=== PATIENT | female | born 2000 | race Caucasian/White ===

== ENCOUNTER → 2024-12-08 | Outpatient (CLI) | payer BC, SELFPAY ==
[2024-12-11 03:07] LABS: Chlamydia By Nucleic Acid AMP Negative (Negative); Gonococcus By Nucleic Acid AMP Negative (Negative)
[2024-12-17 08:08] LABS: HPV Reflexed? NOT INDICATED
== END | disposition home or self-care (01) ==
LOC: LABSPEC 16:05
PROVIDERS: Referring Provider Advanced Practice Midwife; Visit Provider Advanced Practice Midwife
DX: O09.90 Supervision of high risk pregnancy, unspecified, unspecified trimester (principal); Z12.4 Encounter for screening for malignant neoplasm of cervix; Z3A.00 Weeks of gestation of pregnancy not specified
CPT/HCPCS: 87077; 87086; 87088; 87186; 87491; 87591; 88175; G0145

== ENCOUNTER → 2024-12-16 | Outpatient (CLI) | payer BC, SELFPAY ==
[2024-12-16 14:12] LABS: hCG Titer Quant., Serum 28336 mIU/mL (<9 non-preg)
== END | disposition home or self-care (01) ==
PROVIDERS: Referring Provider Obstetrics & Gynecology; Visit Provider Obstetrics & Gynecology
DX: O20.0 Threatened abortion (principal); Z3A.00 Weeks of gestation of pregnancy not specified
CPT/HCPCS: 36415; 84702

== ENCOUNTER → 2024-12-26 | Outpatient (CLI) | payer BC, SELFPAY ==
--- NOTE | 2024-12-26 12:35 | US_ITS ---
PROCEDURE: TRANSVAGINAL W/PREG US 12/26/2024 REASON FOR EXAM: RULE OUT MISCARRIAGE TECHNIQUE: High resolution obstetric ultrasound performed using a 2D transducer. Standard views obtained, including biometry, anatomy survey, and Doppler studies. Transvaginal ultrasound images are provided. COMPARISON: None. FINDINGS Uterus measures 11??? 6.6 x 5.2 cm. No uterine mass lesion is identified. Single intrauterine irregular gestational sac is noted. Mean gestational sac diameter is 2.76 cm corresponds to an estimated gestational age of 7 weeks and 6 days. Estimated gestational age by LMP is 10 weeks and 1 day. Estimated delivery date by LMP is on 07/23/2025. Estimated delivery date based on today's ultrasound is on 08/14/2025. No definite pole is identified. No cardiac activity is identified. Normal right ovary measuring 2.5???2.3???1.4 cm. Normal right ovarian flow. The left ovary was not visualized secondary to overlying bowel gas. No free fluid is identified in the pelvic cul-de-sac. US/Transvaginal w/Preg US IMPRESSION: 1. Single intrauterine irregular gestational sac. 2. No pole is identified. 3. No cardiac activity seen. Reading Location: [facility]
== END | disposition home or self-care (01) ==
PROVIDERS: Referring Provider Obstetrics & Gynecology; Visit Provider Obstetrics & Gynecology
DX: O20.0 Threatened abortion (principal); Z3A.00 Weeks of gestation of pregnancy not specified
CPT/HCPCS: 76817

== ENCOUNTER 2024-12-30 10:29 | Day surgery (SDC) | payer BC, SELFPAY ==
[2024-12-30] VITALS (8 sets, daily range): BP systolic 112–116; BP diastolic 63–71; PULSE 76–94; RESP 16–18; TEMP 36.2–36.9; O2SAT 96–97; BMI 28.4
[2024-12-30] MEDS: Doxycycline 100 MG CAPSULE PO (11:31)
[2024-12-30 11:36] LABS: Hematocrit 37.8 % (37-47); Mean Corp Hgb Conc 34.4 g/dL (32-36); Mean Corpuscular Hgb 30.4 pg (27.0-32.0); Mean Corpuscular Volume 88.3 fL (81-99); Mean Platelet Vol. 10.1 fl (6.2-12.0); Platelet Count 258 K/mm3 (150-450); RBC Distribution Width CV 12.7 % (11.6-14.6); RBC Distribution Width SD 41.2 fl (35.1-43.9); Red Blood Count 4.28 M/mm3 (4.2-5.4); White Blood Count 5.8 K/mm3 (4.4-11.0)
--- NOTE | 2024-12-30 11:38 | PRE.ANES_ITS ---
ASA Classification* ASA Classification ASA Classification: 1 Assessment & Plan Anesthesia* Anesthesia Assessment Anesthesia Assessment: Discussed sedation and/or anesthesia options, risks, benefits, and alternatives with patient/parents/legal guardian/POA. Questions invited. The patient/parents/legal guardian/POA seems to understand and agrees to proceed with anesthesia plan. Reviewed the physical assessment, medical history, allergy history and patient home medications list prior to surgery/procedure/anesthetic and documented any changes. Performed airway and anesthesia risk assessments. Anesthesia Type Anesthesia Type: MAC History Source History Obtained from:: Patient and Chart Anesthesia Focused Assessment* Temperature: 98.4 F Pulse Rate: 76 Blood Pressure: 112/68 Respiratory Rate: 18 Pulse Ox: 97 Oxygen Delivery Method: Room Air Airway Assessment Mouth opens: >3 cm Mallampati Score: I Teeth Condition: Upper (Patient has a permanent retainer behind teeth #8 and 9. 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 When Was Last Pacemaker Check QUESTION #4 FULL TEXT: You/Your Family Experience fever (hyperthermia) with Anesthesia Last Oral Intake Last Oral intake: Last Oral Intake NPO since 02:00 12/30/24 11:24 Meds taken in AM with sips of No 12/30/24 11:24 water? Meds patient instructed to take am of surgery PONV PONV - process safety specialist: PONV - process safety specialist Female Yes 12/29/24 12:36 HX of Motion Sickness No 12/29/24 12:36 HX of N/V After Surgery No 12/29/24 12:36 Non-Smoker Yes 12/29/24 12:36 Duration of Surgery greater No 12/29/24 12:36 than 60 minutes Number of Risk Factors 2 12/29/24 12:36 PONV Score Moderate Risk 12/29/24 12:36 Height & Weight Height & Weight: Anesthesia: Height & Weight Height 5 ft 3 in 12/30/24 11:24 Weight: 72.8 kg 12/30/24 11:24 Body Mass Index (BMI) 28.4 12/30/24 11:24 Respiratory Assessment Respiratory Assessment - process safety specialist: Respiratory Tract Infection Hx - process safety specialist Hx Respiratory Tract Infection No 12/29/24 12:36 STOP Sleep Apnea STOP Sleep Apnea - process safety specialist: STOP Sleep Apnea - process safety specialist Hx Hypertension No 12/29/24 12:36 Hx Sleep Apnea No 12/29/24 12:36 CPAP BIPAP Do you snore loudly (louder No 12/29/24 12:36 than talking or can be heard Do you often feel tired/ No 12/29/24 12:36 fatigued/ sleepy during daytime? Has anyone observed you stop No 12/29/24 12:36 breathing during sleep? STOP Results Negative 12/29/24 12:36 QUESTION #5 FULL TEXT : Do you snore loudly (louder than talking or can be heard through closed doors)? 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 Specify any problems Hx of Preganancy in last 3 N/A 12/29/24 12:36 Months Nurse Filling Out Transfusion NBUCHER 12/29/24 12:36 & Questions: Date: 12/29/24 12/29/24 12:36 Time: 12:36 12/29/24 12:36 Patient unable to answer at this time (ie. confused, unrespo /Reproduction History /Reproductive History - process safety specialist: /Reproductive Hx- process safety specialist Hx Now Gestational Age (in weeks): EDC: Hx Hx Para Hx Section SAB No 12/29/24 12:36 Active Medications Active Medications: Current Medications Generic Name Dose Route Start Last Admin Trade Name Freq PRN Reason Stop Dose Admin Doxycycline Monohydrate 100 mg 12/30/24 12:00 12/30/24 11:31 Doxycycline 100 Mg Capsule PO 12/30/24 12:01 100 mg PREOP ONE Administration PFSH Medical History Wears partial dentures History of Lyme disease Wears glasses Non-smoker Migraine Home Medications ?Medication ?Instructions ?Recorded ?Last Taken ?Type NK 12/29/24 Unknown History Allergy/AdvReac Type Severity Reaction Status Date / Time No Known Allergies Allergy Verified 12/30/24 11:24 Family History Mother Diabetes Type 2 Grandmother Diabetes Maternal Type 2 Social History adopted: No household members: spouse and children number of children: 1 current occupational status: employed 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 current occupational exposures/hazards: No pets and animals: Yes pets and animals: dog(s) history of recent travel: No sexually active: Yes Smoking Status: Never smoker alcohol intake: never substance use type: does not use well-balanced diet: daily or most days caffeine: Yes Type: coffee Number of servings: 1 eating out: rarely or never during the past year weight has: increased > 10 lbs what type of physical activity do you participate in: none vinh/mormon: None seatbelt use: always do you feel safe at home: Yes additional social history: - Alvaro 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
--- NOTE | 2024-12-30 11:48 | DCINST_ITS ---
Discharge Instructions Diet Discharge Diet: No restrictions DC O2, CPAP, BIPAP needs Home O2 Discharge instructions: No Dressing / Incision Discharge Activity: Return to Normal Activity, May Shower and May Take a Tub Bath (after 1 week) May resume sexual activity in: 1-2 weeks Weight Bearing Status: Weight bearing as tolerated Lifting Restrictions: none Dressing / Incision Call your doctor if you observe: Fever of 101 or Higher, Using more than 1 pad per hour, Shortness of breath and Uncontrolled pain Follow Up Care Please Follow Up With: Bev Mandujano DO When: Call [phone] to schedule appointment. Test Results: Test results from this visit will be discussed in further detail at your follow- up appointment, if applicable. Discharge Plan Admission Attending Provider: Miguelina Ibrahim Primary Care Provider: Care Physician,No Primary Instructions Print Language: Persian Discharge Orders/Prescriptions Prescriptions: No Action NK Referrals / Follow Up: Care Physician,No Primary [Primary Care Provider] - Disposition Disposition (needs filled in before D/C Order can be placed): Home, Self Care
--- NOTE | 2024-12-30 11:48 | PCM.HP.BLA ---
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: No Is patient in pain?: No Allergies No Known Allergies Allergy (Verified 12/29/24 12:35) Medications ?Medication ?Instructions ?Recorded ?Confirmed ?Type NK 12/29/24 12/29/24 History Post menopausal: No : No [facility] Medical History (Updated 12/29/24 @ 12:42 by Mariah Coley) Wears partial dentures History of Lyme disease Wears glasses Non-smoker Migraine Family History Mother Diabetes Type 2Grandmother Diabetes Maternal Type 2 Social History adopted: No household members: spouse and children number of children: 1 current occupational status: employed 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 current occupational exposures/hazards: No pets and animals: Yes pets and animals: dog(s) history of recent travel: No sexually active: Yes Smoking Status: Never smoker alcohol intake: never substance use type: does not use well-balanced diet: daily or most days caffeine: Yes Type: coffee Number of servings: 1 eating out: rarely or never during the past year weight has: increased > 10 lbs what type of physical activity do you participate in: none vinh/adventism: None seatbelt use: always do you feel safe at home: Yes additional social history: - Alvaro 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 She is over 10 weeks since her last menses and ultrasound shows a 7 week gestational sac without pole or heart tones. 2 weeks ago there were 2 gestational sacs and 2 yolk sacs. History 2 Elective abortions Hx Para 1 Spontaneous abortions 1 Hx # Term Pregnancies Ectopic pregnancies Hx # Pregnancies Multiple births # of living children 1 Past Pregnancies Del. Date Name GA/Weeks Outcome Route Bth Weight Infant Gen Labor Lgth Anesthesia Del Locatn Provider FOB 12/27/23 Michael 40 live - full term 7#14oz Male epidural [facility] [place] Alvaro Delivery Date: 09/12/23 Last Updated by: Miguelina Koch IOL postdates ROS Const ROS Unobtainable: All systems reviewed & are unremarkable except as noted in H Resp Resp: Reports system reviewed and no additional complaints, except as documented; Denies cough GI GI: Reports as per HPI Psych Psych: Reports system reviewed and no additional complaints, except as documented Exam Const General: cooperative, healthy appearing, comfortable and no acute distress Resp Effort & Inspection: normal respiratory effort Skin General: no rashes or lesions noted Psych Appearance: grossly normal Speech and Movement: speech and movement normal Coding Level of Care Code Off vis,est,level 4 Diagnoses Missed O02.1 Assessment and Plan Assessment and Plan (1) Missed : Status: Acute Comment: patient should be 10 weeks based on her + test on Nov 03 and today a CRL that is less than 6 weeks without heart tones is picked up. She is requesting labs and a formal ultrasound to confirm. will call with results. Plan: After discussing the patient's diagnosis and treatment plan options, patient wishes to proceed with surgical management. I have discussed with the patient the risks, benefits, and alternatives of the procedure which include but are not limited to risks of anesthesia, bleeding, infection, possible damage to bowel, bladder, or surrounding vasculature which could lead to additional surgery to evaluate any complications. Patient agrees to procedure and wishes to proceed. ACOG/uptodate references given for additional information regarding procedure. plan for suction dilation and curettage
--- NOTE | 2024-12-30 12:00 | POC_PTH ---
PATIENT: MICA RIGGS [place] [facility] [place][id number] AGE/SX: ROOM: RE12/30/[address]: Dr. Miguelina Ibrahim MD : [id number] BED: DIS: 12/30/2024 SPEC #: [id number] RECD: 12/30/24 13:41 STATUS: SANDY RENoelle #: [id number] OLU: 12/30/24 12:[address]: Miguelina Ibrahim DEPT: SURGICAL PATHOLOGY RECD BY: Lorenzo Jolly ENTERED: 12/30/24 13:41 SP TYPE: PROD CONC OTHR DR: No Primary Care Phys Tissues: A - Product of conception, NOS Procedures: Surgery Specimen Level IV HEADER OPERATION: Dilation and curettage, suction, no anora testing PRE-OP DIAGNOSIS: Missed TISSUE SUBMITTED: A- Products of conception MICROSCOPIC DIAGNOSIS A. Uterine content, missed , dilation and curettage: * Degenerated immature chorionic villi and decidua, consistent with products of conception. MICROSCOPIC DESCRIPTION Slides are reviewed. GROSS DESCRIPTION A. Received in formalin in a container labeled with the patient's name, date of , and products of conception are multiple frausto-pink fragments of soft tissue admixed with blood clot material measuring 8.5 x 8.0 x 1.0 cm in aggregate. The tissue is finely searched, and a 2.9 x 1.5 x 1.0 cm fragment of frausto-pink and feathery possible chorionic villous tissue is identified. No grape-like clusters are discovered; no parts are found. Automation Design Engineer sections are submitted in A1-2. [facility] 01/02/2025 CPT:07677
[2024-12-30] MEDS: Lidocaine 1% (20 ml mdv) 20 ML Vial (12:19)
[2024-12-30] MEDS: Methylergonovine 0.2 MG/ML Ampul IM (12:30)
--- NOTE | 2024-12-30 12:30 | OP.PCM_ITS ---
Multi Select Codes Urinary/Genital Urinary/Genital CPT Codes: 07899 Surg Trtmt missed Ab 1TM Operative Report (Standard) Operative Information Date of Procedure: 12/30/24 Pre-Operative Diagnosis: 7 weeks missed Post-Operative Diagnosis: 7 weeks missed Surgery/Procedure Performed: suction dilation and curettage control systems engineer: No Type of Anesthesia: MAC and Topical Anesth RN Documented Start/Stop Times: Operation Date: 12/30/24 12:00 Case Time Into Pre-Op 12/30/24 10:44 Out of Pre-Op 12/30/24 12:00 Anesthesia Start 12/30/24 12:05 Into Room 12/30/24 12:05 Procedure Start 12/30/24 12:19 Procedure Start Time: 12:19 Procedure Stop Time: 12:29 Select all DRAINS/GRAFTS/IMPLANTS that apply: None Estimated Blood Loss: 50cc Specimen collected: Yes Description of specimen(s) removed: products of conception Description of surgery: Patient was taken to the operating room and placed under MAC local anesthesia. She was prepped and draped in the normal sterile fashion the dorsal lithotomy position. Bladder was drained of clear urine and anterior lip of the cervix was grasped and the uterus sounded to 9 cm. Cervix was progressively dilated to allow passage of a 8mm suction curette. Progressive passes were made removing the retained products of conception without complication. Sharp curettage confirmed complete removal of the retained products. All instruments were removed from the vagina and excellent hemostasis was noted and the patient was taken to recovery in stable condition. Surgical Findings: normal cervix and vagina, normal appearing products of conception Complications Complications: No Admit VTE Documentation VTE Present on Admission: No VTE Mechan Device Prophylaxis: SCD's VTE Pharm Prophylaxis ordered?: No
--- NOTE | 2024-12-30 12:37 | PCM.POST.ANE ---
Anesthesia: Postop Eval I Current Vital Signs Temperature: 97.1 F Pulse Rate: 82 Blood Pressure: 116/69 Respiratory Rate: 16 Pulse Ox: 96 Oxygen Delivery Method: Room Air Assessment Airway patent: Yes Spontaneous unlabored respirations: Yes Mental status: Calm nausea: No Vomiting: No Anesthesia Complication: No Fluid Hydration Crystalloid volume administer (ml): 20 Total IV fluid infused: 20 Progress Note Anesthesia document: Postop Eval 1 completed: Yes
--- NOTE | 2024-12-30 16:24 | PCM.POSTANE2 ---
Anesthesia Postop Eval I Sum Anesthesia Postop Eval I Summary Anesthesia Postop Eval I Summary: Anesthesia Postop Eval I: Assessment Summary Airway patent Spontaneous unlabored respirations Mental status nausea Vomiting Anesthesia Postop Eval I: Fluid Summary Crystalloid volume administer (ml) Colloids volume administered ( ml) Blood Product volume administered (ml) Total IV fluid infused Anesthesia Postop Eval I: Summary Notes Anesthesia Complication Anesthesia Complication Comment: Post-operative progress note Anesthesia: Postop Eval II Evaluation Mental status: Awake and Calm Pain Level: 1 nausea: No Vomiting: No Complications Anesthesia Complication: No
== END 2024-12-30 13:38 | disposition home or self-care (01) ==
LOC: SDC 10:30 → AC 10:31
PROVIDERS: Obstetrics & Gynecology; Referring Provider Obstetrics & Gynecology; Visit Provider Obstetrics & Gynecology
PROC: (CPT 59820; principal; 2024-12-30 11:45)
DX: O02.1 Missed abortion (principal)
CPT/HCPCS: 59820; 85027; 86850; 86900; 86901; 88305; A4216; J2405

== ENCOUNTER 2025-09-08 15:41 | Emergency (ER) | payer BC, SELFPAY ==
[2025-09-08 15:43] VITALS: BP 114/80; PULSE 85; RESP 18; TEMP 36.4; O2SAT 100; BMI 27.9
[2025-09-08 16:08] VITALS: BP 113/63; BP 117/68; BP 123/77; PULSE 70; PULSE 72; PULSE 82
--- NOTE | 2025-09-08 16:11 | EDS_ITS ---
HPI HPI - Female History of Present Illness Chief Complaint: Vag Bld, Preg Detail of Chief Complaint: Vaginal bleeding Informant: patient Narrative Narrative: Patient presents with vaginal bleeding that started this morning. Initially had some small amount of spotting last evening. She is a G3, P1 and 6 weeks and 6 days . She was seen by her CONSTRUCTION EQUIPMENT TECHNICIAN this morning and had a quant and had a pelvic ultrasound that showed intrauterine gestational sac. Patient states that she has had some increase in the bleeding today and has passed some clots and so she called her OB and was told to come in and get evaluated. She denies feeling lightheaded or dizzy. She denies any significant pain. She has never needed RhoGAM and has had 1 prior miscarriage [facility] Medical History History of depression Maternal varicella, non-immune Missed Wears partial dentures History of Lyme disease Wears glasses Non-smoker Migraine Home Medications ?Medication ?Instructions ?Recorded ?Last Taken ?Type docosahexaenoic acid 200 mg mg PO 09/08/25 Unknown His tory capsule ( DHA) Allergy/AdvReac Type Severity Reaction Status Date / Time No Known Allergies Allergy Verified 09/08/25 15:44 Family History Mother Diabetes Type 2 Grandmother Diabetes Maternal Type 2 Surgical History H/O dilation and curettage Social History adopted: No household members: spouse and children number of children: 1 current occupational status: employed 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 current occupational exposures/hazards: No pets and animals: Yes pets and animals: dog(s) history of recent travel: No sexually active: Yes Smoking Status: Never smoker alcohol intake: never substance use type: does not use well-balanced diet: daily or most days caffeine: Yes Type: coffee Number of servings: 1 eating out: rarely or never during the past year weight has: increased > 10 lbs what type of physical activity do you participate in: none vinh/hinduism: None seatbelt use: always do you feel safe at home: Yes additional social history: - [employer] Under[employer] at [employer]( Served in the [employer]) ROS ROS ED Review of Systems ROS Unobtainable: other Constitutional Constitutional ED: Reports lethargy; Denies chills, fever(s), sweats or weight loss Eyes Eyes: Denies blurry vision, change in vision or diplopia ENT ENT ED: Denies rhinorrhea or sore throat Cardiovascular Cardiovascular: Denies chest pain, orthopnea or racing heartbeat Respiratory/Chest Respiratory/Chest: Denies cough, dyspnea, dyspnea on exertion, orthopnea or sputum Gastrointestinal Gastrointestinal: Denies abdominal pain, diarrhea, nausea or vomiting Genitourinary Genitourinary ED: Reports other Details: Vaginal bleeding with ; Denies dysuria, hematuria or urinary frequency Musculoskeletal Musculoskeletal: Denies arthralgias, back pain, myalgias or neck pain Integumentary Denies abscess, Abrasions or rash Neurologic Neurologic: Denies headache(s) or weakness Psychiatric Psychiatric: Denies anxiety, depression or suicidal thoughts Endocrine Endocrinology: Denies polydipsia, polyphagia or polyuria Hematologic/Lymphatic Hematologic/Lymphatic: Denies easy bleeding, easy bruising or lymphadenopathy Allergic/Immunologic Allergic/Immunologic ED: Denies mouth swelling, tongue swelling or urticaria EXAM Physical Exam Const Vital Signs: 09/08/25 15:43 09/08/25 16:08 09/08/25 16:32 Temperature 97.6 F L 98.1 F Temperature Source Temporal Pulse Rate 85 74 Pulse Rate [Lying] 72 Pulse Rate [Sitting (for 1 minute prior to obtaining)] 70 Pulse Rate [Standing (for 1 minute prior to obtaining)] 82 Respiratory Rate 18 15 Blood Pressure 114/80 114/68 Blood Pressure [Lying] 113/63 Blood Pressure [Sitting (for 1 minute prior to obtaining)] 117/68 Blood Pressure [Standing (for 1 minute prior to obtaining)] 123/77 H Blood Pressure Mean 91 83 Blood Pressure Mean [Lying] 79 Blood Pressure Mean [Sitting (for 1 minute prior to obtaining)] 84 Blood Pressure Mean [Standing (for 1 minute prior to obtaining)] 92 Pulse Ox 100 96 Oxygen Delivery Method Room Air Positive well nourished and well developed General Appearance ED: well developed and NAD HEENT Reports TM's clear and moist mucous membranes normocephalic and atraumatic; Negative for trauma or tenderness Tympanic Membrane ED: Yes TM's clear Eyes PERRL and EOMs intact bilaterally General Eye ED: Negative for pale conjunctiva or scleral icterus Neck no lymphadenopathy, supple and no JVD General: Negative for tenderness Chest Wall inspection of chest normal and palpation of chest normal Chest: Negative for tenderness Resp normal respiratory effort and clear to auscultation bilaterally Effort and Inspection: Negative for respiratory distress or pain with movement Auscultation: Negative for rhonchi, wheezes or diminished lung sounds Cardio regular rate, regular rhythm, S1 normal heart sound, S2 normal heart sound and no murmurs Peripheral Pulses: pulses 2+ throughout GI normal to inspection, nondistended, normoactive bowel sounds, soft to palpation, non-tender, non-distended and no masses Back/Spine no CVA tenderness and no thoracic nor lumbar tenderness Extremity normal to inspection General Extremety ED: Negative for edema General Extremity: Negative for edema Neuro oriented x3, CN's II-XII intact bilaterally, no sensory deficits noted and gait normal Sensorium / Orientation: awake, alert, oriented to person, oriented to place and oriented to time Motor Exam: strength 5/5 throughout and strength abnormal Psych mental status grossly normal Skin no rashes or lesions noted and no wounds MDM MDM MDM Narrative Medical decision making narrative: Patient presents to the emergency department with concern for vaginal bleeding with first trimester. Seen by her CONSTRUCTION EQUIPMENT TECHNICIAN this morning and had an ultrasound that showed an intrauterine and had a quant level this morning over 11,000. She went home and had more bleeding and came in for evaluation because she passed some clots. She is gone through 2 pads today. Not having any significant pain. Patient had a CBC with differential that showed a white count 7.9 with hemoglobin 13.2 and platelet count of 300. Orthostatic vital signs were negative here. Her blood type is a positive. Discussed case with Dr. Wilson who is covering for Dr. Rivers. She did not want any further diagnostics at this time as she was able to review patient's office visit and ultrasound that she had today. Patient not having significant pain and she is hemodynamically stable. Will require repeat quant in 3 days and patient is aware of this. She is advised to return if persistent heavy bleeding such as going through more than 1 pad an hour for 4 consecutive hours or having severe pain. Lab Data Attestation: I reviewed the patient's lab results. Labs: Laboratory Results - last 24 hr 09/08/25 16:18 WBC 7.9 RBC 4.45 Hgb 13.2 Hct 38.7 MCV 87.0 MCH 29.7 MCHC 34.1 RDW Std Deviation 40.4 RDW Coeff of Harsha 12.7 Plt Count 300 MPV 9.6 Immature Gran % (Auto) 0.300 Neut % (Auto) 70.9 H Lymph % (Auto) 20.5 [place] % (Auto) 6.2 Eos % (Auto) 1.3 Baso % (Auto) 0.8 Absolute Neuts (auto) 5.6 Absolute Lymphs (auto) 1.61 Nucleated RBC % 0 Discharge Plan Triage Chief Complaint: Vag Bld, Preg ED Provider: Mercedes Martinez Dx/Rx/DC Orders Clinical Impression: , threatened Instructions: Miscarriage Threatened Prescriptions: No Action DHA 200 mg capsule PO Primary Care Provider: Care Physician,No Primary Referrals: Care Physician,No Primary [Primary Care Provider, Medical] Activity Restrictions/Additional Instructions: Follow-up with Dr. Rivers's office for repeat quant in 3 days Print Language: Thai Disposition Disposition: Home, Self Care
[2025-09-08 16:23] LABS: Hematocrit 38.7 % (37-47); Hemoglobin 13.2 g/dL (12.0-15.0); Immature Granulocytes Count 0.020 X10^3/uL (0.0-0.0); Mean Corp Hgb Conc 34.1 g/dL (32-36); Mean Corpuscular Volume 87.0 fL (81-99); Mean Platelet Vol. 9.6 fl (6.2-12.0); NRBC Flagged by Analyzer 0 % (0-5); Platelet Count 300 K/mm3 (150-450); RBC Distribution Width CV 12.7 % (11.6-14.6); RBC Distribution Width SD 40.4 fl (35.1-43.9); Red Blood Count 4.45 M/mm3 (4.2-5.4); White Blood Count 7.9 K/mm3 (4.4-11.0)
[2025-09-08 16:32] VITALS: BP 114/68; PULSE 74; RESP 15; TEMP 36.7; O2SAT 96
--- OUTSIDE RECORDS SUMMARY | 2025-09-08 17:42 | XMS RPT_ITS | CCD ---
Author Organization [facility] Care Team Providers Care Credit Card Control Clerk Name Role Phone MEGGAN WALDROP Unavailable Unavailable NO PRIMARY CARE, Unavailable Unavailable Unavailable Primary Care Provider Unavailbetty Jules MD, Warren Leiva Primary Care Provider Jorge A ABRAMS, Warren Leiva Primary Care Provider Jorge A ABRAMS, Warren Leiva Primary Care Provider MARTHA MCCANN Attending Unavailable KAMILAH SERNA Referring Unavailable WARREN JULES Primary Care Unavaila MARTHA Mayo Attending Unavailable WARREN JULES Primary Care Unavaila iLsette Snow CNM Attending Provider [phone] Lisette Conde CNM Referring Provider Dr. Bev Mandujano DO Attending Provider Care Physician, No Primary Primary Care Provider Unavailable Dr. Bev Mandujano DO Referring Provider Care Physician, No Primary Referring Provider Un available Dr. Miguelina Ibrahim MD Attending Provider Dr. Miguelina Ibrahim MD Referring Provider [phone] Dr. Miguelina Ibrahmi MD Other Provider Care Physician, No Primary Primary Care Unava ilable Care Physician, No Primary Referring Unava ilable Bev Mandujano Attending Unavailabl e Care Physician, No Primary Referring Unava ilable Care Physician, No Primary Primary Care Unava ilable Kuldeep COMMERCIAL LITIGATION ATTORNEY, Jayla Attending Unavailable Lisette Conde Attending Unavailable Bev Mandujano Attending UnavailMiguelina Horner Consulting Unavailable Alexandria, Miguelina Referring Unavailable Care Physician, No Primary Primary Care Unava ilable Lisette Conde Attending Unavailable Lyndsay Redding, Bev Attending [facility] Care Physician, No Primary Primary Care Unava ilable Alexandria, Miguelina Referring Unavailable Miguelina Ibrahim Attending Unavailable Care Physician, No Primary Primary Care Unava ilable Lyndsay Redding, Bev Attending Roseann Mandujaon, Bev Referring [facility] Care Physician, No Primary Primary Care Unava ilable Lyndsay Redding, Bev Attending Unavailbetyt Mandujano, Bev Referring Unavailbetty e Lisette Conde Attending Unavailable Lisette Conde Referring Unavailable Medications Current Medications Medication Drug Class(es) Dates Sig (Normalized) Sig (Original) acetaminophen 325 mg / oxyCODONE hydrochloride 5 mg oral tablet (2 sources) Opioid Agonist Start: 12-30-2024 take 1 tablet by mouth every four hours as needed for pain Oxycodone-Acetami nophen (Percocet) 5-325 mg tablet Active 1 {tbl} PO Q4H as needed for pain 7 December 30, 2024 Start: 04-02-2021 End: 04-02-2021 oxyCODONE-acetaminophen (PER COCET) 5-325 MG per tablet 2 tablet cetirizine hydrochloride 10 mg oral tablet (1 source) Histamine-1 Receptor Antagonist take 1 tablet by mouth once daily cetirizine (ZYRTEC) 10 MG tablet Take 10 mg by mouth daily 0 Active diazePAM 5 mg oral tablet (1 source) Benzodiazepine Start: 04-03-20 End: 04-06-20 take 1 tablet by mouth every six hours as needed for pain diazePAM (VALIUM) 5 MG tablet Indications: Neck pain Take 1 tablet by mouth every 6 hours as needed (pain/spasm) for up to 3 days. 10 tablet 0 04/03/2021 04/06/2021 Active Ethinyl Estradiol / Norethindrone (5 sources) Estrogen Start: 12-29-19 End: 06-21-20 take 1 tablet by mouth once daily, then take 0.05 tablet by mouth once Norethindrone Acet-Ethinyl Est (JUNE,) 1-20 mg-mcg per tablet Indications: Encounter for initial prescription of contraceptive pills Take 1 tablet by mouth once daily. Take continuously, skip placebo week. 4 Package 3 12/28/2020 06/21/2022 Discontinued Start: 12-28-2020 take 1 tablet by carissa th once daily, then take 0.05 tablet by mouth once Norethindrone Acet-Ethinyl Est (JUNEL 10/06, ,) 1-20 mg-mcg per tablet Indications: Encounter for initial prescription of contraceptive pills Take 1 tablet by mouth once daily. Take continuously, skip placebo week. 4 Package 3 12/28/2020 Active Start: 12-28-2020 take 1 tablet by carissa th once daily, then take 0.05-1 tablets by mouth once norethindrone-ethinyl estradiol (MICROGESTIN 10/06) 1-20 MG-MCG per tablet Take 1 tablet by mouth daily 0 12/28/2020 Active Comment on above: Take 1 tablet by carissa th once daily. Take continuously, skip placebo week. frovatriptan 2.5 mg oral tablet (2 sources) Serotonin-1b and Serotonin-1d Receptor Agonist Start: 12-20-19 End: 06-21-20 take 1 tablet by mouth every two hours as needed for headache, then take 3 tablets by mouth every twenty-four hours as needed for headache frovatriptan (FROVA) 2.5 mg tablet Take 1 tablet by mouth as needed (at onset of headache. May repeat after 2 hours.). If headache recurs, may repeat after 2 hours. Max of 3 tablets in 24 hours. 9 tablet 5 12/19/2021 06/21/2022 Discontinued Comment on above: Take 1 tablet by carissa th as needed (at onset of headache. May repeat after 2 hours.). If headache recurs, may repeat after 2 hours. Max of 3 tablets in 24 hours. ibuprofen 800 mg oral tablet (2 sources) Nonsteroidal Anti-inflammatory Drug Start: 12-31-19 25 take 1 tablet by mouth every eight hours as needed for pain Ibuprofen 800 mg tablet Active 800 mg PO Q8H as needed for pain December 30, 2024 12:00am Start: 04-02-2021 End: 04-02-2021 ibuprofen (ADVIL;MOTRIN) tab let 400 mg lidocaine 0.05 mg/mg medicated patch (2 sources) Antiarrhythmic, Amide Local Anesthetic Start: 04-03-2021 End: 04-13-2021 lidocaine (LIDODERM) 5 % Place 1 patch onto the skin daily for 10 days 12 hours on, 12 hours off. 10 patch 0 04/03/2021 04/13/2021 Active Start: 04-02-2021 lidocaine 4 % external patch 1 patch meloxicam 7.5 mg oral tablet (4 sources) Nonsteroidal Anti-inflammatory Drug Start: 12-19-2021 End: 06-21-2022 take 1 tablet by mouth once daily meloxicam (MOBIC) 7.5 mg tablet Take 1 tablet by mouth once daily. 25 tablet 5 12/19/2021 06/21/2022 Discontinued Start: 04-03-2021 take 1 tablet by carissa th once daily meloxicam (MOBIC) 15 MG tablet Take 1 tablet by mouth daily 30 tablet 0 04/03/2021 Active Comment on above: Take 1 tablet by carissa th once daily. [place] (Nk) (1 source) Start: 12-29-2024 [place] (Nk) Active December 29, 2024 12:00am predniSONE 50 mg oral tablet (2 sources) Start: 03-31-2021 take 1 tablet by mouth once daily predniSONE (DELTASONE) 50 MG tablet TAKE 1 TABLET BY MOUTH ONCE DAILY 0 03/31/2021 Active PREDNISONE PO Ta ke by mouth 0 Active rizatriptan 10 mg disintegrating oral tablet (4 sources) Serotonin-1b and Serotonin-1d Receptor Agonist Start: 11-22-2021 End: 06-21-2022 take 1 tablet by mouth every two hours rizatriptan (MAXALT-ACCOUNTING SYSTEM EXPERT) 10 mg disintegrating tablet Take 1 tablet by mouth as directed. at onset of headache. May repeat after 2 hours. Do not exceed 30 mg per day. 12 tablet 5 11/22/2021 06/21/2022 Discontinued Comment on above: Take 1 tablet by carissa th as directed. at onset of headache. May repeat after 2 hours. Do not exceed 30 mg per day. divalproex sodium 250 mg delayed release oral tablet (4 sources) Mood Stabilizer, Anti-epileptic Agent Start: 11-22-2021 End: 06-21-2022 take 1 tablet by mouth twice daily divalproex DR (DEPAKOTE) 250 mg EC tablet Take 1 tablet by mouth twice daily. 60 tablet 0 11/22/2021 06/21/2022 Discontinued Comment on above: Take 1 tablet by carissa twice daily. 24 hr venlafaxine 37.5 mg extended release oral capsule (2 sources) Serotonin and Norepinephrine Reuptake Inhibitor Start: 12-19-2021 End: 06-21-2022 take 1 capsule by mouth every twenty-four hours in the morning venlafaxine ER (EFFEXOR XR) 37.5 mg 24 hr capsule 2 po q am 60 capsule 5 12/19/2021 06/21/2022 Discontinued Comment on above: 2 po q am Completed/Discontinued Medications Medication Drug Class(es) Dates Sig (Normalized) Sig (Original) 10 ml methocarbamol 100 mg/ml injection (1 source) Muscle Relaxant Start: 04-02-2021 End: 04-02-2021 methocarbamol (ROBAXIN) injection 1,000 mg Mv-Mins 81-Hwxw-Bhbld No.1-Dha (Pnv-Wells) 28-1-300 mg capsule (4 sources) Start: 11-25-2024 End: 12-29-2024 Mv-Mins 72-Mrov-Lvioh No.1-Dha (Pnv-Wells) 28-1-300 mg capsule Discontinued NMA PO November 25, 2024 12:00am December 29, 2024 12:35pm Start: 11-25-2024 Mv-Mins 71-Iro n-Folic No.1-Dha (Pnv-Wells) 28-1-300 mg capsule Active NMA PO November 25, 2024 12:00am norethindrone 0.35 mg oral tablet (3 sources) Start: 10-18-2022 take 1 tablet by mouth once daily Norethindrone, Contraceptive, 0.35 mg tablet Indications: Encounter for initial prescription of contraceptive pills Take 1 tablet by mouth once daily. 84 tablet 3 10/18/2022 Active Comment on above: Take 1 tablet by carissa once daily. Problems Problem Classification Problem Date Documented Date Episodic/Chronic Contraceptive and procreative management (2 sources) Patient encounter status; Translations: [Encounter for initial prescription of contraceptive pills] Onset: 10-18-2022 Episodic Headache; including migraine (2 sources) Tension-type headache; Translations: [Tension-type headache, unspecified, not intractable] Chronic Hemorrhage during ; abruptio placenta; placenta previa (1 source) Threatened ; Translations: [Threatened ] Onset: 12-29-2024 Episodic Immunizations and screening for infectious disease (1 source) Bacterial antibody present; Translations: [Other specified abnormal immunological findings in serum] Episodic Lymphadenitis (1 source) Axillary lymphadenopathy; Translations: [Localized enlarged lymph nodes] Episodic Menstrual disorders (8 sources) Menorrhagia; Translations: [Excessive and frequent menstruation with regular cycle] 05-01-2016 Chronic Other complications of (8 sources) High risk ; Translations: [Supervision of high risk , unspecified, unspecified trimester] 11-25-2024 Episodic Comment on above: , TESSA 07/14/25, FERNANDO Rodriguez, Alvaro(Served in [employer]) Other complications of (8 sources) H/O: depression; Translations: [History of depression, currently ] 11-25-2024 Episodic Other complications of (8 sources) Varicella non-immune; Translations: [Supervision of other high risk pregnancies, unspecified trimester] 11-25-2024 Episodic Comment on above: recommend varicella vaccine post delivery Other complications of (8 sources) Missed miscarriage; Translations: [Missed ] 12-16-2024 Episodic Comment on above: patient should be 10 weeks based on her + test on Nov 03 and today a CRL that is less than 6 weeks without heart tones is picked up. She is requesting labs and a formal ultrasound to confirm. will call with results. Other complications of (1 source) Missed ; Translations: [Missed ] Onset: 12-30-2024 Episodic Other complications of (1 source) Supervision of high risk , unspecified, unspecified trimester; Translations: [Supervision of high risk , unspecified, unspecified trimester] Onset: 03-02-2025 Episodic Other complications of (1 source) Supervision of other high risk pregnancies, unspecified trimester; Translations: [Supervision of other high risk pregnancies, unspecified trimester] Onset: 12-08-2024 Episodic Other infections; including parasitic (9 sources) Lyme disease; Translations: [Lyme disease, unspecified] Episodic Other infections; including parasitic (1 source) Lyme disease, unspecified; Translations: [Lyme disease, unspecified] Onset: 12-08-2024 Episodic Other liver diseases (1 source) Large liver; Translations: [Hepatomegaly, not elsewhere classified] Episodic Other liver diseases (1 source) Elevated liver enzymes level; Translations: [Abnormal levels of other serum enzymes] Episodic Other and delivery including normal (8 sources) ; Translations: [Encounter for supervision of normal , unspecified, unspecified trimester] 12-08-2024 Episodic Comment on above: elects NIPT with Gen schuyler Other screening for suspected conditions (not mental disorders or infectious disease) (3 sources) Cancer cervix screening status; Translations: [Encounter for screening for malignant neoplasm of cervix] Onset: 06-21-2022 Episodic Other skin disorders (1 source) Facial swelling ; Translations: [Localized swelling, mass and lump, head] Episodic Other skin disorders (1 source) Finding of neck region; Translations: [Localized swelling, mass and lump, trunk] Episodic Other skin disorders (1 source) H/O: skin disorder; Translations: [Personal history of diseases of the skin and subcutaneous tissue] Episodic Residual codes; unclassified (1 source) 8 weeks gestation of ; Translations: [8 weeks gestation of ] Onset: 12-08-2024 Episodic Screening and history of mental health and substance abuse codes (1 source) Personal history of other mental and behavioral disorders; Translations: [Personal history of other mental and behavioral disorders] Onset: 12-08-2024 Episodic Skin and subcutaneous tissue infections (1 source) Infection of skin; Translations: [Local infection of the skin and subcutaneous tissue, unspecified] Episodic Spondylosis; intervertebral disc disorders; other back problems (2 sources) Neck pain; Translations: [Cervicalgia] Episodic Unclassified (1 source) Other specified diseases and conditions complicating ; Translations: [Other specified diseases and conditions complicating ] Onset: 12-08-2024 Unclassified (1 source) Other underimmunization status; Translations: [Other underimmunization status] Onset: 12-08-2024 Results Test Name Value Interpretation Reference Range Facility Intervention Analyst Office Visit Reporton 01-13-2025 Intervention Analyst Office Visit Report [facility] [address], [address] [place] [address] OFFICE VISIT Date of Service: 01/13/25 MR#: [id number] Acct: [id number] Name: SHARA RIGGS Rep #: [id number] : 2000 Provider: EDIN hicks Age/Sex: 24/F Location: [facility] Status: Signed Intake Vital Signs 12/30/24 11:24 01/13/25 09:18 01/13/25 09:19 Height 5 ft 3 in 5 ft 3 in 5 ft 3 in Weight: 161 lb BMI 28.5 BP 116/72 Intake Visit Reasons: BC Consult *COPAY $20 Digital Press Operator Required: No Is patient in pain?: No Allergies No Known Allergies Allergy (Verified 01/13/25 09:18) Medications ???Medication ???Instructions ???Recorded ???Confirmed ???Type ibuprofen 800 mg tablet 800 mg PO Q8H PRN pain #30 tabs 01/13/25 Rx Is last menstrual period known: No Post menopausal: No Patient : No : No PFSH Medical History (Updated 01/13/25 @ 09:40 by Jayla Light NP, EDIN) History of depression Maternal varicella, non-immune Missed Wears partial dentures History of Lyme disease Wears glasses Non-smoker Migraine Surgical History H/O dilation and curettage Family History Mother Diabetes Type 2 Grandmother Diabetes Maternal Type 2 Social History adopted: No household members: spouse and children number of children: 1 current occupational status: employed 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 current occupational exposures/hazards: No pets and animals: Yes pets and animals: dog(s) history of recent travel: No sexually active: Yes Smoking Status: Never smoker alcohol intake: never substance use type: does not use well-balanced diet: daily or most days caffeine: Yes Type: coffee Number of servings: 1 eating out: rarely or never during the past year weight has: increased > 10 lbs what type of physical activity do you participate in: none vinh/religious: None seatbelt use: always do you feel safe at home: Yes additional social history: - 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 Recent D C per Dr Mandujano for missed . States doing well post procedure. They do not want another for at least 2 years. They have a 2 year old. States was on oral contraceptives in past from another provider but couldn't remember to take consistently History 2 Elective abortions Hx Para 1 Spontaneous abortions 1 Hx # Term Pregnancies Ectopic pregnancies Hx # Pregnancies Multiple births # of living children 1 Past Pregnancies Del. Date Name GA/Weeks Outcome Route Bth Weight Gen Labor Lgth Anesthesia Del Locatn Provider FOB 09/12/23 Irma 40 live - full term 7#14oz Male epidural [place], [place] Alvaro Delivery Date: 09/12/23 Last Updated by: Miguelina Koch IOL postdates ROS Const Constitutional: Reports system reviewed and no additional complaints, except as documented Eyes Eyes: Reports system reviewed and no additional complaints, except as documented GI GI: Denies abdominal pain or change in bowel habits : Reports as per HPI Exam Const General: cooperative and no acute distress Orientation: oriented x3 HENMT Head: normal to inspection and normocephalic Eyes General: appearance normal, both eyes and all related structures Neck Neck: normal visual inspection Resp Effort Inspection: normal respiratory effort Neuro Cognition: normal cognition Speech: speech normal Psych Appearance: grossly normal Mood: congruent mood Affect: normal affect Speech and Movement: speech and movement normal Attitude: cooperative Judgment: judgment good Coding Level of Care Code Off vis,est,level 2 Diagnoses Encounter for initial prescription of other contraceptives Z30.018 Contraceptive encounter type: initial prescription Contraceptive type: other Assessment and Plan Assessment and Plan (1) Contraception management: Status: Acute Qualifiers: Contraceptive encounter type: initial prescription Contraceptive type: other Qualified Code(s): Z30.018 - Encounter for initial prescription of other contraceptives Comment: PA for martha Medications: Discontinued oxycodone-acetaminoph en 5-325 mg (Percocet) Discontinued Reason: Pt no longer taking 1 TAB PO Q4H 7 days PRN 7 tabs 0RF pain O02.1 - Missed Plan Contraceptive options reviewed with patient. Patient would like to proceed with martha IUD. They are kathie (more content not included)... Normal [facility] CBC-Complete Blood Cnt No Di arpitaon 12-30-2024 Erythrocyte distribution width (RBC) [Ratio] 12.7 % Normal 11.6-14.6 [facility] Comment on above: Performed By: #### L 100.0500 #### [facility] [address] [place], [address] Hematocrit (Bld) [Volume fraction] 37.8 % Normal 37-47 [facility] Comment on above: Performed By: #### L 100.0500 #### [facility] [address] [place], [address] Hemoglobin (Bld) [Mass/Vol] 13.0 g/dL Normal 12.0-15.0 [facility] Comment on above: Performed By: #### L 100.0500 #### [facility] [address] [place], [address] MCH (RBC) [Entitic mass] 30.4 pg Normal 27.0-32.0 [facility] Comment on above: Performed By: #### L 100.0500 #### [facility] [address] [place], [address] MCHC (RBC) [Mass/Vol] 34.4 g/dL Normal 32-36 [facility] Comment on above: Performed By: #### L 100.0500 #### [facility] [address] [place], [address] MCV (RBC) [Entitic vol] 88.3 fL Normal 81-99 [facility] Comment on above: Performed By: #### L 100.0500 #### [facility] [address] [place], [address] Platelet mean volume (Bld) [Entitic vol] 10.1 fL Normal 6.2-12.0 [facility] Comment on above: Performed By: #### L 100.0500 #### [facility] [address] [place], [address] Platelets (Bld) [#/Vol] 258 10*3/uL Normal 150-450 [facility] Comment on above: Performed By: #### L 100.0500 #### [facility] [address] [place], [address] RBC (Bld) [#/Vol] 4.28 10*6/uL Normal 4.2-5.4 [facility] Comment on above: Performed By: #### L 100.0500 #### [facility] [address] [place], [address] RDW SD 41.2 fl Normal 35.1-43.9 [facility] Comment on above: Performed By: #### L 100.0500 #### [facility] [address] [place], [address] WBC (Bld) [#/Vol] 5.8 10*3/uL Normal 4.4-11.0 [facility] Comment on above: Performed By: #### L 100.0500 #### [facility] [address] [place], [address] Discharge Instructionon 12-16 Discharge Instruction [facility] Medical Records Department [address] [place] [address] Instructions for Home/Discharge Instructions 12/30/24 1148 MR#: [id number] Acct: [id number] Name: SHARA RIGGS MEDARDO Rep #: [id number] : 2000 24 From: Bev Mandujano DO PCP: Care Physician,No Primary Status:REG SDC Discharge Instructions Diet Discharge Diet: No restrictions DC O2, CPAP, BIPAP needs Home O2 Discharge instructions: No Dressing / Incision Discharge Activity: Return to Normal Activity, May Shower and May Take a Tub Bath (after 1 week) May resume sexual activity in: 1-2 weeks Weight Bearing Status: Weight bearing as tolerated Lifting Restrictions: none Dressing / Incision Call your doctor if you observe: Fever of 101 or Higher, Using more than 1 pad per hour, Shortness of breath and Uncontrolled pain Follow Up Care Please Follow Up With: Bev Mandujano DO When: Call [phone] to schedule appointment. Test Results: Test results from this visit will be discussed in further detail at your follow-up appointment, if applicable. Discharge Plan Admission Attending Provider: Miguelina Ibrahim Primary Care Provider: Care Physician,No Primary Instructions Print Language: Salvadorean Discharge Orders/Prescriptions Prescriptions: No Action NK Referrals / Follow Up: Care Physician,No Primary [Primary Care Provider] - Disposition Disposition (needs filled in before D/C Order can be placed): Home, Self Care 12/30/24 1648 Bev Mandujano DO CC: No Primary Care Physician Signed Normal [facility] Erythrocyte distribution wid th (RBC) [Ratio]Ordered By: Miguelina Ibrahim on 12-30-2024 Erythrocyte distribution width (RBC) [Entitic vol] 41.2 fL 35.1-43.9 [facility] Erythrocyte distribution wid th ratioOrdered By: Miguelina Ibrahim on 12-30-2024 Erythrocyte distribution width (RBC) [Ratio] 12.7 % 11.6-14.6 [facility] Hematocrit Auto (Bld) [Volum e fraction]Ordered By: Miguelina Ibrahim on 12-30-2024 Hematocrit (Bld) [Volume fraction] 37.8 % 37-47 [facility] Hemoglobin measurementOrdere d By: Miguelina Ibrahim on 12-30-2024 Hemoglobin (Bld) [Mass/Vol] 13.0 g/dL 12.0-15.0 [facility] MCV (mean corpuscular volume ) determinationOrdered By: Miguelina Ibrahim on 12-30-2024 MCV (RBC) [Entitic vol] 88.3 fL 81-99 [facility] MR/POSTOP.Adry 12-30-2024 MR/POSTOP[facility] Medical Records Department [address] [place] [address] Anesthesia Postop Eval I 12/30/24 1237 MR#: [id number] Acct: [id number] Name: SHARA RIGGS Rep #: [id number] : 2000 From: Arik Ngo MD PCP: Care Physician,No Primary Status:REEMA Lester Race: C Location: [facility] [place] Anesthesia: Postop Eval I Current Vital Signs Temperature: 97.1 F Pulse Rate: 82 Blood Pressure: 116/69 Respiratory Rate: 16 Pulse Ox: 96 Oxygen Delivery Method: Room Air Assessment Airway patent: Yes Spontaneous unlabored respirations: Yes Mental status: Calm nausea: No Vomiting: No Anesthesia Complication: No Fluid Hydration Crystalloid volume administer (ml): 20 Total IV fluid infused: 20 Progress Note Anesthesia document: Postop Eval 1 completed: Yes 12/30/241755 Date Arik Ngo MD Cosigner Signature: Date CC: Signed Normal [facility] MR/[id number] 12-30-2024 [facility] Medical Records Department [address] [place] [address] Anesthesia Postop Eval II 12/30/24 1624 MR#: [id number] Acct: [id number] Name: SHARA RIGGS Rep #: [id number] : 2000 24 From: Arik Ngo MD PCP: Joellen Physician,No Primary Status:REEMA Lester Race: C [place] [facility] [place]esthesia Postop Eval I Sum Anesthesia Postop Eval I Summary Anesthesia Postop Eval I Summary: Anesthesia Postop Eval I: Assessment Summary Airway patent Spontaneous unlabored respirations Mental status nausea Vomiting Anesthesia Postop Eval I: Fluid Summary Crystalloid volume administer (ml) Colloids volume administered ( ml) Blood Product volume administered (ml) Total IV fluid infused Anesthesia Postop Eval I: Summary Notes Anesthesia Complication Anesthesia Complication Comment: Post-operative progress note Anesthesia: Postop Eval II Evaluation Mental status: Awake and Calm Pain Level: 1 nausea: No Vomiting: No Complications Anesthesia Complication: No 12/30/24 1625 Date Arik Ngo MD Cosigner Signature: Date CC: Signed Normal [facility] Mean corpuscular hemoglobin (MCH) determinationOrdered By: Miguelina Ibrahim on 12-30-2024 MCH (RBC) [Entitic mass] 30.4 pg 27.0-32.0 [facility] Mean corpuscular hemoglobin concentration (MCHC) determinationOrdered By: Miguelina Ibrahim on 12-30-2024 MCHC (RBC) [Mass/Vol] 34.4 g/dL 32-36 [facility] Mean platelet volume determi nationOrdered By: Miguelina Ibrahim on 12-30-2024 Platelet mean volume (Bld) [Entitic vol] 10.1 fL 6.2-12.0 [facility] Operative Reporton 5 Operative Report [facility] Medical Records Department [address] [place] [address] Operative Report 12/30/24 1230 MR#: [id number] Acct: [id number] Name: SHARA RIGGS Rep #: [id number] : 2000 24 From: Bev Mandujano DO PCP: Care Physician,No Primary Status:REG [facility] Location: [address] Select Codes Urinary/Genital Urinary/Genital CPT Codes: 40702 Surg Trtmt missed Ab 1TM Operative Report (Standard) Operative Information Date of Procedure: 12/30/24 Pre-Operative Diagnosis: 7 weeks missed Post-Operative Diagnosis: 7 weeks missed Surgery/Procedure Performed: suction dilation and curettage intake clerk: No Type of Anesthesia: MAC and Topical Anesth RN Documented Start/Stop Times: Operation Date: 12/30/24 12:00 Case Time Into Pre-Op 12/30/24 10:44 Out of Pre-Op 12/30/24 12:00 Anesthesia Start 12/30/24 12:05 Into Room 12/30/24 12:05 Procedure Start 12/30/24 12:19 Procedure Start Time: 12:19 Procedure Stop Time: 12:29 Select all DRAINS/GRAFTS/IMPLANT S that apply: None Estimated Blood Loss: 50cc Specimen collected: Yes Description of specimen(s) removed: products of conception Description of surgery: Patient was taken to the operating room and placed under MAC local anesthesia. She was prepped and draped in the normal sterile fashion the dorsal lithotomy position. Bladder was drained of clear urine and anterior lip of the cervix was grasped and the uterus sounded to 9 cm. Cervix was progressively dilated to allow passage of a 8mm suction curette. Progressive passes were made removing the retained products of conception without complication. Sharp curettage confirmed complete removal of the retained products. All instruments were removed from the vagina and excellent hemostasis was noted and the patient was taken to recovery in stable condition. Surgical Findings: normal cervix and vagina, normal appearing products of conception Complications Complications: No Admit VTE Documentation VTE Present on Admission: No VTE Mechan Device Prophylaxis: SCD's VTE Pharm Prophylaxis ordered?: No 12/30/24 1232 Cosigner Signature (if applicable): CC: Dr. Bev Mandujano DO; Dr. Miguelina Ibrahim MD; No Primary Care Physician Signed Normal [facility] Platelet countOrdered By: Homer Ibrahim on 12-30-2024 Platelets (Bld) [#/Vol] 258 10*3/uL 150-450 [facility] RBC Auto (Bld) [#/Vol]Ordere d By: Miguelina Ibrahim on 12-30-2024 RBC (Bld) [#/Vol] 4.28 10*6/uL 4.2-5.4 [facility] Surgery Specimen Level Parag 12-30-2024 Surgery Specimen Level IV -------- Patient Age/Sex Location Account Attending Physician -------- SHARA RIGGS [facility] [id number] Dr. Miguelina Ibrahim MD -------- Specimen: [id number] Received: 12/30/24 Status: SANDY Langston Num: [id number] Spec Type: PROD CONC Subm Dr: Dr. Miguelina Ibrahim MD HEADER OPERATION: Dilation and curettage, suction, no anora testing PRE-OP DIAGNOSIS: Missed TISSUE SUBMITTED: A- Products of conception -------- MICROSCOPIC DIAGNOSIS A. Uterine content, missed , dilation and curettage: * Degenerated immature chorionic villi and decidua, consistent with products of conception. MICROSCOPIC DESCRIPTION Slides are reviewed. GROSS DESCRIPTION A. Received in formalin in a container labeled with the patient's name, date of , and products of conception are multiple frausto-pink fragments of soft tissue admixed with blood clot material measuring 8.5 x 8.0 x 1.0 cm in aggregate. The tissue is finely searched, and a 2.9 x 1.5 x 1.0 cm fragment of frausto-pink and feathery possible chorionic villous tissue is identified. No grape-like clusters are discovered; no parts are found. Prize Jacker sections are submitted in A1-2. [facility] 01/02/2025 CPT:03092 -------- Patient Age/Sex Location Account Attending Physician -------- SHARA RIGGS [facility] [id number] Dr. Miguelina Ibrahim MD -------- Signed (signature on file) Dr. Mary Flood MD 01/02/25 1730 -------- Normal [facility] Comment on above: Performed By: #### P SUIV #### [facility] Laboratory [address] [place], [place], [address] Type AND Screenon 12-30-2024 Ab SCREEN GEL Negative Normal [facility] Comment on above: Order Comment: S Performed By: #### L 100.0500 #### [facility] Laboratory [address] [place], [place], [address] White blood cell (WBC) count Ordered By: Miguelina Ibrahim on 12-30-2024 WBC (Bld) [#/Vol] 5.8 10*3/uL 4.4-11.0 [facility] Intervention Analyst Office Visit Reporton 12-29-2024 Intervention Analyst Office Visit Report [facility]'s [address], [address] [place] [address] OFFICE VISIT Date of Service: 12/29/24 MR#: [id number] Acct: [id number] Name: SHARA RIGGS Rep #: [id number] : 2000 Provider: Dr. Bev Farr DO Age/Sex: 24/F [place] [facility] Status: Signed Intake Vital Signs 12/16/24 11:33 12/29/24 09:58 Height 5 ft 3 in 5 ft 3 in Weight: 162 lb 8 oz BMI 28.8 BP 127/71 H Intake Visit Reasons: Discuss miscarriage Digital Press Operator Required: No Is patient in pain?: No Allergies No Known Allergies Allergy (Verified 12/29/24 12:35) Medications ???Medication ???Instructions ???Recorded ???Confirmed ???Type NK 12/29/24 12/29/24 History Post menopausal: No : No PFSH Medical History (Updated 12/29/24 @ 12:42 by Mariah Coley) Wears partial dentures History of Lyme disease Wears glasses Non-smoker Migraine Family History Mother Diabetes Type 2 Grandmother Diabetes Maternal Type 2 Social History adopted: No household members: spouse and children number of children: 1 current occupational status: employed 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 current occupational exposures/hazards: No pets and animals: Yes pets and animals: dog(s) history of recent travel: No sexually active: Yes Smoking Status: Never smoker alcohol intake: never substance use type: does not use well-balanced diet: daily or most days caffeine: Yes Type: coffee Number of servings: 1 eating out: rarely or never during the past year weight has: increased > 10 lbs what type of physical activity do you participate in: none vinh/religious: None seatbelt use: always do you feel safe at home: Yes 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 She is over 10 weeks since her last menses and ultrasound shows a 7 week gestational sac without pole or heart tones. 2 weeks ago there were 2 gestational sacs and 2 yolk sacs. History 2 Elective abortions Hx Para 1 Spontaneous abortions 1 Hx # Term Pregnancies Ectopic pregnancies Hx # Pregnancies Multiple births # of living children 1 Past Pregnancies Del. Date Name GA/Weeks Outcome Route Bth Weight Infant Gen Labor Lgth Anesthesia Del [facility] Provider FOB 09/12/23 Irma 40 live - full term 7#14oz Male epidural [facility] Delivery Date: 09/12/23 Last Updated by: Miguelina Koch IOL postdates ROS Const ROS Unobtainable: All systems reviewed are unremarkable except as noted in H Resp Resp: Reports system reviewed and no additional complaints, except as documented; Denies cough GI GI: Reports as per HPI Psych Psych: Reports system reviewed and no additional complaints, except as documented Exam Const General: cooperative, healthy appearing, comfortable and no acute distress Resp Effort Inspection: normal respiratory effort Skin General: no rashes or lesions noted Psych Appearance: grossly normal Speech and Movement: speech and movement normal Coding Level of Care Code Off vis,est,level 4 Diagnoses Missed O02.1 Assessment and Plan Assessment and Plan (1) Missed : Status: Acute Comment: patient should be 10 weeks based on her + test on Nov 03 and today a CRL that is less than 6 weeks without heart tones is picked up. She is requesting labs and a formal ultrasound to confirm. will call with results. Plan: After discussing the patient's diagnosis and treatment plan options, patient wishes to proceed with surgical management. I have discussed with the patient the risks, benefits, and alternatives of the procedure which include but are not limited to risks of anesthesia, bleeding, infection, possible damage to bowel, bladder, or surrounding vasculature which could lead to additional surgery to evaluate any complications. Patient agrees to procedure and wishes to proceed. ACOG/uptodate references given for additional information regarding procedure. plan for suction dilation and curettage 12/29/24 1308 Date Bev Mandujano DO [facility] Signature: Date (if applicable) CC: Normal [facility] Transvaginal w/Preg USon Transvaginal w/Preg US [facility] Services [address] [place] [address] [phone] Transvaginal w/Preg US MR#: [id number] Acct: [id number] Name: SHARA RIGGS Rep #: [id number] : 2000 F 24 From: Rudi correa MD PCP: Care Physician,No Primary Status: REG CLI Study: Transvaginal w/Preg US Date of Exam: 12/26/24 Exam# [id number] Ordering Dr: Bev Mandujano DO PROCEDURE: TRANSVAGINAL W/PREG US 12/26/2024 REASON FOR EXAM: RULE OUT MISCARRIAGE TECHNIQUE: High resolution obstetric ultrasound performed using a 2D transducer. Standard views obtained, including biometry, anatomy survey, and Doppler studies. Transvaginal ultrasound images are provided. COMPARISON: None. FINDINGS Uterus measures 11??? 6.6 x 5.2 cm. No uterine mass lesion is identified. Single intrauterine irregular gestational sac is noted. Mean gestational sac diameter is 2.76 cm corresponds to an estimated gestational age of 7 weeks and 6 days. Estimated gestational age by LMP is 10 weeks and 1 day. Estimated delivery date by LMP is on 07/23/2025. Estimated delivery date based on today's ultrasound is on 08/14/2025. No definite pole is identified. No cardiac activity is identified. Normal right ovary measuring 2.5???2.3???1.4 cm. Normal right ovarian flow. The left ovary was not visualized secondary to overlying bowel gas. No free fluid is identified in the pelvic cul-de-sac. US/Transvaginal w/Preg US IMPRESSION: 1. Single intrauterine irregular gestational sac. 2. No pole is identified. 3. No cardiac activity seen. Reading Location: [place] [address] CC: Dr. Bev Manudjano, DO; No Primary Care Physician Video Intern: Signed Normal [facility] HCG ( test) QlOrder ed By: Bev Redding on 12-16-2024 Human Chorionic Gonadotropin, Quant 83829 mIU/mL High <9 [facility] Comment on above: Gestational Age0.2-1 Week: 5-50 mIU/mL1-2 Weeks: 50-500 mIU/mL2-3 Weeks: 100-5000 mIU/mL3-4 Weeks: 500-10,000 mIU/mL4-5 Weeks:1000-50,000 mIU/mL5-6 Weeks: 10,000-100,000 mIU/mL6-8 Weeks: 15,000-200,000 mIU/mL2-3 Months:10,000-100,000 mIU/mL Laboratory - Chemistry and C hemistry - challengeOrdered By: Bev Redding on 12-16-2024 Glucose Ql (U) Negative [facility] Laboratory - UrinalysisOrder ed By: Bev Redding on 12-16-2024 Protein Ql (U) Negative [facility] Intervention Analyst Office Visit Reporton 12-16-2024 Intervention Analyst Office Visit Report [facility]'s [address], [address] [place] [address] OFFICE VISIT Date of Service: 12/16/24 MR#: [id number] Acct: [id number] Name: SHARA ROSS Rep #: [id number] : 2000 Provider: Dr. Bev Farr DO Age/Sex: 24/F Location[place] [facility] Status: Signed Intake Vital Signs 12/08/24 11:25 12/16/24 11:31 12/16/24 11:33 Height 5 ft 3 in 5 ft 3 in 5 ft 3 in Weight: 160 lb BMI 28.3 BP 126/72 H Intake Visit Reasons: RESCAN HRTBEAT CK *TWINS* Digital Press Operator Required: No Is patient in pain?: No Allergies No Known Allergies Allergy (Verified 12/16/24 11:31) Medications ???Medication ???Instructions ???Recorded ???Confirmed ???Type multivit-min no.71-iron fum 28 cap PO 11/25/24 12/16/24 History mg-folate no.1 1 mg-dha 300 mg capsule (PNV-Wells) Last Menstrual Period: 10/07/24 Zika: Zika virus screening: Negative : No PFSH PFSH Medical History Migraine Family History Mother Diabetes Type 2 Grandmother Diabetes Maternal Type 2 Social History adopted: No household members: spouse and children number of children: 1 current occupational status: employed 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 current occupational exposures/hazards: No pets and animals: Yes pets and animals: dog(s) history of recent travel: No sexually active: Yes Smoking Status: Never smoker alcohol intake: never substance use type: does not use well-balanced diet: daily or most days caffeine: Yes Type: coffee Number of servings: 1 eating out: rarely or never during the past year weight has: increased > 10 lbs what type of physical activity do you participate in: none vinh/religious: None seatbelt use: always do you feel safe at home: Yes 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 Date Name GA/Weeks Outcome Route Bth Weight Infant Gen Labor Lgth Anesthesia Del Locatn Provider FOB 09/12/23 Irma 40 live - full term 7#14oz Male epidural [facility] [place] [facility]o Delivery Date: 09/12/23 Last Updated by: Miguelina Koch IOL postdates HPI RESCAN HRTBEAT CK *TWINS* Details: SHARA ROSS is a 24 year old who presents for routine OB visit. OB Visit TESSA Calculator Estimated Delivery Date Method Current WG Current Estimate 08/03/25 Ultrasound #1 7w 1d Other Estimates 07/14/25 LMP (Certain) 10w 0d # 2 Expected Delivery Route/Plan Labor Preferences- CB/BF classes: [] labor support person: [] labor intervention preferences: [] pain management options preferred: [] cut cord/dad catch: [] : [] PP control planned: [] discussed possible routes of delivery and associated risks: [] special requests: [] Specific Issue/Plans Covid status: [] Flu vaccine: [] Tdap vaccine: [] Rhogam: [] LARC form signed: [] Problem list reviewed and updated with the most current plan of care details and appropriate orders placed. Relevant counseling for the gestational age provided. Continue routine care and follow up unless otherwise noted in visit notes/problem list details Initial Weight: 157 lb Date -???-???-???-???-???- ???-???-???-???-???-? ??-???- EGA Weight BP Urine Prot -???-???-???-???-???- ???-???-???-???-???-? ??-???- Glucose FHR FuHt Pres Dilation -???-???-???-???-???- ???-???-???-???-???-? ??-???- Effaced St Visit Note 12/08/24 -???-???-???-???-???- ???-???-???-???-???-? ??-???- 6w 0d 157 lb 4 oz (+4 oz) 114/75 -???-???-???-???-???- ???-???-???-???-???-? ??-???- A -???-???-???-???-???- ???-???-???-???-???-? ??-???- B A -???-???-???-???-???- ???-???-???-???-???-? ??-???- B -???-???-???-???-???- ???-???-???-???-???-? ??-???- A -???-???-???-???-???- ???-???-???-???-???-? ??-???- B A KW- CRL not cons wit dates. measuring 6.0 (0.33cm) weeks. To come back next week for rescan with physician-unable to see FHT today. considering NIPT. WIll send MFM consult after next appt. -???-???-???-???-???- ???-???-???-???-???-? ??-???- B 12/16/24 -???-???-???-???-???- ???-???-???-???-???-? ??-???- 7w 1d 160 lb (+3 lb) 126/72 Negative -???-???-???-???-???- ???-???-???-???-???-? ??-???- Negative A -???-???-???-???-???- ???-???-???-???-???-? ??-???- B A -???-???-???-???-???- ???-???-???-???-???-? ??-???- B -???-???-???-???-???- ???-???-???-???-???-? ??-???- (more content not included)... Normal [facility] PAP I-G w/rfx hrHPV-Aptimaon 12-16-2024 ADEQ Comment Normal . [facility] Comment on above: Order Comment: Monica brumfield Comment: [id number] Comment: Source.............CervixSpecimen Comment: LMP / Prev Treat...[id number] Comment: Other..............Specimen Comment: No. of containers..01 ThinPrep Vial Result Comment: Sati sfactory for evaluation. Endocervical and/or squamous metaplastic cells (endocervical component) are present. Performed By: #### L 100.9740 #### [facility] Laboratory [address] [place], [address] COMM . Normal . [facility] Comment on above: Order Comment: Monica brumfield Comment: [id number] Comment: Source.............CervixSpecimen Comment: LMP / Prev Treat...[id number] Comment: Other..............Specimen Comment: No. of containers..01 ThinPrep Vial Performed By: #### L 100.0500 #### [facility] [address] [place], [place], [id number] COMMENT Comment Normal . [facility] Comment on above: Order Comment: Speci men Comment: [id number] Comment: Source.............CervixSpecimen Comment: LMP / Prev Treat...[id number] Comment: Other..............Specimen Comment: No. of containers..01 ThinPrep Vial Result Comment: This liquid based ThinPrep(R) pap test was screened with the use of an image guided system. Performed By: #### L 100.0500 #### [facility] [address] [place], [place], [id number] DIAG Comment Normal . [facility] Comment on above: Order Comment: Speci men Comment: [id number] Comment: Source.............CervixSpecimen Comment: LMP / Prev Treat...[id number] Comment: Other..............Specimen Comment: No. of containers..01 ThinPrep Vial Result Comment: NEGA TIVE FOR INTRAEPITHELIAL LESION OR MALIGNANCY. FUNGAL ORGANISMS MORPHOLOGICALLY CONSISTENT WITH LOKI SPECIES ARE PRESENT. THIS SPECIMEN WAS RESCREENED PART OF OUR DIVIDEND DEPOSIT ENTRY CLERK PROGRAM. Performed By: #### L 100.0500 #### [facility] [address] [place], [address] HPV RFLX Comment Normal . [facility] Comment on above: Order Comment: Speci men Comment: [id number] Comment: Source.............CervixSpecimen Comment: LMP / Prev Treat...[id number] Comment: Other..............Specimen Comment: No. of containers..01 ThinPrep Vial Result Comment: The HPV DNA reflex criteria were not met with this specimen result therefore, no HPV testing was performed. Performed at: - [address] [id number] Morning Nanny: Arpita Godinez MD, Phone: [phone] Performed at: [facility] [address] [place] [id number] Morning Nanny: Sigrid Eden PhD, Phone: [phone] Performed By: #### L 100.0500 #### [facility] [address] [facility] [place], [address] PAPSMR Comment Normal . [facility] Comment on above: Order Comment: Speci men Comment: [id number] Comment: Source.............CervixSpecimen Comment: LMP / Prev Treat...[id number] Comment: Other..............Specimen Comment: No. of containers..01 ThinPrep Vial Result Comment: The Pap smear is a screening test designed to aid in the detection of premalignant and malignant conditions of the uterine cervix. It is not a diagnostic procedure and should not be used as the sole means of detecting cervical cancer. Both false-positive and false-negative reports do occur. Performed By: #### L 100.0500 #### [facility] [address] [facility] [place], [address] PERFORM Comment Normal . [facility] Comment on above: Order Comment: Speci men Comment: [id number] Comment: Source.............CervixSpecimen Comment: LMP / Prev Treat...[id number] Comment: Other..............Specimen Comment: No. of containers..01 ThinPrep Vial Result Comment: Arielle Leon, Machine Packer (ASCP) Performed By: #### L 100.0500 #### [facility] [address] [place], [place], [id number] QC REV Comment Normal . [facility] Comment on above: Order Comment: Speci men Comment: [id number] Comment: Source.............CervixSpecimen Comment: LMP / Prev Treat...[id number] Comment: Other..............Specimen Comment: No. of containers..01 ThinPrep Vial Result Comment: Fauzia Francis, Machine Packer (ASCP) Performed By: #### L 100.0500 #### [facility] [address] [place], [place], [id number] hCG Titer Quant., Serumon HCG QUANT. 01195 mIU/mL High <9 non-preg [facility] Comment on above: Result Comment: Gest ational Age 0.2-1 Week: 5-50 mIU/mL 1-2 Weeks: 50-500 mIU/mL 2-3 Weeks: 100-5000 mIU/mL 3-4 Weeks: 500-10,000 mIU/mL 4-5 Weeks:1000-50,000 mIU/mL 5-6 Weeks: 10,000-100,000 mIU/mL 6-8 Weeks: 15,000-200,000 mIU/mL 2-3 Months:10,000-100,000 mIU/mL Performed By: #### L 700.9720 #### [facility] [address] [place], [place], [id number] Urine Cultureon 12-12-2024 [facility] Strep anginosus [place] Count 25,000-50,000 Strep anginosus: REACTION Ampicillin Islt ALEXIS <=0.25 Penicillin G Islt ALEXIS <=0.06 S Cefotaxime Islt ALEXIS <=0.12 S cefTRIAXone Islt ALEXIS <=0.12 S Clindamycin Islt ALEXIS 0.5 I Linezolid Islt ALEXIS <=2 S Vancomycin Islt ALEXIS 0.5 S Normal [facility] Comment on above: Performed By: #### L 100.0500 #### [facility] [address] [place], [place], [id number] Chlamydia/GC LINA aptimaon CHLAMY,NUC ACID Negative Normal Negative [facility] Comment on above: Performed By: #### L 7000.1800 #### [facility] [address] [address] [place], [place], [id number] GC BY NUC ACID Negative Normal Negative [facility] Comment on above: Result Comment: Perf ormed at: =G - [facility] [address] [id number] Morning Nanny: Arpita Godinez MD, Phone: [phone] Performed By: #### L [id number] #### [facility] [address] [place], [place], [id number] C. trachomatis rRNA LINA+prob e Ql (Unsp spec)Ordered By: Lisette Conde on 12-08-2024 Chlamydia DNA (LINA) Negative Negative [facility] Pt Skilled Cyto stain Nom (C vx/Vag) [ID]Ordered By: Lisette Conde on 12-08-2024 Pap Smear Performed By Comment . [facility] Comment on above: Tsering Leon, Cyto technologist (ASCP) Cytology report Cyto stain D oc (Cvx/Vag)Ordered By: Lisette Conde on 12-08-2024 Thin Prep Pap Smear Comment . [facility] Comment on above: The Pap smear is a s creening test designed to aid in thedetection of premalignant and malignant conditions of theuterine cervix. It is not a diagnostic procedure andshould not be used as the sole means of detecting cervicalcancer. Both false-positive and false-negative reports dooccur. Image-guided ThinPrep PapOrd ered By: Lisette Conde on 12-08-2024 Pap Smear Note Comment . [facility] Comment on above: This liquid based Th inPrep(R) pap test was screened withthe use of an image guided system. Image-guided liquid-based Pa pOrdered By: Lisette Conde on 12-08-2024 Pap Smear Diagnosis Comment . [facility] Comment on above: NEGATIVE FOR INTRAEP ITHELIAL LESION OR MALIGNANCY.FUNGAL ORGANISMS MORPHOLOGICALLY CONSISTENT WITH LOKI SPECIES AREPRESENT.THIS SPECIMEN WAS RESCREENED PART OF OUR DIVIDEND DEPOSIT ENTRY CLERK PROGRAM. Image-guided liquid-based ce rvical Pap w high-risk HPV+reflex to HPV 16+18Ordered By: Lisette Conde on 12-08-2024 Human Papillomavirus Screen Comment . [facility] Comment on above: The HPV DNA reflex c gayle were not met with this specimenresult therefore, no HPV testing was performed.Performed at: - [facility] [id number] Director: Arpita Godinez MD, Phone: [phone] at: [facility] - [facility] [id number] Director: Sigrid Eden PhD, Phone: [phone] Neisseria gonorrhoeae nuclei c acid detection by amplified probe techniqueOrdered By: Lisette Conde on 12-08-2024 N. gonorrhoeae DNA LINA+probe Ql (Unsp spec) Negative Negative [facility] Comment on above: Performed at: =G - [address] [facility] [id number] Director: Arpita Godinez MD, Phone: [phone] No Panel InformationOrdered By: Lisette Conde on 12-08-2024 Pap Smear QC Review Comment . [facility] Comment on above: Mari Lizarraga ytotechnologist (ASCP) Intervention Analyst Office Visit Reporton 12-08-2024 Intervention Analyst Office Visit Report [facility] [address], [address] [place] [address] OFFICE VISIT Date of Service: 12/08/24 MR#: [id number] Acct: [id number] Name: SHARA ROSS Rep #: [id number] : 2000 Provider: JOSUE Ngo ams Age/Sex: 24/F [place] [facility] [place]: Signed Intake Vital Signs 12/08/24 11:25 Height 5 ft 3 in Weight: 157 lb 4 oz BMI 27.8 BP 114/75 Intake Visit Reasons: New OB, LMP 10/07, TESSA 07/14 Chief Complaint: New OB Is patient in pain?: No Allergies No Known Allergies Allergy (Unverified 12/08/24 11:20) Medications ???Medication ???Instructions ???Recorded ???Confirmed ???Type multivit-min no.71-iron fum 28 cap PO 11/25/24 12/08/24 History mg-folate no.1 1 mg-dha 300 mg capsule (PNV-Wells) Last Menstrual Period: 10/07/24 : Yes PFSH PFSH Medical History Migraine Family History Mother Diabetes Type 2 Grandmother Diabetes Maternal Type 2 Social History adopted: No household members: spouse and children number of children: 1 current occupational status: employed 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 current occupational exposures/hazards: No pets and animals: Yes pets and animals: dog(s) history of recent travel: No sexually active: Yes Smoking Status: Never smoker alcohol intake: never substance use type: does not use well-balanced diet: daily or most days caffeine: Yes Type: coffee Number of servings: 1 eating out: rarely or never during the past year weight has: increased > 10 lbs what type of physical activity do you participate in: none vinh/religious: None seatbelt use: always do you feel safe at home: Yes 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 Date Name GA/Weeks Outcome Route Bth Weight Gen Labor Lgth Anesthesia Del Locatn Provider FOB 09/12/23 Irma 40 live - full term 7#14oz Male epidural [facility] Delivery Date: 09/12/23 Last Updated by: Miguelina Koch IOL postdates HPI New OB, LMP 10/07, TESSA 07/14 Details: SHARA ROSS is a 24 year old who presents for New OB visit. OB Visit TESSA Calculator Estimated Delivery Date Method Current WG Current Estimate 08/03/25 Ultrasound #1 6w 0d Other Estimates 07/14/25 LMP (Certain) 8w 6d # 2 Comments: HIV: Urine Culture: Sequential Screen: NIPT Screen: Estimated Due Date: 07/14/25 Expected Delivery Route/Plan Labor Preferences- CB/BF classes: [] labor support person: [] labor intervention preferences: [] pain management options preferred: [] cut cord/dad catch: [] : [] PP control planned: [] discussed possible routes of delivery and associated risks: [] special requests: [] Specific Issue/Plans Covid status: [] Flu vaccine: [] Tdap vaccine: [] Rhogam: [] LARC form signed: [] Problem list reviewed and updated with the most current plan of care details and appropriate orders placed. Relevant counseling for the gestational age provided. Continue routine care and follow up unless otherwise noted in visit notes/problem list details Initial Weight: 157 lb Date -???-???-???-???-???- ???-???-???-???-???-? ??-???- EGA Weight BP Urine Prot -???-???-???-???-???- ???-???-???-???-???-? ??-???- Glucose FHR FuHt Pres Dilation -???-???-???-???-???- ???-???-???-???-???-? ??-???- Effaced St Visit Note 12/08/24 -???-???-???-???-???- ???-???-???-???-???-? ??-???- 6w 0d 157 lb 4 oz (+4 oz) 114/75 -???-???-???-???-???- ???-???-???-???-???-? ??-???- A -???-???-???-???-???- ???-???-???-???-???-? ??-???- B A -???-???-???-???-???- ???-???-???-???-???-? ??-???- B -???-???-???-???-???- ???-???-???-???-???-? ??-???- A -???-???-???-???-???- ???-???-???-???-???-? ??-???- B A KW- CRL not cons wit h dates. measuring 6.0 (0.33cm) weeks. To come back next week for rescan with physician-unable to see FHT today. considering NIPT. WIll send MFM consult after next appt. -???-???-???-???-???- ???-???-???-???-???-? 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 Normal [facility] Service comment (Unsp spec) [Interp]Ordered By: Lisette Conde on 12-08-2024 Pap Smear Comment (3) . . [facility] Urine cultureOrdered By: Bill Conde on 03-24-2025 Bacteria identified Cx Nom (U) Strep anginosus Abnormal [facility] CNPNon 01-04-2023 CNPN Telephone (AGOBST) SHARA RIGGS ([id number]) 2 F Date Time Provider Department 01/04/23 MARTHA MCCANN During your visit today, we recorded the following information about you: Monica Cohen RN 01/04/2023 2:07 PM Signed Pos HT. LMP 3.7. HCG and TANDS pended. Thanks, Monica Cohen RN Allergies As of Date: 01/04/2023 (No Known Allergies) Date Reviewed: 10/18/2022 Reviewed by: Martha Mccann PA-C - Fully Assessed Reason for Visit: Orders [681] Primary Visit Diagnosis:Secondary amenorrhea [N91.1] Order(s):HCG QUANTITATIVE [SQHCGQT] Order #: [id number] FUTURE TYPE + SCREEN [SQTSCR] Order #: [id number] FUTURE Prescriptions as of 01/05/2023 - Norethindrone, Contraceptive, 0.35 mg tablet Take 1 tablet by mouth once daily. Problem List As Of Date 01/04/2023 Noted Resolved Menorrhagia [N92.0] Encounter Status:Closed by MONICA COHEN on 01/05/23 [facility] CNOVon 10-18-2022 CNOV Office Visit (AGOBGRN) SHARA RIGGS ([id number]) 2 F Date Time Provider Department 2/1/23 3:00 PM MARTHA MCCANN During your visit today, we recorded the following information about you: Blood pressure Weight Height Last Period 11674 57.6 kg 1.626 m 10/16/22 Martha Mccann PA-C 10/18/2022 5:06 PM Signed Shara Riggs is a 22 year old female who presents for control consult. HPI: Patient presents to discuss control. She would like to start OCP's. Has been on them before without issue. Currently sexually active. Periods are regular every 28 days, lasts 3 days in length. Heavy in flow for the first day, then lightens up. Denies HTN, smoking, stroke, blood clots. Positive migraines with aura. 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 LMP: 10/16/2022 (Exact Date), Having periods Age at Menarche: 13 Age at First : Age at Menopause: Packaging Materials Inspector History Comments: Sexual Activity: Yes; Male Contraception: None PAST MEDICAL HISTORY Diagnosis Date Anxiety Lyme disease Menorrhagia Migraine without aura Mood changes PAST SURGICAL HISTORY Procedure Laterality Date NONE FAMILY HISTORY Problem Relation Age of Onset Ovarian cancer Maternal Grandmother Diabetes Maternal Grandmother other (Heart Disease) Maternal Grandmother Breast Cancer Paternal Grandmother Social History Tobacco Use Smoking status: Never Smokeless tobacco: Never Vaping Use Vaping Use: Never used Substance Use Topics Alcohol use: No Drug use: No No current outpatient medications on file. No current facility-administered medications for this visit. Allergies As of Date: 10/18/2022 (No Known Allergies) Fully Assessed 10/18/2022 REVIEW OF SYSTEMS Abdomen: No bloating, early satiety, indigestion, or increased flatulence. No abdominal pain, nausea, vomiting, diarrhea, or constipation. Bladder: No dysuria, gross hematuria, urinary frequency, urinary urgency, or incontinence. Breast: No breast lumps, nipple d/c, overlying skin changes, redness or skin retraction. Expanded ROS: N/A Allergies and current medication updated:Yes EXAM: BP 116/74 Ht 5' 4 (1.63m) Wt 127 lb (57.6kg) LMP 10/16/2022 BMI 21.79 kg/(m2). GENERAL: pleasant, female in no apparent distress HEENT: Normocephalic, atraumatic, mucus membranes moist, and no lesions NECK: Supple, full range of motion, no adenopathy, and thyroid normal DERMATOLOGY: Normal, without lesions, non-icteric, and non-hirsute BREAST: deferred CHEST: Clear to auscultation, Normal inspiratory effort, and Regular rate and rhythm ABDOMEN: Deferred PELVIC: deferred BIMANUAL: deferred NEURO: alert and oriented x3,exam grossly non-focal EXTREMITIES: normal ASSESSMENT AND PLAN: 1. Encounter for initial prescription of contraceptive pills - ICD9: V25.01, ICD10: Z30.011 - Not a candidate for estrogen containing control due to migraines with aura - Reviewed progesterone only contraception options including POP's, injection, IUD, implant - discussed with patient on how to take POP's. - counseled on benefits, risks and possible severe side effects of POP's. - discussed need to use Condoms to help to prevent STD's including HIV etc. - NORETHINDRONE (CONTRACEPTIVE) 0.35 MG TABLET Martha Mccann PA-C Medical Decision Making: Problems: Low: Stable chronic illness Risk: Moderate: Drug management Medical Decision Making Level: 3 - Low Martha Mccann PA-C Allergies As of Date: 10/18/2022 (No Known Allergies) Date Reviewed: 10/18/2022 Reviewed by: Martha Mccann PA-C - Fully Assessed Reason for Visit: Contraception [26] Cmt: Pt here to discuss BC options. Pt states she would like to be on the pill . Primary Visit Diagnosis:Encounter for initial prescription of contraceptive pills [Z30.011] Order(s):Norethindron e, Contraceptive, 0.35 mg tabletTake 1 tablet by mouth once daily.Disp: 84 tabletRfl: 3 Prescriptions as of 10/18/2022 - Norethindrone, Contraceptive, 0.35 mg tablet Take 1 tablet by mouth once daily. Problem List As Of Date 10/18/2022 Noted Resolved Menorrhagia [N92.0] Prescriptions ordered this encounter Disp Refills Start End NORETHINDRONE (CONTRACEPTIVE) 0.35 M* 84 t* 3 10/18/2022 Route: ORAL Sig: Take 1 tablet by mouth once daily. Disposition: Return in about 3 months (around 01/15/2023), or control check. Follow-up and Disposition History for Encounter Date Provider Department Center 10/18/2022 [id number] MCCANN [facility] Encounter Status:Closed by MARTHA MCCANN on 10/18/22 [facility] CNOVon 06-21-2022 CNOV Office Visit (AGOBGRN) SHARA RIGGS ([id number]) 2 F Date Time Provider Department 06/21/22 8:00 AM MARTHA MCCANN During your visit today, we recorded the following information about you: Blood pressure Weight Height Last Period 11473 56.2 kg 1.626 m 06/09/22 Martha Mccann PA-C 06/21/2022 8:28 AM Jb Olmedo is a 22 year old who presents for an annual gynecologic exam without complaints. Menses: cycles every 28 days and 2-3 days of flow. Heavy bleeding for 3 days. Changing super tampons every 3 hours. Contraception: none HPV vaccine: Yes Last Pap: Never HPV: N/A History of abnormal pap: No Last mammogram: never Sexually active: Yes History of STDS: None Patient concerns for STD exposure: No. 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: Packaging Materials Inspector History Comments: Sexual Activity: Yes; No partner data on record Contraception: No contraception data on record PAST MEDICAL HISTORY Diagnosis Date Anxiety Menorrhagia Migraine without aura Mood changes PAST SURGICAL HISTORY Procedure Laterality Date NONE FAMILY HISTORY Problem Relation Age of Onset Ovarian cancer Maternal Grandmother Diabetes Maternal Grandmother other (Heart Disease) Maternal Grandmother Breast Cancer Paternal Grandmother SOCIAL HISTORY Social History Tobacco Use Smoking status: Never Smokeless tobacco: Never Vaping Use Vaping Use: Never used Substance Use Topics Alcohol use: No Drug use: No REVIEW OF SYSTEMS Abdomen: No abdominal pain, nausea, vomiting, diarrhea, or constipation. No bloating, early satiety, indigestion, or increased flatulence. Bladder: No dysuria, gross hematuria, urinary frequency, urinary urgency, or incontinence. Breast: No breast lumps, nipple d/c, overlying skin changes, redness or skin retraction. Allergies and current medication updated:Yes EXAM: BP 114/73 Ht 5' 4 (1.63m) Wt 124 lb (56.2kg) LMP 06/09/2022 BMI 21.27 kg/(m2). GENERAL: pleasant, female in no apparent distress HEENT: Normocephalic, atraumatic, mucus membranes moist, and no lesions NECK: Supple, full range of motion, no adenopathy, and thyroid normal DERMATOLOGY: Normal, without lesions, non-icteric, and non-hirsute BREAST: soft, non-tender, symmetric, no dominant mass, normal nipple-areolar complex, no lymphadenopathy, and no nipple discharge CHEST: Clear to auscultation, Normal inspiratory effort, and Regular rate and rhythm ABDOMEN: soft, non-tender, and no masses PELVIC: external genitalia normal, normal Bartholin's glands, urethra, Hondo's glands, no vulvar lesions, no cervical lesions, good vaginal support, physiologic discharge present, normal appearing perineal body and perianal region BIMANUAL: uterus normal size, shape and consistency, no adnexal masses, and non-tender RECTOVAGINAL: deferred. NEURO: alert and oriented x3,exam grossly non-focal EXTREMITIES: normal ASSESSMENT/PLAN: 1) Health maintenance: Pap done with reflex HPV. Mammogram starting age 40. Nutrition, exercise and routine health maintenance exams reviewed. Lipids/glucose: followed by PCP Vitamin D: followed by PCP HPV vaccine: completed series 2) Contraception: none. Contraceptive options reviewed and information provided. 3) STD screening: Declined STD check. 4) Follow up one year or sooner as needed LAM George PA-C 06/21/2022 8:14 AM Signed ACOG Screening Guidelines The following health screening schedule is recommended by the [employer] (ACOG). Some of these tests may be ordered or performed by your primary care doctor. Pap test screening The pap test looks at cells on the cervix (the opening from the vagina to the uterus) to look for cancer or pre-cancerous changes. These changes are caused by the human papillomavirus (HPV). Studies estimate that half of all women will test positive for this virus within 3 years of starting sexual activity. For young women with a normal immune system, 90% of HPV infections will resolve within 2 years. There is a vaccine available against some forms of HPV. This is recommended for girls and women age 9-45. For ages 9-14, two injections are given at 0 and 6 months. For ages 15-45, three injections are given at 0,2 and 6 months. Because this vaccine does not protect against all HPV types which can cause cervical cancer, women who received the vaccine still need pap tests. Pap smear screening should be started at age 21. The pap test should be done every 3 years from age 21-29. From age 30-65, hu (more content not included)... Normal [facility] PAP FLUID CERVICAL SCREENING on 06-21-2022 CASE REPORT Normal [facility] Comment on above: Order Comment: Speci men Type: FLUID SPECIMEN Ordering Facility: [facility] Address: [address] [place], [place] [id number] Result Comment: Gyne cologic Cytology Report Case: [id number] Authorizing Provider: Martha Mccann PA-C Collected: 06/21/2022 08:28 AM Ordering Location: [facility] [place] Obstetrics & Received: 06/22/2022 05:58 AM Gynecology First Screen: Kristen Hardinger, CT, ASCP Specimen: Pap, Manual, Screening, CERVICAL SCREENING FLUID Performed By: #### L [id number] #### [facility] CLIA [id number] [address] OF [facility] CLINICAL HISTORY ROUTINE EXAM Normal [facility] Comment on above: Order Comment: Speci men Type: FLUID SPECIMEN Ordering Facility: [facility] Address: [address] [place] [id number] Performed By: #### L [id number] #### [facility] CLIA [id number] [address] CYTOLOGY INTERPRETATION PAP Normal [facility] Comment on above: Order Comment: Speci men Type: FLUID SPECIMEN Ordering Facility: [facility] Address: [address] [place] [address] Result Comment: Nega tive for Intraepithelial lesion or malignancy. Performed By: #### L [id number] #### [facility] CLIA [id number] [address] FINAL DIAGNOSIS Normal [facility] Comment on above: Order Comment: Speci men Type: FLUID SPECIMEN Ordering Facility: [facility] Address: [address] [place] [address] Result Comment: A - CERVICAL SCREENING FLUID Satisfactory for interpretation, Transformation zone present Negative for Intraepithelial lesion or malignancy. Performed By: #### L [id number] #### [facility] CLIA [id number] [address] FINAL PERFORMING LAB Normal [facility] Comment on above: Order Comment: Speci men Type: FLUID SPECIMEN Ordering Facility: [facility] Address: [address] [place] [address] Result Comment: Tech nical component, street cleaning equipment operator screening performed at [facility], [address] [place] [address] CLIA# [id number] Diagnostic interpretation performed at [facility], [address] [place] [address] CLIA# [id number] Lining Ironer: David Coughlin M.D. Performed By: #### L [id number] #### [facility] CLIA [id number] [address] HPV REQUESTED? Yes, Reflex HPV for ASCUS Normal [facility] Comment on above: Order Comment: Speci men Type: FLUID SPECIMEN Ordering Facility: [facility] Address: [address] [place] [address] Performed By: #### L [id number] #### [facility] CLIA [id number] [address] LMP 06/09/2022 [facility] Comment on above: Order Comment: Speci men Type: FLUID SPECIMEN Ordering Facility: [facility] Address: [address] [place] [address] Performed By: #### L [id number] #### [facility] CLIA [id number] [address] [place] [address] PAP DISCLAIMER COMMENT The Pap Smear is a screening test for cervical cancer. False negative results occur with all screening tests, emphasizing the need for rescreening at recommended intervals, and clinical correlation. [facility] Comment on above: Order Comment: Speci men Type: FLUID SPECIMEN Ordering Facility: [facility] Address: [address] [place] [address] Performed By: #### L [id number] #### [facility] CLIA [id number] [address] [place] [address] CNOVon 12-19-2021 CNOV Office Visit (NEIND4 ) SHARA RIGGS ([id number]) 2 F Date Time Provider Department 12/19/21 8:00 AM NAVDEEP BOLAÑOS During your visit today, we recorded the following information about you: Pulse Blood pressure Weight Height 70/minute 98/60 58 kg 1.626 m Navdeep Bolaños DO 12/20/2021 8:05 AM Signed Initial Consultation- General Neurology December 19, 2021 Referring Physician: Warren Jules MD Regarding: RE: Shara Riggs : 2000 Assessment: Migraine without aura - chronic - Medication overuse headache - Maxalt and ibuprofen - Medication induced headache: Zoloft and ibuprofen - No effective symptomatic Rx - No adequate prophylaxis - Depakote is insufficient dose, but is also in ineffective Rx Plan: 1. I have discussed my impressions and plan with the patient. Written discharge instructions provided. Migraine lifestyle modifications discussed Regular sleep/meals, stay well hydrated, avoid excessive caffeine/alcohol 2. Testing/laboratory/im aging: - 3. Medications: Symptomatic: Change rizatriptan to frovatriptan - longer t1/2 Discontinue ibuprofen, begin meloxicam 7.5 mg Limit total symptomatic Rx to no more than 2-3 d/wk Prophylactic: D/c Depakote Begin venlafaxine titration Adverse reactions, goals, and time-frames discussed. 4. Follow up appointment: 3 months Pt to contact me by mychart if problems/questions I spent a total of 60 minutes on the date of the service which included preparing to see the patient, [id number] patient care, performing a medically appropriate examination, completing clinical documentation, and on counseling/educating the patient/family. 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 She is seen with her mother. Chart review: FP pcp 04/2019 Pt has migraines daily. Lasts for days, Migraine without aura and without status migrainosus, not intractable Topamax, if not better MRI and or neurologist FP pcp 05/2019 BEAR no better TPM titration 25 mg HS incr q week to 50 mg bid Dx chronic mixed BEAR MRI brain wo - Limited study due to degradation by artifact. ?Unremarkable MRI of the brain within the limitations of the study. ?Findings suggestive of mucoperiosteal thickening in the inferior aspect of the sphenoid sinus; however, this area is degraded by artifact. ? Sinus CT may be helpful for further evaluation if warranted. 06/2019 MRI brain wo - Limited study due to degradation by artifact. ?Unremarkable MRI of the brain within the limitations of the study. ?Findings suggestive of mucoperiosteal thickening in the inferior aspect of the sphenoid sinus; however, this area is degraded by artifact. ?Sinus CT may be helpful for further evaluation if warranted. FP pcp 11/2019 Severe frontal headaches Dx - headache unspecified Tx IM toradol FP pcp 04/2021 lyme disease. Pt was bit by insect 2 mo ago, treated with keflex and bactrim, no improvement. Developed joint pains, eventually lyme titers were positive, confirmation positive. Started doxy, doing better, no joint pain, still has some back pain, no headaches, no chest pain or sob. (On VPA and Maxalt 10 mg ACCOUNTING SYSTEM EXPERT - no longer on TPM) ID 12/14/2021 Neck pain d/t DJD Positive Lyme serology tested in April 2021. The skin findings as described above were not consistent with erythema migrans. The exact significance of those positive test results is unclear. However, patient did receive a 2-week course of doxycycline targeting Lyme disease. Therefore, her persistent symptom of upper back pain is unlikely due to Lyme disease. Suggest referral to spine Repeat Lyme serology - equivocal Western blot IgG pos RPR nr HSV 1 and 2 - neg CRP <0.3 Cf 2.7 8 mo ago ESR 2 Cf 41 8 mo ago MRI c spine w/wo 04/2021 1. ?Susceptibility artifact from the patient's braces somewhat limits evaluation of the upper cervical spine. 2. ?Straightening of the normal cervical lordosis. ?This may be positional or related to muscular spasm. 3. ?Minimal degenerative disc disease at C5-C6 and C6-C7 without neural oraminal or spinal canal compromise. ?See detailed level by level description above. 4. ?Presumed cystic changes within the adenoidal soft tissues in the posterior nasopharynx. ?These findings are incompletely characterized. ? Further evaluation with direct inspection is recommended for visualization. Headache History: Patient's description of headaches: nausea and light headed with headaches in teens - would sleep them off Age of headache onset: 17 yo - Present pattern x 1 year Change in health/Rx/job/home/pe rsonal at onset: - Location: posterior head or neck bilaterally - less often bilateral orbital - (more content not included)... Normal [facility] B. burgdorferi IgG and IgM p sajan (S)on 12-15-2021 B. burgdorferi IgG+IgM Qn (S) Equivocal Abnormal Negative [facility] CNPNon 12-15-2021 CNPN Telephone (INFDAK) ONEILSHARA ([id number]) 2 F Date Time Provider Department 12/15/21 JOHNATHAN AGUILERA INFDAK During your visit today, we recorded the following information about you: Johnathan Aguilera MD 12/15/2021 11:10 AM Signed Please fax a copy of my note from 12/[address] Jules. Thanks VIVIANA Metz 12/15/2021 1:07 PM Signed Faxed chart notes to Dr Shabana Jules's office [phone] Allergies As of Date: 12/15/2021 (No Known Allergies) Date Reviewed: 12/14/2021 Reviewed by: Zamzam Broussard, FRANKI - Fully Assessed Reason for Visit: clinic note [Other] FYI-No Action Needed [265] Prescriptions as of 12/15/2021 - rizatriptan (MAXALT-ACCOUNTING SYSTEM EXPERT) 10 mg disintegrating tablet Take 1 tablet by mouth as directed. at onset of headache. May repeat after 2 hours. Do not exceed 30 mg per day. - divalproex DR (DEPAKOTE) 250 mg EC tablet Take 1 tablet by mouth twice daily. - Norethindrone Acet-Ethinyl Est (,) 1-20 mg-mcg per tablet Take 1 tablet by mouth once daily. Take continuously, skip placebo week. Problem List As Of Date 12/15/2021 Noted Resolved Menorrhagia [N92.0] Encounter Status:Closed by JOHNATHAN AGUILERA on 12/15/21 Normal [facility] HERPES SIMPLEX TYPE 1 AND 2 IGon 12-15-2021 HSV IgG 1 Qualitative Negative Negative [facility] HSV IgG 2 Qualitative Negative Negative [facility] Reagin and Treponema pallidu m IgG and IgM [Interp]on 12-15-2021 Syphilis Interpretation Cannot exclude r ecent Treponemal infection if specimen collected within 7-10 days after appearance of suspect lesions or 2-3 weeks after an exposure. Clinical correlation is required. [facility] SYPHILIS TOTAL W/REFLEXon Reagin and Treponema pallidum IgG and IgM [Interp] Non-Reactive Nonreactive [facility] C-REACTIVE PROTEIN (CRP)on 0 12-14-2021 CRP [Mass/Vol] mg/L <0.9 mg/dL [facility] CBC W Auto Differential pane l (Bld)on 12-14-2021 Abs Immature Gran <0.03 <0.10 k/uL [facility] Basophils (Bld) [#/Vol] 0.06 10*3/uL <0.11 k/uL [facility] Basophils/100 WBC (Bld) 1.3 % [facility] Differential cell count method Nom (Bld) Auto [facility] Eosinophils (Bld) [#/Vol] 0.15 10*3/uL <0.46 k/uL [facility] Eosinophils/100 WBC (Bld) 3.3 % [facility] Erythrocyte distribution width (RBC) [Ratio] 12.0 % 11.5 - 15.0 % [facility] Hematocrit (Bld) [Volume fraction] 43.7 % 36.0 - 46.0 % [facility] Hemoglobin (Bld) [Mass/Vol] 14.4 g/dL 11.5 - 15.5 g/dL [facility] Immature Gran % 0.4 % [facility] Lymphocytes (Bld) [#/Vol] 1.36 10*3/uL 1.00 - 4.00 k/uL [facility] Lymphocytes/100 WBC (Bld) 29.5 % [facility] MCH (RBC) [Entitic mass] 30.8 pg 26.0 - 34.0 pg [facility] MCHC (RBC) [Mass/Vol] 33.0 g/dL 30.5 - 36.0 g/dL [facility] MCV (RBC) [Entitic vol] 93.4 fL 80.0 - 100.0 fL [facility] Monocytes (Bld) [#/Vol] 0.35 10*3/uL <0.87 k/uL [facility] Monocytes/100 WBC (Bld) 7.6 % [facility] Neutrophils (Bld) [#/Vol] 2.67 10*3/uL 1.45 - 7.50 k/uL [facility] Neutrophils/100 WBC (Bld) 57.9 % [facility] Nucleated RBC (Bld) [#/Vol] 10*3/uL <0.01 k/uL [facility] Nucleated RBC/100 WBC (Bld) [Ratio] 0.0 /100 WBC [facility] Platelet mean volume (Bld) [Entitic vol] 10.6 fL 9.0 - 12.7 fL [facility] Platelets (Bld) [#/Vol] 267 10*3/uL 150 - 400 k /uL [facility] RBC (Bld) [#/Vol] 4.68 10*6/uL 3.90 - 5.2 0 m/uL [facility] WBC (Bld) [#/Vol] 4.61 10*3/uL 3.70 - 11. 00 k/uL [facility] CNOVon 12-14-2021 CNOV Office Visit (INFDAK ) SHARA RIGGS ([id number]) 2 F Date Time Provider Department 12/14/21 9:00 AM JOHNATHAN AGUILERA INFDAK During your visit today, we recorded the following information about you: Temperature Pulse Respiration Blood pressure 98.7 degrees 80/minute 16/minute 104/62 Weight Height 57.2 kg 1.626 m Johnathan Aguilera MD 12/15/2021 11:09 AM Signed .INFECTIOUS DISEASES CONSULT SERVICE DATE: 12/14/2021 Shara Riggs is being seen in consultation at the request of Dr. Warren Jules for advice and/or opinion regarding the management of Lyme disease. Subjective HISTORY HPI: Shara Riggs is a 21 year old female with h/o migraines who experienced a painful blister to the left shoulder/supraclavicu lar area and February 2021. Patient was seen in urgent care on 03/03/2021. The skin lesion was thought to be secondary to a spider bite. Patient was symptomatic with headaches, nausea, and fatigue. Was febrile and tachycardic. Referred to the ED on 03/03/2021 when the skin lesions were described as follows: A conglomeration of small vesicles and pustules to the left supraclavicular region with surrounding cellulitis no fluctuant abscess appreciated, area of cellulitis measures roughly 7 cm in length and 3 cm in diameter, no ulceration or necrosis noted. She was discharged home on Bactrim and Keflex. Blood cultures drawn on 03/03/2021 showed no growth. The cellulitis and vesicular pustules took some time to resolve. However, she continued to have neck/shoulder pain and constant dull headache. She experienced many new symptoms, including intermittent itching around her neck and arms, a single bump on her left upper thigh, sharp stabbing pain radiating down both arms, neck tenderness, facial swelling, and intermittent throat swelling. Was treated with Medrol Dosepak and antihistamine. Imaging of the cervical spine and soft tissue neck were negative for acute findings. The details of the MRI C-spine are described below. During the same time, her pet dog was diagnosed with Lyme disease and was treated. She requested her primary care doctor to order a Lyme test. Lyme titers tested in April 2021 were found positive in April 2021. She was treated with 2 weeks of doxycycline. Those symptoms lasted through August 2021. She endorses the persistence of upper thoracic pain and midline pain (below the posterior neck and in between shoulder blades). She denies having fevers, chills, night sweats, unintentional weight loss, mental fog, nausea, vomiting, joint pain, skin rashes, or cough. She intermittently gets a sore throat. She intermittently experiences migraine headaches. Prior images and lab results were reviewed. CT of the soft tissue neck on 04/14/2021 showed unremarkable findings. MRI of cervical spine performed on 04/25/2021 showed straightening of the normal cervical lordosis, minimal degenerative disc disease at C5-C6 and C6-C7. There were artifacts from the patient's braces. C-reactive protein tested on 04/06/2021 was elevated at 22.2. Grew up in [place]. No history of travel. 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 No outdoor activities. Likes to stay indoors. No known exposure to ticks. No known exposure to MRSA infection or TB. No significant childhood illnesses. Childhood vaccination up-to-date. Has a pet dog. No cats. No birds. No exposure to farm animals. Sexually active with 1 male partner. No known STIs. HIV screen was negative in March 2021. REVIEW OF SYSTEMS Otherwise reviewed and negative x 14 except as noted above ALLERGIES No Known Allergies PAST MEDICAL HISTORY: PAST MEDICAL HISTORY Diagnosis Date - Anxiety - Headache Non-migraine - Menorrhagia - Mood changes PAST SURGICAL HISTORY: PAST SURGICAL HISTORY Procedure Laterality Date - NONE FAMILY HISTORY: Reviewed, no pertinent family history SOCIAL HISTORY: Reviewed, no pertinent social history Social History Tobacco Use - Smoking status: Never Smoker - Smokeless tobacco: Never Used Vaping Use - Vaping Use: Never used Substance Use Topics - Alcohol use: No - Drug use: No MEDICATIONS: Current Outpatient Medications Medication Sig - rizatriptan (MAXALT-ACCOUNTING SYSTEM EXPERT) 10 mg disintegrating tablet Take 1 tablet by mouth as directed. at onset of headache. May repeat after 2 hours. Do not exceed 30 mg per day. - divalproex DR (DEPAKOTE) 250 mg EC tablet Take 1 tablet by mouth twice daily. - Norethindrone Acet-Ethinyl Est (10/06, ,) 1-20 mg-mcg per tablet Take 1 tablet by mouth once daily. Take continuously, skip placebo week. No current facility-administered medications for this visit. Current Anti-Infective Meds (From admission, onward) None Objective PHYSICAL EXAM 12/14/21 0916 BP: 104/62 BP Site: Left Arm BP Position: Sitting BP Cuff Size: Regular Adult Pulse: 80 (more content not included)... Normal [facility] Comprehensive metabolic 2000 panelon 12-14-2021 Albumin [Mass/Vol] 4.5 g/dL 3.9 - 4.9 g/dL [facility] ALP [Catalytic activity/Vol] 52 U/L 34 - 123 U/L [facility] ALT With P-5'-P [Catalytic activity/Vol] 8 U/L 7 - 38 U/L [facility] Anion gap [Moles/Vol] 8 mmol/L Low 9 - 18 mmol/L [facility] AST With P-5'-P [Catalytic activity/Vol] 16 U/L 13 - 35 U/L [facility] Bilirubin [Mass/Vol] 0.4 mg/dL 0.2 - 1 .3 mg/dL [facility] Calcium [Mass/Vol] 9.5 mg/dL 8.5 - 10. 2 mg/dL [facility] Chloride [Moles/Vol] 104 mmol/L 97 - 10 5 mmol/L [facility] CO2 [Moles/Vol] 28 mmol/L 22 - 30 mmol/L [facility] Creatinine [Mass/Vol] 0.68 mg/dL 0.58 - 0.96 mg/dL [facility] Estimated Glomerular Filtration Rate 128 mL/min/1.73m >=60 mL/min/1.73m [facility] Glucose [Mass/Vol] 83 mg/dL 74 - 99 mg/dL [facility] Potassium [Moles/Vol] 4.0 mmol/L 3.7 - 5.1 mmol/L [facility] Protein [Mass/Vol] 7.3 g/dL 6.3 - 8.0 g/dL [facility] Sodium [Moles/Vol] 140 mmol/L 136 - 144 mmol/L [facility] Urea nitrogen [Mass/Vol] 13 mg/dL 7 - 21 mg/dL [facility] ESR Westergren method (Bld) [Velocity]on 12-14-2021 ESR (Bld) [Velocity] 2 mm/h 0 - 20 mm/hr [facility] CNOVon 11-22-2021 CNOV Office Visit (STFLF) SHARA RIGGS ([id number]) 2 F Date Time Provider Department 11/22/21 7:15 AM WARREN JULES STFLF During your visit today, we recorded the following information about you: Temperature Pulse Blood pressure Weight 98.4 degrees 88/minute 106/59 57.2 kg Height 1.626 m Warren Jules MD 11/22/2021 7:33 AM Signed Shara Riggs is a 21 year old female known to our practice. Patient presents with: Headache: yrs-getting worse Lyme disease: 6months ago-discuss Pt has more frequent migraines. 3 times a week now. Pt has worsening headaches now. More intense now, sensitive to light, causes nausea. Imitrex, imitrex, ibuprofen doesn't help. Past Medical, Surgical, Family and Social Histories reviewed and updated today in the History tab of [facility]. Current Medications and allergies reviewed. ACTIVE PROBLEM LIST Menorrhagia ALLERGIES: Patient has no known allergies. Current Outpatient Medications Medication Sig - Norethindrone Acet-Ethinyl Est (,) 1-20 mg-mcg per tablet Take 1 tablet by mouth once daily. Take continuously, skip placebo week. - naproxen (NAPROSYN) 500 mg tablet Take 1 tablet by mouth twice daily with meals. - predniSONE (DELTASONE) 50 mg Take 1 tablet by mouth once daily. No current facility-administered medications for this visit. REVIEW OF SYSTEMS GENERAL: No weight loss, malaise or fevers RESPIRATORY: Negative for cough, hemoptysis, wheezing, COPD, dyspnea or shortness of breath CARDIOVASCULAR: Negative for chest pain, leg swelling, CHF or palpitations GI: No nausea, vomiting, or diarrhea PHYSICAL EXAMINATION: BP 106/59 Pulse 88 Temp 36.9 ?C (98.4 ?F) (Left Tympanic) Ht 162.6 cm (5' 4) Wt 57.2 kg (126 lb) LMP 01/15/2021 SpO2 97% BMI 21.63 kg/m? PHYSICAL EXAMINATION: General appearance: Well appearing, alert, in no acute distress, well-hydrated, well nourished. Lungs: Lungs clear to auscultation. No wheezing, rhonchi, rales Heart: RRR without murmur, gallop, or rubs. No ectopy Neuro: Gait normal. Reflexes normal and symmetric. Sensation grossly intact. CN II-XII intact. ASSESSMENT/PLAN: 1. Chronic migraine without aura without status migrainosus, not intractable - ICD9: 346.70, ICD10: G43.709 Start depakote and maxalt - CONSULT TO NEUROLOGY Warren Jules MD Referring Provider: SELF [200] Allergies As of Date: 11/22/2021 (No Known Allergies) Date Reviewed: 11/22/2021 Reviewed by: eMghana Maher - Fully Assessed Reason for Visit: Headache [52] Cmt: yrs-getting worse Lyme disease [2495] Cmt: 6months ago-discuss Primary Visit Diagnosis:Chronic migraine without aura without status migrainosus, not intractable [G43.709] Order(s):rizatriptan (MAXALT-ACCOUNTING SYSTEM EXPERT) 10 mg disintegrating tabletTake 1 tablet by mouth as directed. at onset of headache. May repeat after 2 hours. Do not exceed 30 mg per day.Disp: 12 tabletRfl: [address] (DEPAKOTE) 250 mg EC tabletTake 1 tablet by mouth twice daily.Disp: 60 tabletRfl: 0 CONSULT TO NEUROLOGY [9070] Order #: [id number]: 1 FUTURE Prescriptions as of 11/22/2021 - rizatriptan (MAXALT-ACCOUNTING SYSTEM EXPERT) 10 mg disintegrating tablet Take 1 tablet by mouth as directed. at onset of headache. May repeat after 2 hours. Do not exceed 30 mg per day. - divalproex DR (DEPAKOTE) 250 mg EC tablet Take 1 tablet by mouth twice daily. - Norethindrone Acet-Ethinyl Est (,) 1-20 mg-mcg per tablet Take 1 tablet by mouth once daily. Take continuously, skip placebo week. Problem List As Of Date 11/22/2021 Noted Resolved Menorrhagia [N92.0] Prescriptions ordered this encounter Disp Refills Start End RIZATRIPTAN 10 MG DISINTEGRATING TAB* 12 t* 5 11/22/2021 Route: ORAL Sig: Take 1 tablet by mouth as directed. at onset of headache. May repeat after 2 hours. Do not exceed 30 mg per day. DIVALPROEX 250 MG TABLET,DELAYED REL* 60 t* 0 11/22/2021 12/22/2021 Route: ORAL Sig: Take 1 tablet by mouth twice daily. Medications Discontinued During This Encounter Prescriptions - predniSONE (DELTASONE) 50 mg (Discontinued) Take 1 tablet by mouth once daily. - naproxen (NAPROSYN) 500 mg tablet (Discontinued) Take 1 tablet by mouth twice daily with meals. Encounter Status:Closed by WARREN JULES on 11/22/21 [facility] CNPNon 11-22-2021 CNPN Telephone (STFLF) SHARA RIGGS ([id number]) 2 F Date Time Provider Department 11/22/21 WARREN JULES STFL During your visit today, we recorded the following information about you: Tianna Swenson 11/22/2021 5:13 PM Signed Referral information submitted to [facility]. Ref# [id number]. [facility] office will call the patient within 7-10 business days to set this appointment up. Allergies As of Date: 11/22/2021 (No Known Allergies) Date Reviewed: 11/22/2021 Reviewed by: Meghana Maher - Fully Assessed Reason for Visit: Referral Information [9119] Cmt: Neurology Prescriptions as of 11/22/2021 - rizatriptan (MAXALT-ACCOUNTING SYSTEM EXPERT) 10 mg disintegrating tablet Take 1 tablet by mouth as directed. at onset of headache. May repeat after 2 hours. Do not exceed 30 mg per day. - divalproex DR (DEPAKOTE) 250 mg EC tablet Take 1 tablet by mouth twice daily. - Norethindrone Acet-Ethinyl Est (,) 1-20 mg-mcg per tablet Take 1 tablet by mouth once daily. Take continuously, skip placebo week. Problem List As Of Date 11/22/2021 Noted Resolved Menorrhagia [N92.0] Encounter Status:Closed by TIANNA BRICE on 11/22/21 [facility] CNOVon 05-28-2021 CNOV Office Visit (STFLE) SHARA RIGGS ([id number]) 2 F Date Time Provider Department 05/28/21 1:40 PM GENA GLASGOW During your visit today, we recorded the following information about you: Temperature Pulse Respiration Blood pressure 98 degrees 101/minute 16/minute 98/68 Weight Height Last Period 56.7 kg 1.626 m 01/15/21 Gena Glasgow PA-C 05/28/2021 9:05 PM Signed Subjective The patient is a 21 year old female who presents with COVID concerns for 4 days. She describes sore throat, headache, nausea, subjective fever. No known sick contacts. She is not vaccinated for COVID. No voice change, drooling, neck pain/ stiffness. Despite triage note, patient denies headache on my exam. Review of Systems Constitutional: Positive for chills, fever and malaise/fatigue. HENT: Positive for sore throat. Negative for congestion, ear pain and sinus pain. Eyes: Negative. Respiratory: Negative. Negative for stridor. Cardiovascular: Negative for chest pain and orthopnea. Gastrointestinal: Positive for nausea. Negative for abdominal pain, diarrhea and vomiting. Musculoskeletal: Negative for myalgias and neck pain. Skin: Negative for rash. Neurological: Negative for dizziness, weakness and headaches. Endo/Heme/Allergies: Does not bruise/bleed easily. Objective Physical Exam Vitals and nursing note reviewed. Constitutional: General: She is awake. She is not in acute distress. Appearance: Normal appearance. She is well-developed and well-groomed. She is not ill-appearing or toxic-appearing. Comments: Ambulatory into clinic Well appearing female resting in exam chair with significant other at bedside managing secretions Patent airway No stridor Patient has significant tonsillar exudate particularly worse on the left than the right. HENT: Head: Normocephalic and atraumatic. Jaw: No trismus. Right Ear: Tympanic membrane, ear canal and external ear normal. Left Ear: Tympanic membrane, ear canal and external ear normal. Nose: Nose normal. Mouth/Throat: Lips: [place]. No lesions. Mouth: Mucous membranes are moist. No oral lesions. Tongue: No lesions. Palate: No lesions. Pharynx: Uvula midline. Oropharyngeal exudate and posterior oropharyngeal erythema present. No pharyngeal swelling or uvula swelling. Tonsils: Tonsillar exudate present. No tonsillar abscesses. 1+ on the right. 1+ on the left. Comments: Managing secretions Patent airway No stridor Patient has significant tonsillar exudate particularly on the left. No meningismus no Eyes: General: Lids are normal. Vision grossly intact. Gaze aligned appropriately. Conjunctiva/sclera: Conjunctivae normal. Neck: Trachea: Phonation normal. Comments: No meningismus Cardiovascular: Rate and Rhythm: Normal rate and regular rhythm. Pulses: Radial pulses are 2+ on the right side and 2+ on the left side. Heart sounds: Normal heart sounds. Pulmonary: Effort: Pulmonary effort is normal. Breath sounds: Normal breath sounds and air entry. Abdominal: General: Abdomen is flat. Bowel sounds are normal. There is no distension. Palpations: Abdomen is soft. Tenderness: There is no abdominal tenderness. There is no right CVA tenderness, left CVA tenderness, guarding or rebound. Musculoskeletal: General: Normal range of motion. Cervical back: Full passive range of motion without pain, normal range of motion and neck supple. Lymphadenopathy: Cervical: Cervical adenopathy present. Right cervical: Superficial cervical adenopathy present. No posterior cervical adenopathy. Left cervical: Superficial cervical adenopathy present. No posterior cervical adenopathy. Skin: General: Skin is warm and dry. Capillary Refill: Capillary refill takes less than 2 seconds. Findings: No rash. Neurological: Mental Status: She is alert and oriented to person, place, and time. Gait: Gait normal. Psychiatric: Behavior: Behavior is cooperative. BP 98/68 Pulse 101 Temp 98 Resp 16 Ht 5' 4 (1.63m) Wt 124 lb 14.4 oz (56.7kg) SpO2 98% LMP 01/15/2021 BMI 21.43 kg/(m2). ASSESSMENT/PLAN: 1. Exudative pharyngitis - ICD9: 462, ICD10: J02.9 - MONOTEST, INFECTIOUS MONO - 2019 CORONAVIRUS 2. Suspected COVID19 infection I have reviewed and updated patient allergies, VS, current medications, past medical and surgical history and social history MDM: Patient is well appearing, non toxic, not hypoxic, and appropriate for outpatient treatment and management at time of evaluation. Patient presents with subjective fever, sore throat, fatigue, nausea over the last 4 days. She is concerned for Covid. Swab sent and pending. Counseled on isolation precautions until results return. On exam, patient has tonsillar exudate with superficial cervical anterior lymphadenopathy bilaterally. No posterior lymphadenopathy. No cl (more content not included)... Normal [facility] Coronavirus 2019on 1 SARS-CoV-2 (COVID-19) RNA LINA+probe Ql (Unsp spec) UPPER RESPIRATORY TRACT SWAB Normal [facility] Comment on above: Performed By: #### C OVID ####[id number] [place], [place] [id number] SARS-CoV-2 (COVID-19) RNA LINA+probe Ql (Unsp spec) Negative for COVID19 (SARS CoV2) by RT-PCR or equivalent method. Normal Negative for COVID19 (SARS CoV2) by RT-PCR or equivalent method. [facility] Comment on above: Result Comment: This test was developed and its performance characteristics determined by [facility]'s [facility] [place]. This test has been authorized by FDA under an Emergency Use Authorization (EUA). This test has been validated in accordance with the FDA's Guidance Document Policy for Diagnostics Testing in Laboratories Certified to Perform High Complexity Testing under CLIA prior to Emergency use Authorization for Coronavirus Disease 2019 during the Public Health Emergency issued on November 15, 2019. Test performed by [facility], [facility] [place], [address], [place] [address]. Performed By: #### C OVID ####[id number] [place], [place] [id number] CNOVon 05-03-2021 CNOV Office Visit (STFLF) SHARA RIGGS ([id number]) 2 F Date Time Provider Department 05/03/21 7:15 AM WARREN JULES [facility] During your visit today, we recorded the following information about you: Temperature Blood pressure Weight 98.8 degrees 104/66 57.4 kg Warren Jules MD 05/03/2021 7:35 AM Signed Shara Riggs is a 20 year old female known to our practice. Patient presents with: Back Pain lyme disease. Pt was bit by insect 2 mo ago, treated with keflex and bactrim, no improvement. Developed joint pains, eventually lyme titers were positive, confirmation positive. Started doxy, doing better, no joint pain, still has some back pain, no headaches, no chest pain or sob. Past Medical, Surgical, Family and Social Histories reviewed and updated today in the History tab of [employer]. Current Medications and allergies reviewed. ACTIVE PROBLEM LIST Menorrhagia ALLERGIES: Patient has no known allergies. Current Outpatient Medications Medication Sig - Norethindrone Acet-Ethinyl Est (,) 1-20 mg-mcg per tablet Take 1 tablet by mouth once daily. Take continuously, skip placebo week. - doxycycline hyclate (VIBRAMYCIN) 100 mg capsule Take 1 capsule by mouth twice daily for 10 days. - predniSONE (DELTASONE) 50 mg Take 1 tablet by mouth once daily. - cetirizine (ZYRTEC) 10 mg tablet Take 1 tablet by mouth once daily. - naproxen (NAPROSYN) 500 mg tablet Take 1 tablet by mouth twice daily as needed for pain (FOR PAIN - TAKE WITH FOOD.). No current facility-administered medications for this visit. REVIEW OF SYSTEMS GENERAL: No weight loss, malaise or fevers RESPIRATORY: Negative for cough, hemoptysis, wheezing, COPD, dyspnea or shortness of breath CARDIOVASCULAR: Negative for chest pain, leg swelling, CHF or palpitations GI: No nausea, vomiting, or diarrhea PHYSICAL EXAMINATION: BP 104/66 (BP Site: Right Arm, BP Position: Sitting, BP Cuff Size: Regular Adult) Temp 37.1 ?C (98.8 ?F) (Tympanic) Wt 57.4 kg (126 lb 9.6 oz) LMP 12/19/2020 (Exact Date) BMI 21.73 kg/m? PHYSICAL EXAMINATION: General appearance: Well appearing, alert, in no acute distress, well-hydrated, well nourished. Lungs: Lungs clear to auscultation. No wheezing, rhonchi, rales Heart: RRR without murmur, gallop, or rubs. No ectopy Ears: External ears normal, canals clear Nose/Sinuses: Nares normal, septum midline, mucosa normal, no drainage or sinus tenderness Oropharynx: Lips, mucosa, and tongue normal, teeth and gums normal, oropharynx normal Neck: Supple, no adenopathy; thyroid symmetric, normal size, no bruits ASSESSMENT/PLAN: 1. Lyme disease - ICD9: 088.81, ICD10: A69.20 Doxy, see ID - CONSULT TO INFECTIOUS DISEASES Warren Jules MD Allergies As of Date: 05/03/2021 (No Known Allergies) Date Reviewed: 05/03/2021 Reviewed by: Sasha Cordova Ma - Fully Assessed Reason for Visit: Back Pain [12] Primary Visit Diagnosis:Lyme disease [A69.20] Order(s):naproxen (NAPROSYN) 500 mg tabletTake 1 tablet by mouth twice daily with meals.Disp: 60 tabletRfl: 0 CONSULT TO INFECTIOUS DISEASES [9016] Order #: [id number]: 1 FUTURE Prescriptions as of 05/03/2021 - naproxen (NAPROSYN) 500 mg tablet Take 1 tablet by mouth twice daily with meals. - doxycycline hyclate (VIBRAMYCIN) 100 mg capsule Take 1 capsule by mouth twice daily for 10 days. - predniSONE (DELTASONE) 50 mg Take 1 tablet by mouth once daily. - Norethindrone Acet-Ethinyl Est (,) 1-20 mg-mcg per tablet Take 1 tablet by mouth once daily. Take continuously, skip placebo week. Problem List As Of Date 05/03/2021 Noted Resolved Menorrhagia [N92.0] Prescriptions ordered this encounter Disp Refills Start End NAPROXEN 500 MG TABLET 60 t* 0 05/03/2021 Route: ORAL Sig: Take 1 tablet by mouth twice daily with meals. Medications Discontinued During This Encounter Prescriptions - naproxen (NAPROSYN) 500 mg tablet (Discontinued) Take 1 tablet by mouth twice daily as needed for pain (FOR PAIN - TAKE WITH FOOD.). - cetirizine (ZYRTEC) 10 mg tablet (Discontinued) Take 1 tablet by mouth once daily. Encounter Status:Closed by [facility]03[facility] Tele[facility] (STFL) SHARA RIGGS ([id number]) 2 F Date Time Provider Department 05/03/21 [facility] JULES [facility] During your visit today, we recorded the following information about you: Sasha Cordova Ma 05/03/2021 10:00 AM Signed Form on pcp desk for review Su Rodriguez 05/05/2021 9:53 AM Signed Signed by PCP, faxed back to provided number, placed in scanning basket Allergies As of Date: 05/03/2021 (No Known Allergies) Date Reviewed: 05/03/2021 Reviewed by: Sasha Cordova Ma - Fully Assessed Reason for Visit: Forms [913] Cmt: Department of Health and Human Services Prescriptions as of 05/05/2021 - naproxen (NAPROSYN) 500 mg tablet Take 1 tablet by mouth twice daily with meals. - doxycycline hyclate (VIBRAMYCIN) 100 mg capsule Take 1 capsule by mouth twice daily for 10 days. - predniSONE (DELTASONE) 50 mg Take 1 tablet by mouth once daily. - Norethindrone Acet-Ethinyl Est (,) 1-20 mg-mcg per tablet Take 1 tablet by mouth once daily. Take continuously, skip placebo week. Problem List As Of Date 05/03/2021 Noted Resolved Menorrhagia [N92.0] Encounter Status:Closed by SASHA CORDOVA MA on 05/03/21 [facility] SHARA RIG[facility] ([id number]) 2 F Date Time Provider Department 04/29/21 [facility] During your visit today, we recorded the following information about you: Warren Jules MD 04/29/2021 2:42 PM Signed Confirmatory lyme titers were positive as well. She has lyme disease, let's start doxycycline TODAY and see her in the office as scheduled (05/03) Vivi Jacobs Ma 04/29/2021 3:04 PM Signed Patient verified name and date. Patient informed. Allergies As of Date: 04/29/2021 (No Known Allergies) Date Reviewed: 03/30/2021 Reviewed by: Siomara Hughes Ma - Fully Assessed Reason for Visit: Results [95] Order(s):doxycycline hyclate (VIBRAMYCIN) 100 mg capsuleTake 1 capsule by mouth twice daily for 10 days.Disp: 20 capsuleRfl: 0 Prescriptions as of 04/29/2021 - doxycycline hyclate (VIBRAMYCIN) 100 mg capsule Take 1 capsule by mouth twice daily for 10 days. - predniSONE (DELTASONE) 50 mg Take 1 tablet by mouth once daily. - cetirizine (ZYRTEC) 10 mg tablet Take 1 tablet by mouth once daily. - naproxen (NAPROSYN) 500 mg tablet Take 1 tablet by mouth twice daily as needed for pain (FOR PAIN - TAKE WITH FOOD.). - Norethindrone Acet-Ethinyl Est (,) 1-20 mg-mcg per tablet Take 1 tablet by mouth once daily. Take continuously, skip placebo week. Problem List As Of Date 04/29/2021 Noted Resolved Menorrhagia [N92.0] Prescriptions ordered this encounter Disp Refills Start End DOXYCYCLINE HYCLATE 100 MG CAPSULE 20 c* 0 04/29/2021 2021 Route: ORAL Sig: Take 1 capsule by mouth twice daily for 10 days. Encounter Status:Closed by WARREN JULES on 04/29/21 [facility] SHARA RIGGS ([id number]) 2 Date Time Provider Department 04/28/21 [facility] During your visit today, we recorded the following information about you: Warren Jules MD 04/28/2021 12:06 PM Signed Let's confirm the test with a lyme immunoblot test, see order. Fu with me after this second test please Kt Mejias 04/28/2021 4:53 PM Signed Patient notified. She will be in tomorrow for her labs and already has an appointment with Dr. Jules for next Sunday. Allergies As of Date: 04/28/2021 (No Known Allergies) Date Reviewed: 03/30/2021 Reviewed by: Siomara Hughes Ma - Fully Assessed Reason for Visit: Orders [681] Primary Visit Diagnosis:Positive Lyme disease serology [R76.8] Order(s):B BURGDORFERI IGG/IGM IB CSF [SQLYIBCS] Order #: [id number] FUTURE Prescriptions as of 04/28/2021 - predniSONE (DELTASONE) 50 mg Take 1 tablet by mouth once daily. - cetirizine (ZYRTEC) 10 mg tablet Take 1 tablet by mouth once daily. - naproxen (NAPROSYN) 500 mg tablet Take 1 tablet by mouth twice daily as needed for pain (FOR PAIN - TAKE WITH FOOD.). - Norethindrone Acet-Ethinyl Est (,) 1-20 mg-mcg per tablet Take 1 tablet by mouth once daily. Take continuously, skip placebo week. Problem List As Of Date 04/28/2021 Noted Resolved Menorrhagia [N92.0] Encounter Status:Closed by W[facility]EN JULES on 04/28/[facility]IG[facility] ([id number]) 2 F Date Time Provider Department 04/28/21 WARR[facility] JULES [facility] During your visit today, we recorded the following information about you: Fernie Weaver LPN 04/28/2021 1:07 PM Signed ----- Message from Bev Rand APRN.PRE CODER sent at 04/28/2021 12:02 PM EDT ----- Please call. Schedule first available with Dr. Fidel Jules to discusss Mary Dela Cruz 04/29/2021 7:22 AM Signed She is already scheduled for 05/03/21 Allergies As of Date: 04/28/2021 (No Known Allergies) Date Reviewed: 03/30/2021 Reviewed by: Siomara Hughes Ma - Fully Assessed Reason for Visit: Results [95] Appointment [186] Prescriptions as of 04/29/2021 - predniSONE (DELTASONE) 50 mg Take 1 tablet by mouth once daily. - cetirizine (ZYRTEC) 10 mg tablet Take 1 tablet by mouth once daily. - naproxen (NAPROSYN) 500 mg tablet Take 1 tablet by mouth twice daily as needed for pain (FOR PAIN - TAKE WITH FOOD.). - Norethindrone Acet-Ethinyl Est (,) 1-20 mg-mcg per tablet Take 1 tablet by mouth once daily. Take continuously, skip placebo week. Problem List As Of Date 04/28/2021 Noted Resolved Menorrhagia [N92.0] Encounter Status:Closed by MARY DELA CRUZ on 04/29/21 Normal [facility] 04-22-2021 [facility] Telephone (STFLF) SHARA RIGGS ([id number]) 2 F Date Time Provider Department 04/22/21 WARREN JULES STFL During your visit today, we recorded the following information about you: Tianna Swenson 04/22/2021 12:14 PM Signed Mother would like to know if an order can be placed to test patient for Lyme disease. She has been seen here, and was referred for several tests and specialists for the same issues Mother is aware that Dr Jules is out of the office,but would like a covering provider to order. Please call mom when order is placed Bev Rand APRN.SHWETA 04/22/2021 1:59 PM Signed Order placed Mariah Schulte 04/22/2021 2:18 PM Signed Patient's mom informed. Clari Magana APRN.SHWETA 04/26/2021 4:01 PM Signed Please notify pt MRI results show: presumed cystic changes within the adenoidal soft tissues in the posterior nasopharynx. Recommend follow up with ENT for further evaluation. I have placed the consult. Please assist with scheduling. Clari Magana APRN.SHWETA Matta 04/26/2021 4:17 PM Signed Spoke with patient notified her of results of MRI and that a referral to a ENT was placed and they will be calling her to schedule an appointment. Mary Dela Cruz 04/26/2021 5:40 PM Signed Information sent to [facility], conf# [id number]. They will contact the patient to schedule. Patient advised. Allergies As of Date: 04/22/2021 (No Known Allergies) Date Reviewed: 03/30/2021 Reviewed by: Siomara Hughes Ma - Fully Assessed Reason for Visit: Orders [681] Referral Information [6293] Cmt: ENT Primary Visit Diagnosis:Numbness and tingling [R20.0, R20.2] Other Visit Diagnosis:Abnormal findings on imaging test [R93.89] Order(s):LYME AB EARLY <=30 DAY SYMPTOMS [SQLMERLY] Order #: [id number] FUTURE LYME AB LATE >30 DAYS SYMPTOMS [SQLMLATE] Order #: [id number] FUTURE CONSULT TO ENT [2618] Order #: [id number]: 1 FUTURE Prescriptions as of 04/26/2021 - predniSONE (DELTASONE) 50 mg Take 1 tablet by mouth once daily. - cetirizine (ZYRTEC) 10 mg tablet Take 1 tablet by mouth once daily. - naproxen (NAPROSYN) 500 mg tablet Take 1 tablet by mouth twice daily as needed for pain (FOR PAIN - TAKE WITH FOOD.). - Norethindrone Acet-Ethinyl Est (,) 1-20 mg-mcg per tablet Take 1 tablet by mouth once daily. Take continuously, skip placebo week. Problem List As Of Date 04/22/2021 Noted Resolved Menorrhagia [N92.0] Encounter Status:Closed by MARY DELA CRUZ on 04/26/21 [facility] CT Soft Tissue Neck w/o Cont ki 04-13-2021 CT Soft Tissue Neck w/o Contrast Patient Name: SHARA RIGGS Computed Tomography ACCESSION EXAM DATE/TIME PROCEDURE ORDERING PROVIDER [id number] 04/13/2021 10:[address] Soft Tissue Neck w/o MD JOANIE, LYNDON LAINEZ CPT code 85032 Reason For Exam (CT Soft Tissue Neck w/o Contrast) Recent infection, acute pain, LAD/fullness on exam. Evaluate soft tissue structures, r/o abscess. Report Examination: CT soft tissue neck Clinical Indication: Reason infection, acute pain, left-sided neck and facial swelling, concern for infection Comparison: None Findings: Serial axial [address] images were obtained without contrast. Coronal and sagittal images reconstructed. Examination was viewed in multiple windows. Evaluation of the base of the brain demonstrates no gross fluid collection. Paranasal sinuses appear well pneumatized as do the visualized mastoids. The parotid, submandibular, and other major salivary glands are unremarkable demonstrate no evidence of sialolithiasis, surrounding inflammation or significant asymmetry. There is no evidence of lymphadenopathy within the cervical chain anteriorly or posteriorly or within the supraclavicular regions. There is no enlargement of the adenoidal or pharyngeal tonsils. Nasopharynx, oropharynx, and hypopharynx is within normal limits. There is no significant airway narrowing. There is no evidence of abscess formation. The thyroid gland is normal in size and configuration and demonstrates no nodularity. Impression: Unremarkable noncontrast CT scan of the soft tissues of the neck. No gross evidence of gross inflammation or abscess. Computed Tomography Report Report Dictated on Final Dictating Physician: MD CHOPRA ANTHONY J Signed Date and Time: 04/14/2021 7:30 am Signed by: MD CHOPRA ANTHONY J Transcribed Date and Time: 04/14/2021 7:32 Normal [facility] US ABDOMEN COMPLETEOrdered B y: Lyndon Nair on 04-13-2021 Patient Name: SHARA RIGGS Ultrasound ACCESSION EXAM DATE/TIME PROCEDURE ORDERING PROVIDER [id number] 04/13/2021 10:43 EDT US Abdomen Complete MD NAIR MARK ANTHONY CPT code 03502 Reason For Exam (US Abdomen Complete) abdomen pain Report Indication: Abdominal pain. FINDINGS: Liver negative. 15.2 cm. Gallbladder normal. No stones. Common duct normal 2.8 mm. No Parks's sign. Pancreas negative. Right kidney 10.2 cm, left kidney 10.7 cm. No hydronephrosis. Spleen 9.9 cm. Aorta IVC unremarkable. IMPRESSION: No gallstones or acute biliary process seen. Unremarkable liver. The etiology of patient's symptoms is uncertain. Report Dictated on --- Final --- Dictating Physician: MD MINOR JOHN Signed Date and Time: 04/13/2021 11:09 am Signed by: MD MINOR JOHN Transcribed Date and Time: 04/13/2021 11:10 [facility] Work Phone: [facility] Results From [facility] - 04/13/2021 11:10 AM EDT Patient Name: SHARA RIGGS Ultrasound ACCESSION EXAM DATE/TIME PROCEDURE ORDERING PROVIDER [id number] 04/13/2021 10:43 EDT US Abdomen Complete MD NAIR MARK ANTHONY CPT code 07506 Reason For Exam (US Abdomen Complete) abdomen pain Report Indication: Abdominal pain. FINDINGS: Liver negative. 15.2 cm. Gallbladder normal. No stones. Common duct normal 2.8 mm. No Parks's sign. Pancreas negative. Right kidney 10.2 cm, left kidney 10.7 cm. No hydronephrosis. Spleen 9.9 cm. Aorta IVC unremarkable. IMPRESSION: No gallstones or acute biliary process seen. Unremarkable liver. The etiology of patient's symptoms is uncertain. Report Dictated on --- Final --- Dictating Physician: MD MINOR JOHN Signed Date and Time: 04/13/2021 11:09 am Signed by: MD MINOR JOHN Transcribed Date and Time: 04/13/2021 11:10 [facility] Work [facility]: [facility] Work Phone: US Abdomen Completeon 2020 US Abdomen Complete Patient Name: SHARA RIGGS Ultrasound ACCESSION EXAM DATE/TIME PROCEDURE ORDERING PROVIDER [id number] 04/13/2021 10:43 EDT US Abdomen Complete MD NAIR MARK ANTHONY CPT code 59978 Reason For Exam (US Abdomen Complete) abdomen pain Report Indication: Abdominal pain. FINDINGS: Liver negative. 15.2 cm. Gallbladder normal. No stones. Common duct normal 2.8 mm. No Parks's sign. Pancreas negative. Right kidney 10.2 cm, left kidney 10.7 cm. No hydronephrosis. Spleen 9.9 cm. Aorta IVC unremarkable. IMPRESSION: No gallstones or acute biliary process seen. Unremarkable liver. The etiology of patient's symptoms is uncertain. Report Dictated on Final Dictating Physician: MD MINOR JOHN Signed Date and Time: 04/13/2021 11:09 am Signed by: MD MINOR JOHN Transcribed Date and Time: 04/13/2021 11:10 [facility] SHARA RIGGS ([id number]) 2 F Date Time Provider Department 04/12/21 CLARI MAGANA [facility] During your visit today, we recorded the following information about you: Clari Magana APRN.CNP 04/12/2021 3:24 PM Signed Please notify pt neck xray showed some mild degenerative changes with degenerative anterolisthesis. I've consulted with Dr. Jules and we agreed the follow up should be MRI. I have placed the order. I also spoke with Dr. Nair about the additional labs and imaging he has ordered. We will watch for those results as well. Please feel free to call with questions. Clari Magana APRN.SHWETA Mancini Ma 04/12/2021 3:33 PM Signed Pt contacted, has no questions at this time Tracy Mancini Ma Allergies As of Date: 04/12/2021 (No Known Allergies) Date Reviewed: 03/30/2021 Reviewed by: Siomara Hughes Ma - Fully Assessed Reason for Visit: Results [95] Visit Diagnosis:Abnormal findings on diagnostic imaging of other parts of musculoskeletal system [R93.7] Order(s):MRI CERVICAL SPINE WO/W IVCON [[id number]] Order #: [id number] FUTURE iv contrast (will be provided with radiology test)MRI CSP Inject, intravenously, once for 1 dose. No IV access, insert saline lock prior to the beginning of sedation, infusion, injection of imaging exam. Discontinue saline lock post exam. If Pt. has a central line or IVAD, may access for administration according to line specific nursing protocol. Once exam is complete flush line and de-access according to line specific nursing protocol in the MR contrast administration guidelines link.Disp: 1 EachRfl: 0 Prescriptions as of 04/12/2021 - iv contrast (will be provided with radiology test) MRI CSP Inject, intravenously, once for 1 dose. No IV access, insert saline lock prior to the beginning of sedation, infusion, injection of imaging exam. Discontinue saline lock post exam. If Pt. has a central line or IVAD, may access for administration according to line specific nursing protocol. Once exam is complete flush line and de-access according to line specific nursing protocol in the MR contrast administration guidelines link. - predniSONE (DELTASONE) 50 mg Take 1 tablet by mouth once daily. - cetirizine (ZYRTEC) 10 mg tablet Take 1 tablet by mouth once daily. - naproxen (NAPROSYN) 500 mg tablet Take 1 tablet by mouth twice daily as needed for pain (FOR PAIN - TAKE WITH FOOD.). - Norethindrone Acet-Ethinyl Est (,) 1-20 mg-mcg per tablet Take 1 tablet by mouth once daily. Take continuously, skip placebo week. Problem List As Of Date 04/12/2021 Noted Resolved Menorrhagia [N92.0] Prescriptions ordered this encounter Disp Refills Start End IV CONTRAST (RADIOLOGY PROCEDURE) 1 Ea* 0 04/12/2021 04/13/2021 Class: In Office Sig: MRI CSP Inject, intravenously, once for 1 dose. No IV access, insert saline lock prior to the beginning of sedation, infusion, injection of imaging exam. Discontinue saline lock post exam. If Pt. has a central line or IVAD, may access for administration according to line specific nursing protocol. Once exam is complete flush line and de-access according to line specific nursing protocol in the MR contrast administration guidelines link. Encounter Status:Closed by TRACY MANCINI MA on 04/12/21 [facility] 04-05-2021 [facility] Telephone (STFLF) SHARA RIGGS ([id number]) 2 F Date Time Provider Department 04/05/21 CLARI MAGANA [facility] During your visit today, we recorded the following information about you: Tianna Swenson 04/05/2021 9:[address] Nair at [facility] wanted to speak directly with Clari. He is aware that Clari is out of the office this week, and declined to speak with a covering provider. He is asking for Clari to give him a call when she returns next week at [phone] Allergies As of Date: 04/05/2021 (No Known Allergies) Date Reviewed: 03/30/2021 Reviewed by: Siomara Hughes Ma - Fully Assessed Reason for Visit: Question [7037] Prescriptions as of 04/05/2021 - predniSONE (DELTASONE) 50 mg Take 1 tablet by mouth once daily. - cetirizine (ZYRTEC) 10 mg tablet Take 1 tablet by mouth once daily. - naproxen (NAPROSYN) 500 mg tablet Take 1 tablet by mouth twice daily as needed for pain (FOR PAIN - TAKE WITH FOOD.). - Norethindrone Acet-Ethinyl Est (,) 1-20 mg-mcg per tablet Take 1 tablet by mouth once daily. Take continuously, skip placebo week. Problem List As Of Date 04/05/2021 Noted Resolved Menorrhagia [N92.0] Encounter Status:Closed by TIANNA BRICE on 04/05/21 [facility] 03-31-2021 [facility] Telephone (STFLF) SHARA RIGGS ([id number]) 2 F Date Time Provider Department 03/31/21 CLARI MAGANA [facility] During your visit today, we recorded the following information about you: Clari Magana APRN.PRE CODER 03/31/2021 8:23 AM Signed Please notify pt inflammatory markers are mildly elevated on labs which we discussed was expected. I would like to change the steroid to a stronger dose than the tapering pack. I have sent a new prescription to the pharmacy to use instead. Liver enzymes were also elevated which can be a result of certain medication use or viral infection. I ordered some additional labs. She can get these anytime and does not need to be fasting. I would like her to make an appt to see Dr. Jules in about 2 weeks. Clari Magana APRN.SHWETA Santiagoiah Owen COLEMAN 03/31/2021 10:54 AM Signed Left message for patient to call office. 03/31/2021 10:54 AM Yeimi Ocampo 04/04/2021 3:08 PM Signed Magdalena pt mother advised. Yeimi Ocampo MA Allergies As of Date: 03/31/2021 (No Known Allergies) Date Reviewed: 03/30/2021 Reviewed by: Siomara Hughes Ma - Fully Assessed Reason for Visit: Results [95] Primary Visit Diagnosis:Elevated AST (SGOT) [R74.01] Other Visit Diagnosis:Elevated ALT measurement [R74.01] Order(s):HEP ACUTE PANEL BL [SQHACUTP] Order #: [id number] FUTURE HEPATIC FUNCTION PNL [SQHFP] Order #: [id number] FUTURE predniSONE (DELTASONE) 50 mgTake 1 tablet by mouth once daily.Disp: 5 tabletRfl: 0 Prescriptions as of 04/04/2021 - predniSONE (DELTASONE) 50 mg Take 1 tablet by mouth once daily. - cetirizine (ZYRTEC) 10 mg tablet Take 1 tablet by mouth once daily. - naproxen (NAPROSYN) 500 mg tablet Take 1 tablet by mouth twice daily as needed for pain (FOR PAIN - TAKE WITH FOOD.). - Norethindrone Acet-Ethinyl Est (,) 1-20 mg-mcg per tablet Take 1 tablet by mouth once daily. Take continuously, skip placebo week. Problem List As Of Date 03/31/2021 Noted Resolved Menorrhagia [N92.0] Prescriptions ordered this encounter Disp Refills Start End PREDNISONE 50 MG TABLET 5 ta* 0 03/31/2021 Route: ORAL Sig: Take 1 tablet by mouth once daily. Medications Discontinued During This Encounter Prescriptions - methylPREDNISolone (MEDROL DOSE-PACK) 4 mg Dose-Pack (Discontinued) As Instructed per package Encounter Status:Closed by CLARI MAGANA on 03/31/21 Normal [facility] C-Reactive Proteinon 021 C-Reactive Protein 2.7 mg/dL High <0.9 [facility] Comment on above: Performed By: #### C RP, WSR, CMP, CBCDIF ####[facility] [place], [place] [phone] CBC and Differentialon 03-30 Abs Baso 0.04 k/uL Normal <0.11 [facility] Comment on above: Performed By: #### C RP, WSR, CMP, CBCDIF ####[facility] [address] [place], [place] [phone] Abs [place]ac 0.45 k/uL Normal <0.87 [facility] Comment on above: Performed By: #### C RP, WSR, CMP, CBCDIF ####[facility] [place], [place] [phone] Abs Neut 8.05 k/uL High 1.45-7.50 [facility] Comment on above: Performed By: #### C RP, WSR, CMP, CBCDIF ####[facility] [place], [place] [phone] Absolute nRBC <0.01 Normal <0.01 [facility] Comment on above: Performed By: #### C RP, WSR, CMP, CBCDIF ####[facility] [place] [address] [phone] Basophils/100 WBC (Bld) 0.4 % Normal [facility] Comment on above: Performed By: #### C RP, WSR, CMP, CBCDIF ####[place] [address] [place] [phone] DTYPE Auto Diff Normal [facility] Comment on above: Performed By: #### C RP, WSR, CMP, CBCDIF ####[place] [address] [place] [phone] Eosinophils (Bld) [#/Vol] 0.15 10*3/uL Normal <0.46 [facility] Comment on above: Performed By: #### C RP, WSR, CMP, CBCDIF ####[place] [address] [place] [address] [phone] Eosinophils/100 WBC (Bld) 1.6 % Normal [facility] Comment on above: Performed By: #### C RP, WSR, CMP, CBCDIF ####[place] [address] [place] [address] [phone] Erythrocyte distribution width (RBC) [Ratio] 12.1 % Normal 11.5-15.0 [facility] Comment on above: Performed By: #### C RP, WSR, CMP, CBCDIF ####[place] [address] [place] [address] [phone] Hematocrit (Bld) [Volume fraction] 39.7 % Normal 36.0-46.0 [facility] Comment on above: Performed By: #### C RP, WSR, CMP, CBCDIF ####[place] [id number] [place], [place] [phone] Hemoglobin (Bld) [Mass/Vol] 12.6 g/dL Normal 11.5-15.5 [facility] Comment on above: Performed By: #### C RP, WSR, CMP, CBCDIF ####[address] [place], [place] [phone] Lymphocytes (Bld) [#/Vol] 0.67 10*3/uL Low 1.00-4.00 [facility] Comment on above: Performed By: #### C RP, WSR, CMP, CBCDIF ####[place] [address] [place], [place] [phone] Lymphocytes/100 WBC (Bld) 7.2 % Normal [facility] Comment on above: Performed By: #### C RP, WSR, CMP, CBCDIF ####[address] [phone] MCH 29.4 pG Normal 26.0-34.0 [facility] Comment on above: Performed By: #### C RP, WSR, CMP, CBCDIF ####[address] [place], [place] [phone] MCHC (RBC) [Mass/Vol] 31.7 g/dL Normal 30.5-36.0 [facility] Comment on above: Performed By: #### C RP, WSR, CMP, CBCDIF ####[place] [address] [place], [place] [phone] MCV (RBC) [Entitic vol] 92.8 fL Normal 80.0-100.0 [facility] Comment on above: Performed By: #### C RP, WSR, CMP, CBCDIF ####[place] [address] [place], [place] [phone] Monocytes/100 WBC (Bld) 4.8 % Normal [facility] Comment on above: Performed By: #### C RP, WSR, CMP, CBCDIF ####[facility], [place] [phone] Neutrophils/100 WBC (Bld) 86.0 % Normal [facility] Comment on above: Performed By: #### C RP, WSR, CMP, CBCDIF ####[place] [address] [place] [place] [phone] NRBCs 0.0 /100 WBC Normal 0 [facility] Comment on above: Performed By: #### C RP, WSR, CMP, CBCDIF ####[place] [address] [place] [address] [place] [phone] Platelet mean volume (Bld) [Entitic vol] 10.1 fL Normal 9.0-12.7 [facility] Comment on above: Performed By: #### C RP, WSR, CMP, CBCDIF ####[place] [address] [place] [address] [phone] Platelets (Bld) [#/Vol] 388 10*3/uL Normal 150-400 [facility] Comment on above: Performed By: #### C RP, WSR, CMP, CBCDIF ####[place] [address] [place] [place] [phone] RBC (Bld) [#/Vol] 4.28 10*6/uL Normal 3.90-5.20 [facility] Comment on above: Performed By: #### C RP, WSR, CMP, CBCDIF ####[facility], [place] [phone] WBC (Bld) [#/Vol] 9.36 10*3/uL Normal 3.70-11.00 [facility] Comment on above: Performed By: #### C RP, WSR, CMP, CBCDIF ####[facility], [place] [phone] [facility] 03-30-2021 [facility] Office Visit (STFLF) SHARA RIGGS ([id number]) 2 F Date Time Provider Department 03/30/21 7:00 AM CLARI MAG[facility] During your visit today, we recorded the following information about you: Temperature Pulse Respiration Blood pressure 98.4 degrees 89/minute 16/minute 117/73 Weight Height 57.9 kg 1.626 m Clari MaganaAPRN.PRE CODER 03/30/2021 12:59 PM Signed This note was created using HouseCall. Subjective Shara Riggs is a 20 year old female. Here today with mom for ongoing progressive symptoms for the past month. Seen 8 days ago for neck pain and headache. Pulling sensation when turning head to L. Now having constant sharp stabbing pain radiating down both arms. Still having neck tenderness and pain that's worse with movement. Denies injury or trauma. No fevers. No weakness or paresthesias. Mom also noticed L facial swelling around cheek and L eye 4 days ago. This has since resolved without intervention. Reports 3 days of intermittent itching up around her neck and arms. No rash however this morning she noticed a single bump on her L upper thigh that is red and itching. No known exposures. No new medications. Hasn't taken anything to help with itching. All this comes after being treated for cellulitis to her L shoulder 1 month ago at [facility]. She finished the course of antibiotics and the area is now healed with a small scar. It was never determined what caused the cellulitis. The history is provided by the patient and a parent. No freelance interpreter/translator was used. Review of Systems Constitutional: Negative for chills and fever. HENT: Positive for facial swelling. Negative for congestion, dental problem, ear pain, sinus pressure and trouble swallowing. Eyes: Negative for photophobia and visual disturbance. Respiratory: Negative for chest tightness and shortness of breath. Cardiovascular: Negative for chest pain and palpitations. Gastrointestinal: Negative for diarrhea, nausea and vomiting. Musculoskeletal: Positive for myalgias and neck pain. Negative for joint swelling. Skin: Itchy bump L upper thigh. Neurological: Positive for headaches (Tension up back from neck). Negative for dizziness, weakness and numbness. All other systems reviewed and are negative. Objective BP 117/73 (BP Site: Left Arm, BP Position: Sitting, BP Cuff Size: Regular Adult) Pulse 89 Temp 36.9 ?C (98.4 ?F) (Left Tympanic) Resp 16 Ht 162.6 cm (5' 4) Wt 57.9 kg (127 lb 11.2 oz) LMP 12/19/2020 (Exact Date) BMI 21.92 kg/m? Physical Exam Vitals and nursing note reviewed. Constitutional: General: She is not in acute distress. Appearance: Normal appearance. She is well-developed. HENT: Head: Normocephalic and atraumatic. Jaw: There is normal jaw occlusion. Salivary Glands: Right salivary gland is not diffusely enlarged. Left salivary gland is not diffusely enlarged. Right Ear: Tympanic membrane normal. Left Ear: Tympanic membrane normal. Nose: Nose normal. Mouth/Throat: Lips: Red Bud. Mouth: Mucous membranes are moist. Dentition: Normal dentition. Pharynx: Oropharynx is clear. Uvula midline. Tonsils: 2+ on the right. 2+ on the left. Eyes: General: Lids are normal. Vision grossly intact. No visual field deficit. Extraocular Movements: Extraocular movements intact. Right eye: No nystagmus. Left eye: No nystagmus. Conjunctiva/sclera: Conjunctivae normal. Pupils: Pupils are equal, round, and reactive to light. Neck: Thyroid: No thyroid mass or thyroid tenderness. Trachea: Phonation normal. Meningeal: Brudzinski's sign absent. Cardiovascular: Rate and Rhythm: Normal rate and regular rhythm. Pulses: Radial pulses are 2+ on the right side and 2+ on the left side. Heart sounds: Normal heart sounds. Pulmonary: Effort: Pulmonary effort is normal. Breath sounds: Normal breath sounds. Abdominal: General: Abdomen is flat. Bowel sounds are normal. Palpations: Abdomen is soft. Musculoskeletal: Arms: Cervical back: Normal range of motion and neck supple. No edema or signs of trauma. Pain with movement, spinous process tenderness and muscular tenderness present. Thoracic back: Normal. Lumbar back: Normal. Comments: Bilateral shoulders and upper arm tenderness. No joint pain, swelling or deformity. Full ROM Lymphadenopathy: Head: Right side of head: No submental, submandibular or tonsillar adenopathy. Left side of head: No submental, submandibular or tonsillar adenopathy. Cervical: No cervical adenopathy. Skin: General: Skin is warm and dry. Capillary Refill: Capillary refill takes less than 2 seconds. Neurological: General: No focal deficit present. Mental Status: She is oriented to person, place, and time. Cranial Nerves: Cranial nerves are intact. Sensory: Sensation is intact. Motor: Motor function is intact. Psychiatric: M (more content not included)... Normal [facility] Comp Metabolic Panelon 03-30 Albumin [Mass/Vol] 3.8 g/dL Low 3.9-4.9 [facility] Comment on above: Performed By: #### C RP, WSR, CMP, CBCDIF ####[facility] [address] [place], [place] [phone] ALP [Catalytic activity/Vol] 69 U/L Normal 34-123 [facility] Comment on above: Performed By: #### C RP, WSR, CMP, CBCDIF ####[facility] [address] [place], [place] [phone] ALT [Catalytic activity/Vol] 93 U/L High 7-38 [facility] Comment on above: Performed By: #### C RP, WSR, CMP, CBCDIF ####[facility] [address], [place] [phone] Anion gap [Moles/Vol] 10 mmol/L Normal 9-18 [facility] Comment on above: Performed By: #### C RP, WSR, CMP, CBCDIF ####[facility] [address] [place], [place] [phone] AST [Catalytic activity/Vol] 64 U/L High 13-35 [facility] Comment on above: Performed By: #### C RP, WSR, CMP, CBCDIF ####[place] [address] [place] [address] [phone] Bilirubin [Mass/Vol] 0.3 mg/dL Normal 0.2-1.3 [facility] Comment on above: Performed By: #### C RP, WSR, CMP, CBCDIF ####[place] [address] [place] [address] [phone] Calcium [Mass/Vol] 9.4 mg/dL Normal 8.5-10.2 [facility] Comment on above: Performed By: #### C RP, WSR, CMP, CBCDIF ####[place] [phone] Chloride [Moles/Vol] 103 mmol/L Normal 97-105 [facility] Comment on above: Performed By: #### C RP, WSR, CMP, CBCDIF ####[place] [address] [place] [phone] CO2 [Moles/Vol] 25 mmol/L Normal 22-30 [facility] Comment on above: Performed By: #### C RP, WSR, CMP, CBCDIF ####[place] [address] [place] [phone] Creatinine [Mass/Vol] 0.73 mg/dL Normal 0.58-0.96 [facility] Comment on above: Performed By: #### C RP, WSR, CMP, CBCDIF ####[place] [address] [place] [phone] eGFR- Amer. >60 Normal [facility] Comment on above: Performed By: #### C RP, WSR, CMP, CBCDIF ####[place] [address] [place] [phone] eGFR-All Other Races >60 Normal [facility] Comment on above: Result Comment: eGFR (Estimated GFR) Units of measure: mL/min/1.73 meters squared eGFR is derived from the reexpressed MDRD Study equation using the following parameters: serum creatinine, age, gender and race. The creatinine assay has been calibrated to be traceable to IDMS. An eGFR <60 mL/min/1.73m2 for >3 months is consistent with chronic kidney disease. Refer to KDOQI guidelines for clinical interpretation. In patients with unstable renal function, e.g. those with acute kidney injury, the eGFR may not accurately reflect actual GFR. Performed By: #### C RP, WSR, CMP, CBCDIF ####[facility] [place], [place] [phone] Glucose [Mass/Vol] 79 mg/dL Normal 74-99 [facility] Comment on above: Result Comment: The [place] [employer] (ADA) provides guidance for cutoff values for fasting glucose and random glucose. The ADA defines fasting as no caloric intake for at least 8 hours. Fasting plasma glucose results between 100 to 125 mg/dL indicate increased risk for diabetes (prediabetes). Fasting plasma glucose results greater than or equal to 126 mg/dL meet the criteria for diagnosis of diabetes. In the absence of unequivocal hyperglycemia, results should be confirmed by repeat testing. In a patient with classic symptoms of hyperglycemia or hyperglycemic crisis, random plasma glucose results greater than or equal to 200 mg/dL meet the criteria for diagnosis of diabetes. Reference: Standards of Medical Care in Diabetes 2016, [place] [employer]. Diabetes Care. 2016.39(Suppl 1). Performed By: #### C RP, WSR, CMP, CBCDIF ####[facility] [address] [place], [place] [phone] Potassium [Moles/Vol] 4.2 mmol/L Normal 3.7-5.1 [facility] Comment on above: Performed By: #### C RP, WSR, CMP, CBCDIF ####[facility] [address] [place], [place] [phone] Protein [Mass/Vol] 7.0 g/dL Normal 6.3-8.0 [facility] Comment on above: Performed By: #### C RP, WSR, CMP, CBCDIF ####[place] [address] [place], [place] [phone] Sodium [Moles/Vol] 138 mmol/L Normal 136-144 [facility] Comment on above: Performed By: #### C RP, WSR, CMP, CBCDIF ####[address] [phone] Urea nitrogen [Mass/Vol] 9 mg/dL Normal 7-21 [facility] Comment on above: Performed By: #### C RP, WSR, CMP, CBCDIF ####[place] [address] [place], [place] [phone] Sed Rate Westergrenon 2020 Sed Rate Westergren 41 mm/hr High 0-20 [facility] Comment on above: Performed By: #### C RP, WSR, CMP, CBCDIF ####[address] [phone] CNOVon 03-22-2021 CNOV Office Visit (STFLF) SHARA RIGGS ([id number]) 2 F Date Time Provider Department 03/22/21 8:20 AM CLARI MAGANA [place] During your visit today, we recorded the following information about you: Temperature Pulse Respiration Blood pressure 99.3 degrees 96/minute 16/minute 111/66 Weight Height 56.7 kg 1.626 m Clari Magana APRN.PRE CODER 03/22/2021 10:39 AM Addendum This note was created using HouseCall. Patient presents with: ED Follow-up: ER visit- march 03, 2021- still having pain in shoulder and neck area Subjective Shara Riggs is a 20 year old female. Known pt to the practice. Here today for f/u ER visit [facility] on 03/03 for cellulitis to her left shoulder with tachycardia and fever. It was initially thought maybe she had gotten bit by something. Dx with cellulitis. She completed the Keflex and Bactrim and was to follow up in 3 days however she presents here today 2.5 wks later with complaints of neck pain. She states the site of infection looks better but has since developed neck pain. Constant ache, pulling sensation that worsens with turning head side to side or when pressing on the area. Not used anything on it or for it. Also having constant dull headache that goes up the back of her head from her neck. No fevers or chills since ER visit. Denies injury or trauma to the neck. No recent heavy lifting. March 10 last eye exam. Wears glasses. The history is provided by the patient. No freelance interpreter/translator was used. Review of Systems Constitutional: Negative for chills and fever. Eyes: Negative for photophobia and visual disturbance. Musculoskeletal: Positive for myalgias (neck and shoulders) and neck pain. Skin: Positive for wound (Healed-L shoulder). Neurological: Positive for headaches. Negative for dizziness and weakness. All other systems reviewed and are negative. Objective BP 111/66 Pulse 96 Temp 37.4 ?C (99.3 ?F) (Tympanic) Resp 16 Ht 162.6 cm (5' 4) Wt 56.7 kg (125 lb) LMP 12/19/2020 (Exact Date) SpO2 96% BMI 21.46 kg/m? Physical Exam Vitals and nursing note reviewed. Constitutional: Appearance: Normal appearance. She is normal weight. She is not ill-appearing. HENT: Head: Normocephalic and atraumatic. Right Ear: Tympanic membrane, ear canal and external ear normal. Left Ear: Tympanic membrane, ear canal and external ear normal. Mouth/Throat: Lips: Red Bud. Mouth: Mucous membranes are moist. Eyes: General: Lids are normal. Vision grossly intact. No visual field deficit. Extraocular Movements: Extraocular movements intact. Conjunctiva/sclera: Conjunctivae normal. Pupils: Pupils are equal, round, and reactive to light. Neck: Thyroid: No thyroid mass or thyroid tenderness. Meningeal: Brudzinski's sign absent. Cardiovascular: Rate and Rhythm: Normal rate and regular rhythm. Pulses: Normal pulses. Heart sounds: Normal heart sounds. Pulmonary: Effort: Pulmonary effort is normal. Breath sounds: Normal breath sounds. Musculoskeletal: Cervical back: Neck supple. No deformity, erythema, rigidity or crepitus. Pain with movement and muscular tenderness present. No spinous process tenderness. Normal range of motion. Thoracic back: Normal. Lumbar back: Normal. Lymphadenopathy: Head: Right side of head: No submandibular or tonsillar adenopathy. Left side of head: No submandibular or tonsillar adenopathy. Cervical: No cervical adenopathy. Skin: General: Skin is warm and dry. Capillary Refill: Capillary refill takes less than 2 seconds. Findings: Wound present. Comments: 1.5 cm round scar from recently healed wound. No redness or warmth. Neurological: General: No focal deficit present. Mental Status: She is alert and oriented to person, place, and time. Sensory: Sensation is intact. Motor: Motor function is intact. Psychiatric: Mood and Affect: Mood normal. Behavior: Behavior normal. Assessment and Plan 1. Cervicalgia - ICD9: 723.1, ICD10: M54.2 (primary diagnosis) - No injury or trauma. Constant ache with pulling sensation when turning head side to side. - Medication as prescribed - Warm, moist heat to area. Recommendations for neck rest provided. - NAPROXEN 500 MG TABLET 2. Cervicogenic headache - ICD9: 784.0, ICD10: R51.9 - Recommendations provided-See #1 - Follow up if symptoms persist or worsen. - NAPROXEN 500 MG TABLET 3. Encounter for wound re-check - ICD9: V58.89, ICD10: Z51.89 - L shoulder. Dx with cellulitis in ER over 2 weeks ago. Pt completed treatment of Bactrim and Keflex. Resolved. 1.5 cm round well healed area noted to L shoulder. - Instructed to follow up with newly developing symptoms. Clari Magnaa APRN.SHWETA Magana APRN.SHWETA 03/22/2021 9:51 AM Addendum Medication as prescribed. Warm, moist heat. Avoid heavy lifting or straining. NECK PAIN: ACTIVITY LIMIT (more content not included)... Normal [facility] CNOVon 03-03-2021 CNOV Office Visit (STFLE) ONEILSHARA ([id number]) 2 F Date Time Provider Department 03/03/21 2:40 PM TRACIE DIGGS During your visit today, we recorded the following information about you: Temperature Pulse Respiration Blood pressure 101.3 degrees 122/minute 18/minute 104/80 Weight Height 57.4 kg 1.626 m Tracie Diggs PA-C 03/03/2021 3:32 PM Addendum Subjective 20 y/o female [facility] bite to L shoulder x 3 days. Got some blister type bumps to L neck/shoulder area 3 days ago. Yesterday got slightly red and another blister type lesion. Redness spread overnight and became more painful and tender to touch. Today she feels nauseous, has a moderate headache (less than migraines) and is febrile. She is immunocomptent. Review of Systems Constitutional: Positive for chills, fever and malaise/fatigue. Gastrointestinal: Positive for nausea. Negative for vomiting. Skin: Positive for rash. Neurological: Positive for headaches. Objective Physical Exam Vitals and nursing note reviewed. Constitutional: Appearance: Normal appearance. Cardiovascular: Rate and Rhythm: Regular rhythm. Tachycardia present. Pulmonary: Effort: Pulmonary effort is normal. Breath sounds: Normal breath sounds. Comments: CTAB Skin: General: Skin is warm and dry. Capillary Refill: Capillary refill takes less than 2 seconds. Comments: Approximate 2cm patch of blistering, possibly pustular type rash with surrounding well demarcated erythema to L neck/shoulder area. Diffusely tender on exam, no crepitus noted. Neurological: Mental Status: She is alert. BP 104/80 Pulse 122 Temp 101.3 Resp 18 Ht 5' 4 (1.63m) Wt 126 lb 9.6 oz (57.4kg) SpO2 97% LMP 12/19/2020 BMI 21.72 kg/(m2). I have reviewed and updated patient allergies, VS, current medications, past medical and surgical history and social history MDM: Patient presents to [facility] with suspected spider bite that has become more red, painful and she is now febrile and tachycardic with associated nausea, malaise and headaches. I did repeat tympanic temperatue multiple times with readings between 101F-101.3F. She is immunocompetent. There is no crepitus on exam. However, I am concerned given her systemic symptoms with her vital signs that meet SIRS criteria. Discussed this with patient and mom and they were agreeable to seek higher level of care for further evaluation/work up. Mom will drive her to [facility]. Report was called. ASSESSMENT/PLAN: 1. Cellulitis of skin - ICD9: 682.9, ICD10: L03.90 (primary diagnosis) 2. Fever, unspecified fever cause - ICD9: 780.60, ICD10: R50.9 3. Tachycardia - ICD9: 785.0, ICD10: R00.0 LAM Mcdonough PA-C 03/03/2021 3:25 PM Signed Go to [facility] ER at [address] Referring Provider: SELF [[id number]] Allergies As of Date: 03/03/2021 (No Known Allergies) Date Reviewed: 03/03/2021 Reviewed by: Debbie Bazzi - Fully Assessed Reason for Visit: Trauma [112] Cmt: x2 days spider bite left shoulder, headache, nausea Primary Visit Diagnosis:Cellulitis of skin [L03.90] Other Visit Diagnoses:Fever, unspecified fever cause [R50.9] Tachycardia [R00.0] Prescriptions as of 03/03/2021 Sig: NORETHINDRONE ACETATE 1 MG-ET* Take 1 tablet by mouth once d* Problem List As Of Date 03/03/2021 Noted Resolved Menorrhagia [N92.0] Other instructions from your clinician: Go to [facility] ER at [address] Encounter Status:Closed by TRACIE DIGGS on 03/03/21 Normal [facility] MRI BRAIN WO IVCONon 10-04-2 019 MRI BRAIN WO IVCON * * *Final Report* * * DATE OF EXAM: Jun 20 2019 4:55PM [facility] 0294 - MRI BRAIN WO IVCON / PROCEDURE REASON: Chronic mixed headache syndrome * * * * Physician Interpretation * * * * EXAMINATION: MRI BRAIN WO IVCON CLINICAL HISTORY: Mixed headache syndrome TECHNIQUE: Routine noncontrast MRI protocol including diffusion images. MQ: [id number] COMPARISON: None. LIMITATIONS: Degradation of the study by metallic braces or dental artifact. RESULT: Acute Change: The diffusion weighted images are degraded by patient motion. No acute findings are identified within the limitations of study. Hemorrhage: No evidence of prior parenchymal hemorrhage on the gradient echo images. Mass Lesion/ Mass Effect: No evidence of an intracranial mass or extra-axial fluid collection. No significant mass effect. Chronic Change: The white matter is within normal limits of signal intensity for age given limitations of the study. Parenchyma: No significant volume loss for age. The brain parenchyma is otherwise within normal limits of signal intensity and morphology. Ventricles: Normal caliber and morphology. Skull Base: Hypothalamic and pituitary region are grossly normal. Craniocervical junction is normal. No significant marrow replacement process. Vasculature: Major intracranial arterial structures, and dural venous sinuses show typical flow void, suggesting patency by spin echo criteria. Other: There is some questionable mucoperiosteal thickening in the inferior aspect of the sphenoid sinus; however, this areas very limited due to venous susceptibility artifact. CT of the paranasal sinuses may be helpful for further evaluation. IMPRESSION: Limited study due to degradation by artifact. Unremarkable MRI of the brain within the limitations of the study. Findings suggestive of mucoperiosteal thickening in the inferior aspect of the sphenoid sinus; however, this area is degraded by artifact. Sinus CT may be helpful for further evaluation if warranted. Video Intern: PSC[employer] Transcribe Date/Time: Jun 20 2019 5:39P Dictated by : IRMA MONTAGUE MD This examination was interpreted and the report reviewed and electronically signed by: IRMA MONTAGUE MD on Jun 20 2019 5:44PM EST Normal [facility] Vital Signs Date Time Vital Sign Value Performing Clinician Facility 12-30-2024 12:50-0400 Body temperature 97.5 [degF] Lisette Conde CNM Work Phone: [facility] 12-30-2024 12:50-0400 Diastolic blood pressure 65 mm[Hg] Lisette Codne CNM Work Phone: [facility] 12-30-2024 12:50-0400 Heart rate 87 /min Lisette Conde CNM Work Phone: [facility] 12-30-2024 12:50-0400 Respiratory rate 16 /min Lisette Conde CNM Work Phone: [facility] 12-30-2024 12:50-0400 SaO2% (BldA) [Mass fraction] 96 % Lisette Conde CNM Work Phone: [facility] 12-30-2024 12:50-0400 Systolic blood pressure 112 mm[Hg] Lisette Conde CNM Work Phone: [facility] 12-30-2024 11:24-0400 Body height 160.02 cm Lisette Conde CNM Work Phone: [facility] 12-30-2024 11:24-0400 Body mass index (BMI) [Ratio] 28.4 kg/m2 Lisette Conde CNM Work Phone: [facility] 12-30-2024 11:24-0400 Body weight 72.8 kg Lisette Conde CNM Work Phone: [facility] 12-29-2024 09:58-0400 Body height 160.02 cm Listete Conde CNM Work Phone: [facility] 12-29-2024 09:58-0400 Body mass index (BMI) [Ratio] 28.8 kg/m2 Lisette Conde CNM Work Phone: [facility] 12-29-2024 09:58-0400 Body weight 73.7 kg Lisette Conde CNM Work Phone: [facility] 12-29-2024 09:58-0400 Diastolic blood pressure 71 mm[Hg] Lisette Conde CNM Work Phone: [facility] 12-29-2024 09:58-0400 Systolic blood pressure 127 mm[Hg] Lisette Conde CNM Work Phone: [facility] 12-16-2024 11:33-0400 Body height 160.02 cm Lisette Conde CNM Work Phone: [facility] 12-16-2024 11:31-0400 Body mass index (BMI) [Ratio] 28.3 kg/m2 Lisette Conde CNM Work Phone: [facility] 12-16-2024 11:31-0400 Body weight 72.57 kg Lisette Conde CNM Work Phone: [facility] 12-16-2024 11:31-0400 Diastolic blood pressure 72 mm[Hg] Lisette Conde CNM Work Phone: [facility] 12-16-2024 11:31-0400 Systolic blood pressure 126 mm[Hg] Lisette Conde CNM Work Phone: [facility] 12-08-2024 11:25-0400 Body height 160.02 cm Lisette Conde CNM Work Phone: [facility] 12-08-2024 11:25-0400 Body mass index (BMI) [Ratio] 27.8 kg/m2 Lisette Conde CNM Work Phone: [facility] 12-08-2024 11:25-0400 Body weight 71.32 kg Lisette Conde CNM Work Phone: [facility] 12-08-2024 11:25-0400 Diastolic blood pressure 75 mm[Hg] Lisette Conde CNM Work Phone: [facility] 12-08-2024 11:25-0400 Systolic blood pressure 114 mm[Hg] Lisette Conde CNM Work Phone: [facility] 10-18-2022 14:57-0500 Body height 162.6 cm Martha Surace PA-C Work Phone: [facility] 10-18-2022 14:57-0500 Body weight 57.61 kg Martha Surace PA-C Work Phone: [facility] 10-18-2022 14:57-0500 Diastolic blood pressure 74 mm[Hg] Martha Surace PA-C Work Phone: [facility] 10-18-2022 14:57-0500 Systolic blood pressure 116 mm[Hg] Martha Surace PA-C Work Phone: [facility] 06-21-2022 07:59-0400 Body height 162.6 cm Martha Surace PA-C Work Phone: [facility] 06-21-2022 07:59-0400 Body weight 56.25 kg Martha Surace PA-C Work Phone: [facility] 06-21-2022 07:59-0400 Diastolic blood pressure 73 mm[Hg] Martha Surace PA-C Work Phone: [facility] 06-21-2022 07:59-0400 Systolic blood pressure 114 mm[Hg] Martha Surace PA-C Work Phone: [facility] 12-19-2021 08:00-0400 Body height 162.6 cm Navdeep Bolaños DO Work Phone: [facility] 12-19-2021 08:00-0400 Body weight 57.97 kg Navdeep Bolaños DO Work Phone: [facility] 12-19-2021 08:00-0400 Diastolic blood pressure 60 mm[Hg] Navdeep Bolaños DO Work Phone: [facility] 12-19-2021 08:00-0400 Heart rate 70 /min Navdeep Bolaños DO Work Phone: [facility] 12-19-2021 08:00-0400 Systolic blood pressure 98 mm[Hg] Navdeep Bolaños DO Work Phone: [facility] 12-14-2021 09:16-0400 Body height 162.6 cm Johnathan Aguilera MD Work Phone: [facility] 12-14-2021 09:16-0400 Body temperature 98.71 [degF] Johnathan Aguilera MD Work Phone: [facility] 12-14-2021 09:16-0400 Body weight 57.2 kg Johnathan Aguilera MD Work Phone: [facility] 12-14-2021 09:16-0400 Diastolic blood pressure 62 mm[Hg] Johnathan Aguilera MD Work Phone: [facility] 12-14-2021 09:16-0400 Heart rate 80 /min Johnathan Aguilera MD Work Phone: [facility] 12-14-2021 09:16-0400 Respiratory rate 16 /min Johnathan Aguilera MD Work Phone: [facility] 12-14-2021 09:16-0400 SaO2% (BldA) [Mass fraction] 99 % Johnathan Aguilera MD Work Phone: [facility] 12-14-2021 09:16-0400 Systolic blood pressure 104 mm[Hg] Johnathan Aguilera MD Work Phone: [facility] 04-03-2021 00:31-0400 Diastolic blood pressure 70 mm[Hg] Jemal Pallaci DO Work Phone: [facility] Work Phone: 04-03-2021 00:31-0400 Heart rate 74 /min Jemal Pallaci DO Work Phone: [facility] Work Phone: 04-03-2021 00:31-0400 Respiratory rate 14 /min Jemal Pallaci DO Work Phone: [facility] Work Phone: 04-03-2021 00:31-0400 SaO2% (BldA) [Mass fraction] 98 % Jemal Pallaci DO Work Phone: [facility] Work Phone: 04-03-2021 00:31-0400 Systolic blood pressure 110 mm[Hg] Jemal Pallaci DO Work Phone: [facility] Work Phone: 04-02-2021 21:29-0400 Body height 162.6 cm Jemal Viveros DO Work Phone: [facility] Work Phone: 04-02-2021 21:29-0400 Body mass index (BMI) [Ratio] 21.63 kg/m2 Jemal Viveros DO Work Phone: [facility] Work Phone: 04-02-2021 21:29-040 Body temperature 98.2 [degF] Jemal Viveros DO Work Phone: [facility] Work Phone: 04-02-2021 21:29-040 Body weight 57.15 kg Jemal Viveros DO Work Phone: [employer] Work Phone: Encounters Encounter Date Encounter Type Care Provider Facility Start: 01-13-2025 End: 01-13-2025 ambulatory No Primary Care Physician Facility:[facility] Start: 12-30-2024 ambulatory Bev Clarke cility:[facility] Start: 12-30-2024 Non-patient / Non-visit Dr. Rebel Mandujano DO -[facility] Start: 12-30-2024 End: 12-30-2024 Admission to same day surgery center Dr. Miguelina Ibrahim MD -[facility] Start: 12-30-2024 End: 12-30-2024 ambulatory Lisette Conde CNM Work Phone: [facility] Work Phone: Start: 12-29-2024 End: 12-29-[address] Bev Mandujano DO -[facility] Work Phone: Start: 12-29-2024 End: 12-29-2024 ambulatory No Primary Care Physician Facility:[facility] Start: 12-26-2024 End: 12-26-2024 ambulatory Lisette Conde CNM Work Phone: [facility] Work Phone: Start: 12-26-2024 End: 12-26-[address] Bev Mandujano DO -[facility] Work Phone: Start: 12-26-2024 End: 12-26-2024 ambulatory No Primary Care Physician Facility:[facility] Start: 12-16-2024 End: 12-16-2024 ambulatory Lisette Conde CNM Work Phone: [facility] Work Phone: Start: 12-16-2024 End: 12-16-[address] Bev Mandujano DO -Laboratory Work Phone: Start: 12-16-2024 End: 12-16-[address] Bev Mandujano DO -[facility] Work Phone: Start: 12-16-2024 End: 12-16-2024 ambulatory Bev Mandujano Facility:[facility] Start: 12-16-2024 End: 12-16-2024 ambulatory No Primary Care Physician Facility:[facility] Start: 12-08-2024 End: 12-08-2024 ambulatory Lisette Conde CNM Work Phone: [facility] Work Phone: Start: 12-08-2024 End: 12-08-2024 Patient encounter procedure Lisette Conde CNM -Laboratory, Specimen Work Phone: Start: 12-08-2024 End: 12-08-2024 Patient encounter procedure Lisette Conde CNM -[facility] Work Phone: Start: 12-08-2024 End: 12-08-2024 ambulatory Lisette Conde Facility:[facility] Start: 12-08-2024 End: 12-08-2024 ambulatory Lisette Conde Facility:[facility] Start: 11-12-2024 ambulatory Lisette Conde Facility :[facility] Start: 01-12-2023 Telephone encounter Marthabeckie santiagoace PA-C Work Phone: [facility] Obstetrics & Gynecology Comment on above: Results Start: 01-04-2023 Telephone encounter Martha Dell urace PA-C Work Phone: [facility] Comment on above: Orders Start: 10-18-2022 End: 10-18-2022 ambulatory MARTHA MCCANN Facility:[facility] Start: 10-18-2022 End: 10-18-2022 Patient encounter procedure Martha Mccann PA-C Work Phone: [facility] Obstetrics & Gynecology Comment on above: Encounter for initia l prescription of contraceptive pills (Primary Dx) Start: 06-21-2022 End: 06-21-2022 ambulatory MARTHA MCCANN Facility:[facility] Start: 06-21-2022 Encounter for gynecological examination (general) (routine) without abnormal findings MARTHA MCCANN [facility] Start: 06-21-2022 End: 06-21-2022 Patient encounter procedure Martha Mccann PA-C Work Phone: [facility] Obstetrics & Gynecology Comment on above: Encounter for gyneco logical examination (general) (routine) without abnormal findings (Primary Dx); Screening for cervical cancer Start: 06-21-2022 End: 06-21-2022 Patient encounter status Martha Mccann PA-C Work Phone: [facility] Obstetrics & Gynecology Start: 12-19-2021 End: 12-19-2021 Patient encounter procedure Navdeep Bolaños DO Work Phone: Neurology Comment on above: Chronic migraine wit hout aura without status migrainosus, not intractable Start: 12-15-2021 Telephone encounter Johnathan blake MD Work Phone: [facility] Comment on above: clinic note; FYI-No Action Needed Start: 12-14-2021 End: 12-14-2021 Patient encounter procedure Johnathan Aguilera MD Work Phone: [facility] Comment on above: Upper back pain, chr onic (Primary Dx); Positive Lyme disease serology; H/O local infection of skin and subcutaneous tissue; Lyme disease Start: 04-13-2021 End: 04-13-2021 Subsequent hospital visit by physician Lyndon Nair MD Work Phone: [facility] Comment on above: Hepatomegaly; Elevated liver enzymes; Left facial swelling; Supraclavicular fossa fullness, left; Axillary lymphadenopathy, left; Recent left neck skin infection Start: 04-02-2021 End: 04-03-2021 Emergency department patient visit Jemal Viveros DO Work Phone: [facility] Comment on above: Neck pain (Primary D x); Tension headache Start: 02-19-2017 End: 02-20-2017 Emergency department patient visit MEGGAN WALDROP [facility] Procedures Date Procedure Procedure Detail Performing Clinician Start: 12-30-2024 Dilation and curetta ge of uterus Lisette Conde CNM Work Phone: Start: 12-26-2024 Transvaginal obstetr ic ultrasonography Lisette Conde CNM Work Phone: Start: 12-08-2024 Urine culture Lisette isabel CN Work Phone: Start: 04-13-2021 Us abdominal real ti me w/image documentation Lyndon Nair MD Work Phone: Start: 03-29-2021 Adult depression scr eening assessment Johnathan Aguilera MD Work Phone: Plan of Treatment Date Care Activity Detail Author Start: 06-21-2025 PAP TESTING PAP TESTING [facility] Start: 12-30-2024 Patient discharge [facility] Start: 12-30-2024 Procedure discontinued [facility] Start: 12-30-2024 Ambulation without limitation [facility] Start: 12-30-2024 Medical regimen orde rs management [facility] Start: 12-30-2024 Medication education [facility] Start: 12-30-2024 Taking patient vital signs [facility] Start: 12-30-2024 Vital signs measurements [facility] Start: 12-30-2024 [facility] Start: 12-08-2024 Liquid based cervica l cytology screening [facility] Start: 03-19-2024 DTaP/Tdap/Td vaccine (7 - Td or Tdap) DTaP/Tdap/Td vaccine (7 - Td or Tdap) [facility] Work Phone: Start: 03-19-2024 Urine microalbumin profile DTA P,TDAP,TD (7 - Td or Tdap) [facility] Start: 05-18-2023 Influenza vaccination INFLUENZ A (Season Ended) [facility] Start: 01-04-2023 End: 03-06-2023 Choriogonadotropin.beta subunit [Units/volume] in Serum or Plasma HCG QUANTITATIVE Lab Routine Secondary amenorrhea Expected: 01/04/2023, Expires: 03/06/2023 [facility] Work Phone: Comment on above: Expected: 01/04/2023 , Expires: 03/06/2023 Start: 01-04-2023 End: 03-06-2023 TYPE + SCREEN TYPE + SCREEN Blood Bank Routine Secondary amenorrhea Expected: 01/04/2023, Expires: 03/06/2023 [facility] Work Phone: Comment on above: Expected: 01/04/2023 , Expires: 03/06/2023 Start: 09-17-2022 [address] [facility] Start: 05-18-2022 Influenza vaccination [facility] Start: 2022 PAP TESTING PAP TESTING [facility] Start: 03-29-2022 Adult depression scr eening assessment DEPRESSION SCREENING [facility] Start: 12-24-2021 COVID-19 VACCINE (3 - Booster for Pfizer series) COVID-19 VACCINE (3 - Booster for Pfizer series) [facility] Start: 09-20-2021 COVID-19 VACCINE (3 - Booster for Pfizer series) COVID-19 VACCINE (3 - Booster for Pfizer series) [facility] Start: 09-17-2021 DEPRESSION ASSESSMENT [facility]PRESSION [facility] Start: 05-18-2021 Influenza vaccination [facility] Start: 06-05-2019 MENINGOCOCCAL B: Con turnstile attendant based on risk (2 of 2 - Risk Bexsero 2-dose series) MENINGOCOCCAL B: Consider based on risk (2 of 2 - Risk Bexsero 2-dose series) [facility] Start: 2019 CHLAMYDIA SCREENING () CH LAMYDIA SCREENING () [facility] Start: 2019 GC (GONORRHEA) SCREE NATY (18-) GC (GONORRHEA) SCREENING () [facility] Start: 2019 HIV SCREENING HIV SCREENING [facility] Start: 2017 Screening for Chlamy alvaro trachomatis Chlamydia screen [facility] Work Phone: Start: 2015 PEDS TO ADULT TRANSI TION ANNUAL ASSESSMENT PEDS TO ADULT TRANSITION ANNUAL ASSESSMENT [facility] Start: 2013 COVID-19 Vaccine (1) COVID-19 Vaccin e (1) [facility] Work Phone: Start: 2013 PEDS TO ADULT TRANSI TION INITIAL DISCUSSION PEDS TO ADULT TRANSITION INITIAL DISCUSSION [facility] Start: 2005 Varicella vaccine (2 of 2 - 2-dose childhood series) Varicella vaccine (2 of 2 - 2-dose childhood series) [facility] Work Phone: Start: 01-06-2002 Hepatitis B vaccine (3 of 3 - 3-dose primary series) Hepatitis B vaccine (3 of 3 - 3-dose primary series) [facility] Work Phone: Start: 2001 Hepatitis C screening Hepatitis C sc reen [facility] Work Phone: CBC W Auto Different ial panel - Blood [facility] Choriogonadotropin ( test) [Presence] in Serum or Plasma [facility] End: 04-13-2021 CT Soft Tissue Neck WO Contrast [facility] Work Phone: Comment on above: 1 Occurrences starti ng 04/13/2021 until 04/13/2021 Once for 1 Occurrenc es starting 04/13/2021 until 04/13/2021 CT SOFT TISSUE NECK WO CONTRAST CT SOFT TISSUE NECK WO CONTRAST Imaging Routine 04/13/2021 10:31 AM EDT [facility] Work Phone: Hepatitis C antibody measurement [facility] PAP FLUID CERVICAL SCREENING PAP FLUID CERVICAL SCREENING Lab Today Screening for cervical cancer Ordered: 06/21/2022 [facility] Work Phone: Comment on above: Ordered: 06/21/2022 Path report.final Dx Spec [facility] Patient referral [facility] Work Phone: Rubella IgG measurement [facility] Serologic test for syphilis [facility] Transvaginal obstetr ic ultrasonography [facility] End: 04-13-2021 US Abdomen Complete US Abdomen Complete Imaging Routine Hepatomegaly Elevated liver enzymes 1 Occurrences starting 04/13/2021 until 04/13/2021 [facility] Work Phone: Comment on above: 1 Occurrences starti ng 04/13/2021 until 04/13/2021 [facility] Immun[facility] Immunization Date Immunization Notes Care Provider Fa cility 07-26-2021 COVID-19 vaccine, ag e 12+ yr (PFIZER-BIONTECH - PURPLE TOP) Johnathan Aguilera MD Work Phone: [facility] 07-05-2021 COVID-19 vaccine, ag e 12+ yr (PFIZER-BIONTECH - PURPLE TOP) Johnathan Aguilera MD Work Phone: [facility] 05-08-2019 meningococcal B vacc ine, recombinant, OMV, adjuvanted Johnathan Aguilera MD Work Phone: [facility] 05-08-2019 meningococcal polysaccharide (groups A, C, Y and W-135) diphtheria toxoid conjugate vaccine (MCV4P) Johnathan Aguilera MD Work Phone: [facility] 06-27-2017 human papilloma viru s vaccine, quadrivalent Johnathan Aguilera MD Work Phone: [facility] 09-12-2016 Human Papillomavirus 9-valent vaccine Johnathan Aguilera MD Work Phone: [facility] 07-19-2016 Human Papillomavirus 9-valent vaccine Johnathan Aguilera MD Work Phone: [facility] 07-19-2016 meningococcal polysaccharide vaccine (MPSV4) Johnathan Aguilera MD Work Phone: [facility] 03-19-2014 tetanus toxoid, redu marisa diphtheria toxoid, and acellular pertussis vaccine, adsorbed Johnathan Aguilera MD Work Phone: [facility] Work Phone: 09-23-2009 novel influenza-H1N1 -09, preservative-free, injectable Johnathan Aguilera MD Work Phone: [facility] 08-05-2009 novel influenza-H1N1 -09, preservative-free, injectable Johnathan Aguilera MD Work Phone: [facility] 04-30-2006 diphtheria, tetanus toxoids and acellular pertussis vaccine Johnathan Aguilera MD Work Phone: [facility] 04-30-2006 measles, mumps and rubella virus vaccine Johnathan Aguilera MD Work Phone: [facility] 04-30-2006 poliovirus vaccine, inactivated Johnathan Aguilera MD Work Phone: [facility] 07-14-2002 diphtheria, tetanus toxoids and acellular pertussis vaccine Johnathan Aguilera MD Work Phone: [facility] 07-14-2002 diphtheria, tetanus toxoids and acellular pertussis vaccine, unspecified formulation Johnathan Aguilera MD Work Phone: [facility] 07-14-2002 haemophilus influenz ae type b vaccine, HbOC conjugate Johnathan Aguilera MD Work Phone: [facility] 07-14-2002 measles, mumps and rubella virus vaccine Johnathan Aguilera MD Work Phone: [facility] 07-14-2002 pneumococcal conjuga te vaccine, 7 valent Johnathan Augilera MD Work Phone: [facility] 07-14-2002 varicella virus vaccine Marielle Aguilera MD Work Phone: [facility] 04-14-2002 pneumococcal conjuga te vaccine, 13 valent Johnathan Aguilera MD Work Phone: [facility] 04-14-2002 pneumococcal conjuga te vaccine, 7 valent Johnathan Aguilera MD Work Phone: [facility] 04-14-2002 poliovirus vaccine, inactivated Johnathan Aguilera MD Work Phone: [facility] 2001 diphtheria, tetanus toxoids and acellular pertussis vaccine Johnathan Aguilera MD Work Phone: [facility] 2001 diphtheria, tetanus toxoids and acellular pertussis vaccine, unspecified formulation Johnathan Aguilera MD Work Phone: [facility] 2001 haemophilus influenz ae type b conjugate and Hepatitis B vaccine Johnathan Aguilera MD Work Phone: [facility] 2001 haemophilus influenz ae type b vaccine, HbOC conjugate Johnathan Aguilera MD Work Phone: [facility] 2001 hepatitis B vaccine, pediatric or pediatric/adolescent dosage Johnathan Aguilera MD Work Phone: [facility] 2001 diphtheria, tetanus toxoids and acellular pertussis vaccine Johnathan Aguilera MD Work Phone: [facility] 2001 diphtheria, tetanus toxoids and acellular pertussis vaccine, unspecified formulation Johnathan Aguilera MD Work Phone: [facility] 2001 haemophilus influenz ae type b vaccine, HbOC conjugate Johnathan Aguilera MD Work Phone: [facility] 2001 pneumococcal conjuga te vaccine, 13 valent Johnathan Aguilera MD Work Phone: [facility] 2001 pneumococcal conjuga te vaccine, 7 valent Johnathan Aguilera MD Work Phone: [facility] 2001 poliovirus vaccine, inactivated Johnathan Aguilera MD Work Phone: [facility] 2001 diphtheria, tetanus toxoids and acellular pertussis vaccine Johnathan Aguilera MD Work Phone: [facility] 2001 diphtheria, tetanus toxoids and acellular pertussis vaccine, unspecified formulation Johnathan Aguilera MD Work Phone: [facility] 2001 haemophilus influenz ae type b conjugate and Hepatitis B vaccine Johnathan Aguilera MD Work Phone: [facility] [facility] 2001 haemophilus influenz ae type b vaccine, HbOC conjugate Johnathan Aguilera MD Work Phone: [facility] 2001 hepatitis B vaccine, pediatric or pediatric/adolescent dosage Johnathan Aguilera MD Work Phone: [facility] 2001 pneumococcal conjuga te vaccine, 13 valent Johnathan Aguilera MD Work Phone: [facility] 2001 pneumococcal conjuga te vaccine, 7 valent Johnathan Aguilera MD Work Phone: [facility] 2001 poliovirus vaccine, inactivated Johnathan Aguilera MD Work Phone: [facility] 2001 hepatitis B vaccine, pediatric or pediatric/adolescent dosage Johnathan Aguilera MD Work Phone: [facility] Payers Date Payer Category Payer Self-pay 2024 Unknown [id number] 2021 Unknown [employer] PPO OOS [id number] 2021-Present [phone] [address] [place] [address] PPO [id number] 2021 Unknown [employer] PPO OOS [id number] 2021-Present [phone] [address] [place] [address] PPO [id number] 2020 Unknown [id number] Unknown [id number] Unknown [id number] Unknown [id number] Unknown [id number] Unknown [id number] Unknown [id number] Unknown [id number] Unknown [id number] Unknown [id number] Unknown [id number] Unknown [id number] Social History Date Type Detail Facility Start: 04-02-2021 End: 12-29-2024 Tobacco smoking status [facility] Never smoker [facility] Work Phone: Start: 05-01-2016 End: 04-02-2021 Tobacco use and exposure Never used [facility] History of tobacco use Snuff User [facility] History of tobacco use Chews Tobacco [facility] Start: 2001 Sex Assigned At Not on file [facility] [employer] Work Phone: Start: 12-04-2021 End: 12-19-2021 Exposure to SARS-CoV-2 (event) Not sure [facility] Start: 12-14-2021 End: 10-18-2022 Alcohol intake Current non-drinker of alcohol (finding) [facility] Start: 03-29-2021 History SDOH Alcohol Frequency 1 [facility] Start: 03-29-2021 History SDOH Alcohol Std Drinks 98 [facility] Start: 03-29-2021 History SDOH Social Connections Phone 5 [facility] Start: 03-29-2021 History SDOH Social Connections Get Together 2 [facility] Start: 07-13-2021 History SDOH Social Connections Living 8 [facility] Start: 03-29-2021 History SDOH Physica l Activity DPW 7 [facility] Start: 03-29-2021 History SDOH Physica l Activity MPS 3 [facility] Start: 03-29-2021 History SDOH Stress 4 [facility] Start: 12-13-2024 End: 12-30-2024 Sex Female (finding) [facility] Start: 2001 Sex Assigned At Female W [facility] Goals Date Patient Goal Desired Activity /State Mental Status Date Assessment Result Facility 12-30-2024 Cognitive function Voice/Name;Touch/Zaki warner [facility] Work Phone: Clinical Notes 03-03-2021 to 12-30-2024 Note Date & Type Note Facility 12-30-2024 Consult note Note Date/Time December 30, 2024 11:44am [facility] Medical Records Department [address] [place] [address] Pre-Anesthesia Evaluation 12/30/24 1138 MR#: [id number] Acct: [id number] Name: SHARA RIGGS Rep #:[id number] : 2000 24 From: Arik Ngo MD PCP: Care Physician,No Primary Status :[facility] Y Race: C Location: [place] [address] ASA Classification* ASA Classification ASA Classification: 1 Assessment & Plan Anesthesia* Anesthesia Assessment Anesthesia Assessment: Discussed sedation and/or anesthesia options, risks, benefits, and alternatives with patient/parents/legal guardian/POA. Questions invited. The patient/parents/legal guardian/POA seems to understand and agrees to proceedwith anesthesia plan. Reviewed the physical assessment, medical history, allergy history and patient home medications list prior to surgery/procedure/anesthetic and documented any changes. Performed airway and anesthesia risk assessments. Anesthesia Type Anesthesia Type: MAC History Source History Obtained from:: Patient and Chart Anesthesia Focused Assessment* Temperature: 98.4 F Pulse Rate: 76 Blood Pressure: 112/68 Respiratory Rate: 18 Pulse Ox: 97 Oxygen Delivery Method: Room Air Airway Assessment Mouth opens: >3 cm Mallampati Score: I Teeth Condition: Upper (Patient has a permanent retainer behind teeth #8 and 9. 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 When Was Last Pacemaker Check QUESTION #4 FULL TEXT: You/Your Family Experience fever (hyperthermia) with Anesthesia Last Oral Intake Last Oral intake: Last Oral Intake NPO since 02:00 12/30/24 11:24 Meds taken in AM with sips of No 12/30/24 11:24 water? Meds patient instructed to take am of surgery PONV PONV - senior db2 systems programmer: PONV - senior db2 systems programmer Female Yes 12/29/24 12:36 HX of Motion Sickness No 12/29/24 12:36 HX of N/V After Surgery No 12/29/24 12:36 Non-Smoker Yes 12/29/24 12:36 Duration of Surgery greater No 12/29/24 12:36 than 60 minutes Number of Risk Factors 2 12/29/24 12:36 PONV Score Moderate Risk 12/29/24 12:36 Height & Weight Height & Weight: Anesthesia: Height & Weight Height 5 ft 3 in 12/30/24 11:24 Weight: 72.8 kg 12/30/24 11:24 Body Mass Index (BMI) 28.4 12/30/24 11:24 Respiratory Assessment Respiratory Assessment - senior db2 systems programmer: Respiratory Tract Infection Hx - senior db2 systems programmer Hx Respiratory Tract Infection No 12/29/24 12:36 STOP Sleep Apnea STOP Sleep Apnea - senior db2 systems programmer: STOP Sleep Apnea - senior db2 systems programmer Hx Hypertension No 12/29/24 12:36 Hx Sleep Apnea No 12/29/24 12:36 CPAP BIPAP Do you snore loudly (louder No 12/29/24 12:36 than talking or can be heard Do you often feel tired/ No 12/29/24 12:36 fatigued/ sleepy during daytime? Has anyone observed you stop No 12/29/24 12:36 breathing during sleep? STOP Results Negative 12/29/24 12:36 QUESTION #5 FULL TEXT : Do you snore loudly (louder than talking or can be heard through closed doors)? 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 Specify any problems Hx of Preganancy in last 3 N/A 12/29/24 12:36 Months Nurse Filling Out Transfusion NBUCHER 12/29/24 12:36 & Questions: Date: 12/29/24 12/29/24 12:36 Time: 12:36 12/29/24 12:36 Patient unable to answer at this time (ie. confused, unrespo /Reproduction History /Reproductive History - senior db2 systems programmer: /Reproductive Hx- senior db2 systems programmer Hx Now Gestational Age (in weeks): EDC: Hx Hx Para Hx Section SAB No 12/29/24 12:36 Active Medications Active Medications: Current Medications Generic Name Dose Route Start Last Admin Trade Name Freq PRN Reason Stop Dose Admin Doxycycline Monohydrate 100 mg 12/30/24 12:00 12/30/24 11:31 Doxycycline 100 Mg Capsule PO 12/30/24 12:01 100 mg PREOP ONE Administration PFSH Medical History Wears partial dentures History of Lyme disease Wears glasses Non-smoker Migraine Home Medications ?Medication ?Instructions ?Recorded ?Last Taken ?Type NK 12/29/24 Unknown History Allergy/AdvReac Type Severity Reaction Status Date / Time No Known Allergies Allergy Verified 12/30/24 11:24 Family History Mother Diabetes Type 2 Grandmother Diabetes Maternal Type 2 Social History adopted: No household members: spouse and children number of children: 1 current occupational status: employed 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 current occupational exposures/hazards: No pets and animals: Yes pets and animals: dog(s) history of recent travel: No sexually active: Yes Smoking Status: Never smoker alcohol intake: never substance use type: does not use well-balanced diet: daily or most days caffeine: Yes Type: coffee Number of servings: 1 eating out: rarely or never during the past year weight has: increased > 10 lbs what type of physical activity do you participate in: none vinh/religious: None seatbelt use: always do you feel safe at home: Yes additional social history: - [employer] 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 12/30/24 8032 <Electronically signed by Arik bunch MD> Date _ Arik Sandhu Signature: Date CC: ~ Signed [facility] Work Phone: 1(665) 704-476804-15-2025 Discharge summary [facility] Medical Records Department [address] [place] [address] Instructions for Home/Discharge Instructions 12/30/24 1148 MR#: [id number] Acct: [id number] Name: SHARA RIGGS Rep #:[id number] : 2000 From: Bev Mandujano DO PCP: Care Physician,No Primary Status :REG [facility] Discharge Instructions Diet Discharge Diet: No restrictions DC O2, CPAP, BIPAP needs Home O2 Discharge instructions: No Dressing / Incision Discharge Activity: Return to Normal Activity, May Shower and May Take a Tub Bath (after 1 week) May resume sexual activity in: 1-2 weeks Weight Bearing Status: Weight bearing as tolerated Lifting Restrictions: none Dressing / Incision Call your doctor if you observe: Fever of 101 or Higher, Using more than 1 pad per hour, Shortness of breath and Uncontrolled pain Follow Up Care Please Follow Up With: Bev Mandujano DO When: Call [phone] to schedule appointment. Test Results: Test results from this visit will be discussed in further detail at your follow- up appointment, if applicable. Discharge Plan Admission Attending Provider: Miguelina Ibrahim Primary Care Provider: Care Physician,No Primary Instructions Print Language: Salvadorean Discharge Orders/Prescriptions Prescriptions: No Action NK Referrals / Follow Up: Care Physician,No Primary [Primary Care Provider] - Disposition Disposition (needs filled in before D/C Order can be placed): Home, Self Care 12/30/24 1148Bev Mandujano DO CC: No Primary Care Physician ~ Signed [facility]04-15-2025 Procedure note [facility] Medical Records Department [address] [place] [address] Operative Report 12/30/24 1230 MR#: [id number] Acct: [id number] Name: SHARA RIGGS Rep #:[id number] : 2000 24 From: Bev Mandujano DO PCP: Care Physician,No Primary Status :[facility] Location: [address] Select Codes Urinary/Genital Urinary/Genital CPT Codes: 18314 Surg Trtmt missed Ab 1TM Operative Report (Standard) Operative Information Date of Procedure: 12/30/24 Pre-Operative Diagnosis: 7 weeks missed Post-Operative Diagnosis: 7 weeks missed Surgery/Procedure Performed: suction dilation and curettage intake clerk: No Type of Anesthesia: MAC and Topical Anesth RN Documented Start/Stop Times: Operation Date: 12/30/24 12:00 Case Time Into Pre-Op 12/30/24 10:44 Out of Pre-Op 12/30/24 12:00 Anesthesia Start 12/30/24 12:05 Into Room 12/30/24 12:05 Procedure Start 12/30/24 12:19 Procedure Start Time: 12:19 Procedure Stop Time: 12:29 Select all DRAINS/GRAFTS/IMPLANTS that apply: None Estimated Blood Loss: 50cc Specimen collected: Yes Description of specimen(s) removed: products of conception Description of surgery: Patient was taken to the operating room and placed under MAC local anesthesia. She was prepped and draped in the normal sterile fashion the dorsal lithotomy position. Bladder was drained of clear urine and anterior lip of the cervix wasgrasped and the uterus sounded to 9 cm. Cervix was progressively dilated to allow passage of a 8mm suction curette. Progressive passes were made removing the retained products of conception without complication. Sharp curettage confirmed complete removal of the retained products. All instruments were removed from the vagina and excellent hemostasis was noted and the patient was taken to recovery in stable condition. Surgical Findings: normal cervix and vagina, normal appearing products of conception Complications Complications: No Admit VTE Documentation VTE Present on Admission: No VTE Mechan Device Prophylaxis: SCD's VTE Pharm Prophylaxis ordered?: No 12/30/24 1232 Cosigner Signature (if applicable): CC: Dr. Bev Mandujano DO; Dr. Miguelina Ibrahim MD; No Primary Care Physician~ Signed [facility]04-15-2025 History and physical note [facility] Medical Records Department [address] [place] [address] History & Physical Exam 12/30/24 1148 MR#: [id number] Acct: [id number] Name: SHARA RIGGS Rep #:[id number] : 2000 24 From: Bev Mandujano DO PCP: Care Physician,No Primary Status :[facility] Location: [place] [address] History and Physical Date of Admission: 12/30/24 Intake Vital Signs 12/16/2510:33 12/29/2508:58 Height 5 ft 3 in 5 ft 3 in Weight: 162 lb 8 oz BMI 28.8 BP 127/71 H Intake Visit Reasons: Discuss miscarriage Digital Press Operator Required: No Is patient in pain?: No Allergies No Known Allergies Allergy (Verified 12/29/24 12:35) Medications ?Medication ?Instructions ?Recorded ?Confirmed ?Type NK 12/29/24 12/29/24 History Post menopausal: No : No [facility] Medical History (Updated 12/29/24 @ 12:42 by Mariah Coley) Wears partial dentures History of Lyme disease Wears glasses Non-smoker Migraine Family History Mother Diabetes Type 2Grandmother Diabetes Maternal Type 2 Social History adopted: No household members: spouse and children number of children: 1 current occupational status: employed 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 current occupational exposures/hazards: No pets and animals: Yes pets and animals: dog(s) history of recent travel: No sexually active: Yes Smoking Status: Never smoker alcohol intake: never substance use type: does not use well-balanced diet: daily or most days caffeine: Yes Type: coffee Number of servings: 1 eating out: rarely or never during the past year weight has: increased > 10 lbs what type of physical activity do you participate in: none vinh/religious: None seatbelt use: always do you feel safe at home: Yes additional social history: - 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 She is over 10 weeks since her last menses and ultrasound shows a 7 week gestational sac without pole or heart tones. 2 weeks ago there were 2 gestational sacs and 2 yolk sacs. History 2 Elective abortions Hx Para 1 Spontaneous abortions 1 Hx # Term Pregnancies Ectopic pregnancies Hx # Pregnancies Multiple births # of living children 1 Past Pregnancies Del. Date Name GA/Weeks Outcome Route Bth Weight Gen Labor Lgth Anesthesia Del Locatn Provider FOB 09/12/23 Irma 40 live - full term 7#14oz Ma le [facility], [place] Alvaro Delivery Date: 09/12/23 Last Updated by: Miguelina Koch IOL postdates ROS Const ROS Unobtainable: All systems reviewed & are unremarkable except as noted in H Resp Resp: Reports system reviewed and no additional complaints, except as documented; Denies cough GI GI: Reports as per HPI Psych Psych: Reports system reviewed and no additional complaints, except as documented Exam Const General: cooperative, healthy appearing, comfortable and no acute distress Resp Effort & Inspection: normal respiratory effort Skin General: no rashes or lesions noted Psych Appearance: grossly normal Speech and Movement: speech and movement normal Coding Level of Care Code Off vis,est,level 4 Diagnoses Missed O02.1 Assessment and Plan Assessment and Plan (1) Missed : Status: Acute Comment: patient should be 10 weeks based on her + test on Nov 03 and today aCRL that is less than 6 weeks without heart tones is picked up. She is requesting labs and a formal ultrasound to confirm. will call with results. Plan: After discussing the patient's diagnosis and treatment plan options, patient wishes to proceed withsurgical management. I have discussed with the patient the risks, benefits, and alternatives of theprocedure which include but are notlimited to risks of anesthesia, bleeding, infection, possible damage to bowel, bladder, or surrounding vasculature which could lead to additional surgery to evaluate any complications. Patient agrees to procedure and wishes to proceed. ACOG/uptodate references given for additional information regarding procedure. plan for suction dilation and curettage 12/30/24 1150 Cosigner Signature (if applicable): CC: Dr. Bev Mandujano, DO; No Primary Care Physician~ Signed [facility]04-15-2025 [facility] Medical Records Department [address] [place] [address] History Physical Exam 12/30/24 1148 MR#: [id number] Acct: [id number] Name: SHARA RIGGS Rep #: [id number] : 2000 24 From: Bev Mandujano DO PCP: Care Physician,No Primary Status:[facility] Location: [place] [address] History and Physical Date of Admission: 12/30/24 Intake Vital Signs 12/16/2510:33 12/29/2508:58 Height 5 ft 3 in 5 ft 3 in Weight: 162 lb 8 oz BMI 28.8 BP 127/71 H Intake Visit Reasons: Discuss miscarriage Digital Press Operator Required: No Is patient in pain?: No Allergies No Known Allergies Allergy (Verified 12/29/24 12:35) Medications ???Medication ???Instructions ???Recorded ???Confirmed ???Type NK 12/29/24 12/29/24 History Post menopausal: No : No [facility] Medical History (Updated 12/29/24 @ 12:42 by Mariah Coley) Wears partial dentures History of Lyme disease Wears glasses Non-smoker Migraine Family History Mother Diabetes Type 2Grandmother Diabetes Maternal Type 2 Social History adopted: No household members: spouse and children number of children: 1 current occupational status: employed 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 current occupational exposures/hazards: No pets and animals: Yes pets and animals: dog(s) history of recent travel: No sexually active: Yes Smoking Status: Never smoker alcohol intake: never substance use type: does not use well-balanced diet: daily or most days caffeine: Yes Type: coffee Number of servings: 1 eating out: rarely or never during the past year weight has: increased > 10 lbs what type of physical activity do you participate in: none vinh/religious: None seatbelt use: always do you feel safe at home: Yes 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 She is over 10 weeks since her last menses and ultrasound shows a 7 week gestational sac without pole or heart tones. 2 weeks ago there were 2 gestational sacs and 2 yolk sacs. History 2 Elective abortions Hx Para 1 Spontaneous abortions 1 Hx # Term Pregnancies Ectopic pregnancies Hx # Pregnancies Multiple births # of living children 1 Past Pregnancies Del. Date Name GA/Weeks Outcome Route Bth Weight Infant Gen Labor Lgth Anesthesia Del Locatn Provider FOB 09/12/23 Irma 40 live - full term 7#14oz Male epidur [facility], [place] Alvaro Delivery Date: 09/12/23 Last Updated by: Miguelina Koch IOL postdates ROS Const ROS Unobtainable: All systems reviewed are unremarkable except as noted in H Resp Resp: Reports system reviewed and no additional complaints, except as documented; Denies cough GI GI: Reports as per HPI Psych Psych: Reports system reviewed and no additional complaints, except as documented Exam Const General: cooperative, healthy appearing, comfortable and no acute distress Resp Effort Inspection: normal respiratory effort Skin General: no rashes or lesions noted Psych Appearance: grossly normal Speech and Movement: speech and movement normal Coding Level of Care Code Off vis,est,level 4 Diagnoses Missed O02.1 Assessment and Plan Assessment and Plan (1) Missed : Status: Acute Comment: patient should be 10 weeks based on her + test on Nov 03 and today a CRL that is less than 6 weeks without heart tones is picked up. She is requesting labs and a formal ultrasound to confirm. will call with results. Plan: After discussing the patient's diagnosis and treatment plan options, patient wishes to proceed with surgical management. I have discussed with the patient the risks, benefits, and alternatives of the procedure which include but are not limited to risks of anesthesia, bleeding, infection, possible damage to bowel, bladder, or surrounding vasculature which could lead to additional surgery to evaluate any complications. Patient agrees to procedure and wishes to proceed. ACOG/uptodate references given for additional information regarding procedure. plan for suction dilation and curettage 12/30/24 1150 Cosigner Signature (if applicable): CC: Dr. Bev Mandujano, DO; No Primary [facility] Phys[facility] Consult note [facility] Medical Records Department [address] [place] [address] Pre-Anesthesia Evaluation 12/30/24 1138 MR#: [id number] Acct: [id number] Name: SHARA RIGGS Rep #:[id number] : 2000 24 From: Arik Ngo MD PCP: Care Physician,No Primary Status :REG [facility] Y Race: C Location: [place] [address] ASA Classification* ASA Classification ASA Classification: 1 Assessment & Plan Anesthesia* Anesthesia Assessment Anesthesia Assessment: Discussed sedation and/or anesthesia options, risks, benefits, and alternatives with patient/parents/legal guardian/POA. Questions invited. The patient/parents/legal guardian/POA seems to understand and agrees to proceedwith anesthesia plan. Reviewed the physical assessment, medical history, allergy history and patient home medications list prior to surgery/procedure/anesthetic and documented any changes. Performed airway and anesthesia risk assessments. Anesthesia Type Anesthesia Type: MAC History Source History Obtained from:: Patient and Chart Anesthesia Focused Assessment* Temperature: 98.4 F Pulse Rate: 76 Blood Pressure: 112/68 Respiratory Rate: 18 Pulse Ox: 97 Oxygen Delivery Method: Room Air Airway Assessment Mouth opens: >3 cm Mallampati Score: I Teeth Condition: Upper (Patient has a permanent retainer behind teeth #8 and 9. 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 When Was Last Pacemaker Check QUESTION #4 FULL TEXT: You/Your Family Experience fever (hyperthermia) with Anesthesia Last Oral Intake Last Oral intake: Last Oral Intake NPO since 02:00 12/30/24 11:24 Meds taken in AM with sips of No 12/30/24 11:24 water? Meds patient instructed to take am of surgery PONV PONV - senior db2 systems programmer: PONV - senior db2 systems programmer Female Yes 12/29/24 12:36 HX of Motion Sickness No 12/29/24 12:36 HX of N/V After Surgery No 12/29/24 12:36 Non-Smoker Yes 12/29/24 12:36 Duration of Surgery greater No 12/29/24 12:36 than 60 minutes Number of Risk Factors 2 12/29/24 12:36 PONV Score Moderate Risk 12/29/24 12:36 Height & Weight Height & Weight: Anesthesia: Height & Weight Height 5 ft 3 in 12/30/24 11:24 Weight: 72.8 kg 12/30/24 11:24 Body Mass Index (BMI) 28.4 12/30/24 11:24 Respiratory Assessment Respiratory Assessment - senior db2 systems programmer: Respiratory Tract Infection Hx - senior db2 systems programmer Hx Respiratory Tract Infection No 12/29/24 12:36 STOP Sleep Apnea STOP Sleep Apnea - senior db2 systems programmer: STOP Sleep Apnea - senior db2 systems programmer Hx Hypertension No 12/29/24 12:36 Hx Sleep Apnea No 12/29/24 12:36 CPAP BIPAP Do you snore loudly (louder No 12/29/24 12:36 than talking or can be heard Do you often feel tired/ No 12/29/24 12:36 fatigued/ sleepy during daytime? Has anyone observed you stop No 12/29/24 12:36 breathing during sleep? STOP Results Negative 12/29/24 12:36 QUESTION #5 FULL TEXT : Do you snore loudly (louder than talking or can be heard through closeddoors)? 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 Specify any problems Hx of Preganancy in last 3 N/A 12/29/24 12:36 Months Nurse Filling Out Transfusion NBUCHER 12/29/24 12:36 & Questions: Date: 12/29/24 12/29/24 12:36 Time: 12:36 12/29/24 12:36 Patient unable to answer at this time (ie. confused, unrespo /Reproduction History /Reproductive History - senior db2 systems programmer: /Reproductive Hx- senior db2 systems programmer Hx Now Gestational Age (in weeks): EDC: Hx Hx Para Hx Section SAB No 12/29/24 12:36 Active Medications Active Medications: Current Medications Generic Name Dose Route Start Last Admin Trade Name Waleska PRN Reason Stop Dose Admin Doxycycline Monohydrate 100 mg 12/30/24 12:00 12/30/24 11:31 Doxycycline 100 Mg Capsule PO 12/30/24 12:01 100 mg PREOP ONE Administration PFSH Medical History Wears partial dentures History of Lyme disease Wears glasses Non-smoker Migraine Home Medications ?Medication ?Instructions ?Recorded ?Last Taken ?Type NK 12/29/24 Unknown History Allergy/AdvReac Type Severity Reaction Status Date / Time No Known Allergies Allergy Verified 12/30/24 11:24 Family History Mother Diabetes Type 2 Grandmother Diabetes Maternal Type 2 Social History adopted: No household members: spouse and children number of children: 1 current occupational status: employed 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 current occupational exposures/hazards: No pets and animals: Yes pets and animals: dog(s) history of recent travel: No sexually active: Yes Smoking Status: Never smoker alcohol intake: never substance use type: does not use well-balanced diet: daily or most days caffeine: Yes Type: coffee Number of servings: 1 eating out: rarely or never during the past year weight has: increased > 10 lbs what type of physical activity do you participate in: none vinh/religious: None seatbelt use: always do you feel safe at home: Yes additional social history: - Alvaro 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 12/30/24 1144 alivia ABRAMS> Date _ Arik Ngo MD Cosign Signature: Date CC: ~ Signed [facility]04-13-2025 Radiology Diagnostic study note [facility] Services [address] [place] [address] Transvaginal w/Preg US MR#: [id number] Acct: [id number] Name: SHARA RIGGS Rep #: [id number] : 2000 F 24 From: Frandy Oscar MD PCP: Care Physician,No Primary Status: REG CLI Study:Transvaginal w/Preg US Date of Exam: 12/26/24 Exam# [id number] Ordering Dr: Bev Milan DO PROCEDURE: TRANSVAGINAL W/PREG US 12/26/2024 REASON FOR EXAM: RULE OUT MISCARRIAGE TECHNIQUE: High resolution obstetric ultrasound performed using a 2D transducer. Standard views obtained, including biometry, anatomy survey, and Doppler studies. Transvaginal ultrasound images are provided. COMPARISON: None. FINDINGS Uterus measures 11? 6.6 x 5.2 cm. No uterine mass lesion is identified. Single intrauterine irregular gestational sac is noted. Mean gestational sac diameter is 2.76 cm corresponds to an estimated gestationalage of 7 weeks and 6 days. Estimated gestational age by LMP is 10 weeks and 1 day. Estimated delivery date by LMP is on 07/23/2025. Estimated delivery date based on today's ultrasound is on 08/14/2025. No definite pole is identified. No cardiac activity is identified. Normal right ovary measuring 2.5?2.3?1.4 cm. Normal right ovarian flow. The left ovary was not visualized secondary to overlying bowel gas. No free fluid is identified in the pelvic cul-de-sac. US/Transvaginal w/Preg US IMPRESSION: 1. Single intrauterine irregular gestational sac. 2. No pole is identified. 3. No cardiac activity seen. Reading [facility] CC: Dr. Bev Mandujano DO; No Primary Care Physician ~ Video Intern: Signed [facility]03-24-2025 NotePap Smear Specimen AdequacyMarch 2024 11:59pmComment.Satisfactory for evaluation. Endocervical and/or squamous metaplasticcells (endocervical component)are present.[facility] INTER[facility]ACED A#[id number] Hospitals Beach[facility] CenterCom[facility] on above:Satisfactory for evaluation. Endocervical and/or squamous metaplasticcells (endocervical component)are present.12-08-2024 NotePap Smear Specimen AdequacyMarch 2024 11:59pmComment.Satisfactory for evaluation. Endocervical and/or squamous metaplasticcells (endocervical component)are present.[facility] INTER[facility]ED A#[id number] Hospitals Beachwood [facility] CenterCom[facility] on above:Satisfactory for evaluation. Endocervical and/or squamous metaplasticcells (endocervical component)are present.12-08-2024 NotePap Smear Specimen AdequacyMar 2024 11:59pmComment.Satisfactory for evaluation. Endocervical and/or squamous metaplasticcells (endocervical component)are present.[facility] INTER[facility]ACED A#[id number] Hospitals Beachwood Medical CenterComment on above:Satisfactory for evaluation. Endocervical and/or squamous metaplasticcells (endocervical component)are present.12-08-2024 Evaluation note* Diagnosis Onset Date Resolution Status Admit Date Hx of depression, currently acute December 08 11:14am Lyme disease acute December 08, 2024 11:14am Maternal varicella, non-immune acute December 08, 2024 11:14am acute December 08 11:14am Supervision of high-risk acute December 08, 2024 11:14am [facility] Work Phone: 1(186) 877-688203-24-2025 Evaluation note* Diagnosis Onset Date Resolution Status Admit Date Hx of depression, currently acute December 08 11:14am Lyme disease acute December 08, 2024 11:14am Maternal varicella, non-immune acute December 08, 2024 11:14am acute December 08 11:14am Supervision of high-risk acute December 08, 2024 11:14am Missed acute December 11:28am [facility] Work Phone: 1(356) 774-986303-24-2025 Evaluation note* Diagnosis Onset Date Resolution Status Admit Date Hx of depression, currently acute December 08, 025 11:14am Lyme disease acute December 08, 2024 11:14am Maternal varicella, non-immune acute December 08, 2024 11:14am acute December 08 11:14am Supervision of high-risk acute December 08, 2024 11:14am Missed acute December 11:28am Missed acute December 9:45am [facility] Work Phone: 1(877) 264-580704-28-2023 Miscellaneous Notes* Telephone Encounter - Mary Palafox RN - 01/12/2023 2:29 PM EDT LMTCO for results ----- Message from Martha Mccann PA-C sent at 01/12/2023 1:36 PM EDT ----- Positive . Ok to schedule OB intake and US visit. Orders placed for US. Could we let her know? Thanks! Martha Mccann PA-C documented in this encounterUniversity [facility]als [facility]04-20-2023 Miscellaneous Notes* Telephone Encounter - Monica Cohen RN - 01/04/2023 2:05 PM EDT Pos HT. LMP 3.7. HCG and T&S pended. Thanks, Monica Cohen RN documented in this encounterUniversity Hospitals [facility]02-01-2023 NoteHNO ID: [id number] Author: Martha Mccann PA-C Service: ? Author Type: Physician Clinical Project Manager Type: Progress Notes Filed: 10/18/2022 5:06 PM Note Text: Shara Riggs is a 22 year old female who presents for control consult. HPI: Patient presents to discuss control. She would like to start OCP's. Has been on them before without issue. Currently sexually active. Periods are regular every 28 days, lasts 3 days in length. Heavy in flow for the first day, then lightens up. Denies HTN, smoking, stroke, blood clots. Positive migraines with aura. 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 LMP: 10/16/2022 (Exact Date), Having periods Age at Menarche: 13 Age at First : Age at Menopause: Packaging Materials Inspector History Comments: Sexual Activity: Yes; Male Contraception: None PAST MEDICAL HISTORY Diagnosis Date Anxiety Lyme disease Menorrhagia Migraine without aura Mood changes PAST SURGICAL HISTORY Procedure Laterality Date NONE FAMILY HISTORY Problem Relation Age of Onset Ovarian cancer Maternal Grandmother Diabetes Maternal Grandmother other (Heart Disease) Maternal Grandmother Breast Cancer Paternal Grandmother Social History Tobacco Use Smoking status: Never Smokeless tobacco: Never Vaping Use Vaping Use: Never used Substance Use Topics Alcohol use: No Drug use: No No current outpatient medications on file. No current facility-administered medications for this visit. Allergies As of Date: 10/18/2022 (No Known Allergies) Fully Assessed 10/18/2022 REVIEW OF SYSTEMS Abdomen: No bloating, early satiety, indigestion, or increased flatulence. No abdominal pain, nausea, vomiting, diarrhea, or constipation. Bladder: No dysuria, gross hematuria, urinary frequency, urinary urgency, or incontinence. Breast: No breast lumps, nipple d/c, overlying skin changes, redness or skin retraction. Expanded ROS: N/A Allergies and current medication updated:Yes EXAM: BP 116/74 Ht 5' 4 (1.63m) Wt 127 lb (57.6kg) LMP 10/16/2022 BMI 21.79 kg/(m2). GENERAL: pleasant, female in no apparent distress HEENT: Normocephalic, atraumatic, mucus membranes moist, and no lesions NECK: Supple, full range of motion, no adenopathy, and thyroid normal DERMATOLOGY: Normal, without lesions, non-icteric, and non-hirsute BREAST: deferred CHEST: Clear to auscultation, Normal inspiratory effort, and Regular rate and rhythm ABDOMEN: Deferred PELVIC: deferred BIMANUAL: deferred NEURO: alert and oriented x3,exam grossly non-focal EXTREMITIES: normal ASSESSMENT AND PLAN: 1. Encounter for initial prescription of contraceptive pills - ICD9: V25.01, ICD10: Z30.011 - Not a candidate for estrogen containing control due to migraines with aura - Reviewed progesterone only contraception options including POP's, injection, IUD, implant - discussed with patient on how to take POP's. - counseled on benefits, risks and possible severe side effects of POP's. - discussed need to use Condoms to help to prevent STD's including HIV etc. - NORETHINDRONE (CONTRACEPTIVE) 0.35 MG TABLET Martha Mccann PA-C Medical Decision Making: Problems: Low: Stable chronic illness Risk: Moderate: Drug management Medical Decision Making Level: 3 - Low [facility]02-01-2023 History of Present illness Narrative* Martha Mccann PA-C - 10/18/2022 3:05 PM EST Shara Riggs is a 22 year old female who presents for control consult. HPI: Patient presents to discuss control. She would like to start OCP's. Has been on them before without issue. Currently sexually active. Periods are regular every 28 days, lasts 3 days in length. Heavy in flow for the first day, then lightens up. Denies HTN, smoking, stroke, blood clots. Positive migraines with aura. 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 LMP: 10/16/2022 (Exact Date), Having periods Age at Menarche: 13 Age at First : Age at Menopause: Packaging Materials Inspector History Comments: Sexual Activity: Yes; Male Contraception: None PAST MEDICAL HISTORY Diagnosis Date Anxiety Lyme disease Menorrhagia Migraine without aura Mood changes PAST SURGICAL HISTORY Procedure Laterality Date NONE FAMILY HISTORY Problem Relation Age of Onset Ovarian cancer Maternal Grandmother Diabetes Maternal Grandmother other (Heart Disease) Maternal Grandmother Breast Cancer Paternal Grandmother Social History Tobacco Use Smoking status: Never Smokeless tobacco: Never Vaping Use Vaping Use: Never used Substance Use Topics Alcohol use: No Drug use: No No current outpatient medications on file. No current facility-administered medications for this visit. Allergies As of Date: 10/18/2022 (No Known Allergies) Fully Assessed 10/18/2022 REVIEW OF SYSTEMS Abdomen: No bloating, early satiety, indigestion, or increased flatulence. No abdominal pain, nausea, vomiting, diarrhea, or constipation. Bladder: No dysuria, gross hematuria, urinary frequency, urinary urgency, or incontinence. Breast: No breast lumps, nipple d/c, overlying skin changes, redness or skin retraction. Expanded ROS: N/A Allergies and current medication updated:Yes EXAM: BP 116/74 Ht 5' 4 (1.63m) Wt 127 lb (57.6kg) LMP 10/16/2022 BMI 21.79 kg/(m^2). GENERAL: pleasant, female in no apparent distress HEENT: Normocephalic, atraumatic, mucus membranes moist, and no lesions NECK: Supple, full range of motion, no adenopathy, and thyroid normal DERMATOLOGY: Normal, without lesions, non-icteric, and non-hirsute BREAST: deferred CHEST: Clear to auscultation, Normal inspiratory effort, and Regular rate and rhythm ABDOMEN: Deferred PELVIC: deferred BIMANUAL: deferred NEURO: alert and oriented x3,exam grossly non-focal EXTREMITIES: normal ASSESSMENT AND PLAN: 1. Encounter for initial prescription of contraceptive pills - ICD9: V25.01, ICD10: Z30.011 - Not a candidate for estrogen containing control due to migraines with aura - Reviewed progesterone only contraception options including POP's, injection, IUD, implant - discussed with patient on how to take POP's. - counseled on benefits, risks and possible severe side effects of POP's. - discussed need to use Condoms to help to prevent STD's including HIV etc. - NORETHINDRONE (CONTRACEPTIVE) 0.35 MG TABLET Martha Mccann PA-C Medical Decision Making: Problems: Low: Stable chronic illness Risk: Moderate: Drug management Medical Decision Making Level: 3 - Low Martha Mccann PA-C documented in this encounterUniversity Hospitals [facility]10-05-2022 NoteHNO ID: [id number] Author: Martha Mccann PA-C Service: ? Author Type: Physician Clinical Project Manager Type: Progress Notes Filed: 06/21/2022 8:28 AM Note Text: Shara is a 22 year old who presents for an annual gynecologic exam without complaints. Menses: cycles every 28 days and 2-3 days of flow. Heavy bleeding for 3 days. Changing super tampons every 3 hours. Contraception: none HPV vaccine: Yes Last Pap: Never HPV: N/A History of abnormal pap: No Last mammogram: never Sexually active: Yes History of STDS: None Patient concerns for STD exposure: No. 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: Packaging Materials Inspector History Comments: Sexual Activity: Yes; No partner data on record Contraception: No contraception data on record PAST MEDICAL HISTORY Diagnosis Date Anxiety Menorrhagia Migraine without aura Mood changes PAST SURGICAL HISTORY Procedure Laterality Date NONE FAMILY HISTORY Problem Relation Age of Onset Ovarian cancer Maternal Grandmother Diabetes Maternal Grandmother other (Heart Disease) Maternal Grandmother Breast Cancer Paternal Grandmother SOCIAL HISTORY Social History Tobacco Use Smoking status: Never Smokeless tobacco: Never Vaping Use Vaping Use: Never used Substance Use Topics Alcohol use: No Drug use: No REVIEW OF SYSTEMS Abdomen: No abdominal pain, nausea, vomiting, diarrhea, or constipation. No bloating, early satiety, indigestion, or increased flatulence. Bladder: No dysuria, gross hematuria, urinary frequency, urinary urgency, or incontinence. Breast: No breast lumps, nipple d/c, overlying skin changes, redness or skin retraction. Allergies and current medication updated:Yes EXAM: BP 114/73 Ht 5' 4 (1.63m) Wt 124 lb (56.2kg) LMP 06/09/2022 BMI 21.27 kg/(m2). GENERAL: pleasant, female in no apparent distress HEENT: Normocephalic, atraumatic, mucus membranes moist, and no lesions NECK: Supple, full range of motion, no adenopathy, and thyroid normal DERMATOLOGY: Normal, without lesions, non-icteric, and non-hirsute BREAST: soft, non-tender, symmetric, no dominant mass, normal nipple-areolar complex, no lymphadenopathy, and no nipple discharge CHEST: Clear to auscultation, Normal inspiratory effort, and Regular rate and rhythm ABDOMEN: soft, non-tender, and no masses PELVIC: external genitalia normal, normal Bartholin's glands, urethra, Hondo's glands, no vulvar lesions, no cervical lesions, good vaginal support, physiologic discharge present, normal appearing perineal body and perianal region BIMANUAL: uterus normal size, shape and consistency, no adnexal masses, and non-tender RECTOVAGINAL: deferred. NEURO: alert and oriented x3,exam grossly non-focal EXTREMITIES: normal ASSESSMENT/PLAN: 1) Health maintenance: Pap done with reflex HPV. Mammogram starting age 40. Nutrition, exercise and routine health maintenance exams reviewed. Lipids/glucose: followed by PCP Vitamin D: followed by PCP HPV vaccine: completed series 2) Contraception: none. Contraceptive options reviewed and information provided. 3) STD screening: Declined STD check. 4) Follow up one year or sooner as needed [facility]10-05-20[facility] Instructions* Patient Instructions* Martha Mccann PA-C - 06/21/2022 8:14 AM EDT ACOG Screening Guidelines The following health screening schedule is recommended by the [employer] (ACOG). Some of these tests may be ordered or performed by your primary care doctor. Pap test screening The pap test looks at cells on the cervix (the opening from the vagina to the uterus) to look for cancer or pre-cancerous changes. These changes are caused by the human papillomavirus (HPV). Studies estimate that half of all women will test positive for this virus within 3 years of starting sexual activity. For young women with a normal immune system, 90% of HPV infections will resolve within 2 years. There is a vaccine available against some forms of HPV. This is recommended for girls and women age 9-45. For ages 9-14, two injections are given at 0 and 6 months. For ages 15-45, three injections are given at 0,2 and 6 months. Because this vaccine does not protect against all HPV types whichcan cause cervical cancer, women who received the vaccine still need pap tests. Pap smear screening should be started at age 21. The pap test should be done every 3 years from [id number]. From age 30-65, pap smears can be done every 5 years if HPV test is negative or every 3 years if HPV testing is not done. For women over the age of 65, ACOG recommends against screening women who have had adequate prior screening and are not otherwise at high risk for cervical cancer. Women who have had a hysterectomy also do not need routine pap smear screening unless the pap smear was done for a cervical cancer or moderate to severe dysplasia. Breast cancer screening Mammogram should be performed every 1-2 years starting at age 40 and every year starting at age 50.Screening may be started earlier depending on family history. Cholesterol screening Lipid panel (cholesterol test) should be checked every 5 years starting at age 45. Diabetes screening Fasting glucose (blood sugar) test should be performed every 3 years starting at age 45. Colorectal cancer screening Starting at age 45, women should have a screening colonoscopy at least every 10 years. Screening may be started earlier depending on family history. Thyroid screening Thyroid function test (TSH) should be checked every 5 years starting at age 50. Bone mineral density screening All postmenopausal women age 65 and over and postmenopausal women with risk factors for osteoporosis should have a bone mineral density test performed. Risk factors include race, family history of osteoporosis, personal history of fractures, poor nutrition, smoking, heavy alcohol use, early menopause, low calcium intake and low body weight. Certain medical conditions and long-term use of some medications may also increase risk. Control Options control is a way for men and women to prevent . There are many different methods of control. By learning more about the options, you can decide which method is right for you and your partner. If you are sexually active and don't want a baby, don't wait to use control. An unwanted can happen any time you have unprotected sex. IUD What is it? An IUD, or intrauterine device, is a small, plastic, flexible, T- shaped device that is placed into the uterus (womb). There two types of IUDs. One type, ParaGard , can be kept in place for 10 years. (It contains copper, which stops the sperm from making it through the vagina and uterus to reach the egg, thus preventing fertilization.) It does NOT contain hormones. There are four IUD sthat contain progesterone.Mirena is an IUD that contains a small amount of progesterone and is keptin place for 7 years. Kyleena is approved for 5 years and has a slightly lower dose. Martha is similar but smaller and is good for 3 years. Liletta is also approved for 6 years and is ideal for those without insurance coverage. They all release the hormone progesterone, which causes the cervical mucus to become thicker so the sperm cannot reach the egg. The hormone also changes the lining of the uterus, so implantation of a fertilized egg cannot occur. How is it available? You must get a pelvic exam and your provider may check vaginal cultures. The IUD is placed into the uterus through the cervix during an exam in the office by a trained health care provider. How effective is it? The IUD is 99% effective. You should know: Side effects are different for the different IUDs. In some cases copper IUDs can cause more painful and heavy periods and backaches. All of the hormonal IUD s cause periods to be business process associate and some women will have spotting or stop getting periods all together. It is normal to have 3 months of light spotting after insertion. IUDs should not be used if you have a recent history of pelvic infections or are at risk for infections. IUDs do not protect against sexually transmitted diseases (STDs), including HIV (the virus that causes AIDS). The male condom provides the best protection against most STDs. THE CONTROL PILL (ORAL CONTRACEPTIVE) How does it work? Pills work by thickening the cervical mucus so the sperm cannot reach the egg. The hormone in the pills also changes the lining of the uterus, so implantation of a fertilized egg cannot occur. In most cases, pills stop ovulation (the release of an egg). How is it used? A pill is taken at the same time every day. There are several different types of pills. Some are designed to allow the woman to have a period every month and others allow the women tohave period every 3 months. You need to discuss which pill is best for you with your health care provider. How can I get it? The pill must be ordered for you by your health care provider. It is obtained by prescription. How effective is it? The pill is 99% effective, if taken correctly. However, up to 8% of women may get each year if they do not use it correctly. You should know: Certain medications, which your provider will discuss, cause the pill to lose effectiveness. You should use back-up control while taking these medications. The pill can cause minor side effects such as mood symptoms, breast tenderness, nausea and headaches. The hormones in pills can increase the risk of blood clots which usually form in the legs. This risk is higher in women who smoke. The pill is not recommended for women who are over 35 years of age and smoke, but can be used until menopause if you don't smoke cigarettes and are in good health. The Pill does not protect against STDs, including HIV (the virus that causes AIDS). VAGINAL RING (NuvaRing ) What is it? A small, flexible ring that slowly releases the hormones estrogen and progesterone intothe bloodstream through the vaginal wall. It works to prevent the same ways as the pill. How is it used? A vaginal ring is inserted high into the vagina like a tampon. It stays in place for 3 weeks in a row. It is removed for a 1-week break - when the menstrual period occurs - before a new ring is inserted. How can I get it? Your health care provider must order the vaginal ring, which is obtained by prescription. How effective is it? The vaginal ring is 99% effective, if used correctly. However, if used incorrectly, up to 8% of women might get within 1 year. If the ring is removed for more than 3 hours, an additional form of control should be used. You should know: The vaginal ring can cause side effects similar to control pills. The vaginal ring does not protect against STDs, including HIV (the virus that causes AIDS). ANNOVERA is a NEW reusable contraceptive ring approved for one year s use. It is used in a similar fashion as the Nuvaring, but when it is removed, it is stored in a compact case and reused each month for an entire year. ORTHO EVRA -- THE PATCH'' What is it? A patch that prevents by delivering continuous levels of the hormones estrogen and progesterone transdermally (through the skin) and into the bloodstream. It works to prevent the same ways as the pill. How is it used? Ortho Evra is a 1 -inch square patch with hormones embedded in its adhesive layer. It is worn on the lower abdomen, buttocks or upper arm. One patch is worn continuously for 1 week and is replaced with a new patch on the same day of the week (patch change day) for a total of 3 weeks. No patch is worn during the fourth week (patch-free week), when the menstrual period occurs. Although the patch is designed to remain in place during bathing, showering and swimming, you should not apply lotion or oil on or near the patch site. How can I get it? Your health care provider must order the patch, which is obtained by prescription. You apply the patch yourself. How effective is it? The patch is about 99% effective, if used correctly. It is slightly less effective (92%) in women weighing more than 198 pounds. You should know: The patch can cause side effects similar to control pills and can cause an allergic reaction to the adhesive. Some studies have shown the patch delivers higher levels of the hormone estrogen and women may be at greater risk for blood clots. The patch does not protect against STDs, including HIV (the virus that causes AIDS). DEPO-PROVERA What is it? Depo-Provera is a form of the hormone progestin. How is it used? It is given as an injection into the woman's buttocks or arm. Each injection provides protection against for 12 weeks. How is it available? Depo-Provera must be ordered by a health care provider. It is given every 3 months, usually given at the doctor's office. How effective is it? Depo-Provera is 99% effective. You should know: Depo-Provera can cause side effects including mood changes, headaches, breast tenderness, irregular periods and weight gain. Fifty percent of women who use Depo-Provera for more thana year stop getting their periods while on the medication. Because of the risk of bone loss, your provider may recommend calcium supplements for women who use Depo-Provera. Depo-Provera does not protect against STDs, including HIV (the virus that causes AIDS). IMPLANTED HORMONE - NEXPLANON What is it? Nexplanon is a single plastic marjorie (1.5 inches long) that is placed directly under the skin of the upper arm by a physician. It delivers the hormone progesterone slowly over a 3-year period. How can I get it? Nexplanon is placed by a physician who is certified in this procedure. How effective is it? It is greater than 99% effective You should know: The side effects are similar to Depo-Provera. Specific side effects include swelling and/or pain at time of placement, breakage or internal scarring of tissue. The device is effective for 3 years and can be removed at any time before if desired. MALE CONDOM What is it? The male condom, or rubber, is a thin covering made of latex, plastic or animal membrane that is rolled over an erect penis. The covering prevents semen, the fluid that contains sperm, from entering a woman's vagina. Latex condoms are best for most people. Use plastic (Amada ) condoms if you or your partner is allergic to latex. Condoms made from animal skins may not provide good protection from sexually transmitted diseases (STDs). How is it used? The condom is rolled over the erect penis before sexual activity begins. If the condom does not have a built-in nipple, leave -inch of the condom free at the tip of the penis so that semen has a place to collect. A new condom must be used each time you have sex. The condom must be in place before the penis gets near the vagina. How can I get it? Condoms can be purchased at most drug stores. Condoms also are sold in vending machines in restrooms. How effective is it? About 15% of women will get each year when condoms are used. However,condoms can be more effective when they are used exactly as intended. You should know: Latex condoms provide the best protection -- although not 100% protection -- from STDs by preventing the infected area from coming into contact with the partner. Use only water-basedlubricants, such as K-Y Jelly or Astroglide . Oil-based lubricants (Vaseline ) can cause condoms toleak or break. If a condom breaks, a woman is at increased risk of getting . She should seeher health care provider and consider emergency contraception. FEMALE CONDOM What is it? The female condom is a lubricated polyurethane (plastic) tube that has a flexible ring at each end. One end of the tube is closed. How is it used? Before sexual activity begins, the woman inserts the condom into her vagina so thatthe closed end of the tube covers the cervix, and the other end slightly covers the labia (lips on the outside of the vagina). The condom blocks sperm from entering the womb. How can I get it? Like the male condom, the female condom is available at drug stores without a prescription. How effective is it? About 21% of women get each year despite using a female condom, but the condom can be more effective when used exactly as instructed. You should know: Female condoms provide some protection against STDs, but the male condom provides the best protection. SPERMICIDES What is it? Spermicides are foams, jellies, tablets, sponges or suppositories that a woman places in her vagina and up next to the cervix (the opening leading from the vagina to the womb) before sex.Spermicides block the cervix and paralyze the sperm, making them unable to travel into the womb. Some women who choose this method will also use a diaphragm (a round piece of flexible rubber with a rigid rim which is inserted with spermicide prior to sex). How is it used? The woman places the spermicide inside the vagina within 1 hour before intercourse.More spermicide must be used each time you have sex. Follow the directions on the package carefully. How can I get it? Spermicides can be bought at most drug stores. Be careful not to confuse them with feminine hygiene products, such as douche or lubricants. Diaphragms are fitted in your doctor's office and if you gain or lose more than 10-15 pounds you may need to be re-fitted. How effective is it? About 29% of women get each year despite using spermicides, but they can be more effective when used exactly as instructed. You should know: Do not douche after sex when using a spermicide. You can wear a feminine pad to absorb spermicide that comes out. Spermicides do not protect against some STDs, including HIV (the virus that causes AIDS). EMERGENCY CONTRACEPTION What is it? Emergency contraception -- also called Plan B , Marzia , Next Choice or referred to as the morning after pill -- is a form of control that may be used by women within 120 hours (5 days) of having unprotected sex. It is more effective when taken soon after unprotected intercourse. The most commonly used emergency contraception consists of two doses of hormone pills taken in one day 12 hours apart. How does it work? The pill may prevent by temporarily blocking eggs from being produced, by stopping fertilization or keeping a fertilized egg from becoming implanted in the uterus. How is it available? Plan B can be purchased at a pharmacy without a prescription. For those under 17, a health care provider must order the medication. All pharmacies do not have to carry it, so youcan sometimes search ahead of time which pharmacy is likely to carry it. See the website: www.ec-hel p.org. How effective is it? Plan B is about 90% effective when take within 72 hours of unprotected intercourse. Mariza is slightly more effective. You should know: Plan B is generally reserved for emergency situations and is not a regular method of control. Emergencies include being raped, having a condom break or slip off during sex, missing two or more control pills during a monthly cycle and having unplanned sex. ABSTINENCE Abstinence is also the best way to protect you against STDs. You may not be ready to have sex. Don't let someone pressure you into having sex if you don't feel ready. It is an important decision withserious emotional and physical consequences. Reference Centers for Disease Control: [place] medical eligibility criteria for contraceptive use. www.CDC.gov. Updated 01/04 documented in this encounterUniversity [facility]10-[facility]-2022 History of Present illness Narrative* Martha Mccann PA-C - 06/21/2022 8:09 AM EDT Shara is a 22 year old who presents for an annual gynecologic exam without complaints. Menses: cycles every 28 days and 2-3 days of flow. Heavy bleeding for 3 days. Changing super tampons every 3 hours. Contraception: none HPV vaccine: Yes Last Pap: Never HPV: N/A History of abnormal pap: No Last mammogram: never Sexually active: Yes History of STDS: None Patient concerns for STD exposure: No. 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: Packaging Materials Inspector History Comments: Sexual Activity: Yes; No partner data on record Contraception: No contraception data on record PAST MEDICAL HISTORY Diagnosis Date Anxiety Menorrhagia Migraine without aura Mood changes PAST SURGICAL HISTORY Procedure Laterality Date NONE FAMILY HISTORY Problem Relation Age of Onset Ovarian cancer Maternal Grandmother Diabetes Maternal Grandmother other (Heart Disease) Maternal Grandmother Breast Cancer Paternal Grandmother SOCIAL HISTORY Social History Tobacco Use Smoking status: Never Smokeless tobacco: Never Vaping Use Vaping Use: Never used Substance Use Topics Alcohol use: No Drug use: No REVIEW OF SYSTEMS Abdomen: No abdominal pain, nausea, vomiting, diarrhea, or constipation. No bloating, early satiety, indigestion, or increased flatulence. Bladder: No dysuria, gross hematuria, urinary frequency, urinary urgency, or incontinence. Breast: No breast lumps, nipple d/c, overlying skin changes, redness or skin retraction. Allergies and current medication updated:Yes EXAM: BP 114/73 Ht 5' 4 (1.63m) Wt 124 lb (56.2kg) LMP 06/09/2022 BMI 21.27 kg/(m^2). GENERAL: pleasant, female in no apparent distress HEENT: Normocephalic, atraumatic, mucus membranes moist, and no lesions NECK: Supple, full range of motion, no adenopathy, and thyroid normal DERMATOLOGY: Normal, without lesions, non-icteric, and non-hirsute BREAST: soft, non-tender, symmetric, no dominant mass, normal nipple-areolar complex, no lymphadenopathy, and no nipple discharge CHEST: Clear to auscultation, Normal inspiratory effort, and Regular rate and rhythm ABDOMEN: soft, non-tender, and no masses PELVIC: external genitalia normal, normal Bartholin's glands, urethra, Hondo's glands, no vulvar lesions, no cervical lesions, good vaginal support, physiologic discharge present, normal appearing perineal body and perianal region BIMANUAL: uterus normal size, shape and consistency, no adnexal masses, and non-tender RECTOVAGINAL: deferred. NEURO: alert and oriented x3,exam grossly non-focal EXTREMITIES: normal ASSESSMENT/PLAN: 1) Health maintenance: Pap done with reflex HPV. Mammogram starting age 40. Nutrition, exercise and routine health maintenance exams reviewed. Lipids/glucose: followed by PCP Vitamin D: followed by PCP HPV vaccine: completed series 2) Contraception: none. Contraceptive options reviewed and information provided. 3) STD screening: Declined STD check. 4) Follow up one year or sooner as needed Martha Mccann PA-C documented in this encounterUniversity Hospitals [facility]hu[facility]04-04-2022 NoteHNO ID: [id number] Author: Navdeep Bolaños, DO Service: ? Author Type: Physician Type: Progress Notes Filed: 12/20/2021 8:05 AM Note Text: Initial Consultation- General Neurology December 19, 2021 Referring Physician: Warren Jules MD Regarding: RE: Shara Riggs : 2000 Assessment: Migraine without aura - chronic - Medication overuse headache - Maxalt and ibuprofen - Medication induced headache: Zoloft and ibuprofen - No effective symptomatic Rx - No adequate prophylaxis - Depakote is insufficient dose, but is also in ineffective Rx Plan: 1. I have discussed my impressions and plan with the patient. Written discharge instructions provided. Migraine lifestyle modifications discussed Regular sleep/meals, stay well hydrated, avoid excessive caffeine/alcohol 2. Testing/laboratory/imaging: - 3. Medications: Symptomatic: Change rizatriptan to frovatriptan - longer t1/2 Discontinue ibuprofen, begin meloxicam 7.5 mg Limit total symptomatic Rx to no more than 2-3 d/wk Prophylactic: D/c Depakote Begin venlafaxine titration Adverse reactions, goals, and time-frames discussed. 4. Follow up appointment: 3 months Pt to contact me by mychart if problems/questions I spent a total of 60 minutes on the date of the service which included preparing to see the patient, [id number] patient care, performing a medically appropriate examination, completing clinical documentation, and on counseling/educating the patient/family. 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 She is seen with her mother. Chart review: FP pcp 04/2019 Pt has migraines daily. Lasts for days, Migraine without aura and without status migrainosus, not intractable Topamax, if not better MRI and or neurologist FP pcp 05/2019 BEAR no better TPM titration 25 mg HS incr q week to 50 mg bid Dx chronic mixed BEAR MRI brain wo - Limited study due to degradation by artifact. ?Unremarkable MRI of the brain within the limitations of the study. ?Findings suggestive of mucoperiosteal thickening in the inferior aspect of the sphenoid sinus; however, this area is degraded by artifact. ? Sinus CT may be helpful for further evaluation if warranted. 06/2019 MRI brain wo - Limited study due to degradation by artifact. ?Unremarkable MRI of the brain within the limitations of the study. ?Findings suggestive of mucoperiosteal thickening in the inferior aspect of the sphenoid sinus; however, this area is degraded by artifact. ?Sinus CT may be helpful for further evaluation if warranted. FP pcp 11/2019 Severe frontal headaches Dx - headache unspecified Tx IM toradol FP pcp 04/2021 lyme disease. Pt was bit by insect 2 mo ago, treated with keflex and bactrim, no improvement. Developed joint pains, eventually lyme titers were positive, confirmation positive. Started doxy, doing better, no joint pain, still has some back pain, no headaches, no chest pain or sob. (On VPA and Maxalt 10 mg ACCOUNTING SYSTEM EXPERT - no longer on TPM) ID 12/14/2021 Neck pain d/t DJD Positive Lyme serology tested in April 2021. The skin findings as described above were not consistent with erythema migrans. The exact significance of those positive test results is unclear. However, patient did receive a 2-week course of doxycycline targeting Lyme disease. Therefore, her persistent symptom of upper back pain is unlikely due to Lyme disease. Suggest referral to spine Repeat Lyme serology - equivocal Western blot IgG pos RPR nr HSV 1 and 2 - neg CRP <0.3 Cf 2.7 8 mo ago ESR 2 Cf 41 8 mo ago MRI c spine w/wo 04/2021 1. ?Susceptibility artifact from the patient's braces somewhat limits evaluation of the upper cervical spine. 2. ?Straightening of the normal cervical lordosis. ?This may be positional or related to muscular spasm. 3. ?Minimal degenerative disc disease at C5-C6 and C6-C7 without neural oraminal or spinal canal compromise. ?See detailed level by level description above. 4. ?Presumed cystic changes within the adenoidal soft tissues in the posterior nasopharynx. ?These findings are incompletely characterized. ? Further evaluation with direct inspection is recommended for visualization. Headache History: Patient's description of headaches: nausea and light headed with headaches in teens - would sleep them off Age of headache onset: 17 yo - Present pattern x 1 year Change in health/Rx/job/home/personal at onset: - Location: posterior head or neck bilaterally - less often bilateral orbital - no hat-band intensity: 7-8/10 Character of the pain: pressure, throbbing Neck pain: 4/10 Nausea: + Vomiting: - Photophobia: + Phonophobia: - Osmophobia: - Scalp allodynia: + Visual/other aura: - Worse with activity: + Onset in sleep: + 2 d (more content not included)...[facility] 12-19-2021 Instructions* Patient Instructions* Navdeep Bolaños DO - 12/19/2021 8:36 AM EDT Impression: Migraine Plan: 1. Migraine is very sensitive to life-style factors: - Eat 3 meals a day - do not skip meals - Some people are sensitive to specific foods - such as aged cheese, lunch meat/hot dogs, nuts/peanuts, bananas, strawberries, onion, wine, salty food, sugary food, greasy food, msg, artificial sweeteners - Excess caffeine is very bad for migraine - limit chocolate - one cup of coffee or one can of colais the most allowed - decaf products are ok - Keep regular sleep hours - avoid staying up late and sleeping in on weekends - Drink plenty of water - Regular exercise - 15 minutes or more - 5 days per week: walking, swimming, stationary bicycle, yoga, aerobics, weight lifting This is an important part of treatment. Think of it as a medication. 2. Medication to take when you have a bad headache: Frovatriptan - take at onset of headache - can repeat in 2 hours if needed If does not work for 3 out of 4 headaches - or if side effects - notify Dr. Bolaños Do not mix with Maxalt (rizatriptan) - use one or the other Do not use ibuprofen Meloxicam 7.5 mg - take for headache - with or without Frovatriptan Total headache reliever medications more than a 2-3 days a week will worsen headaches. 3. Preventive medication to take every day: Stop Depakote Begin Effexor (venlafaxine) 37.5 mg - take one in the am x 2 weeks Then - if tolerating ok - increase to #2 in the am If tolerataing [facility] for a new Rx for 75 mg dose The goal is to reduce the frequency and severity of your headache by 50%. That does not mean you will have no headaches. It takes a month or more for these medications to have their full effect. Be patient and do not give up before the medication has had time to work. 4. Return 3 months Call or message thru [employer] if there are problems/questions documented in this encounterUniversity Hospitals [facility]04-04-2022 History of Present illness Narrative* Navdeep Bolaños DO - 12/19/2021 8:00 AM EDT Initial Consultation- General Neurology December 19, 2021 Referring Physician: Warren Jules MD Regarding: RE: Shara Riggs : 2000 Assessment: Migraine without aura - chronic - Medication overuse headache - Maxalt and ibuprofen - Medication induced headache: Zoloft and ibuprofen - No effective symptomatic Rx - No adequate prophylaxis - Depakote is insufficient dose, but is also in ineffective Rx Plan: 1. I have discussed my impressions and plan with the patient. Written discharge instructions provided. Migraine lifestyle modifications discussed Regular sleep/meals, stay well hydrated, avoid excessive caffeine/alcohol 2. Testing/laboratory/imaging: - 3. Medications: Symptomatic: Change rizatriptan to frovatriptan - longer t1/2 Discontinue ibuprofen, begin meloxicam 7.5 mg Limit total symptomatic Rx to no more than 2-3 d/wk Prophylactic: D/c Depakote Begin venlafaxine titration Adverse reactions, goals, and time-frames discussed. 4. Follow up appointment: 3 months Pt to contact me by alet if problems/questions I spent a total of 60 minutes on the date of the service which included preparing to see the patient, [id number] patient care, performing a medically appropriate examination, completing clinical documentation, and on counseling/educating the patient/family. 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 She is seen with her mother. Chart review: FP pcp 04/2019 Pt has migraines daily. Lasts for days, Migraine without aura and without status migrainosus, not intractable Topamax, if not better MRI and or neurologist FP pcp 05/2019 BEAR no better TPM titration 25 mg HS incr q week to 50 mg bid Dx chronic mixed BEAR MRI brain wo - Limited study due to degradation by artifact. Unremarkable MRI of the brain within the limitations of the study. Findings suggestive of mucoperiosteal thickening in the inferior aspect of the sphenoid sinus; however, this area is degraded by artifact. Sinus CT may be helpful for further evaluation if warranted. 06/2019 MRI brain wo - Limited study due to degradation by artifact. Unremarkable MRI of the brain within the limitations of the study. Findings suggestive of mucoperiosteal thickening in the inferior aspect of the sphenoid sinus; however, this area is degraded by artifact. Sinus CT may be helpful for further evaluation if warranted. FP pcp 11/2019 Severe frontal headaches Dx - headache unspecified Tx IM toradol FP pcp 04/2021 lyme disease. Pt was bit by insect 2 mo ago, treated with keflex and bactrim, no improvement. Developed joint pains, eventually lyme titers were positive, confirmation positive. Started doxy, doing better, no joint pain, still has some back pain, no headaches, no chest pain or sob. (On VPA and Maxalt 10 mg ACCOUNTING SYSTEM EXPERT - no longer on TPM) ID 12/14/2021 Neck pain d/t DJD Positive Lyme serology tested in April 2021. The skin findings as described above were not consistent with erythema migrans. The exact significance of those positive test results is unclear. However, patient did receive a 2-week course of doxycycline targeting Lyme disease. Therefore, her persistent symptom of upper back pain is unlikely due to Lyme disease. Suggest referral to spine Repeat Lyme serology - equivocal Western blot IgG pos RPR nr HSV 1 and 2 - neg CRP <0.3 Cf 2.7 8 mo ago ESR 2 Cf 41 8 mo ago MRI c spine w/wo 04/2021 1. Susceptibility artifact from the patient's braces somewhat limits evaluation of the upper cervical spine. 2. Straightening of the normal cervical lordosis. This may be positional or related to muscular spasm. 3. Minimal degenerative disc disease at C5-C6 and C6-C7 without neural oraminal or spinal canal compromise. See detailed level by level description above. 4. Presumed cystic changes within the adenoidal soft tissues in the posterior nasopharynx. These findings are incompletely characterized. Further evaluation with direct inspection is recommended for visualization. Headache History: Patient's description of headaches: nausea and light headed with headaches in teens - would sleep them off Age of headache onset: 17 yo - Present pattern x 1 year Change in health/Rx/job/home/personal at onset: - Location: posterior head or neck bilaterally - less often bilateral orbital - no hat-band intensity: 7-8/10 Character of the pain: pressure, throbbing Neck pain: 4/10 Nausea: + Vomiting: - Photophobia: + Phonophobia: - Osmophobia: - Scalp allodynia: + Visual/other aura: - Worse with activity: + Onset in sleep: + 2 d/wk Conjunctival injection: - Ptosis: - Tearing: - Rhinorrhea: - Frequency: 3-4 /week in the past year Duration: 12 hours Onset to peak: 1 hour Headache-free days per month: 15 Usual time of onset: any Trigger/provoking factors: - Bright lights: - Computer screen: + Loud noise: - Strong odors: - Food: hot dogs/sausage/leroy/MSG - Algerian food, artificial sweeteners: - Alcohol: - Missed meals: + Stress: + Changes in weather: + Exercise - too much/not enough: na Change in position: - Cough/Valsalva/strain/laughing: + Menstrual cycles: - Perimenopausal symptoms: Symptomatic medications: Maxalt 10 mg ACCOUNTING SYSTEM EXPERT per pcp Number of times used: 7 Tried second pill x 1 wo benefit Timing to headache onset: 30 min Effective of usages: 25% Using 3 d/wk Adv rnx: - Other triptans: sumatriptan 100 mg 2019 - no benefit, no adv rnx OTC/other: ibuprofen OTC X #4 Effective of usages: 50% Number of days used per week: 2 Adv rnx: - Previously tried caffeine tabs - no benefit Total symptomatic Rx usage 3-4 d/wk Drug induced headache: SSRI's - possibly Wellbutrin (not SNRI's): + Zoloft PPI's (not H2 blockers):- Lamotrigene: - Medication Over-Use Headache: Triptan > 10 d/month x 3 months Combination analgesics > 10 d/month Analgesics/opioids > 15 d/ month Prophylactic medication: Previous TPM 50 mg bid by pcp - x 1 yr - 2019 Effectiveness: no benefit Adverse effects: sedation VPA 250 mg bid by pcp Duration of use: x 1 month Effectiveness: no benefit Adverse effects: - History of DVT/PE: - History of spontaneous : - Menarche/menopause//OC changes: OC x 16 months - no effect on BEAR Wt gain > 20 lbs in past year: - Caffeine intake: none Tobacco: - Hx of hay fever/allergic rhinitis/sinuitis: - History of snoring: + sleep apnea: - Daytime sleepiness: - Previous sleep testing: - Previous evaluations/consultations: - Previous imaging studies: as above History of Fibromyalgia syndrome: - In the past 30 days: Level of anxiety: 10 - getting , work - previous tx: - Level of depression: 10 Family history of headache/migraine: mother has sinus, father - migraine at younger age Neurologic review of systems: /planned /: - Loss of consciousness/seizure seizure: - Vision, hearing, smell, taste, chew, swallow, voice, speaking: - Sensation:- Strength:- Extremity incoordination: - Gait:- Bowel/bladder:- ALLERGIES No Known Allergies Current Outpatient Medications Medication Sig rizatriptan (MAXALT-ACCOUNTING SYSTEM EXPERT) 10 mg disintegrating tablet Take 1 tablet by mouth as directed. at onset of headache. May repeat after 2 hours. Do not exceed 30 mg per day. divalproex DR (DEPAKOTE) 250 mg EC tablet Take 1 tablet by mouth twice daily. Norethindrone Acet-Ethinyl Est (10/06, ,) 1-20 mg-mcg per tablet Take 1 tablet by mouth oncedaily. Take continuously, skip placebo week. No current facility-administered medications for this visit. PAST MEDICAL HISTORY Diagnosis Date Anxiety Headache Non-migraine Menorrhagia Mood changes PAST SURGICAL HISTORY Procedure Laterality Date NONE Social History Tobacco Use Smoking status: Never Smoker Smokeless tobacco: Never Used Vaping Use Vaping Use: Never used Substance Use Topics Alcohol use: No Drug use: No FAMILY HISTORY Problem Relation Age of Onset Ovarian cancer Maternal Grandmother Diabetes Maternal Grandmother other (Heart Disease) Maternal Grandmother PHYSICAL EXAM: BP 98/60 Pulse 70 Ht 162.6 cm (5' 4) Wt 58 kg (127 lb 12.8 oz) LMP 01/15/2021 BMI 21.94 kg/m General Appearance: Well appearing, alert, in no acute distress, well-hydrated, well nourished. Oropharynx: Lips, mucosa, and tongue normal, teeth and gums normal, oropharynx normal. Malampati posterior oropharynx score: 2/4 Nasopharynx: nl Heart: RRR without murmur, gallop, or rubs. No ectopy Carotid Auscultation: No cervical bruits NEUROLOGICAL EXAMINATION: Mental status: Patient is alert, and cooperative. Attention span and concentration are good. Speech is spontaneous and fluent without dysarthria, normal in rate. Memory, cognition and general fund of knowledge are good. Affect is normal and appropriate. CN: II: VA hand held near card: 20/20 OU pupil 3 mm react to light, VF intact to confrontation Conjunctive: clear Palpebral fissures: equal Proptosis: - Fundoscopic exam: discs: nl SSIS ARCHITECT: present bilat III, IV, : full EOM, normal pursuit V: normal facial sensation VII: no facial weakness VIII: hearing normal at 256 Hz. TM's nl XI,X: normal elevation of palate, uvula midline. XI: normal sternocleidomastoid strength and shoulders shrug XII: tongue normal mass, protruded in the midline Musculoskeletal: Head position: nl Cervical ROM: nl Cranial muscle tenderness: - TMJ: - Myofascial tender points: - Motor: Bulk: normal Tone: nl Pronator drift. - Strength: 5/5 throughout: deltoid, triceps, biceps, wrist flexion/extension, FDI, APB hip flexion, knee flexion/extension, ankle dorsiflexion/plantarflexion, toe flexion/extension Sensory: Pin: normal Vibration: normal Position: normal Coordination: Involuntary movements: none Finger tap, finger to nose, arm roll: normal Heel to islas: normal Gait: nl Romberg sign: nl Tandem gait: nl Muscle Stretch reflexes Right Left Bicep 1/4 1/4 Br rad 1/4 1/4 Tricep 1/4 1/4 Knee 2/4 2/4 Ankle 1/4 1/4 Jaw jerk: - Siddiqui: - Pronator catch: - Crossed adductor: - Ankle clonus: - Babinski's sign: flexor bilaterally LABORATORY and IMAGING: Hemoglobin (g/dL) Date Value 03/30/2021 12.6 Hematocrit (%) Date Value 03/30/2021 39.7 WBC (k/uL) Date Value 03/30/2021 9.36 Platelet Count (k/uL) Date Value 03/30/2021 388 CMP: Glucose 79 03/30/2021 BUN 9 03/30/2021 Creatinine 0.73 03/30/2021 Sodium 138 03/30/2021 Potassium 4.2 03/30/2021 Chloride 103 03/30/2021 CO2 25 03/30/2021 Protein, Total 7.0 04/30/2021 Albumin 4.1 04/30/2021 Calcium, Total 9.4 03/30/2021 Alkaline Phosphatase 89 04/30/2021 Bilirubin, Total 0.3 04/30/2021 AST 27 04/30/2021 ALT 28 04/30/2021 TSH (uU/mL) Date Value 06/05/2019 4.560 Because some components of this proof-read clinical note have been produced using speech recognition software, it may still contain errors related to that system including incorrect grammar, punctuation, spelling, words and phrases. documented in this encounterUniversity Hospitals Ahuja [facility] Center03-31-2022 Miscellaneous Notes* Telephone Encounter - VIVIANA Metz - 12/15/2021 1:06 PM EDT Faxed chart notes to Dr Shabana Jules's office [phone] * Telephone Encounter - Johnathan Aguilera MD - 12/15/2021 11:09 AM EDT Please fax a copy of my note from 12/[address] Jules. Thanks documented in this encounterUniversity Hospitals Ahuja Medical Center03-30-2022 NoteHNO ID: [id number] Author: Johnathan Aguilera MD Service: ? Author Type: Physician Type: Progress Notes Filed: 12/15/2021 11:09 AM Note Text: .INFECTIOUS DISEASES CONSULT SERVICE DATE: 12/14/2021 Shara Riggs is being seen in consultation at the request of Dr. Warren Jules for advice and/or opinion regarding the management of Lyme disease. Subjective HISTORY HPI: Shara Riggs is a 21 year old female with h/o migraines who experienced a painful blister to the left shoulder/supraclavicular area and February 2021. Patient was seen in urgent care on 03/03/2021. The skin lesion was thought to be secondary to a spider bite. Patient was symptomatic with headaches, nausea, and fatigue. Was febrile and tachycardic. Referred to the ED on 03/03/2021 when the skin lesions were described as follows: A conglomeration of small vesicles and pustules to the left supraclavicular region with surrounding cellulitis no fluctuant abscess appreciated, area of cellulitis measures roughly 7 cm in length and 3 cm in diameter, no ulceration or necrosis noted. She was discharged home on Bactrim and Keflex. Blood cultures drawn on 03/03/2021 showed no growth. The cellulitis and vesicular pustules took some time to resolve. However, she continued to have neck/shoulder pain and constant dull headache. She experienced many new symptoms, including intermittent itching around her neck and arms, a single bump on her left upper thigh, sharp stabbing pain radiating down both arms, neck tenderness, facial swelling, and intermittent throat swelling. Was treated with Medrol Dosepak and antihistamine. Imaging of the cervical spine and soft tissue neck were negative for acute findings. The details of the MRI C-spine are described below. During the same time, her pet dog was diagnosed with Lyme disease and was treated. She requested her primary care doctor to order a Lyme test. Lyme titers tested in April 2021 were found positive in April 2021. She was treated with 2 weeks of doxycycline. Those symptoms lasted through August 2021. She endorses the persistence of upper thoracic pain and midline pain (below the posterior neck and in between shoulder blades). She denies having fevers, chills, night sweats, unintentional weight loss, mental fog, nausea, vomiting, joint pain, skin rashes, or cough. She intermittently gets a sore throat. She intermittently experiences migraine headaches. Prior images and lab results were reviewed. CT of the soft tissue neck on 04/14/2021 showed unremarkable findings. MRI of cervical spine performed on 04/25/2021 showed straightening of the normal cervical lordosis, minimal degenerative disc disease at C5-C6 and C6-C7. There were artifacts from the patient's braces. C-reactive protein tested on 04/06/2021 was elevated at 22.2. Grew up in [place]. No history of travel. 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 No outdoor activities. Likes to stay indoors. No known exposure to ticks. No known exposure to MRSA infection or TB. No significant childhood illnesses. Childhood vaccination up-to-date. Has a pet dog. No cats. No birds. No exposure to farm animals. Sexually active with 1 male partner. No known STIs. HIV screen was negative in March 2021. REVIEW OF SYSTEMS Otherwise reviewed and negative x 14 except as noted above ALLERGIES No Known Allergies PAST MEDICAL HISTORY: PAST MEDICAL HISTORY Diagnosis Date - Anxiety - Headache Non-migraine - Menorrhagia - Mood changes PAST SURGICAL HISTORY: PAST SURGICAL HISTORY Procedure Laterality Date - NONE FAMILY HISTORY: Reviewed, no pertinent family history SOCIAL HISTORY: Reviewed, no pertinent social history Social History Tobacco Use - Smoking status: Never Smoker - Smokeless tobacco: Never Used Vaping Use - Vaping Use: Never used Substance Use Topics - Alcohol use: No - Drug use: No MEDICATIONS: Current Outpatient Medications Medication Sig - rizatriptan (MAXALT-ACCOUNTING SYSTEM EXPERT) 10 mg disintegrating tablet Take 1 tablet by mouth as directed. at onset of headache. May repeat after 2 hours. Do not exceed 30 mg per day. - divalproex DR (DEPAKOTE) 250 mg EC tablet Take 1 tablet by mouth twice daily. - Norethindrone Acet-Ethinyl Est (,) 1-20 mg-mcg per tablet Take 1 tablet by mouth once daily. Take continuously, skip placebo week. No current facility-administered medications for this visit. Current Anti-Infective Meds (From admission, onward) None Objective PHYSICAL EXAM 12/14/21 0916 BP: 104/62 BP Site: Left Arm BP Position: Sitting BP Cuff Size: Regular Adult Pulse: 80 Resp: 16 Temp: 37.1 ?C (98.7 ?F) SpO2: 99% Weight: 57.2 kg (126 lb 1.6 oz) Height: 162.6 cm (5' 4) PSYCHIATRIC: no apparent distress, oriented to time, place and person, appropriate affect, good judgment, good insight, memory intact SKIN: no rashes, no ulcers. Left supraclavicular area with only (more content not included)...[facility]03-30-2022 Instructions* Patient Instructions* Johnathan Aguilera MD - 12/14/2021 9:54 AM EDT To go to Lab for blood draws documented in this encounterUniversity Hospitals Ahuja [facility]03-30-2022 History of Present illness Narrative* Johnathan Aguilera MD - 12/14/2021 9:12 AM EDT .INFECTIOUS DISEASES CONSULT SERVICE DATE: 12/14/2021 Shara Riggs is being seen in consultation at the request of Dr. Warren Jules for advice and/or opinion regarding the management of Lyme disease. Subjective HISTORY HPI: Shara Riggs is a 21 year old female with h/o migraines who experienced a painful blister to the left shoulder/supraclavicular area and February 2021. Patient was seen in urgent care on 03/03/2021. The skin lesion was thought to be secondary to a spider bite. Patient was symptomatic with headaches, nausea, and fatigue. Was febrile and tachycardic. Referred to the ED on 03/03/2021 when the skinlesions were described as follows: A conglomeration of small vesicles and pustules to the left supraclavicular region with surrounding cellulitis no fluctuant abscess appreciated, area of cellulitismeasures roughly 7 cm in length and 3 cm in diameter, no ulceration or necrosis noted. She was discharged home on Bactrim and Keflex. Blood cultures drawn on 03/03/2021 showed no growth. The cellulitis and vesicular pustules took some time to resolve. However, she continued to have neck/shoulder pain and constant dull headache. She experienced many new symptoms, including intermittent itching around her neck and arms, a single bump on her left upper thigh, sharp stabbing pain radiating down both arms, neck tenderness, facial swelling, and intermittent throat swelling. Was treated with Medrol Dosepak and antihistamine. Imaging of the cervical spine and soft tissue neck were negative for acute findings. The details of the MRI C- spine are described below. During the same time, her pet dog was diagnosed with Lyme disease and was treated. She requested her primary care doctor to order a Lymetest. Lyme titers tested in April 2021 were found positive in April 2021. She was treated with 2 weeks of doxycycline. Those symptoms lasted through August 2021. She endorses the persistence of upper thoracic pain and midline pain (below the posterior neck and in between shoulder blades). She denies having fevers, chills, night sweats, unintentional weight loss, mental fog, nausea, vomiting, joint pain, skin rashes, or cough. She intermittently gets a sore throat. She intermittently experiences migraine headaches. Prior images and lab results were reviewed. CT of the soft tissue neck on 04/14/2021 showed unremarkable findings. MRI of cervical spine performed on 04/25/2021 showed straightening of the normal cervical lordosis, minimal degenerative disc disease at C5-C6 and C6-C7. There were artifacts from the patient's braces. C-reactive protein tested on 04/06/2021 was elevated at 22.2. Grew up in [place]. No history of travel. Runs a [employer] of [employer]. No outdoor activities. Likes to stay indoors. No known exposure to ticks. No known exposure to MRSA infection or TB.No significant childhood illnesses. Childhood vaccination up-to-date. Has a pet dog. No cats. No birds. No exposure to farm animals. Sexually active with 1 male partner. No known STIs. HIV screen was negative in March 2021. REVIEW OF SYSTEMS Otherwise reviewed and negative x 14 except as noted above ALLERGIES No Known Allergies PAST MEDICAL HISTORY: PAST MEDICAL HISTORY Diagnosis Date Anxiety Headache Non-migraine Menorrhagia Mood changes PAST SURGICAL HISTORY: PAST SURGICAL HISTORY Procedure Laterality Date NONE FAMILY HISTORY: Reviewed, no pertinent family history SOCIAL HISTORY: Reviewed, no pertinent social history Social History Tobacco Use Smoking status: Never Smoker Smokeless tobacco: Never Used Vaping Use Vaping Use: Never used Substance Use Topics Alcohol use: No Drug use: No MEDICATIONS: Current Outpatient Medications Medication Sig rizatriptan (MAXALT-ACCOUNTING SYSTEM EXPERT) 10 mg disintegrating tablet Take 1 tablet by mouth as directed. at onset of headache. May repeat after 2 hours. Do not exceed 30 mg per day. divalproex DR (DEPAKOTE) 250 mg EC tablet Take 1 tablet by mouth twice daily. Norethindrone Acet-Ethinyl Est (,) 1-20 mg-mcg per tablet Take 1 tablet by mouth oncedaily. Take continuously, skip placebo week. No current facility-administered medications for this visit. Current Anti-Infective Meds (From admission, onward) None Objective PHYSICAL EXAM 03/30/22 0916 BP: 104/62 BP Site: Left Arm BP Position: Sitting BP Cuff Size: Regular Adult Pulse: 80 Resp: 16 Temp: 37.1 C (98.7 F) SpO2: 99% Weight: 57.2 kg (126 lb 1.6 oz) Height: 162.6 cm (5' 4) PSYCHIATRIC: no apparent distress, oriented to time, place and person, appropriate affect, good judgment, good insight, memory intact SKIN: no rashes, no ulcers. Left supraclavicular area with only faint brown discoloration of skin noted at the site of previous cellulitis/rash. EYES: no scleral icterus, no conjunctivitis HEENT: normal inspection of teeth, lips, gums, and oropharynx NECK: normal appearance, normal movement LYMPHATIC: no submandibular, cervical or occipital lymphadenopathy, no supraclavicular lymphadenopathy RESPIRATORY: symmetrical chest expansion and respiratory effort CARDIOVASCULAR: S1, S2, no mrg, no edema ABDOMINAL: soft, non-distended, non-tender, no hepatosplenomegaly : no suprapubic tenderness MUSCULOSKELETAL: normal muscle strength, normal muscle tone. No spinal or paraspinal tenderness appreciated. EXTREMITIES: Within normal limits NEUROLOGICAL: nonfocal DIAGNOSTICS REVIEWED PERTINENT LABS CBC: WBC 9.36 03/30/2021 HGB 12.6 03/30/2021 Hematocrit 39.7 03/30/2021 Platelet Count 388 03/30/2021 CMP: Sodium 138 03/30/2021 Potassium 4.2 03/30/2021 BUN 9 03/30/2021 Creatinine 0.73 03/30/2021 Glucose 79 03/30/2021 Creatinine clearance: Creatinine clearance cannot be calculated (Patient's most recent lab result is older than the maximum 180 days allowed.) INFLAMMATORY MARKERS Sed Rate/CRP: WSR 41 03/30/2021 CRP 2.7 03/30/2021 PERTINENT MICROBIOLOGY Reviewed PERTINENT RADIOLOGY REPORTS Reviewed Impression/Recommendations Shara Riggs is a 21 year old female with migraines, diagnosed with left supraclavicular cellulitis around a cluster of vesicular/pustular skin lesions in February 2021. She was treated with Bactrim and Keflex for 2 weeks. She experienced many symptoms including posterior neck pain, upper back pain, headaches, fatigue, and sore throat following the diagnosis of cellulitis. She was found positive for Lyme serology in April 2021. She was treated with doxycycline for 2 weeks. Now she is experiencing persistence of upper thoracic back pain and interscapular area. 1. Upper thoracic back pain, of unclear etiology, likely degenerative spine disease; MRI did show minimal degenerative disc disease at C5-C6 and C6-C7 from 04/25/2021. 2. History of left supraclavicular/lateral neck skin vesicular/pustular eruptions surrounded by erythematous skin. I reviewed the rash pictures from March 2021 on the patient's cell phone. The findings were suspicious for herpetic lesions, probably HSV infection. 3. Positive Lyme serology tested in April 2021. The skin findings as described above were not consistent with erythema migrans. The exact significance of those positive test results is unclear. However, patient did receive a 2-week course of doxycycline targeting Lyme disease. Therefore, her persistent symptom of upper back pain is unlikely due to Lyme disease. 4. Elevated CRP of 22.2 in March 2021 5. Intermittent sore throat/throat and tongue swelling by history, unclear etiology Recommendations: Please consider referring this patient to a school library media specialist for this chronic pain in the upper thoracic spine Will recheck Lyme serology Will check CBC with differential counts, CMP, ESR, and CRP Will check RPR and HSV serology ID clinic follow-up as needed MEDICAL DECISION MAKING: Records/events reviewed Imaging reviewed/discussed Microbiology reviewed/discussed Labs reviewed/discussed Discussed with pharmacy 50 minutes spent on counseling including lab results, diagnostic testing, medications, further management planning, prognosis, risks and benefits of treatment options. All questions were answered to the patient and/or family members satisfaction. Please feel free to call or page us with concerns or questions. Thank you for allowing us to partake in the care of your patient. SIGNATURE: Johnathan Aguilera MD Pager [phone] PATIENT NAME: Shara Riggs DATE: December 14, 2021 TIME: 9:12 AM documented in this encounterUniversity Hospitals [facility]03-08-2022 NoteHNO ID: [id number] Author: Warren Jules MD Service: ? Author Type: Physician Type: Progress Notes Filed: 11/22/2021 7:33 AM Note Text: Shara Riggs is a 21 year old female known to our practice. Patient presents with: Headache: yrs-getting worse Lyme disease: 6months ago-discuss Pt has more frequent migraines. 3 times a week now. Pt has worsening headaches now. More intense now, sensitive to light, causes nausea. Imitrex, imitrex, ibuprofen doesn't help. Past Medical, Surgical, Family and Social Histories reviewed and updated today in the History tab of [facility]. Current Medications and allergies reviewed. ACTIVE PROBLEM LIST Menorrhagia ALLERGIES: Patient has no known allergies. Current Outpatient Medications Medication Sig - Norethindrone Acet-Ethinyl Est (,) 1-20 mg-mcg per tablet Take 1 tablet by mouth once daily. Take continuously, skip placebo week. - naproxen (NAPROSYN) 500 mg tablet Take 1 tablet by mouth twice daily with meals. - predniSONE (DELTASONE) 50 mg Take 1 tablet by mouth once daily. No current facility-administered medications for this visit. REVIEW OF SYSTEMS GENERAL: No weight loss, malaise or fevers RESPIRATORY: Negative for cough, hemoptysis, wheezing, COPD, dyspnea or shortness of breath CARDIOVASCULAR: Negative for chest pain, leg swelling, CHF or palpitations GI: No nausea, vomiting, or diarrhea PHYSICAL EXAMINATION: BP 106/59 Pulse 88 Temp 36.9 ?C (98.4 ?F) (Left Tympanic) Ht 162.6 cm (5' 4) Wt 57.2 kg (126 lb) LMP 01/15/2021 SpO2 97% BMI 21.63 kg/m? PHYSICAL EXAMINATION: General appearance: Well appearing, alert, in no acute distress, well-hydrated, well nourished. Lungs: Lungs clear to auscultation. No wheezing, rhonchi, rales Heart: RRR without murmur, gallop, or rubs. No ectopy Neuro: Gait normal. Reflexes normal and symmetric. Sensation grossly intact. CN II-XII intact. ASSESSMENT/PLAN: 1. Chronic migraine without aura without status migrainosus, not intractable - ICD9: 346.70, ICD10: G43.709 Start depakote and alekseyalt - CONSULT TO NEUROLOGY Warren Jules, [facility]09-11-2021 NoteHNO ID: [id number] Author: Gena Glasgow PA-C Service: ? Author Type: Physician Clinical Project Manager Type: Progress Notes Filed: 05/28/2021 9:05 PM Note Text: Subjective The patient is a 21 year old female who presents with COVID concerns for 4 days. She describes sore throat, headache, nausea, subjective fever. No known sick contacts. She is not vaccinated for COVID. No voice change, drooling, neck pain/ stiffness. Despite triage note, patient denies headache on my exam. Review of Systems Constitutional: Positive for chills, fever and malaise/fatigue. HENT: Positive for sore throat. Negative for congestion, ear pain and sinus pain. Eyes: Negative. Respiratory: Negative. Negative for stridor. Cardiovascular: Negative for chest pain and orthopnea. Gastrointestinal: Positive for nausea. Negative for abdominal pain, diarrhea and vomiting. Musculoskeletal: Negative for myalgias and neck pain. Skin: Negative for rash. Neurological: Negative for dizziness, weakness and headaches. Endo/Heme/Allergies: Does not bruise/bleed easily. Objective Physical Exam Vitals and nursing note reviewed. Constitutional: General: She is awake. She is not in acute distress. Appearance: Normal appearance. She is well-developed and well-groomed. She is not ill-appearing or toxic-appearing. Comments: Ambulatory into clinic Well appearing female resting in exam chair with significant other at bedside managing secretions Patent airway No stridor Patient has significant tonsillar exudate particularly worse on the left than the right. HENT: Head: Normocephalic and atraumatic. Jaw: No trismus. Right Ear: Tympanic membrane, ear canal and external ear normal. Left Ear: Tympanic membrane, ear canal and external ear normal. Nose: Nose normal. Mouth/Throat: Lips: Red Bud. No lesions. Mouth: Mucous membranes are moist. No oral lesions. Tongue: No lesions. Palate: No lesions. Pharynx: Uvula midline. Oropharyngeal exudate and posterior oropharyngeal erythema present. No pharyngeal swelling or uvula swelling. Tonsils: Tonsillar exudate present. No tonsillar abscesses. 1+ on the right. 1+ on the left. Comments: Managing secretions Patent airway No stridor Patient has significant tonsillar exudate particularly on the left. No meningismus no Eyes: General: Lids are normal. Vision grossly intact. Gaze aligned appropriately. Conjunctiva/sclera: Conjunctivae normal. Neck: Trachea: Phonation normal. Comments: No meningismus Cardiovascular: Rate and Rhythm: Normal rate and regular rhythm. Pulses: Radial pulses are 2+ on the right side and 2+ on the left side. Heart sounds: Normal heart sounds. Pulmonary: Effort: Pulmonary effort is normal. Breath sounds: Normal breath sounds and air entry. Abdominal: General: Abdomen is flat. Bowel sounds are normal. There is no distension. Palpations: Abdomen is soft. Tenderness: There is no abdominal tenderness. There is no right CVA tenderness, left CVA tenderness, guarding or rebound. Musculoskeletal: General: Normal range of motion. Cervical back: Full passive range of motion without pain, normal range of motion and neck supple. Lymphadenopathy: Cervical: Cervical adenopathy present. Right cervical: Superficial cervical adenopathy present. No posterior cervical adenopathy. Left cervical: Superficial cervical adenopathy present. No posterior cervical adenopathy. Skin: General: Skin is warm and dry. Capillary Refill: Capillary refill takes less than 2 seconds. Findings: No rash. Neurological: Mental Status: She is alert and oriented to person, place, and time. Gait: Gait normal. Psychiatric: Behavior: Behavior is cooperative. BP 98/68 Pulse 101 Temp 98 Resp 16 Ht 5' 4 (1.63m) Wt 124 lb 14.4 oz (56.7kg) SpO2 98% LMP 01/15/2021 BMI 21.43 kg/(m2). ASSESSMENT/PLAN: 1. Exudative pharyngitis - ICD9: 462, ICD10: J02.9 - MONOTEST, INFECTIOUS MONO - 2019 CORONAVIRUS 2. Suspected COVID19 infection I have reviewed and updated patient allergies, VS, current medications, past medical and surgical history and social history MDM: Patient is well appearing, non toxic, not hypoxic, and appropriate for outpatient treatment and management at time of evaluation. Patient presents with subjective fever, sore throat, fatigue, nausea over the last 4 days. She is concerned for Covid. Swab sent and pending. Counseled on isolation precautions until results return. On exam, patient has tonsillar exudate with superficial cervical anterior lymphadenopathy bilaterally. No posterior lymphadenopathy. No clinical evidence of oropharyngeal abscess at this time. Her strep test is negative but based on [facility] criteria patient should be treated. She is agreeable to this. I have low suspicion for mononucleosis however a Monospot has been ordered to rule this out. We will avoid amoxicillin for this reason. Patient will (more content not included)...[facility]08-17-2021 NoteHNO ID: [id number] Author: Warren Jules MD Service: ? Author Type: Physician Type: Progress Notes Filed: 05/03/2021 7:35 AM Note Text: Shara Riggs is a 20 year old female known to our practice. Patient presents with: Back Pain lyme disease. Pt was bit by insect 2 mo ago, treated with keflex and bactrim, no improvement. Developed joint pains, eventually lyme titers were positive, confirmation positive. Started doxy, doing better, no joint pain, still has some back pain, no headaches, no chest pain or sob. Past Medical, Surgical, Family and Social Histories reviewed and updated today in the History tab of [facility]. Current Medications and allergies reviewed. ACTIVE PROBLEM LIST Menorrhagia ALLERGIES: Patient has no known allergies. Current Outpatient Medications Medication Sig - Norethindrone Acet-Ethinyl Est (,) 1-20 mg-mcg per tablet Take 1 tablet by mouth once daily. Take continuously, skip placebo week. - doxycycline hyclate (VIBRAMYCIN) 100 mg capsule Take 1 capsule by mouth twice daily for 10 days. - predniSONE (DELTASONE) 50 mg Take 1 tablet by mouth once daily. - cetirizine (ZYRTEC) 10 mg tablet Take 1 tablet by mouth once daily. - naproxen (NAPROSYN) 500 mg tablet Take 1 tablet by mouth twice daily as needed for pain (FOR PAIN - TAKE WITH FOOD.). No current facility-administered medications for this visit. REVIEW OF SYSTEMS GENERAL: No weight loss, malaise or fevers RESPIRATORY: Negative for cough, hemoptysis, wheezing, COPD, dyspnea or shortness of breath CARDIOVASCULAR: Negative for chest pain, leg swelling, CHF or palpitations GI: No nausea, vomiting, or diarrhea PHYSICAL EXAMINATION: BP 104/66 (BP Site: Right Arm, BP Position: Sitting, BP Cuff Size: Regular Adult) Temp 37.1 ?C (98.8 ?F) (Tympanic) Wt 57.4 kg (126 lb 9.6 oz) LMP 12/19/2020 (Exact Date) BMI 21.73 kg/m? PHYSICAL EXAMINATION: General appearance: Well appearing, alert, in no acute distress, well-hydrated, well nourished. Lungs: Lungs clear to auscultation. No wheezing, rhonchi, rales Heart: RRR without murmur, gallop, or rubs. No ectopy Ears: External ears normal, canals clear Nose/Sinuses: Nares normal, septum midline, mucosa normal, no drainage or sinus tenderness Oropharynx: Lips, mucosa, and tongue normal, teeth and gums normal, oropharynx normal Neck: Supple, no adenopathy; thyroid symmetric, normal size, no bruits ASSESSMENT/PLAN: 1. Lyme disease - ICD9: 088.81, ICD10: A69.20 Doxy, see ID - CONSULT TO INFECTIOUS DISEASES Warren Jules [facility]07-14-2021 NoteHNO ID: [id number] Author: Clari Magana APRN.PRE CODER Service: ? Author Type: Nurse Practitioner Type: Progress Notes Filed: 03/30/2021 12:59 PM Note Text: This note was created using Fixetuderiter. Subjective Shara Riggs is a 20 year old female. Here today with mom for ongoing progressive symptoms for the past month. Seen 8 days ago for neck pain and headache. Pulling sensation when turning head to L. Now having constant sharp stabbing pain radiating down both arms. Still having neck tenderness and pain that's worse with movement. Denies injury or trauma. No fevers. No weakness or paresthesias. Mom also noticed L facial swelling around cheek and L eye 4 days ago. This has since resolved without intervention. Reports 3 days of intermittent itching up around her neck and arms. No rash however this morning she noticed a single bump on her L upper thigh that is red and itching. No known exposures. No new medications. Hasn't taken anything to help with itching. All this comes after being treated for cellulitis to her L shoulder 1 month ago at [facility] ER. She finished the course of antibiotics and the area is now healed with a small scar. It was never determined what caused the cellulitis. The history is provided by the patient and a parent. No freelance interpreter/translator was used. Review of Systems Constitutional: Negative for chills and fever. HENT: Positive for facial swelling. Negative for congestion, dental problem, ear pain, sinus pressure and trouble swallowing. Eyes: Negative for photophobia and visual disturbance. Respiratory: Negative for chest tightness and shortness of breath. Cardiovascular: Negative for chest pain and palpitations. Gastrointestinal: Negative for diarrhea, nausea and vomiting. Musculoskeletal: Positive for myalgias and neck pain. Negative for joint swelling. Skin: Itchy bump L upper thigh. Neurological: Positive for headaches (Tension up back from neck). Negative for dizziness, weakness and numbness. All other systems reviewed and are negative. Objective BP 117/73 (BP Site: Left Arm, BP Position: Sitting, BP Cuff Size: Regular Adult) Pulse 89 Temp 36.9 ?C (98.4 ?F) (Left Tympanic) Resp 16 Ht 162.6 cm (5' 4) Wt 57.9 kg (127 lb 11.2 oz) LMP 12/19/2020 (Exact Date) BMI 21.92 kg/m? Physical Exam Vitals and nursing note reviewed. Constitutional: General: She is not in acute distress. Appearance: Normal appearance. She is well-developed. HENT: Head: Normocephalic and atraumatic. Jaw: There is normal jaw occlusion. Salivary Glands: Right salivary gland is not diffusely enlarged. Left salivary gland is not diffusely enlarged. Right Ear: Tympanic membrane normal. Left Ear: Tympanic membrane normal. Nose: Nose normal. Mouth/Throat: Lips: Red Bud. Mouth: Mucous membranes are moist. Dentition: Normal dentition. Pharynx: Oropharynx is clear. Uvula midline. Tonsils: 2+ on the right. 2+ on the left. Eyes: General: Lids are normal. Vision grossly intact. No visual field deficit. Extraocular Movements: Extraocular movements intact. Right eye: No nystagmus. Left eye: No nystagmus. Conjunctiva/sclera: Conjunctivae normal. Pupils: Pupils are equal, round, and reactive to light. Neck: Thyroid: No thyroid mass or thyroid tenderness. Trachea: Phonation normal. Meningeal: Brudzinski's sign absent. Cardiovascular: Rate and Rhythm: Normal rate and regular rhythm. Pulses: Radial pulses are 2+ on the right side and 2+ on the left side. Heart sounds: Normal heart sounds. Pulmonary: Effort: Pulmonary effort is normal. Breath sounds: Normal breath sounds. Abdominal: General: Abdomen is flat. Bowel sounds are normal. Palpations: Abdomen is soft. Musculoskeletal: Arms: Cervical back: Normal range of motion and neck supple. No edema or signs of trauma. Pain with movement, spinous process tenderness and muscular tenderness present. Thoracic back: Normal. Lumbar back: Normal. Comments: Bilateral shoulders and upper arm tenderness. No joint pain, swelling or deformity. Full ROM Lymphadenopathy: Head: Right side of head: No submental, submandibular or tonsillar adenopathy. Left side of head: No submental, submandibular or tonsillar adenopathy. Cervical: No cervical adenopathy. Skin: General: Skin is warm and dry. Capillary Refill: Capillary refill takes less than 2 seconds. Neurological: General: No focal deficit present. Mental Status: She is oriented to person, place, and time. Cranial Nerves: Cranial nerves are intact. Sensory: Sensation is intact. Motor: Motor function is intact. Psychiatric: Mood and Affect: Mood normal. Speech: Speech normal. Behavior: Behavior normal. Behavior is cooperative. Assessment and Plan It is unknown whether any of these symptoms are a result of the cellulitis pt was treated for 1 month ago. She has no s/s of infection. She has not been febrile. (more content not included)...[facility]07-06-2021 NoteHNO ID: [id number] Author: Clari Magana APRN.PRE CODER Service: ? Author Type: Nurse Practitioner Type: Progress Notes Filed: 03/22/2021 10:39 AM Note Text: This note was created using Fixetuderiter. Patient presents with: ED Follow-up: ER visit- march 03, 2021- still having pain in shoulder and neck area Subjective Shara Riggs is a 20 year old female. Known pt to the practice. Here today for f/u ER visit [facility] on 03/03 for cellulitis to her left shoulder with tachycardia and fever. It was initially thought maybe she had gotten bit by something. Dx with cellulitis. She completed the Keflex and Bactrim and was to follow up in 3 days however she presents here today 2.5 wks later with complaints of neck pain. She states the site of infection looks better but has since developed neck pain. Constant ache, pulling sensation that worsens with turning head side to side or when pressing on the area. Not used anything on it or for it. Also having constant dull headache that goes up the back of her head from her neck. No fevers or chills since ER visit. Denies injury or trauma to the neck. No recent heavy lifting. March 10 last eye exam. Wears glasses. The history is provided by the patient. No freelance interpreter/translator was used. Review of Systems Constitutional: Negative for chills and fever. Eyes: Negative for photophobia and visual disturbance. Musculoskeletal: Positive for myalgias (neck and shoulders) and neck pain. Skin: Positive for wound (Healed-L shoulder). Neurological: Positive for headaches. Negative for dizziness and weakness. All other systems reviewed and are negative. Objective BP 111/66 Pulse 96 Temp 37.4 ?C (99.3 ?F) (Tympanic) Resp 16 Ht 162.6 cm (5' 4) Wt 56.7 kg (125 lb) LMP 12/19/2020 (Exact Date) SpO2 96% BMI 21.46 kg/m? Physical Exam Vitals and nursing note reviewed. Constitutional: Appearance: Normal appearance. She is normal weight. She is not ill-appearing. HENT: Head: Normocephalic and atraumatic. Right Ear: Tympanic membrane, ear canal and external ear normal. Left Ear: Tympanic membrane, ear canal and external ear normal. Mouth/Throat: Lips: Red Bud. Mouth: Mucous membranes are moist. Eyes: General: Lids are normal. Vision grossly intact. No visual field deficit. Extraocular Movements: Extraocular movements intact. Conjunctiva/sclera: Conjunctivae normal. Pupils: Pupils are equal, round, and reactive to light. Neck: Thyroid: No thyroid mass or thyroid tenderness. Meningeal: Brudzinski's sign absent. Cardiovascular: Rate and Rhythm: Normal rate and regular rhythm. Pulses: Normal pulses. Heart sounds: Normal heart sounds. Pulmonary: Effort: Pulmonary effort is normal. Breath sounds: Normal breath sounds. Musculoskeletal: Cervical back: Neck supple. No deformity, erythema, rigidity or crepitus. Pain with movement and muscular tenderness present. No spinous process tenderness. Normal range of motion. Thoracic back: Normal. Lumbar back: Normal. Lymphadenopathy: Head: Right side of head: No submandibular or tonsillar adenopathy. Left side of head: No submandibular or tonsillar adenopathy. Cervical: No cervical adenopathy. Skin: General: Skin is warm and dry. Capillary Refill: Capillary refill takes less than 2 seconds. Findings: Wound present. Comments: 1.5 cm round scar from recently healed wound. No redness or warmth. Neurological: General: No focal deficit present. Mental Status: She is alert and oriented to person, place, and time. Sensory: Sensation is intact. Motor: Motor function is intact. Psychiatric: Mood and Affect: Mood normal. Behavior: Behavior normal. Assessment and Plan 1. Cervicalgia - ICD9: 723.1, ICD10: M54.2 (primary diagnosis) - No injury or trauma. Constant ache with pulling sensation when turning head side to side. - Medication as prescribed - Warm, moist heat to area. Recommendations for neck rest provided. - NAPROXEN 500 MG TABLET 2. Cervicogenic headache - ICD9: 784.0, ICD10: R51.9 - Recommendations provided-See #1 - Follow up if symptoms persist or worsen. - NAPROXEN 500 MG TABLET 3. Encounter for wound re-check - ICD9: V58.89, ICD10: Z51.89 - L shoulder. Dx with cellulitis in ER over 2 weeks ago. Pt completed treatment of Bactrim and Keflex. Resolved. 1.5 cm round well healed area noted to L shoulder. - Instructed to follow up with newly developing symptoms. Clari Magana APRN.[facility]06-17-2021 NoteHNO ID: [id number] Author: Tracie Diggs PA-C Service: ? Author Type: Physician Clinical Project Manager Type: Progress Notes Filed: 03/03/2021 3:32 PM Note Text: Subjective 20 y/o female [facility] to L shoulder x 3 days. Got some blister type bumps to L neck/shoulder area 3 days ago. Yesterday got slightly red and another blister type lesion. Redness spread overnight and became more painful and tender to touch. Today she feels nauseous, has a moderate headache (less than migraines) and is febrile. She is immunocomptent. Review of Systems Constitutional: Positive for chills, fever and malaise/fatigue. Gastrointestinal: Positive for nausea. Negative for vomiting. Skin: Positive for rash. Neurological: Positive for headaches. Objective Physical Exam Vitals and nursing note reviewed. Constitutional: Appearance: Normal appearance. Cardiovascular: Rate and Rhythm: Regular rhythm. Tachycardia present. Pulmonary: Effort: Pulmonary effort is normal. Breath sounds: Normal breath sounds. Comments: CTAB Skin: General: Skin is warm and dry. Capillary Refill: Capillary refill takes less than 2 seconds. Comments: Approximate 2cm patch of blistering, possibly pustular type rash with surrounding well demarcated erythema to L neck/shoulder area. Diffusely tender on exam, no crepitus noted. Neurological: Mental Status: She is alert. BP 104/80 Pulse 122 Temp 101.3 Resp 18 Ht 5' 4 (1.63m) Wt 126 lb 9.6 oz (57.4kg) SpO2 97% LMP 12/19/2020 BMI 21.72 kg/(m2). I have reviewed and updated patient allergies, VS, current medications, past medical and surgical history and social history MDM: Patient presents to [facility] with suspected spider bite that has become more red, painful and she is now febrile and tachycardic with associated nausea, malaise and headaches. I did repeat tympanic temperatue multiple times with readings between 101F-101.3F. She is immunocompetent. There is no crepitus on exam. However, I am concerned given her systemic symptoms with her vital signs that meet SIRS criteria. Discussed this with patient and mom and they were agreeable to seek higher level of care for further evaluation/work up. Mom will drive her to [facility]. Report was called. ASSESSMENT/PLAN: 1. Cellulitis of skin - ICD9: 682.9, ICD10: L03.90 (primary diagnosis) 2. Fever, unspecified fever cause - ICD9: 780.60, ICD10: R50.9 3. Tachycardia - ICD9: 785.0, ICD10: R00.0 [facility] summary Author Bev Redding [facility] Note Date/Time December 30, 2024 1:3 8pm [facility] Medical Records Department [address] [place] [address] Instructions for Home/Discharge Instructions 12/30/24 1148 MR#: [id number] Acct: [id number] Name: SHARA RIGGS Rep #:[id number] : 2000 24 From: Bev Mandujano DO PCP: Care Physician,No Primary Status :REG SDC Discharge Instructions Diet Discharge Diet: No restrictions DC O2, CPAP, BIPAP needs Home O2 Discharge instructions: No Dressing / Incision Discharge Activity: Return to Normal Activity, May Shower and May Take a Tub Bath (after 1 week) May resume sexual activity in: 1-2 weeks Weight Bearing Status: Weight bearing as tolerated Lifting Restrictions: none Dressing / Incision Call your doctor if you observe: Fever of 101 or Higher, Using more than 1 pad per hour, Shortness of breath and Uncontrolled pain Follow Up Care Please Follow Up With: Bev Mandujano DO When: Call [phone] to schedule appointment. Test Results: Test results from this visit will be discussed in further detail at your follow- up appointment, if applicable. Discharge Plan Admission Attending Provider: Miguelina Ibrahim Primary Care Provider: Care Physician,No Primary Instructions Print Language: Salvadorean Discharge Orders/Prescriptions Prescriptions: No Action NK Referrals / Follow Up: Care Physician,No Primary [Primary Care Provider] - Disposition Disposition (needs filled in before D/C Order can be placed): Home, Self Care 12/30/24 1148<Electronically signed by Bev Mandujano DO>Bev Mandujano DO CC: No Primary Care Physician ~ Signed [facility] Work Phone: Evaluation note* Diagnosis Neck pain- Primary Cervicalgia Tension headache documented in this encounter [employer] Work Phone: Evaluation note* Diagnosis Hepatomegaly Elevated liver enzymes Nonspecific elevation of levels of transaminase or lactic acid dehydrogenase (LDH) Left facial swelling Swelling, mass, or lump in head and neck Supraclavicular fossa fullness, left Swelling, mass, or lump in chest Axillary lymphadenopathy, left Enlargement of lymph nodes Recent left neck skin infection Unspecified local infection of skin and subcutaneous tissue documented in this encounter [employer] Work Phone: Evaluation note* Diagnosis Upper back pain, chronic- Primary Backache, unspecified Positive Lyme disease serology Other and unspecified nonspecific immunological findings H/O local infection of skin and subcutaneous tissue Personal history of diseases of skin and subcutaneous tissue Lyme disease [facility] Diagnosis Chronic migraine without aura without status migrainosus, not intractable Chronic migraine without aura, without mention of intractable migraine without mention of status migrainosus [facility] Diagnosis Encounter for gynecological examination (general) (routine) without abnormal findings- Primary Screening for cervical cancer Screening for malignant neoplasm of the cervix [facility] Diagnosis Encounter for initial prescription of contraceptive pills- Primary General counseling for prescription of oral contraceptives documented in this [facility] Diagnosis Secondary amenorrhea- Primary Absence of menstruation documented in this encounter [facility] Author Bev Redding [facility] Note Date/Time December 30, 2024 11: 50am [facility] Medical Records Department [address] [place] [id number] History & Physical Exam 12/30/24 1148 MR#: [id number] Acct: [id number] Name: SHARA RIGGS Rep #:[id number] : 2000 24 From: Bev Mandujano DO PCP: Care Physician,No Primary Status :[facility] Location: [place] [address] History and Physical Date of Admission: 12/30/24 Intake Vital Signs 12/16/2510:33 12/29/2508:58 Height 5 ft 3 in 5 ft 3 in Weight: 162 lb 8 oz BMI 28.8 BP 127/71 H Intake Visit Reasons: Discuss miscarriage Digital Press Operator Required: No Is patient in pain?: No Allergies No Known Allergies Allergy (Verified 12/29/24 12:35) Medications ?Medication ?Instructions ?Recorded ?Confirmed ?Type NK 12/29/24 12/29/24 History Post menopausal: No : No PFSH Medical History (Updated 12/29/24 @ 12:42 by Mariah Coley) Wears partial dentures History of Lyme disease Wears glasses Non-smoker Migraine Family History Mother Diabetes Type 2Grandmother Diabetes Maternal Type 2 Social History adopted: No household members: spouse and children number of children: 1 current occupational status: employed 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 current occupational exposures/hazards: No pets and animals: Yes pets and animals: dog(s) history of recent travel: No sexually active: Yes Smoking Status: Never smoker alcohol intake: never substance use type: does not use well-balanced diet: daily or most days caffeine: Yes Type: coffee Number of servings: 1 eating out: rarely or never during the past year weight has: increased > 10 lbs what type of physical activity do you participate in: none vinh/religious: None seatbelt use: always do you feel safe at home: Yes additional social history: - 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 She is over 10 weeks since her last menses and ultrasound shows a 7 week gestational sac without pole or heart tones. 2 weeks ago there were 2 gestational sacs and 2 yolk sacs. History 2 Elective abortions Hx Para 1 Spontaneous abortions 1 Hx # Term Pregnancies Ectopic pregnancies Hx # Pregnancies Multiple births # of living children 1 Past Pregnancies Del. Date Name GA/Weeks Outcome Route Bth Weight Gen Labor Lgth Anesthesia Del Locatn Provider FOB 09/12/23 Irma 40 live - full term 7#14oz Ma le [facility] Delivery Date: 09/12/23 Last Updated by: Miguelina Koch IOL postdates ROS Const ROS Unobtainable: All systems reviewed & are unremarkable except as noted in H Resp Resp: Reports system reviewed and no additional complaints, except as documented; Denies cough GI GI: Reports as per HPI Psych Psych: Reports system reviewed and no additional complaints, except as documented Exam Const General: cooperative, healthy appearing, comfortable and no acute distress Resp Effort & Inspection: normal respiratory effort Skin General: no rashes or lesions noted Psych Appearance: grossly normal Speech and Movement: speech and movement normal Coding Level of Care Code Off vis,est,level 4 Diagnoses Missed O02.1 Assessment and Plan Assessment and Plan (1) Missed : Status: Acute Comment: patient should be 10 weeks based on her + test on Nov 03 and today aCRL that is less than 6 weeks without heart tones is picked up. She is requesting labs and a formal ultrasound to confirm. will call with results. Plan: After discussing the patient's diagnosis and treatment plan options, patient wishes to proceed with surgical management. I have discussed with the patient the risks, benefits, and alternatives of the procedure which include but are notlimited to risks of anesthesia, bleeding, infection, possible damage to bowel, bladder, or surrounding vasculature which could lead to additional surgery to evaluate any complications. Patient agrees to procedure and wishes to proceed. ACOG/uptodate references given for additional information regarding procedure. plan for suction dilation and curettage 12/30/24 1150 <Electronically signed by Bev Mandujano DO> Cosigner Signature (if applicable): CC: Dr. Bev Mandujano DO; No Primary Care Physician~ Signed [facility] Work Phone: Hospital Discharge instructions* Instructions* Jemal Viveros DO - 04/03/2021 Use prescribed meloxicam on a schedule, not just as needed. Use lidocaine patches as needed. Add acetaminophen 650 mg up to 4 times daily as needed for pain. If these medicines are ineffective, or ifyou're having trouble sleeping, use prescribed Valium for muscle relaxation. Don't drive home and don't drive, climb or operate machinery while taking Valium. Our spine team will call you on Sunday to schedule follow-up, call them yourself if you don't hear from them by lunchtime. Return to the emergency department for symptoms of persist, change or worsen, if you develop weakness in your arms and/or legs, or if any other problems arise. documented in this [facility] Work Phone: Reason for referral (narrative)No reason for referral information availableWACMC Healthcare System [facility] Work Phone: Summary Purpose Family History No Family History Records Found Relationship Condition Age at Onset Recorded Date/T brando mother Diabetes mellitus Unknown grandmother Diabetes mellitus Unknown Advance Directives No Advanced Directives Records FoundDocuments on File Type Date Recorded Patient Prize Jacker Expl anation Advance Directive(s) 03/03/2021 4:30 PM Advance Directive Response Recorded Date/ Time Living Will No December 29, 2024 12:36pm Do you have a Healthcare Power of Java Grails Developer? No December 29, 2024 12:36pm Reason for Referral Status Reason Specialty Diagnoses / Procedures Referred By Contact Referred To Contact Open Specialty Services Required Orthopedic Surgery: Spine Surgery / Orthopedic Surgery Diagnoses Neck pain Pallzaira, Jemal Tatum DO [address] [place] [address] [place] [address] [address] [place] [address] Scheduling Instructions [facility] Orthopedics Spine - [place] [address] , [address] [place] [address] Status Reason Specialty Diagnoses / Procedures Referre d By Contact Referred To Contact Closed Radiology Diagnoses Left facial swelling Supraclavicular fossa fullness Axillary lymphadenopathy Skin infection Procedures CT Soft Tissue Neck WO Contrast Lyndon Nair MD [address] [place] [address] Status Reason Specialty Diagnoses / Procedures Referre d By Contact Referred To Contact Closed Radiology Diagnoses Hepatomegaly Elevated liver enzymes Procedures US Abdomen Complete Lyndon Nair MD [address] [place] [address] Chief Complaint and Reason for Visit Chief Complaint Admit Date New OB, LMP 10/07, TESSA 07/14December 08, 2024 11:14am Reason for Visit Admit Date Hx of depression, currently p regnant December 08, 2024 11:14am Lyme disease December 08, 2024 11: 14am Maternal varicella, non-immune November 11:14am December 08, 2024 11: 14am Supervision of high-risk December 08, 2024 11:14am Chief Complaint Admit Date New OB, LMP 10/07, TESSA 07/14December 08, 2024 11:14am RESCAN HRTBEAT CK *TWINS* December 16 11:28am INT LABS December 16, 2024 12:3 4pm Reason for Visit Admit Date Hx of depression, currently p regnant December 08, 2024 11:14am Lyme disease December 08, 2024 11: 14am Maternal varicella, non-immune November 11:14am December 08, 2024 11: 14am Supervision of high-risk December 08, 2024 11:14am Missed December 16, 2024 11:2 8am Chief Complaint Admit Date New OB, LMP 10/07, TESSA 07/14December 08, 2024 11:14am RESCAN HRTBEAT CK *TWINS* December 16 11:28am INT LABS December 16, 2024 12:3 4pm RULE OUT MISCARRIAGE December 26, 2024 12 :28pm Discuss miscarriage December 29, 2024 9:4 5am Reason for Visit Admit Date Hx of depression, currently p regnant December 08, 2024 11:14am Lyme disease December 08, 2024 11: 14am Maternal varicella, non-immune November 11:14am December 08, 2024 11: 14am Supervision of high-risk December 08, 2024 11:14am Missed December 16, 2024 11:2 8am Missed December 29, 2024 9:4 5am Additional Source Comments INFORMATION SOURCE (unrecogn ized section and content) DATE CREATED AUTHOR 03/13/2018 [facility] DATE CREATED AUTHOR AUTHOR'S ORGANIZ ATION 06/24/2019 [facility] DATE CREATED AUTHOR AUTHOR'S ORGANIZ ATION 04/15/2021 [facility] DATE CREATED AUTHOR AUTHOR'S ORGANIZ ATION 12/20/2021 [facility] DATE CREATED AUTHOR AUTHOR'S ORGANIZ ATION 01/05/2023 [facility] DATE CREATED AUTHOR AUTHOR[facility]S OR[facility]IZ ATION [facility] Reason for Visit (unrecogniz ed section and content) Reason Comments Neck Pain Back Pain Status Reason Specialty Diagnoses / Procedures Referre d By Contact Referred To Contact Closed Radiology Diagnoses Left facial swelling Supraclavicular fossa fullness Axillary lymphadenopathy Skin infection Procedures CT Soft Tissue Neck WO Contrast Joanie, Lyndon, MD [address] [place] [address] Reason Comments clinic note FYI-No Action Needed Reason Comments Infection Follow Up Lyme disease Specialty Diagnoses / Procedures Referred By Contac t Referred To Contact Infectious Diseases Diagnoses Lyme disease Procedures CONSULT TO INFECTIOUS DISEASES NEW PATIENT VISIT LEVEL 5 Warren Jules MD [address] [address] Referral ID Status Reason Start Date Expiration Date V isits Requested Visits Authorized [id number] Closed PCP Requested Referral 05/03/2021 05/03/2022 1 1 Reason Comments New Patient migraines Specialty Diagnoses / Procedures Referred By Contac t Referred To Contact Neurology Diagnoses Chronic migraine without aura without status migrainosus, not intractable Procedures CONSULT TO NEUROLOGY OFFICE/OUTPATIENT NEW HIGH MDM 60-74 MINUTES Warren Jules MD [address] [place] [address] Referral ID Status Reason Start Date Expiration Date V isits Requested Visits Authorized [id number] Closed PCP Requested Referral 11/22/2021 11/22/2022 1 1 Reason Comments Well Woman Reason Comments Contraception Pt here to discuss B C options. Pt states she would like to be on the pill . Reason Comments Orders Reason Comments Results Ordered Prescriptions (unrec ognized section and content) Prescription Sig Dispensed Refills Start Date End lidocaine (LIDODERM) 5 % Place 1 patch onto the skin daily for 10 days 12 hours on, 12 hours off. 10 patch 0 04/03/2021 04/13/2021 diazePAM (VALIUM) 5 MG tabletIndications:Neck pain Take 1 tablet by mouth every 6 hours as needed (pain/spasm) for up to 3 days. 10 tablet 0 04/03/2021 04/06/2021 meloxicam (MOBIC) 15 MG tablet Take 1 tablet by mouth daily 30 tablet 0 04/03/2021 Scheduled Active and Recently Administ ered Medications (unrecognized section and content) Medication Order 04/01/2021 04/02/2021 04/03/2021 ibuprofen (ADVIL;MOTRIN) tablet 400 mg (COMPLETED) 400 mg, Oral, ONCE, On 04/02/21 at 2230, For 1 dose, Do not crush or chew. 2230 (Given - Provider: Porsche Beard RN) lidocaine 4 % external patch 1 patch 1 patch, Transdermal, Administer over 12 Hours, ONCE, On 04/02/21 at 2230, For 1 dose, Apply patch to neck. Patch may remain in place for up to 12 hours in any 24 hour period. 2230 (Patch Applied - Provider: Porsche Beard RN) 1030 (Due: Patch Removed - Provider: Porsche Beard RN) methocarbamol (ROBAXIN) injection 1,000 mg (COMPLETED) 1,000 mg, Intramuscular, ONCE, On 04/02/21 at 2230, For 1 dose 2240 (Given - Provider: Porsche Beard RN - Comment: Dr. Viveros changed order to 500 IM) oxyCODONE-acetaminophen (PERCOCET) 5-325 MG per tablet 2 tablet (COMPLETED) 2 tablet, Oral, ONCE, On 04/02/21 at 2230, For 1 dose 2229 (Given - Provider: Porsche Beard, FRANKI) Source Comments (unrecognize d section and content) In the event this informatio n is protected by the Federal Confidentiality of Alcohol and Drug Abuse Patient Records regulations: The Federal rules restrict any use of the information to criminally investigate or prosecute any alcohol or drug abuse patient.[facility] Center[facility] the event this information is protected by the Federal Confidentiality of Alcohol and Drug Abuse Patient Records regulations: The Federal rules restrict any use of the information to criminally investigate or prosecute any alcohol or drug abuse patient.[facility] CenterIn the event this information is protected by the Federal Confidentiality of Alcohol and Drug Abuse Patient Records regulations: The Federal rules restrict any use of the information to criminally investigate or prosecute any alcohol or drug abuse patient.[facility] CenterIn the event this information is protected by the Federal Confidentiality of Alcohol and Drug Abuse Patient Records regulations: The Federal rules restrict any use of the information to criminally investigate or prosecute any alcohol or drug abuse patient.[facility] CenterIn the event this information is protected by the Federal Confidentiality of Alcohol and Drug Abuse Patient Records regulations: The Federal rules restrict any use of the information to criminally investigate or prosecute any alcohol or drug abuse patient.[facility] CenterIn the event this information is protected by the Federal Confidentiality of Alcohol and Drug Abuse Patient Records regulations: The Federal rules restrict any use of the information to criminally investigate or prosecute any alcohol or drug abuse patient.[facility] CenterIn the event this information is protected by the Federal Confidentiality of Alcohol and Drug Abuse Patient Records regulations: The Federal rules restrict any use of the information to criminally investigate or prosecute any alcohol or drug abuse patient.[facility] Care Teams (unrecognized sec tion and content) Credit Card Control Clerk Relationship Specialty Start Date End Date Warren Jules MD [address] [address] PCP - General Family Practice 06/06/19 Credit Card Control Clerk Relationship Specialty Start Date End Date Warren Jules MD [address] [address] PCP - General Family Practice 06/06/19 Credit Card Control Clerk Relationship Specialty Start Date End Date Warren Jules MD [address] [address] PCP - General Family Practice 06/06/19 Credit Card Control Clerk Relationship Specialty Start Date End Date Warren Jules MD [address] [address] PCP - General Family Medicine 06/06/19 Credit Card Control Clerk Relationship Specialty Start Date End Date Jorge AWarren lopez MD [address] [place] [address] PCP - General Family Medicine 06/06/19 Credit Card Control Clerk Relationship Specialty Start Date End Date Warren Jules MD [address] [place] [address] PCP - General Family Medicine 06/06/19 Credit Card Control Clerk Relationship Specialty Start Date End Date Warren Jules MD [address] [place] [address] PCP - General Family Medicine 06/06/19 Team Status: Inactive Member Role Status Dates Lisette Conde CNM Attending Provider Active S tart: December 08, 2024 End: December 08, 2024 Team Status: Inactive Member Role Status Dates Lisette Conde CNM Attending Provider Active S tart: December 08, 2024 End: December 08, 2024 Lisette Conde CNM Referring Provider Active S tart: December 08, 2024 End: December 08, 2024 Team Status: Active Member Role Status Dates No Primary Care Physician Primary Care Provider Active Team Status: Inactive Member Role Status Dates Dr. Bve Mandujano DO Attending Provider Activ e Start: December 16, 2024 End: December 16, 2024 Team Status: Inactive Member Role Status Dates No Primary Care Physician Primary Care Provider Active Start: December 16, 2024 End: December 16, 2024 Dr. Bev Mandujano DO Attending Provider Activ e Start: December 16, 2024 End: December 16, 2024 Dr. Bev Mandujano DO Referring Provider Activ e Start: December 16, 2024 End: December 16, 2024 Team Status: Inactive Member Role Status Dates No Primary Care Physician Primary Care Provider Active Start: December 26, 2024 End: December 26, 2024 Dr. Bev Mandujano DO Attending Provider Activ e Start: December 26, 2024 End: December 26, 2024 Dr. Bev Mandujano DO Referring Provider Activ e Start: December 26, 2024 End: December 26, 2024 Team Status: Inactive Member Role Status Dates No Primary Care Physician Primary Care Provider Active Start: December 29, 2024 End: December 29, 2024 No Primary Care Physician Referring Provider Active Start: December 29, 2024 End: December 29, 2024 Dr. Bev Mandujano DO Attending Provider Activ e Start: December 29, 2024 End: December 29, 2024 Team Status: Inactive Member Role Status Dates No Primary Care Physician Primary Care Provider Active Start: December 30, 2024 End: December 30, 2024 Dr. Miguelina Ibrahim MD Attending Provider Active Start: December 30, 2024 End: December 30, 2024 Dr. Miguelina Ibrahim MD Referring Provider Active Start: December 30, 2024 End: December 30, 2024 Team Status: Active Member Role Status Dates No Primary Care Physician Primary Care Provider Active Start: December 30, 2024 Dr. Miguelina Ibrahim MD Referring Provider Active Start: December 30, 2024 Dr. Miguelina Ibrahim MD Other Provider Active Start: December 30, 2024 Dr. Bev Mandujano DO Attending Provider Activ e Start: December 30, 2024 Goals (unrecognized section and content) Goals may be documented in a n alternate sectionGoals may be documented in an alternate sectionGoals may be documented in an alternate section FOR RECORDS PERTAINING TO PATIENTS WHO ARE OR HAVE BEEN ENROLLED IN A CHEMICAL DEPENDENCY/SUBSTANCEABUSE PROGRAM, SOME INFORMATION MAY BE OMITTED. This clinical summary was aggregated from multiple sources. Caution should be exercised in using it in the provision of clinical care. This summary normalizes information from multiple sources, and as a consequence, information in this document may materially change the coding, format and clinical context of patient data. In addition, data may be omitted in some cases. CLINICAL DECISIONS SHOULD BE BASED ON THE PRIMARY CLINICAL RECORDS. [employer] provides no warranty or guarantee of the accuracy or completeness of information in this document.
== END 2025-09-08 17:19 | disposition home or self-care (01) ==
PROVIDERS: Emergency Provider Emergency Medicine; Visit Provider Emergency Medicine
DX: O20.0 Threatened abortion (principal); Z3A.01 Less than 8 weeks gestation of pregnancy
CPT/HCPCS: 85025; 99284

== ENCOUNTER → 2025-09-08 | Outpatient (CLI) | payer BC, SELFPAY ==
[2025-09-08 12:57] LABS: hCG Titer Quant., Serum 1156 mIU/mL (<9 non-preg)
== END | disposition home or self-care (01) ==
PROVIDERS: Visit Provider Student in an Organized Health Care Education/Training Program
DX: O20.0 Threatened abortion (principal)
CPT/HCPCS: 36415; 84702

== ENCOUNTER → 2025-09-11 | Outpatient (CLI) | payer BC, SELFPAY ==
--- OUTSIDE RECORDS SUMMARY | 2025-09-11 08:16 | XMS RPT_ITS | CCD ---
Author Organization [facility] Care Team Providers Care Clothing Designer Name Role Phone MEGGAN WALDROP Unavailable Unavailable NO PRIMARY CARE, Unavailable Unavailable Unavailable Primary Care Provider Unavailbetty Jules MD, Warren Leiva Primary Care Provider Jorge A ABRAMS, Warren Leiva Primary Care Provider Jorge A ABRAMS, Warren Leiva Primary Care Provider MARTHA MCCANN Attending Unavailable KAMILAH SERNA Referring Unavailable WARREN JULES Primary Care Unavaila MARTHA Mayo Attending Unavailable WARREN JULES Primary Care Unavaila Lisette Snow CNM Attending Provider [phone] Lisette Conde CNM Referring Provider Dr. Bev Mandujano DO Attending Provider Care Physician, No Primary Primary Care Provider Unavailable Dr. Bev Mandujano DO Referring Provider Care Physician, No Primary Referring Provider Un available Dr. Miguelina Ibrahim MD Attending Provider Dr. Miguelina Ibrahim MD Referring Provider Dr. Miguelina Ibrahim MD Other Provider Care Physician, No Primary Primary Care Unava ilable Care Physician, No Primary Referring Unava ilable Bev Mandujano Attending Unavailabl e Care Physician, No Primary Referring Unava ilable Care Physician, No Primary Primary Care Unava ilable Kuldeep JACK TAMP OPERATOR, Jayla Attending Unavailable Lisette Conde Attending Unavailable Bev Mandujano Attending UnavailMiguelina Horner Consulting Unavailable [place], Miguelina Referring Unavailable Care Physician, No Primary Primary Care Unava ilable Lisette Conde Attending Unavailable Lyndsay Redding, Bev Attending [facility] Care Physician, No Primary Primary Care Unava ilable [place], Miguelina Referring Unavailable Miguelina Ibrahim Attending Unavailable Care Physician, No Primary Primary Care Unava ilable Lyndsay Redding, Bev Attending Roseann Mandujano, Bev Referring [facility] Care Physician, No Primary Primary Care Unava ilable Lyndsay Redding, Bev Attending Unavailbetty Mandujano, Bev Referring Unavailbetty e Lisette Conde [...] 1 tablet by carissa th once daily. [place] (Nk) (1 source) Start: 12-29-2024 [place] (Nk) Active December 29, 2024 12:00am predniSONE [...] tablet by mouth every two hours rizatriptan (MAXALT-TEXTILE SCREEN MAKER) 10 mg disintegrating tablet Take 1 tablet [...] 04-02-2021 methocarbamol (ROBAXIN) injection 1,000 mg Mv-Mins 16-Ewmp-Ifnad No.1-Dha (Pnv-[place]) 28-1-300 mg capsule (4 sources) Start: 11-25-2024 End: 12-29-2024 Mv-Mins 79-Ugfv-Nkbdr No.1-Dha (Pnv-[place]) 28-1-300 mg capsule Discontinued NMA PO November 25, 2024 12:00am December 29, 2024 12:35pm Start: 11-25-2024 Mv-Mins 71-Iro n-Folic No.1-Dha (Pnv-[place]) 28-1-300 mg capsule Active NMA PO November [...] , TESSA 07/14/25, FERNANDO Rodriguez, Alvaro(Served in [employer]) Other complications of (8 sources) H/O: depression; [...] Test Name Value Interpretation Reference Range Facility Guest Services Director Office Visit Reporton 01-13-2025 Guest Services Director Office Visit Report [facility] [address], [address] [place] [address] OFFICE VISIT Date of Service: 01/13/25 MR#: [id number] Acct: [id number] Name: SHARA RIGGS Rep #: [id number] : 2000 Provider: EDIN hicks Age/Sex: 24/F Location: [facility] Status: Signed Intake Vital Signs 12/30/24 11:24 01/13/25 09:18 01/13/25 09:19 Height 5 ft 3 in 5 ft 3 in 5 ft 3 in Weight: 161 lb BMI 28.5 BP 116/72 Intake Visit Reasons: BC Consult *COPAY $20 Telegraph Inspector Required: No Is patient in pain?: No [...] 1 current occupational status: employed 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 [facility] CBC-Complete Blood Cnt No Di arpitaon 12-30-2024 Erythrocyte distribution width (RBC) [Ratio] 12.7 % Normal 11.6-14.6 [facility] Comment on above: Performed By: #### L 100.0500 #### [facility] [address] [place], [address] Hematocrit (Bld) [Volume fraction] 37.8 % Normal 37-47 [facility] Comment on above: Performed By: #### L 100.0500 #### [facility] [address] [place], [address] Hemoglobin (Bld) [Mass/Vol] 13.0 g/dL Normal 12.0-15.0 [facility] Comment on above: Performed By: #### L 100.0500 #### [facility] [address] [place], [address] MCH (RBC) [Entitic mass] 30.4 pg Normal 27.0-32.0 [facility] Comment on above: Performed By: #### L 100.0500 #### [facility] [address] [place], [address] MCHC (RBC) [Mass/Vol] 34.4 g/dL Normal 32-36 [facility] Comment on above: Performed By: #### L 100.0500 #### [facility] [address] [place], [address] MCV (RBC) [Entitic vol] 88.3 fL Normal 81-99 [facility] Comment on above: Performed By: #### L 100.0500 #### [facility] [address] [place], [address] Platelet mean volume (Bld) [Entitic vol] 10.1 fL Normal 6.2-12.0 [facility] Comment on above: Performed By: #### L 100.0500 #### [facility] [address] [place], [address] Platelets (Bld) [#/Vol] 258 10*3/uL Normal 150-450 [facility] Comment on above: Performed By: #### L 100.0500 #### [facility] [address] [place], [address] RBC (Bld) [#/Vol] 4.28 10*6/uL Normal 4.2-5.4 [facility] Comment on above: Performed By: #### L 100.0500 #### [facility] [address] [place], [address] RDW SD 41.2 fl Normal 35.1-43.9 [facility] Comment on above: Performed By: #### L 100.0500 #### [facility] [address] [place], [address] WBC (Bld) [#/Vol] 5.8 10*3/uL Normal 4.4-11.0 [facility] Comment on above: Performed By: #### L 100.0500 #### [facility] [address] [place], [address] Discharge Instructionon 12-16 Discharge Instruction [facility] Medical Records Department [address] [place] [address] Instructions for Home/Discharge Instructions 12/30/24 1148 MR#: [id number] Acct: [id number] Name: SHARA RIGGS MEDARDO Rep #: [id number] : 2000 24 From: Bev Mandujano DO [...] Up With: Bev Mandujano DO When: Call [phone] to schedule appointment. Test Results: Test results from this visit will be discussed in further detail at your follow-up appointment, if applicable. Discharge Plan Admission Attending Provider: Miguelina Ibrahim Primary Care Provider: Care Physician,No Primary Instructions Print Language: Maltese Discharge Orders/Prescriptions Prescriptions: No Action NK Referrals / Follow Up: Care Physician,No Primary [Primary Care Provider] - Disposition Disposition (needs filled in before D/C Order can be placed): Home, Self Care 12/30/24 3458 Bev Mandujano DO CC: No Primary Care Physician Signed [facility] Erythrocyte distribution wid th (RBC) [Ratio]Ordered By: Miguelina Ibrahim on 12-30-2024 Erythrocyte distribution width (RBC) [Entitic vol] 41.2 fL 35.1-43.9 [facility] Erythrocyte distribution wid th ratioOrdered By: Miguelina Ibrahim on 12-30-2024 Erythrocyte distribution width (RBC) [Ratio] 12.7 % 11.6-14.6 [facility] Hematocrit Auto (Bld) [Volum e fraction]Ordered By: Miguelina Ibrahim on 12-30-2024 Hematocrit (Bld) [Volume fraction] 37.8 % 37-47 [facility] Hemoglobin measurementOrdere d By: Miguelina Ibrahim on 12-30-2024 Hemoglobin (Bld) [Mass/Vol] 13.0 g/dL 12.0-15.0 [facility] MCV (mean corpuscular volume ) determinationOrdered By: Miguelina Ibrahim on 12-30-2024 MCV (RBC) [Entitic vol] 88.3 fL 81-99 [facility] MR/POSTOP.Adry 12-30-2024 MR/POSTOP[facility] Medical Records Department [address] [place] [address] Anesthesia Postop Eval I 12/30/24 1237 MR#: [id number] Acct: [id number] Name: SHARA RIGGS Rep #: [id number] : 2000 From: Arik Ngo MD PCP: Care Physician,No Primary Status:REEMA Lester Race: C Location: [facility] Anesthesia: Postop Eval I Current Vital Signs [...] MD Cosigner Signature: Date CC: Signed [facility] MR/[id number] 12-30-2024 [facility] Medical Records Department [address] [place] [address] Anesthesia Postop Eval II 12/30/24 1624 MR#: [id number] Acct: [id number] Name: SHARA RIGGS Rep #: [id number] : 2000 24 From: Arik Ngo MD PCP: Joellen Physician,No Primary Status:REEMA Lester Race: C Location: [facility] [place] Anesthesia Postop Eval I Sum Anesthesia Postop [...] MD Cosigner Signature: Date CC: Signed [facility] Mean corpuscular hemoglobin (MCH) determinationOrdered By: Miguelina Ibrahim on 12-30-2024 MCH (RBC) [Entitic mass] 30.4 pg 27.0-32.0 [facility] Mean corpuscular hemoglobin concentration (MCHC) determinationOrdered By: Miguelina Ibrahim on 12-30-2024 MCHC (RBC) [Mass/Vol] 34.4 g/dL 32-36 [facility] Mean platelet volume determi nationOrdered By: Miguelina Ibrahim on 12-30-2024 Platelet mean volume (Bld) [Entitic vol] 10.1 fL 6.2-12.0 [facility] Operative Reporton 5 Operative Report [facility] Medical Records Department [address] [place] [address] Operative Report 12/30/24 1230 MR#: [id number] Acct: [id number] Name: SHARA RIGGS Rep #: [id number] : 2000 24 From: Bev Mandujano DO PCP: Care Physician,No Primary Status:REG [facility] Location: [address] [facility] Codes Urinary/Genital Urinary/Genital CPT Codes: 65254 Surg Trtmt missed Ab 1TM Operative Report (Standard) Operative Information Date of Procedure: 12/30/24 Pre-Operative Diagnosis: 7 weeks missed Post-Operative Diagnosis: 7 weeks missed Surgery/Procedure Performed: 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 Miguelina Ibrahim MD -------- Specimen: [id number] Received: 12/30/24 Status: SANDY Langston Num: [id number] Spec Type: PROD CONC Subm Dr: Dr. [...] clusters are discovered; no parts are found. Resident Care Manager Rn sections are submitted in A1-2. [facility] 01/02/2025 CPT:10880 -------- Patient Age/Sex Location Account Attending Physician -------- SHARA RIGGS [facility] [id number] Dr. Miguelina Ibrahim MD -------- Signed (signature on file) Dr. Mary Flood MD 01/02/25 1730 -------- [facility] Comment on above: Performed By: #### P SUIV #### [facility] [address] [place], [place], [address] Type AND Screenon 12-30-2024 Ab SCREEN GEL Negative [facility] Comment on above: Order Comment: S Performed By: #### L 100.0500 #### [facility] [address] [place], [place], [address] White blood cell (WBC) count Ordered By: Miguelina Ibrahim on 12-30-2024 WBC (Bld) [#/Vol] 5.8 10*3/uL 4.4-11.0 [facility] Guest Services Director Office Visit Reporton 12-29-2024 Guest Services Director Office Visit Report [facility] [address], [address] [place] [address] OFFICE VISIT Date of Service: 12/29/24 MR#: [id number] Acct: [id number] Name: SHARA RIGGS Rep #: [id number] : 2000 Provider: Dr. 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 Provider FOB 09/12/23 Irma 40 live - full term 7#14oz Male epidural [facility] Delivery Date: 09/12/23 Last Updated by: Miguelina [...] curettage 12/29/24 1308 Date Bev Mandujano DO [facility] Signature: Date (if applicable) CC: [facility] Transvaginal w/Preg USon Transvaginal w/Preg US [facility] Imaging Services [address] [place] [phone] Transvaginal w/Preg US MR#: [id number] Acct: [id number] Name: SHARA RGIGS Rep #: [id number] : 2000 F 24 From: Rudi correa MD PCP: Care Physician,No Primary Status: REG CLI Study: Transvaginal w/Preg US Date of Exam: 12/26/24 Exam# [id number] Ordering Dr: Bev Mandujano DO PROCEDURE: TRANSVAGINAL [...] 3. No cardiac activity seen. Reading Location: [place] [address] CC: Dr. Bev Mandujano, DO; No Primary Care Physician Clinical Dietitian: Signed [facility] HCG ( test) QlOrder ed By: Bev Redding on 12-16-2024 Human Chorionic Gonadotropin, Quant 71197 mIU/mL High <9 [facility] Comment on above: Gestational Age0.2-1 Week: 5-50 mIU/mL1-2 Weeks: 50-500 mIU/mL2-3 Weeks: 100-5000 mIU/mL3-4 Weeks: 500-10,000 mIU/mL4-5 Weeks:1000-50,000 mIU/mL5-6 Weeks: 10,000-100,000 mIU/mL6-8 Weeks: 15,000-200,000 mIU/mL2-3 Months:10,000-100,000 mIU/mL Laboratory - Chemistry and C hemistry - challengeOrdered By: Bev Redding on 12-16-2024 Glucose Ql (U) Negative [facility] - UrinalysisOrder ed By: Bev Redding on 12-16-2024 Protein Ql (U) Negative [facility] Guest Services Director Office Visit Reporton 12-16-2024 Guest Services Director Office Visit Report [facility] [address], [address] [place] [address] OFFICE VISIT Date of Service: 12/16/24 MR#: [id number] Acct: [id number] Name: SHARA ROSS Rep #: [id number] : 2000 Provider: Dr. Bev Farr DO Age/Sex: 24/F [place] [facility] Status: Signed Intake Vital Signs 12/08/24 11:25 12/16/24 11:31 12/16/24 11:33 Height 5 ft 3 in 5 ft 3 in 5 ft 3 in Weight: 160 lb BMI 28.3 BP 126/72 H Intake Visit Reasons: RESCAN HRTBEAT CK *TWINS* Telegraph Inspector Required: No Is patient in pain?: No Allergies No Known Allergies Allergy (Verified 12/16/24 11:31) Medications ???Medication ???Instructions ???Recorded ???Confirmed ???Type multivit-min no.71-iron fum 28 cap PO 11/25/24 12/16/24 History mg-folate no.1 1 mg-dha 300 mg capsule (PNV-[place]) Last Menstrual Period: 10/07/24 Zika: Zika virus screening: Negative : No PFSH PFSH Medical History Migraine Family History Mother Diabetes Type 2 Grandmother Diabetes Maternal Type 2 Social History adopted: No household members: spouse and children number of children: 1 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 Date Name GA/Weeks Outcome Route Bth Weight Infant Gen Labor Lgth Anesthesia Del Locatn Provider FOB 09/12/23 Irma 40 live - full term 7#14oz Male epidural [facility], [place] Alvaro Delivery Date: 09/12/23 Last Updated by: [...] ???-???-???-???-???-? ??-???- (more content not included)... [facility] PAP I-G w/rfx hrHPV-Aptimaon 12-16-2024 ADEQ Comment [facility] Comment on above: Order Comment: Monica brumfield Comment: [id number] Comment: Source.............CervixSpecimen Comment: LMP / Prev Treat...[id number]=[id number] Comment: Other..............Specimen Comment: No. of containers..01 ThinPrep Vial Result Comment: Sati sfactory for evaluation. Endocervical and/or squamous metaplastic cells (endocervical component) are present. Performed By: #### L 100.1930 #### [facility] [address], [address] COMM . [facility] Comment on above: Order Comment: Monica brumfield Comment: [id number] Comment: Source.............CervixSpecimen Comment: LMP / Prev Treat...[id number] Comment: Other..............Specimen Comment: No. of containers..01 ThinPrep Vial Performed By: #### L 100.0500 #### [facility] [address] [place], [place], [address] COMMENT Comment [facility] Comment on above: Order Comment: Speci men Comment: [id number] Comment: Source.............CervixSpecimen Comment: LMP / Prev Treat...[id number] Comment: Other..............Specimen Comment: No. of containers..01 ThinPrep Vial Result Comment: This liquid based ThinPrep(R) pap test was screened with the use of an image guided system. Performed By: #### L 100.0500 #### [facility] [address] [place], [place], [address] DIAG Comment [facility] Comment on above: Order Comment: Speci men Comment: [id number] Comment: Source.............CervixSpecimen Comment: LMP / Prev Treat...[id number] Comment: Other..............Specimen Comment: No. of containers..01 ThinPrep Vial Result Comment: NEGA TIVE FOR INTRAEPITHELIAL LESION OR MALIGNANCY. FUNGAL ORGANISMS MORPHOLOGICALLY CONSISTENT WITH LOKI SPECIES ARE PRESENT. THIS SPECIMEN WAS RESCREENED PART OF OUR FIXING MACHINE OPERATOR PROGRAM. Performed By: #### L 100.0500 #### [facility] [address] [place], [address] HPV RFLX Comment [facility] Comment on above: Order Comment: Speci men Comment: [id number] Comment: Source.............CervixSpecimen Comment: LMP / Prev Treat...[id number] Comment: Other..............Specimen Comment: No. of containers..01 ThinPrep Vial Result Comment: The HPV DNA reflex criteria were not met with this specimen result therefore, no HPV testing was performed. Performed at: - [address] [id number] Molecular Spectroscopist: Arpita Godinez MD, Phone: [phone] Performed at: [facility] [address] [place] [id number] Molecular Spectroscopist: Sigrid Eden PhD, Phone: [phone] Performed By: #### L 100.0500 #### [facility] [address] [facility] [place], [address] PAPSMR Comment [facility] Comment on above: Order Comment: Speci men Comment: [id number] Comment: Source.............CervixSpecimen Comment: LMP / Prev Treat...[id number] Comment: Other..............Specimen Comment: No. of containers..01 ThinPrep [...] occur. Performed By: #### L 100.0500 #### [facility] [address] [facility] [place] [place], [address] PERFORM Comment [facility] Comment on above: Order Comment: Speci men Comment: [id number] Comment: Source.............CervixSpecimen Comment: LMP / Prev Treat...[id number] Comment: Other..............Specimen Comment: No. of containers..01 ThinPrep Vial Result Comment: Arielle Leon, Weather Strip Installer (ASCP) Performed By: #### L 100.0500 #### [facility] [address] [place], [place], [id number] QC REV Comment [facility] Comment on above: Order Comment: Speci men Comment: [id number] Comment: Source.............CervixSpecimen Comment: LMP / Prev Treat...[id number] Comment: Other..............Specimen Comment: No. of containers..01 ThinPrep Vial Result Comment: Fauzia Francis, Weather Strip Installer (ASCP) Performed By: #### L 100.0500 #### [facility] [address] [facility] [address] [address] [place], [place], [address] hCG Titer Quant., Serumon HCG QUANT. 91086 mIU/mL High <9 non-preg [facility] Comment on above: Result Comment: Gest ational Age 0.2-1 Week: 5-50 mIU/mL 1-2 Weeks: 50-500 mIU/mL 2-3 Weeks: 100-5000 mIU/mL 3-4 Weeks: 500-10,000 mIU/mL 4-5 Weeks:1000-50,000 mIU/mL 5-6 Weeks: 10,000-100,000 mIU/mL 6-8 Weeks: 15,000-200,000 mIU/mL 2-3 Months:10,000-100,000 mIU/mL Performed By: #### L 700.7858 #### [facility] [address] [facility] [address] [place], [place], [address] Urine Cultureon 12-12-2024 [facility] Strep anginosus [place] Count 25,000-50,000 Strep anginosus: REACTION Ampicillin Islt ALEXIS <=0.25 Penicillin G Islt ALEXIS <=0.06 S Cefotaxime Islt ALEXIS <=0.12 S cefTRIAXone Islt ALEXIS <=0.12 S Clindamycin Islt ALEXIS 0.5 I Linezolid Islt ALEXIS <=2 S Vancomycin Islt ALEXIS 0.5 S [facility] Comment on above: Performed By: #### L 100.0500 #### [facility] [address] [place], [place], [id number] Chlamydia/GC LINA aptimaon CHLAMY,NUC ACID Negative Normal [facility] Comment on above: Performed By: #### L 7000.1800 #### [facility] [address] [place], [place], [address] GC BY NUC ACID Negative Normal [facility] Comment on above: Result Comment: Perf ormed at: =G - [facility] [address] [id number] Molecular Spectroscopist: Arpita Godinez MD, Phone: [phone] Performed By: #### L 7000.1800 #### [facility] [address] [place], [place], [address] C. trachomatis rRNA LIAN+prob e Ql (Unsp spec)Ordered By: Lisette Conde on 12-08-2024 Chlamydia DNA (LINA) Negative Negative [facility] [employer] Cyto stain Nom (C vx/Vag) [ID]Ordered By: Lisette Conde on 12-08-2024 Pap Smear Performed By Comment . [facility] Comment on above: Tsering Leon, Cyto technologist (ASCP) Cytology report Cyto stain D oc (Cvx/Vag)Ordered By: Lisette Conde on 12-08-2024 Thin Prep Pap Smear Comment . [facility] Comment on above: The Pap smear is a s creening test designed to aid in thedetection of premalignant and malignant conditions of theuterine cervix. It is not a diagnostic procedure andshould not be used as the sole means of detecting cervicalcancer. Both false-positive and false-negative reports dooccur. Image-guided ThinPrep PapOrd ered By: Lisette Conde on 12-08-2024 Pap Smear Note Comment . [facility] Comment on above: This liquid based Th inPrep(R) pap test was screened withthe use of an image guided system. Image-guided liquid-based Pa pOrdered By: Lisette Conde on 12-08-2024 Pap Smear Diagnosis Comment . [facility] Comment on above: NEGATIVE FOR INTRAEP ITHELIAL LESION OR MALIGNANCY.FUNGAL ORGANISMS MORPHOLOGICALLY CONSISTENT WITH LOKI SPECIES AREPRESENT.THIS SPECIMEN WAS RESCREENED PART OF OUR FIXING MACHINE OPERATOR PROGRAM. Image-guided liquid-based ce rvical Pap w high-risk HPV+reflex to HPV 16+18Ordered By: Lisette Conde on 12-08-2024 Human Papillomavirus Screen Comment . [facility] Comment on above: The HPV DNA reflex c gayle were not met with this specimenresult therefore, no HPV testing was performed.Performed at: - [facility] [id number] Director: Arpita Godinez MD, Phone: [phone] at: [facility] - [facility] [id number] Director: Sigrid Eden PhD, Phone: [phone] Neisseria gonorrhoeae nuclei c acid detection by amplified probe techniqueOrdered By: Lisette Conde on 12-08-2024 N. gonorrhoeae DNA LINA+probe Ql (Unsp spec) Negative [facility] Comment on above: Performed at: =G - L [address] [id number] Director: Arpita Godinez MD, Phone: [phone] No Panel InformationOrdered By: Lisette Conde on 12-08-2024 Pap Smear QC Review Comment . [facility] Comment on above: Mari Lizarraga ytotechnologist (ASCP) Guest Services Director Office Visit Reporton 12-08-2024 Guest Services Director Office Visit Report [facility]'s [address], [address] [place] [address] OFFICE VISIT Date of Service: 12/08/24 MR#: [id number] Acct: [id number] Name: SHARA ROSS Rep #: [id number] : 2000 Provider: JOSUE Ngo ams Age/Sex: 24/F [place] [facility] [place]: Signed Intake Vital Signs 12/08/24 11:25 [...] mg-folate no.1 1 mg-dha 300 mg capsule (PNV-[place]) Last Menstrual Period: 10/07/24 : Yes PFSH PFSH Medical History Migraine Family History Mother Diabetes Type 2 Grandmother Diabetes Maternal Type 2 Social History adopted: No household members: spouse and children number of children: 1 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 [facility] Service comment (Unsp spec) [Interp]Ordered By: Lisette Conde on 12-08-2024 Pap Smear Comment (3) . . [facility] Urine cultureOrdered By: Bill Conde on 03-24-2025 Bacteria identified Cx Nom (U) Strep anginosus Abnormal [facility] CNPNon 01-04-2023 CNPN Telephone (AGOBST) SHARA RIGGS ([id number]) 2 F Date Time Provider Department 01/04/23 [...] amenorrhea [N91.1] Order(s):HCG QUANTITATIVE [SQHCGQT] Order #: [id number] FUTURE TYPE + SCREEN [SQTSCR] Order #: [id number] FUTURE Prescriptions as of 01/05/2023 - Norethindrone, Contraceptive, 0.35 mg tablet Take 1 tablet by mouth once daily. 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 History LMP: 10/16/2022 (Exact Date), Having periods Age at Menarche: 13 Age at First : Age at Menopause: Security Officer Supervisor History Comments: Sexual Activity: Yes; Male Contraception: [...] for Encounter Date Provider Department Center 10/18/2022 [id number] MCCANN [facility] Encounter Status:Closed by MARTHA MCCANN on 10/18/22 [facility] CNOVon 06-21-2022 CNOV Office Visit (AGOBGRN) SHARA RIGGS ([id number]) 2 F Date Time Provider Department 06/21/22 [...] L0 SAB0 IAB0 Ectopic0 Multiple0 Live Births0 Security Officer Supervisor History LMP: 06/09/2022 (Exact Date), Having periods Age at Menarche: 13 Age at First : Age at Menopause: Security Officer 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 Some [...] 30-65, hu (more content not included)... Normal [facility] PAP FLUID CERVICAL SCREENING on 06-21-2022 CASE REPORT Normal [facility] Comment on above: Order Comment: Speci men Type: FLUID SPECIMEN Ordering Facility: [facility] Address: [address] [place], [place] [id number] Result Comment: Gyne cologic Cytology Report Case: [id number] Authorizing Provider: Martha Mccann PA-C Collected: 06/21/2022 08:28 AM Ordering Location: [facility] Obstetrics & Received: 06/22/2022 05:58 AM Gynecology First Screen: Kristen Hardinger, CT, ASCP Specimen: Pap, Manual, Screening, CERVICAL SCREENING FLUID Performed By: #### L [id number] #### [facility] CLIA [id number] [address] [facility] CLINICAL HISTORY ROUTINE EXAM Normal [facility] Comment on above: Order Comment: Speci men Type: FLUID SPECIMEN Ordering Facility: [facility] Address: [address] [place] [id number] Performed By: #### L [id number] #### [facility] CLIA [id number] [address] CYTOLOGY INTERPRETATION PAP Normal [facility] Comment on above: Order Comment: Speci men Type: FLUID SPECIMEN Ordering Facility: [facility] Address: [address] [place] [address] Result Comment: Nega tive for Intraepithelial lesion or malignancy. Performed By: #### L [id number] #### [facility] CLIA [id number] [address] FINAL DIAGNOSIS Normal [facility] Comment on above: Order Comment: Speci men Type: FLUID SPECIMEN Ordering Facility: [facility] Address: [address] [place] [address] Result Comment: A - CERVICAL SCREENING FLUID Satisfactory for interpretation, Transformation zone present Negative for Intraepithelial lesion or malignancy. Performed By: #### L [id number] #### [facility] CLIA [id number] [address] FINAL PERFORMING LAB Normal [facility] Comment on above: Order Comment: Speci men Type: FLUID SPECIMEN Ordering Facility: [facility] Address: [address] [place] [address] Result Comment: Tech nical component, oral pathologist screening performed at [facility], [address] [place] [address] CLIA# [id number] Diagnostic interpretation performed at [facility], [address] [place] [address] CLIA# [id number] Maintenance Representative: David Coughlin M.D. Performed By: #### L [id number] #### [facility] CLIA [id number] [address] HPV REQUESTED? Yes, Reflex HPV for ASCUS Normal [facility] Comment on above: Order Comment: Speci men Type: FLUID SPECIMEN Ordering Facility: [facility] Address: [address] [place] [address] Performed By: #### L [id number] #### [facility] CLIA [id number] [address] LMP 06/09/2022 [facility] Comment on above: Order Comment: Speci men Type: FLUID SPECIMEN Ordering Facility: [facility] Address: [address] [place] [address] Performed By: #### L [id number] #### [facility] CLIA [id number] [address] [place] [address] PAP DISCLAIMER COMMENT The Pap Smear is a screening test for cervical cancer. False negative results occur with all screening tests, emphasizing the need for rescreening at recommended intervals, and clinical correlation. [facility] Comment on above: Order Comment: Speci men Type: FLUID SPECIMEN Ordering Facility: [facility] Address: [address] [place] [address] Performed By: #### L [id number] #### [facility] CLIA [id number] [address] [place] [address] CNOVon 12-19-2021 CNOV Office Visit (NEIND4 ) SHARA RIGGS ([id number]) 2 F Date Time Provider Department 12/19/21 [...] which included preparing to see the patient, [id number] patient care, performing a medically appropriate examination, completing clinical documentation, and on counseling/educating the patient/family. 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 She is [...] sob. (On VPA and Maxalt 10 mg TEXTILE SCREEN MAKER - no longer on TPM) ID 12/14/2021 [...] orbital - (more content not included)... Normal [facility] B. burgdorferi IgG and IgM p sajan (S)on 12-15-2021 B. burgdorferi IgG+IgM Qn (S) Equivocal Abnormal Negative [facility] CNPNon 12-15-2021 CNPN Telephone (INFDAK) ONEILSHARA ([id number]) 2 F Date Time Provider Department 12/15/21 JOHNATHAN AGUILERA INFDAK During your visit today, we recorded the following information about you: Johnathan Aguilera MD 12/15/2021 11:10 AM Signed Please fax a copy of my note from 12/[address] Jules. Thanks VIVIANA Metz 12/15/2021 1:07 PM Signed Faxed chart notes to Dr Shabana Jules's office [phone] Allergies As of Date: 12/15/2021 (No Known Allergies) Date Reviewed: 12/14/2021 Reviewed by: Zamzam Broussard, FRANKI - Fully Assessed Reason for Visit: clinic note [Other] FYI-No Action Needed [265] Prescriptions as of 12/15/2021 - rizatriptan (MAXALT-TEXTILE SCREEN MAKER) 10 mg disintegrating tablet Take 1 tablet [...] Status:Closed by JOHNATHAN AGUILERA on 12/15/21 Normal [facility] HERPES SIMPLEX TYPE 1 AND 2 IGon 12-15-2021 HSV IgG 1 Qualitative Negative Negative [facility] HSV IgG 2 Qualitative Negative Negative [facility] Reagin and Treponema pallidu m IgG and IgM [Interp]on 12-15-2021 Syphilis Interpretation Cannot exclude r ecent Treponemal infection if specimen collected within 7-10 days after appearance of suspect lesions or 2-3 weeks after an exposure. Clinical correlation is required. [facility] SYPHILIS TOTAL W/REFLEXon Reagin and Treponema pallidum IgG and IgM [Interp] Non-Reactive Nonreactive [facility] C-REACTIVE PROTEIN (CRP)on 0 12-14-2021 CRP [Mass/Vol] mg/L <0.9 mg/dL [facility] CBC W Auto Differential pane l (Bld)on 12-14-2021 Abs Immature Gran <0.03 <0.10 k/uL [facility] Basophils (Bld) [#/Vol] 0.06 10*3/uL <0.11 k/uL [facility] Basophils/100 WBC (Bld) 1.3 % [facility] Differential cell count method Nom (Bld) Auto [facility] Eosinophils (Bld) [#/Vol] 0.15 10*3/uL <0.46 k/uL [facility] Eosinophils/100 WBC (Bld) 3.3 % [facility] Erythrocyte distribution width (RBC) [Ratio] 12.0 % 11.5 - 15.0 % [facility] Hematocrit (Bld) [Volume fraction] 43.7 % 36.0 - 46.0 % [facility] Hemoglobin (Bld) [Mass/Vol] 14.4 g/dL 11.5 - 15.5 g/dL [facility] Immature Gran % 0.4 % [facility] Lymphocytes (Bld) [#/Vol] 1.36 10*3/uL 1.00 - 4.00 k/uL [facility] Lymphocytes/100 WBC (Bld) 29.5 % [facility] MCH (RBC) [Entitic mass] 30.8 pg 26.0 - 34.0 pg [facility] MCHC (RBC) [Mass/Vol] 33.0 g/dL 30.5 - 36.0 g/dL [facility] MCV (RBC) [Entitic vol] 93.4 fL 80.0 - 100.0 fL [facility] Monocytes (Bld) [#/Vol] 0.35 10*3/uL <0.87 k/uL [facility] Monocytes/100 WBC (Bld) 7.6 % [facility] Neutrophils (Bld) [#/Vol] 2.67 10*3/uL 1.45 - 7.50 k/uL [facility] Neutrophils/100 WBC (Bld) 57.9 % [facility] Nucleated RBC (Bld) [#/Vol] 10*3/uL <0.01 k/uL [facility] Nucleated RBC/100 WBC (Bld) [Ratio] 0.0 /100 WBC [facility] Platelet mean volume (Bld) [Entitic vol] 10.6 fL 9.0 - 12.7 fL [facility] Platelets (Bld) [#/Vol] 267 10*3/uL 150 - 400 k /uL [facility] RBC (Bld) [#/Vol] 4.68 10*6/uL 3.90 - 5.2 0 m/uL [facility] WBC (Bld) [#/Vol] 4.61 10*3/uL 3.70 - 11. 00 k/uL [facility] CNOVon 12-14-2021 CNOV Office Visit (INFDAK ) SHARA RIGGS ([id number]) 2 F Date Time Provider Department 12/14/21 [...] elevated at 22.2. Grew up in [place]. No history of travel. 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 No outdoor activities. Likes to stay indoors. [...] Current Outpatient Medications Medication Sig - rizatriptan (MAXALT-TEXTILE SCREEN MAKER) 10 mg disintegrating tablet Take 1 tablet [...] Pulse: 80 (more content not included)... Normal [facility] Comprehensive metabolic 2000 panelon 12-14-2021 Albumin [Mass/Vol] 4.5 g/dL 3.9 - 4.9 g/dL [facility] ALP [Catalytic activity/Vol] 52 U/L 34 - 123 U/L [facility] ALT With P-5'-P [Catalytic activity/Vol] 8 U/L 7 - 38 U/L [facility] Anion gap [Moles/Vol] 8 mmol/L Low 9 - 18 mmol/L [facility] AST With P-5'-P [Catalytic activity/Vol] 16 U/L 13 - 35 U/L [facility] Bilirubin [Mass/Vol] 0.4 mg/dL 0.2 - 1 .3 mg/dL [facility] Calcium [Mass/Vol] 9.5 mg/dL 8.5 - 10. 2 mg/dL [facility] Chloride [Moles/Vol] 104 mmol/L 97 - 10 5 mmol/L [facility] CO2 [Moles/Vol] 28 mmol/L 22 - 30 mmol/L [facility] Creatinine [Mass/Vol] 0.68 mg/dL 0.58 - 0.96 mg/dL [facility] Estimated Glomerular Filtration Rate 128 mL/min/1.73m >=60 mL/min/1.73m [facility] Glucose [Mass/Vol] 83 mg/dL 74 - 99 mg/dL [facility] Potassium [Moles/Vol] 4.0 mmol/L 3.7 - 5.1 mmol/L [facility] Protein [Mass/Vol] 7.3 g/dL 6.3 - 8.0 g/dL [facility] Sodium [Moles/Vol] 140 mmol/L 136 - 144 mmol/L [facility] Urea nitrogen [Mass/Vol] 13 mg/dL 7 - 21 mg/dL [facility] ESR Westergren method (Bld) [Velocity]on 12-14-2021 ESR (Bld) [Velocity] 2 mm/h 0 - 20 mm/hr [facility] CNOVon 11-22-2021 CNOV Office Visit (STFLF) SHARA RIGGS ([id number]) 2 F Date Time Provider Department 11/22/21 [...] updated today in the History tab of [facility]. Current Medications and allergies reviewed. ACTIVE [...] without status migrainosus, not intractable [G43.709] Order(s):rizatriptan (MAXALT-TEXTILE SCREEN MAKER) 10 mg disintegrating tabletTake 1 tablet by mouth as directed. at onset of headache. May repeat after 2 hours. Do not exceed 30 mg per day.Disp: 12 tabletRfl: [address] (DEPAKOTE) 250 mg EC tabletTake 1 tablet by mouth twice daily.Disp: 60 tabletRfl: 0 CONSULT TO NEUROLOGY [9045] Order #: [id number]: 1 FUTURE Prescriptions as of 11/22/2021 - rizatriptan (MAXALT-TEXTILE SCREEN MAKER) 10 mg disintegrating tablet Take 1 tablet [...] Encounter Status:Closed by WARREN JULES on 11/22/21 [facility] CNPNon 11-22-2021 CNPN Telephone (STFLF) SHARA RIGGS ([id number]) 2 F Date Time Provider Department 11/22/21 WARREN JULES STFL During your visit today, we recorded the following information about you: Tianna Swenson 11/22/2021 5:13 PM Signed Referral information submitted to [facility]. Ref# [id number]. [facility] Specialty office will call the patient within 7-10 business days to set this appointment up. Allergies As of Date: 11/22/2021 (No Known Allergies) Date Reviewed: 11/22/2021 Reviewed by: Meghana Maher - Fully Assessed Reason for Visit: Referral Information [6451] Cmt: Neurology Prescriptions as of 11/22/2021 - rizatriptan (MAXALT-TEXTILE SCREEN MAKER) 10 mg disintegrating tablet Take 1 tablet [...] Encounter Status:Closed by TIANNA BRICE on 11/22/21 [facility] CNOVon 05-28-2021 CNOV Office Visit (STFLE) SHARA RIGGS ([id number]) 2 F Date Time Provider Department 05/28/21 [...] ear normal. Nose: Nose normal. Mouth/Throat: Lips: [place]. No lesions. Mouth: Mucous membranes are moist. [...] No cl (more content not included)... Normal [facility] Coronavirus 2019on 1 SARS-CoV-2 (COVID-19) RNA LINA+probe Ql (Unsp spec) UPPER RESPIRATORY TRACT SWAB Normal [facility] Comment on above: Performed By: #### C OVID ####[address] [place], [place] [id number] SARS-CoV-2 (COVID-19) RNA LINA+probe Ql (Unsp spec) Negative for COVID19 (SARS CoV2) by RT-PCR or equivalent method. Normal Negative for COVID19 (SARS CoV2) by RT-PCR or equivalent method. [facility] Comment on above: Result Comment: This test was developed and its performance characteristics determined by [facility]'s [facility] [place]. This test has been authorized by FDA under an Emergency Use Authorization (EUA). This test has been validated in accordance with the FDA's Guidance Document Policy for Diagnostics Testing in Laboratories Certified to Perform High Complexity Testing under CLIA prior to Emergency use Authorization for Coronavirus Disease 2019 during the Public Health Emergency issued on November 15, 2019. Test performed by [facility], [facility] [place], [address] [place], [place] [address]. Performed By: #### C OVID ####[address] [place], [place] [phone] CNOVon 05-03-2021 CNOV Office Visit (STFLF) SHARA RIGGS ([id number]) 2 F Date Time Provider Department 05/03/21 7:15 AM WARREN JULES [facility] During your visit today, we [...] updated today in the History tab of [employer]. Current Medications and allergies reviewed. ACTIVE PROBLEM [...] CONSULT TO INFECTIOUS DISEASES [9016] Order #: [id number]: 1 FUTURE Prescriptions as of 05/03/2021 - [...] Encounter Status:Closed by WARREN JULES on 05/03/21 [facility] Telephone (STFL) SHARA RIGGS ([id number]) 2 F Date Time Provider Department 05/03/21 WARREN JULES [facility] During your visit today, we recorded the [...] Status:Closed by SASHA CORDOVA MA on 05/03/21 [facility]2021 [facility] Telephone (STFLF) SHARA RIGGS ([id number]) 01 F Date Time Provider Department 04/29/21 WARREN JULES [facility] During your visit today, we [...] Encounter Status:Closed by WARREN JULES on 04/29/21 [facility]21 [facility] Telephone ([facility]) SHARA RIGGS ([id number]) 2 Date Time Provider Department 04/28/21 WARREN JULES [facility] During your visit today, we [...] BURGDORFERI IGG/IGM IB CSF [SQLYIBCS] Order #: [id number] FUTURE Prescriptions as of 04/28/2021 - predniSONE [...] Encounter Status:Closed by WARREN JULES on 04/28/21 [facility] SHARA RIGGS ([id number]) 2 F Date Time Provider Department 04/28/21 W[facility] JULES [facility] During your visit today, we recorded the following information about you: Fernie Weaver LPN 04/28/2021 1:07 PM Signed ----- Message from Bev Rand APRN.CERTIFIED NURSE PRACTITIONER sent at 04/28/2021 12:02 PM EDT ----- [...] by MARY DELA CRUZ on 04/29/21 Normal [facility] 04-22-2021 [facility] Telephone (STFLF) SHARA RIGGS ([id number]) 2 F Date Time Provider Department 04/22/21 [...] 04/26/2021 5:40 PM Signed Information sent to [facility], conf# [id number]. They will contact the patient to schedule. Patient advised. Allergies As of Date: 04/22/2021 (No Known Allergies) Date Reviewed: 03/30/2021 Reviewed by: Siomara Hughes Ma - Fully Assessed Reason for Visit: Orders [681] Referral Information [8773] Cmt: ENT Primary Visit Diagnosis:Numbness and tingling [R20.0, R20.2] Other Visit Diagnosis:Abnormal findings on imaging test [R93.89] Order(s):LYME AB EARLY <=30 DAY SYMPTOMS [SQLMERLY] Order #: [id number] FUTURE LYME AB LATE >30 DAYS SYMPTOMS [SQLMLATE] Order #: [id number] FUTURE CONSULT TO ENT [1128] Order #: [id number]: 1 FUTURE Prescriptions as of 04/26/2021 - [...] Status:Closed by MARY DELA CRUZ on 04/26/[address] [facility] [address] Soft Tissue Neck w/o Cont ki 04-13-2021 CT Soft Tissue Neck w/o Contrast Patient Name: SHARA RIGGS Computed Tomography ACCESSION EXAM DATE/TIME PROCEDURE ORDERING PROVIDER [id number] 04/13/2021 10:[address] Soft Tissue Neck w/o MD JOANIE, LYNDON LAINEZ CPT code 64261 Reason For Exam (CT Soft Tissue Neck [...] Transcribed Date and Time: 04/14/2021 7:32 Normal [facility] US ABDOMEN COMPLETEOrdered B y: Lyndon Nair on 04-13-2021 Patient Name: SHARA RIGGS Ultrasound ACCESSION EXAM DATE/TIME PROCEDURE ORDERING PROVIDER [id number] 04/13/2021 10:43 EDT US Abdomen Complete MD NAIR MARK ANTHONY CPT code 42225 Reason For Exam (US Abdomen Complete) abdomen [...] JOHN Transcribed Date and Time: 04/13/2021 11:10 [facility] Work Phone: [facility] From [facility] - 04/13/2021 11:10 AM EDT Patient Name: SHARA RIGGS Ultrasound ACCESSION EXAM DATE/TIME PROCEDURE ORDERING PROVIDER [id number] 04/13/2021 10:43 EDT US Abdomen Complete MD NAIR MARK ANTHONY CPT code 10008 Reason For Exam (US Abdomen Complete) abdomen [...] JOHN Transcribed Date and Time: 04/13/2021 11:10 [facility] Work Phone: [facility] Work Phone: US Abdomen Completeon 2020 US Abdomen Complete Patient Name: SHARA RIGGS Ultrasound ACCESSION EXAM DATE/TIME PROCEDURE ORDERING PROVIDER [id number] 04/13/2021 10:43 EDT US Abdomen Complete MD NAIR MARK ANTHONY CPT code 11573 Reason For Exam (US Abdomen Complete) abdomen [...] JOHN Transcribed Date and Time: 04/13/2021 11:10 [facility] 04-12-2021 [facility] Telephone ([facility]) SHARA RIGGS ([id number]) 2 F Date Time Provider Department 04/12/21 CLARI MAGANA [facility] During your visit today, we [...] system [R93.7] Order(s):MRI CERVICAL SPINE WO/W IVCON [[id number]] Order #: [id number] FUTURE iv contrast (will be provided with [...] Status:Closed by TRACY MANCINI MA on 04/12/21 [facility] 04-05-2021 [facility] Telephone (STFLF) SHARA RIGGS ([id number]) 2 F Date Time Provider Department 04/05/21 CLARI MAGANA [facility] During your visit today, we recorded the following information about you: Tianna Swenson 04/05/2021 9:[address] Nair at [facility] wanted to speak directly with Clari. He is aware that Clari is out of the office this week, and declined to speak with a covering provider. He is asking for Clari to give him a call when she returns next week at [phone] Allergies As of Date: 04/05/2021 (No Known Allergies) Date Reviewed: 03/30/2021 Reviewed by: Siomara Hughes Ma - Fully Assessed Reason for Visit: Question [4347] Prescriptions as of 04/05/2021 - predniSONE (DELTASONE) [...] Encounter Status:Closed by TIANNA BRICE on 04/05/21 [facility] 03-31-2021 CNPN Telephone (STFLF) SHARA RIGGS ([id number]) 2 F Date Time Provider Department 03/31/21 CLARI MAGANA [facility] During your visit today, we recorded the following information about you: Clari Magana APRN.CERTIFIED NURSE PRACTITIONER 03/31/2021 8:23 AM Signed Please notify pt [...] Order(s):HEP ACUTE PANEL BL [SQHACUTP] Order #: [id number] FUTURE HEPATIC FUNCTION PNL [SQHFP] Order #: [id number] FUTURE predniSONE (DELTASONE) 50 mgTake 1 tablet [...] Status:Closed by CLARI MAGANA on 03/31/21 Normal [facility] C-Reactive Proteinon 021 C-Reactive Protein 2.7 mg/dL High <0.9 [facility] Comment on above: Performed By: #### C RP, WSR, CMP, CBCDIF ####[facility] [place], [place] [phone] CBC and Differentialon 03-30 Abs Baso 0.04 k/uL Normal <0.11 [facility] Comment on above: Performed By: #### C RP, WSR, CMP, CBCDIF ####[facility] [address] [place], [place] [phone] Abs [place] 0.45 k/uL Normal <0.87 [facility] Comment on above: Performed By: #### C RP, WSR, CMP, CBCDIF ####[facility] [place], [place] [phone] Abs Neut 8.05 k/uL High 1.45-7.50 [facility] Comment on above: Performed By: #### C RP, WSR, CMP, CBCDIF ####[facility] [place], [place] [phone] Absolute nRBC <0.01 Normal <0.01 [facility] Comment on above: Performed By: #### C RP, WSR, CMP, CBCDIF ####[facility] [phone] Basophils/100 WBC (Bld) 0.4 % Normal [facility] Comment on above: Performed By: #### C RP, WSR, CMP, CBCDIF ####[place] [address] [place] [phone] DTYPE Auto Diff Normal [facility] Comment on above: Performed By: #### C RP, WSR, CMP, CBCDIF ####[place] [address] [place] [phone] Eosinophils (Bld) [#/Vol] 0.15 10*3/uL Normal <0.46 [facility] Comment on above: Performed By: #### C RP, WSR, CMP, CBCDIF ####[place] [address] [address] [place] [phone] Eosinophils/100 WBC (Bld) 1.6 % Normal [facility] Comment on above: Performed By: #### C RP, WSR, CMP, CBCDIF ####[place] [address] [place] [phone] Erythrocyte distribution width (RBC) [Ratio] 12.1 % Normal 11.5-15.0 [facility] Comment on above: Performed By: #### C RP, WSR, CMP, CBCDIF ####[place] [address] [place] [phone] Hematocrit (Bld) [Volume fraction] 39.7 % Normal 36.0-46.0 [facility] Comment on above: Performed By: #### C RP, WSR, CMP, CBCDIF ####[place] [address] [place], [place] [phone] Hemoglobin (Bld) [Mass/Vol] 12.6 g/dL Normal 11.5-15.5 [facility] Comment on above: Performed By: #### C RP, WSR, CMP, CBCDIF ####[address] [place], [place] [phone] Lymphocytes (Bld) [#/Vol] 0.67 10*3/uL Low 1.00-4.00 [facility] Comment on above: Performed By: #### C RP, WSR, CMP, CBCDIF ####[place] [address] [place], [place] [phone] Lymphocytes/100 WBC (Bld) 7.2 % Normal [facility] Comment on above: Performed By: #### C RP, WSR, CMP, CBCDIF ####[address] [phone] MCH 29.4 pG Normal 26.0-34.0 [facility] Comment on above: Performed By: #### C RP, WSR, CMP, CBCDIF ####[address] [place], [place] [phone] MCHC (RBC) [Mass/Vol] 31.7 g/dL Normal 30.5-36.0 [facility] Comment on above: Performed By: #### C RP, WSR, CMP, CBCDIF ####[place] [address] [place], [place] [phone] MCV (RBC) [Entitic vol] 92.8 fL Normal 80.0-100.0 [facility] Comment on above: Performed By: #### C RP, WSR, CMP, CBCDIF ####[place] [address] [place], [place] [phone] Monocytes/100 WBC (Bld) 4.8 % Normal [facility] Comment on above: Performed By: #### C RP, WSR, CMP, CBCDIF ####[facility]ClevelWapanucka, [place] [phone] Neutrophils/100 WBC (Bld) 86.0 % Normal [facility] Comment on above: Performed By: #### C RP, WSR, CMP, CBCDIF ####[place] [address]level[address] [place] [phone] NRBCs 0.0 /100 WBC Normal 0 [facility] Comment on above: Performed By: #### C RP, WSR, CMP, CBCDIF ####[place] [address] [place] [phone] Platelet mean volume (Bld) [Entitic vol] 10.1 fL Normal 9.0-12.7 [facility] Comment on above: Performed By: #### C RP, WSR, CMP, CBCDIF ####[place] [address] [place] [phone] Platelets (Bld) [#/Vol] 388 10*3/uL Normal 150-400 [facility] Comment on above: Performed By: #### C RP, WSR, CMP, CBCDIF ####[place] [address] [place] [phone] RBC (Bld) [#/Vol] 4.28 10*6/uL Normal 3.90-5.20 [facility] Comment on above: Performed By: #### C RP, WSR, CMP, CBCDIF ####[facility]ClevelWapanucka, [place] [phone] WBC (Bld) [#/Vol] 9.36 10*3/uL Normal 3.70-11.00 [facility] Comment on above: Performed By: #### C RP, WSR, CMP, CBCDIF ####[facility]ClevelWapanucka, [place] [phone] [facility] 03-30-2021 [facility] Office Visit (STFLF) SHARA RIGGS ([id number]) 2 F Date Time Provider Department 03/30/21 7:00 AM [facility] During your visit today, we recorded the following information about you: Temperature Pulse Respiration Blood pressure 98.4 degrees 89/minute 16/minute 117/73 Weight Height 57.9 kg 1.626 m Clari MaganaAPRN.CERTIFIED NURSE PRACTITIONER 03/30/2021 12:59 PM Signed This note was created using Filement. Subjective Shara Riggs is a 20 year [...] her L shoulder 1 month ago at [facility]. She finished the course of antibiotics and the area is now healed with a small scar. It was never determined what caused the cellulitis. The history is provided by the patient and a parent. No hot wire glass tube cutter was used. Review of Systems Constitutional: Negative [...] membrane normal. Nose: Nose normal. Mouth/Throat: Lips: [place]. Mouth: Mucous membranes are moist. Dentition: Normal [...] Psychiatric: M (more content not included)... Normal [facility] Comp Metabolic Panelon 03-30 Albumin [Mass/Vol] 3.8 g/dL Low 3.9-4.9 [facility] Comment on above: Performed By: #### C RP, WSR, CMP, CBCDIF ####[facility] [address], [place] [phone] ALP [Catalytic activity/Vol] 69 U/L Normal 34-123 [facility] Comment on above: Performed By: #### C RP, WSR, CMP, CBCDIF ####[facility] [address] [place], [place] [phone] ALT [Catalytic activity/Vol] 93 U/L High 7-38 [facility] Comment on above: Performed By: #### C RP, WSR, CMP, CBCDIF ####[facility] [address] [place], [place] [phone] Anion gap [Moles/Vol] 10 mmol/L Normal 9-18 [facility] Comment on above: Performed By: #### C RP, WSR, CMP, CBCDIF ####[facility] [address] [place], [place] [phone] AST [Catalytic activity/Vol] 64 U/L High 13-35 [facility] Comment on above: Performed By: #### C RP, WSR, CMP, CBCDIF ####[place] [address] [phone] Bilirubin [Mass/Vol] 0.3 mg/dL Normal 0.2-1.3 [facility] Comment on above: Performed By: #### C RP, WSR, CMP, CBCDIF ####[place] [address] [phone] Calcium [Mass/Vol] 9.4 mg/dL Normal 8.5-10.2 [facility] Comment on above: Performed By: #### C RP, WSR, CMP, CBCDIF ####[place] [phone] Chloride [Moles/Vol] 103 mmol/L Normal 97-105 [facility] Comment on above: Performed By: #### C RP, WSR, CMP, CBCDIF ####[place] [address] [place] [phone] CO2 [Moles/Vol] 25 mmol/L Normal 22-30 [facility] Comment on above: Performed By: #### C RP, WSR, CMP, CBCDIF ####[place] [address] [phone] Creatinine [Mass/Vol] 0.73 mg/dL Normal 0.58-0.96 [facility] Comment on above: Performed By: #### C RP, WSR, CMP, CBCDIF ####[place] [address] [place] [phone] eGFR- Amer. >60 Normal [facility] Comment on above: Performed By: #### C RP, WSR, CMP, CBCDIF ####[place] [address] [phone] eGFR-All Other Races >60 Normal [facility] Comment on above: Result Comment: eGFR (Estimated [...] By: #### C RP, WSR, CMP, CBCDIF ####[facility], [place] [phone] Glucose [Mass/Vol] 79 mg/dL Normal 74-99 [facility] Comment on above: Result Comment: The [place] Diabetes Association (ADA) provides guidance for cutoff [...] Standards of Medical Care in Diabetes 2016, [place] [employer] Association. Diabetes Care. 2016.39(Suppl 1). Performed By: #### C RP, WSR, CMP, CBCDIF ####[facility] [address] [place], [place] [phone] Potassium [Moles/Vol] 4.2 mmol/L Normal 3.7-5.1 [facility] Comment on above: Performed By: #### C RP, WSR, CMP, CBCDIF ####[facility] [address] [place], [place] [phone] Protein [Mass/Vol] 7.0 g/dL Normal 6.3-8.0 [facility] Comment on above: Performed By: #### C RP, WSR, CMP, CBCDIF ####[place] [address] [place], [place] [phone] Sodium [Moles/Vol] 138 mmol/L Normal 136-144 [facility] Comment on above: Performed By: #### C RP, WSR, CMP, CBCDIF ####[address] [phone] Urea nitrogen [Mass/Vol] 9 mg/dL Normal 7-21 [facility] Comment on above: Performed By: #### C RP, WSR, CMP, CBCDIF ####[place] [address] [place], [place] [phone] Sed Rate Westergrenon 2020 Sed Rate Westergren 41 mm/hr High 0-20 [facility] Comment on above: Performed By: #### C RP, WSR, CMP, CBCDIF ####[address] [phone] CNOVon 03-22-2021 CNOV Office Visit (STFLF) HSARA RIGGS ([id number]) 2 F Date Time Provider Department 03/22/21 8:20 AM CLARI MAGANA [facility] During your visit today, we recorded the following information about you: Temperature Pulse Respiration Blood pressure 99.3 degrees 96/minute 16/minute 111/66 Weight Height 56.7 kg 1.626 m Clari Magana APRN.CERTIFIED NURSE PRACTITIONER 03/22/2021 10:39 AM Addendum This note was created using Filement. Patient presents with: ED Follow-up: ER visit- march 03, 2021- still having pain in shoulder and neck area Subjective Shara Riggs is a 20 year old female. Known pt to the practice. Here today for f/u ER visit [facility] on 03/03 for cellulitis to her [...] history is provided by the patient. No hot wire glass tube cutter was used. Review of Systems Constitutional: Negative [...] canal and external ear normal. Mouth/Throat: Lips: [place]. Mouth: Mucous membranes are moist. Eyes: General: [...] up with newly developing symptoms. Clari Magana APRN.SHWETA Magana APRN.SHWETA 03/22/2021 9:51 AM Addendum Medication as prescribed. Warm, moist heat. Avoid heavy lifting or straining. NECK PAIN: ACTIVITY LIMIT (more content not included)... Normal [facility] CNOVon 03-03-2021 CNOV Office Visit (STFLE) ONEILSHARA ([id number]) 2 F Date Time Provider Department 03/03/21 [...] evaluation/work up. Mom will drive her to [facility]. Report was called. ASSESSMENT/PLAN: 1. Cellulitis of skin - ICD9: 682.9, ICD10: L03.90 (primary diagnosis) 2. Fever, unspecified fever cause - ICD9: 780.60, ICD10: R50.9 3. Tachycardia - ICD9: 785.0, ICD10: R00.0 LAM Mcdonough PA-C 03/03/2021 3:25 PM Signed Go to [facility] ER at [address] Referring Provider: SELF [...] Other instructions from your clinician: Go to [facility] ER at [address] Encounter Status:Closed by TRACIE DIGGS on 03/03/21 Normal [facility] MRI BRAIN WO IVCONon 10-04-2 019 MRI [...] be helpful for further evaluation if warranted. Clinical Dietitian: PSCB Transcribe Date/Time: Jun 20 2019 5:39P Dictated by : IRMA MONTAGUE MD This examination was interpreted and the report reviewed and electronically signed by: IRMA MONTAGUE MD on Jun 20 2019 5:44PM EST Normal [facility] Vital Signs Date Time Vital Sign Value Performing Clinician Facility 12-30-2024 12:50-0400 Body temperature 97.5 [degF] Lisette Conde CNM [facility] 12-30-2024 12:50-0400 Diastolic blood pressure 65 mm[Hg] Lisette Conde CNM Work Phone: [facility] 12-30-2024 12:50-0400 Heart rate 87 /min Lisette Conde CNM Work Phone: [facility] 12-30-2024 12:50-0400 Respiratory rate 16 /min Lisette Conde CNM Work Phone: [facility] 12-30-2024 12:50-0400 SaO2% (BldA) [Mass fraction] 96 % Lisette Conde CNM Work Phone: [facility] 12-30-2024 12:50-0400 Systolic blood pressure 112 mm[Hg] Lisette Conde CNM Work Phone: [facility] 12-30-2024 11:24-0400 Body height 160.02 cm Lisette Conde CNM Work Phone: [facility] 12-30-2024 11:24-0400 Body mass index (BMI) [Ratio] 28.4 kg/m2 Lisette Conde CNM Work Phone: [facility] 12-30-2024 11:24-0400 Body weight 72.8 kg Lisette Conde CNM Work Phone: [facility] 12-29-2024 09:58-0400 Body height 160.02 cm Lisette Conde CNM Work Phone: [facility] 12-29-2024 09:58-0400 Body mass index (BMI) [Ratio] 28.8 kg/m2 Lisette Conde CNM Work Phone: [facility] 12-29-2024 09:58-0400 Body weight 73.7 kg Lisette Conde CNM Work Phone: [facility] 12-29-2024 09:58-0400 Diastolic blood pressure 71 mm[Hg] Lisette Conde CNM Work Phone: [facility] 12-29-2024 09:58-0400 Systolic blood pressure 127 mm[Hg] Lisette Conde CNM Work Phone: [facility] 12-16-2024 11:33-0400 Body height 160.02 cm Lisette Conde CNM Work Phone: [facility] 12-16-2024 11:31-0400 Body mass index (BMI) [Ratio] 28.3 kg/m2 Lisette Conde CNM Work Phone: [facility] 12-16-2024 11:31-0400 Body weight 72.57 kg Lisette Conde CNM Work Phone: [facility] 12-16-2024 11:31-0400 Diastolic blood pressure 72 mm[Hg] Lisette Conde CNM Work Phone: [facility] 12-16-2024 11:31-0400 Systolic blood pressure 126 mm[Hg] Lisette Conde CNM Work Phone: [facility] 12-08-2024 11:25-0400 Body height 160.02 cm Lisette Conde CNM Work Phone: [facility] 12-08-2024 11:25-0400 Body mass index (BMI) [Ratio] 27.8 kg/m2 Lisette Conde CNM Work Phone: [facility] 12-08-2024 11:25-0400 Body weight 71.32 kg Lisette Conde CNM Work Phone: [facility] 12-08-2024 11:25-0400 Diastolic blood pressure 75 mm[Hg] Lisette Conde CNM Work Phone: [facility] 12-08-2024 11:25-0400 Systolic blood pressure 114 mm[Hg] Lisette Conde CNM Work Phone: [facility] 10-18-2022 14:57-0500 Body height 162.6 cm Martha Surace PA-C Work Phone: [facility] 10-18-2022 14:57-0500 Body weight 57.61 kg Martha Surace PA-C Work Phone: [facility] 10-18-2022 14:57-0500 Diastolic blood pressure 74 mm[Hg] Martha Surace PA-C Work Phone: [facility] 10-18-2022 14:57-0500 Systolic blood pressure 116 mm[Hg] Martha Surace PA-C Work Phone: [facility] 06-21-2022 07:59-0400 Body height 162.6 cm Martha Surace PA-C Work Phone: [facility] 06-21-2022 07:59-0400 Body weight 56.25 kg Martha Surace PA-C Work Phone: [facility] 06-21-2022 07:59-0400 Diastolic blood pressure 73 mm[Hg] Martha Surace PA-C Work Phone: [facility] 06-21-2022 07:59-0400 Systolic blood pressure 114 mm[Hg] Martha Surace PA-C Work Phone: [facility] 12-19-2021 08:00-0400 Body height 162.6 cm Navdeep Bolaños DO Work Phone: [facility] 12-19-2021 08:00-0400 Body weight 57.97 kg Navdeep Bolaños DO Work Phone: [facility] 12-19-2021 08:00-0400 Diastolic blood pressure 60 mm[Hg] Navdeep Bolaños DO Work Phone: [facility] 12-19-2021 08:00-0400 Heart rate 70 /min Navdeep Bolaños DO Work Phone: [facility] 12-19-2021 08:00-0400 Systolic blood pressure 98 mm[Hg] Navdeep Bolaños DO Work Phone: [facility] 12-14-2021 09:16-0400 Body height 162.6 cm Johnathan Aguilera MD Work Phone: [facility] 12-14-2021 09:16-0400 Body temperature 98.71 [degF] Johnathan Aguilera MD Work Phone: [facility] 12-14-2021 09:16-0400 Body weight 57.2 kg Johnathan Aguilera MD Work Phone: [facility] 12-14-2021 09:16-0400 Diastolic blood pressure 62 mm[Hg] Johnathan Aguilera MD Work Phone: [facility] 12-14-2021 09:16-0400 Heart rate 80 /min Johnathan Aguilera MD Work Phone: [facility] 12-14-2021 09:16-0400 Respiratory rate 16 /min Johnathan Aguilera MD Work Phone: [facility] 12-14-2021 09:16-0400 SaO2% (BldA) [Mass fraction] 99 % Johnathan Aguilera MD Work Phone: [facility] 12-14-2021 09:16-0400 Systolic blood pressure 104 mm[Hg] Johnathan Aguilera MD Work Phone: [facility] 04-03-2021 00:31-0400 Diastolic blood pressure 70 mm[Hg] [...] 57.15 kg Jemal Viveros DO Work Phone: [employer] Work Phone: Encounters Encounter Date Encounter Type Care Provider Facility Start: 01-13-2025 End: 01-13-2025 ambulatory No Primary Care Physician Facility:[facility] Start: 12-30-2024 ambulatory Bev Clarke cility:[facility] Start: 12-30-2024 Non-patient / Non-visit Dr. Rebel Mandujano DO -[facility] Start: 12-30-2024 End: 12-30-2024 Admission to same day surgery center Dr. Miguelina Ibrahim MD -[facility] Start: 12-30-2024 End: 12-30-2024 ambulatory Lisette Conde CNM Work Phone: [facility] Work Phone: Start: 12-29-2024 End: 12-29-[address] Bev Mandujano DO -[facility] Work Phone: Start: 12-29-2024 End: 12-29-2024 ambulatory No Primary Care Physician Facility:[facility] Start: 12-26-2024 End: 12-26-2024 ambulatory Lisette Conde CNM Work Phone: [facility] Work Phone: Start: 12-26-2024 End: 12-26-[address] Bev Mandujano DO -[facility] Work Phone: Start: 12-26-2024 End: 12-26-2024 ambulatory No Primary Care Physician Facility:[facility] Start: 12-16-2024 End: 12-16-2024 ambulatory Lisette Conde CNM Work Phone: [facility] Work Phone: Start: 12-16-2024 End: 12-16-[address] Bev Mandujano DO -Laboratory Work Phone: Start: 12-16-2024 End: 12-16-[address] Bev Mandujano DO -[facility] Work Phone: Start: 12-16-2024 End: 12-16-2024 ambulatory Bev Mandujano Facility:[facility] Start: 12-16-2024 End: 12-16-2024 ambulatory No Primary Care Physician Facility:[facility] Start: 12-08-2024 End: 12-08-2024 ambulatory Lisette Conde CNM Work Phone: [facility] Work Phone: Start: 12-08-2024 End: 12-08-2024 Patient encounter procedure Lisette Conde CNM -Laboratory, Specimen Work Phone: Start: 12-08-2024 End: 12-08-2024 Patient encounter procedure Lisette Conde CNM -[facility] Work Phone: Start: 12-08-2024 End: 12-08-2024 ambulatory Lisette Conde Facility:[facility] Start: 12-08-2024 End: 12-08-2024 ambulatory Lisette Conde Facility:[facility] Start: 11-12-2024 ambulatory Lisette Conde Facility :[facility] Start: 01-12-2023 Telephone encounter Marthabeckie santiagoace PA-C Work Phone: [facility] Obstetrics & Gynecology Comment on above: Results Start: 01-04-2023 Telephone encounter Martha Dell urace PA-C Work Phone: [facility] Gynecology Comment on above: Orders Start: 10-18-2022 End: 10-18-2022 ambulatory MARTHA MCCANN Facility:[facility] Start: 10-18-2022 End: 10-18-2022 Patient encounter procedure Martha Mccann PA-C Work Phone: [facility] Obstetrics & Gynecology Comment on above: Encounter for initia l prescription of contraceptive pills (Primary Dx) Start: 06-21-2022 End: 06-21-2022 ambulatory MARTHA MCCANN Facility:[facility] Start: 06-21-2022 Encounter for gynecological examination (general) (routine) without abnormal findings MARTHA MCCANN [facility] Start: 06-21-2022 End: 06-21-2022 Patient encounter procedure Martha Mccann PA-C Work Phone: [facility] Obstetrics & Gynecology Comment on above: Encounter for gyneco logical examination (general) (routine) without abnormal findings (Primary Dx); Screening for cervical cancer Start: 06-21-2022 End: 06-21-2022 Patient encounter status Martha Mccann PA-C Work Phone: [facility] Obstetrics & Gynecology Start: 12-19-2021 End: 12-19-2021 Patient encounter procedure Navdeep Bolaños DO Work Phone: Neurology Comment on above: Chronic migraine wit hout aura without status migrainosus, not intractable Start: 12-15-2021 Telephone encounter Johnathan blake MD Work Phone: [facility] Comment on above: clinic note; FYI-No Action Needed Start: 12-14-2021 End: 12-14-2021 Patient encounter procedure Johnathan Aguilera MD Work Phone: [facility] Comment on above: Upper back pain, chr onic (Primary Dx); Positive Lyme disease serology; H/O local infection of skin and subcutaneous tissue; Lyme disease Start: 04-13-2021 End: 04-13-2021 Subsequent hospital visit by physician Lyndon Nair MD Work Phone: [facility] Comment on above: Hepatomegaly; Elevated liver enzymes; Left facial swelling; Supraclavicular fossa fullness, left; Axillary lymphadenopathy, left; Recent left neck skin infection Start: 04-02-2021 End: 04-03-2021 Emergency department patient visit Jemal Viveros DO Work Phone: [facility] Comment on above: Neck pain (Primary D x); Tension headache Start: 02-19-2017 End: 02-20-2017 Emergency department patient visit MEGGAN WALDROP [facility] Procedures Date Procedure Procedure Detail [...] Author Start: 06-21-2025 PAP TESTING PAP TESTING [facility] Start: 12-30-2024 Patient discharge [facility] Start: 12-30-2024 Procedure discontinued [facility] Start: 12-30-2024 Ambulation without limitation [facility] Start: 12-30-2024 Medical regimen orde rs management [facility] Start: 12-30-2024 Medication education [facility] Start: 12-30-2024 Taking patient vital signs [facility] Start: 12-30-2024 Vital signs measurements [facility] Start: 12-30-2024 [facility] Start: 12-08-2024 Liquid based cervica l cytology screening [facility] Start: 03-19-2024 DTaP/Tdap/Td vaccine (7 - Td or Tdap) DTaP/Tdap/Td vaccine (7 - Td or Tdap) [facility] Work Phone: Start: 03-19-2024 Urine microalbumin profile DTA P,TDAP,TD (7 - Td or Tdap) [facility] Start: 05-18-2023 Influenza vaccination INFLUENZ A (Season Ended) [facility] Start: 01-04-2023 End: 03-06-2023 Choriogonadotropin.beta subunit [Units/volume] in Serum or Plasma HCG QUANTITATIVE Lab Routine Secondary amenorrhea Expected: 01/04/2023, Expires: 03/06/2023 [facility] Work Phone: Comment on above: Expected: 01/04/2023 , Expires: 03/06/2023 Start: 01-04-2023 End: 03-06-2023 TYPE + SCREEN TYPE + SCREEN Blood Bank Routine Secondary amenorrhea Expected: 01/04/2023, Expires: 03/06/2023 [facility] Work Phone: Comment on above: Expected: 01/04/2023 , Expires: 03/06/2023 Start: 09-17-2022 [facility] Start: 05-18-2022 Influenza vaccination [facility] Start: 2022 PAP TESTING PAP TESTING [facility] Start: 03-29-2022 Adult depression scr eening assessment DEPRESSION SCREENING [facility] Start: 12-24-2021 COVID-19 VACCINE (3 - Booster for Pfizer series) COVID-19 VACCINE (3 - Booster for Pfizer series) [facility] Start: 09-20-2021 COVID-19 VACCINE (3 - Booster for Pfizer series) COVID-19 VACCINE (3 - Booster for Pfizer series) [facility] Start: 09-17-2021 DEPRESSION [facility]ESSMENT [facility] Start: 05-18-2021 Influenza vaccination [facility] Start: 06-05-2019 MENINGOCOCCAL B: Con cargo services coordinator based on risk (2 of 2 - Risk Bexsero 2-dose series) MENINGOCOCCAL B: Consider based on risk (2 of 2 - Risk Bexsero 2-dose series) [facility] Start: 2019 CHLAMYDIA SCREENING () CH LAMYDIA SCREENING () [facility] Start: 2019 GC (GONORRHEA) SCREE NATY (19-) GC (GONORRHEA) SCREENING () [facility] Start: 2019 HIV SCREENING HIV SCREENING [facility] Start: 2017 Screening for Chlamy alvaro trachomatis Chlamydia screen [facility] Work Phone: Start: 2015 PEDS TO ADULT TRANSI TION ANNUAL ASSESSMENT PEDS TO ADULT TRANSITION ANNUAL ASSESSMENT [facility] Start: 2013 COVID-19 Vaccine (1) COVID-19 Vaccin e (1) [facility] Work Phone: Start: 2013 PEDS TO ADULT TRANSI TION INITIAL DISCUSSION PEDS TO ADULT TRANSITION INITIAL DISCUSSION [facility] Start: 2005 Varicella vaccine (2 of 2 [...] W Auto Different ial panel - Blood [facility] Choriogonadotropin ( test) [Presence] in Serum or Plasma [facility] End: 04-13-2021 CT Soft Tissue Neck WO Contrast [facility] Work Phone: Comment on above: 1 Occurrences starti ng 04/13/2021 until 04/13/2021 Once for 1 Occurrenc es starting 04/13/2021 until 04/13/2021 CT SOFT TISSUE NECK WO CONTRAST CT SOFT TISSUE NECK WO CONTRAST Imaging Routine 04/13/2021 10:31 AM EDT [facility] Work Phone: Hepatitis C antibody measurement [facility] PAP FLUID CERVICAL SCREENING PAP FLUID CERVICAL SCREENING Lab Today Screening for cervical cancer Ordered: 06/21/2022 [facility] Work Phone: Comment on above: Ordered: 06/21/2022 Path report.final Dx Spec [facility] Patient referral [facility] Work Phone: Rubella IgG measurement [facility] Serologic test for syphilis [facility] Transvaginal obstetr ic ultrasonography [facility] End: 04-13-2021 US Abdomen Complete US Abdomen Complete Imaging Routine Hepatomegaly Elevated liver enzymes 1 Occurrences starting 04/13/2021 until 04/13/2021 [facility] Work Phone: Comment on above: 1 Occurrences starti ng 04/13/2021 until 04/13/2021 [facility] Immunizations Immunization Date Immunization Notes Care Provider Fa cility 07-26-2021 COVID-19 vaccine, ag e 12+ yr (PFIZER-BIONTECH - PURPLE TOP) Johnathan Aguilera MD Work Phone: [facility] 07-05-2021 COVID-19 vaccine, ag e 12+ yr (PFIZER-BIONTECH - PURPLE TOP) Johnathan Aguilera MD Work Phone: [facility] 05-08-2019 meningococcal B vacc ine, recombinant, OMV, adjuvanted Johnathan Aguilera MD Work Phone: [facility] 05-08-2019 meningococcal polysaccharide (groups A, C, Y and W-135) diphtheria toxoid conjugate vaccine (MCV4P) Johnathan Aguilera MD Work Phone: [facility] 06-27-2017 human papilloma viru s vaccine, quadrivalent Johnathan Aguilera MD Work Phone: [facility] 09-12-2016 Human Papillomavirus 9-valent vaccine Johnathan Aguilera MD Work Phone: [facility] 07-19-2016 Human Papillomavirus 9-valent vaccine Johnathan Aguilera MD Work Phone: [facility] 07-19-2016 meningococcal polysaccharide vaccine (MPSV4) Johnathan Aguilera MD Work Phone: [facility] 03-19-2014 tetanus toxoid, redu marisa diphtheria toxoid, and acellular pertussis vaccine, adsorbed Johnathan Aguilera MD Work Phone: [facility] Work Phone: 09-23-2009 novel influenza-H1N1 -09, preservative-free, injectable Johnathan Aguilera MD Work Phone: [facility] 08-05-2009 novel influenza-H1N1 -09, preservative-free, injectable Johnathan Aguilera MD Work Phone: [facility] 04-30-2006 diphtheria, tetanus toxoids and acellular pertussis vaccine Johnathan Aguilera MD Work Phone: [facility] 04-30-2006 measles, mumps and rubella virus vaccine Johnathan Aguilera MD Work Phone: [facility] 04-30-2006 poliovirus vaccine, inactivated Johnathan Aguilera MD Work Phone: [facility] 07-14-2002 diphtheria, tetanus toxoids and acellular pertussis vaccine Johnathan Aguilera MD Work Phone: [facility] 07-14-2002 diphtheria, tetanus toxoids and acellular pertussis vaccine, unspecified formulation Johnathan Aguilera MD Work Phone: [facility] 07-14-2002 haemophilus influenz ae type b vaccine, HbOC conjugate Johnathan Aguilera MD Work Phone: [facility] 07-14-2002 measles, mumps and rubella virus vaccine Johnathan Aguilera MD Work Phone: [facility] 07-14-2002 pneumococcal conjuga te vaccine, 7 valent Johnathan Aguilera MD Work Phone: [facility] 07-14-2002 varicella virus vaccine Marielle Aguilera MD Work Phone: [facility] 04-14-2002 pneumococcal conjuga te vaccine, 13 valent Johnathan Aguilera MD Work Phone: [facility] 04-14-2002 pneumococcal conjuga te vaccine, 7 valent Johnathan Aguilera MD Work Phone: [facility] 04-14-2002 poliovirus vaccine, inactivated Johnathan Aguilera MD Work Phone: [facility] 2001 diphtheria, tetanus toxoids and acellular pertussis vaccine Johnathan Aguilera MD Work Phone: [facility] 2001 diphtheria, tetanus toxoids and acellular pertussis vaccine, unspecified formulation Johnathan Aguilera MD Work Phone: [facility] 2001 haemophilus influenz ae type b conjugate and Hepatitis B vaccine Johnathan Aguilera MD Work Phone: [facility] 2001 haemophilus influenz ae type b vaccine, HbOC conjugate Johnathan Aguilera MD Work Phone: [facility] 2001 hepatitis B vaccine, pediatric or pediatric/adolescent dosage Johnathan Aguilera MD Work Phone: [facility] 2001 diphtheria, tetanus toxoids and acellular pertussis vaccine Johnathan Aguilera MD Work Phone: [facility] 2001 diphtheria, tetanus toxoids and acellular pertussis vaccine, unspecified formulation Johnathan Aguilera MD Work Phone: [facility] 2001 haemophilus influenz ae type b vaccine, HbOC conjugate Johnathan Aguilera MD Work Phone: [facility] 2001 pneumococcal conjuga te vaccine, 13 valent Johnathan Aguilera MD Work Phone: [facility] 2001 pneumococcal conjuga te vaccine, 7 valent Johnathan Aguilera MD Work Phone: [facility] 2001 poliovirus vaccine, inactivated Johnathan Aguilera MD Work Phone: [facility] 2001 diphtheria, tetanus toxoids and acellular pertussis vaccine Johnathan Aguilera MD Work Phone: [facility] 2001 diphtheria, tetanus toxoids and acellular pertussis vaccine, unspecified formulation Johnathan Aguilera MD Work Phone: [facility] 2001 haemophilus influenz ae type b conjugate and Hepatitis B vaccine Johnathan Aguilera MD Work Phone: [facility] 2001 haemophilus influenz ae type b vaccine, HbOC conjugate Johnathan Aguilera MD Work Phone: [facility] 2001 hepatitis B vaccine, pediatric or pediatric/adolescent dosage Johnathan Aguilera MD Work Phone: [facility] 2001 pneumococcal conjuga te vaccine, 13 valent Johnathan Aguilera MD Work Phone: [facility] 2001 pneumococcal conjuga te vaccine, 7 valent Johnathan Aguilera MD Work Phone: [facility] 2001 poliovirus vaccine, inactivated Johnathan Aguilera MD Work Phone: [facility] 2001 hepatitis B vaccine, pediatric or pediatric/adolescent dosage Johnathan Aguilera MD Work Phone: [facility] Payers Date Payer Category Payer Self-pay 2024 Unknown [id number] 2021 Unknown ANTHEM BLUE CARD PPO OOS [id number] 2021-Present [phone] [address] [place] [address] PPO [id number] 2021 Unknown ANTHEM BLUE CARD PPO OOS [id number] 2021-Present [phone] [address] [place] [address] PPO [id number] 2020 Unknown [id number] Unknown [id number] Unknown [id number] Unknown [id number] Unknown [id number] Unknown [id number] Unknown [id number] Unknown [id number] Unknown [id number] Unknown [id number] Unknown [id number] Unknown [id number] Social History Date Type Detail Facility Start: 04-02-2021 End: 12-29-2024 Tobacco smoking status [facility] Never smoker [facility] Work Phone: Start: 05-01-2016 End: 04-02-2021 Tobacco use and exposure Never used [facility] History of tobacco use Snuff User [facility] History of tobacco use Chews Tobacco [facility] Start: 2001 Sex Assigned At Not on file [facility] Work Phone: Start: 12-04-2021 End: 12-19-2021 Exposure to SARS-CoV-2 (event) Not sure [facility] Start: 12-14-2021 End: 10-18-2022 Alcohol intake Current non-drinker of alcohol (finding) [facility] Start: 03-29-2021 History SDOH Alcohol Frequency 1 [facility] Start: 03-29-2021 History SDOH Alcohol Std Drinks 98 [facility] Start: 03-29-2021 History SDOH Social Connections Phone 5 [facility] Start: 03-29-2021 History SDOH Social Connections Get Together 2 [facility] Start: 07-13-2021 History SDOH Social Connections Living 8 [facility] Start: 03-29-2021 History SDOH Physica l Activity DPW 7 [facility] Start: 03-29-2021 History SDOH Physica l Activity MPS 3 [facility] Start: 03-29-2021 History SDOH Stress 4 [facility] Start: 12-13-2024 End: 12-30-2024 Sex Female (finding) [facility] Start: 2000 Sex Assigned At Female W [facility] Goals Date Patient Goal Desired Activity /State Mental Status Date Assessment Result Facility 12-30-2024 Cognitive function Voice/Name;Touch/Zaki warner [facility] Work Phone: Clinical Notes 03-03-2021 to 12-30-2024 Note Date & Type Note Facility 12-30-2024 Consult note Note Date/Time December 30, 2024 11:44am [facility] Medical Records Department [address] [place] [address] Pre-Anesthesia Evaluation 12/30/24 1138 MR#: [id number] Acct: [id number] Name: SHARA RIGGS Rep #:[id number] : 2000 24 From: Arik Ngo MD PCP: Care Physician,No Primary Status :[facility] Y Race: C Location: [place] [address] ASA Classification* ASA Classification ASA Classification: 1 [...] 12/30/24 11:12 12/30/24 CHEMISTRY COAG HCG, Quant 62138 mIU/mL (<9 non-preg) H 12/16/24 12:44 Pre-Assessment Diagnosis/Proposed Procedure Planned Operative Procedure(s): HYSTERSCOPY, SUCTION D&C Anesthesia History Anesthesia History - physically impaired teacher: Anesthesia History - physically impaired teacher Hx Hospitalization No 12/29/24 12:36 Any Problems [...] take am of surgery PONV PONV - physically impaired teacher: PONV - physically impaired teacher Female Yes 12/29/24 12:36 HX of Motion [...] 12/30/24 11:24 Respiratory Assessment Respiratory Assessment - physically impaired teacher: Respiratory Tract Infection Hx - physically impaired teacher Hx Respiratory Tract Infection No 12/29/24 12:36 STOP Sleep Apnea STOP Sleep Apnea - physically impaired teacher: STOP Sleep Apnea - physically impaired teacher Hx Hypertension No 12/29/24 12:36 Hx Sleep [...] Tobacco Use History Tobacco Use History - physically impaired teacher: Tobacco Use History - physically impaired teacher Tobacco Use Smoking Status Never smoker 12/29/24 12:36 Hx Tobacco Use No 12/29/24 12:36 Years Smoking Packs Smoked per Day Smoking Cessation Date was within the last 15 years Hx Smoking Cessation Date Hx Smoking Cessation Counseling Hematologic Medial History Hematologic Hx - physically impaired teacher: Hematologic Medical Hx - 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 management 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 Hx of Blood Transfusion No 12/29/24 12:36 [...] confused, unrespo /Reproduction History /Reproductive History - physically impaired teacher: /Reproductive Hx- physically impaired teacher Hx Now Gestational Age (in weeks): EDC: [...] 1 current occupational status: employed 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 12/30/24 1695 <Electronically signed by Arik bunch MD> Date _ Arik Sandhu Signature: Date CC: ~ Signed [facility] Work Phone: 1(865) 522-989304-15-2025 Discharge summary [facility] Medical Records Department [address] [place] [address] Instructions for Home/Discharge Instructions 12/30/24 1148 MR#: [id number] Acct: [id number] Name: SHARA RIGGS Rep #:[id number] : 2000 From: Bev Mandujano DO PCP: Care Physician,No Primary Status :REG [facility] Discharge Instructions Diet Discharge Diet: No restrictions [...] Up With: Bev Mandujano DO When: Call [phone] to schedule appointment. Test Results: Test results from this visit will be discussed in further detail at your follow- up appointment, if applicable. Discharge Plan Admission Attending Provider: Miguelina Ibrahim Primary Care Provider: Care Physician,No Primary Instructions Print Language: Maltese Discharge Orders/Prescriptions Prescriptions: No Action NK Referrals / Follow Up: Care Physician,No Primary [Primary Care Provider] - Disposition Disposition (needs filled in before D/C Order can be placed): Home, Self Care 12/30/24 1148Bev Mandujano DO CC: No Primary Care Physician ~ Signed [facility]04-15-2025 Procedure note [facility] Medical Records Department [address] [place] [address] Operative Report 12/30/24 1230 MR#: [id number] Acct: [id number] Name: SHARA RIGGS Rep #:[id number] : 2000 24 From: Bev Mandujano DO PCP: Care Physician,No Primary Status :[facility] Location: [address] Select Codes Urinary/Genital Urinary/Genital CPT Codes: 16304 Surg Trtmt missed Ab 1TM Operative Report (Standard) Operative Information Date of Procedure: 12/30/24 Pre-Operative Diagnosis: 7 weeks missed Post-Operative Diagnosis: 7 weeks missed Surgery/Procedure Performed: 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: No Type of Anesthesia: MAC and Topical [...] Ibrahim MD; No Primary Care Physician~ Signed [facility]04-15-2025 History and physical note [facility] Medical Records Department [address] [place] [address] History & Physical Exam 12/30/24 1148 MR#: [id number] Acct: [id number] Name: SHARA RIGGS Rep #:[id number] : 2000 24 From: Bev Mandujano DO PCP: Care Physician,No Primary Status :[facility] Location: [place] [address] History and Physical Date of Admission: 12/30/24 Intake Vital Signs 12/16/2510:33 12/29/2508:58 Height 5 ft 3 in 5 ft 3 in Weight: 162 lb 8 oz BMI 28.8 BP 127/71 H Intake Visit Reasons: Discuss miscarriage Telegraph Inspector Required: No Is patient in pain?: No Allergies No Known Allergies Allergy (Verified 12/29/24 12:35) Medications ?Medication ?Instructions ?Recorded ?Confirmed ?Type NK 12/29/24 12/29/24 History Post menopausal: No : [facility] (Updated 12/29/24 @ 12:42 by Mariah Coley) Wears partial dentures History of Lyme disease Wears glasses Non-smoker Migraine Family History Mother Diabetes Type 2Grandmother Diabetes Maternal Type 2 Social History adopted: No household members: spouse and children number of children: 1 current occupational status: employed 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 current occupational exposures/hazards: No pets and animals: [...] physical activity do you participate in: none vinh/yazdanism: None seatbelt use: always do you feel safe at home: Yes additional social history: - Alvaro Gamer at [employer]( Served in the [employer]) HPI Discuss miscarriage Details: SHARA RIGGS is [...] live - full term 7#14oz Ma le [facility], [place] Alvaro Delivery Date: 09/12/23 Last Updated by: [...] Mandujano, DO; No Primary Care Physician~ Signed [facility]04-15-2025 [facility] Medical Records Department [address] [place] [address] History Physical Exam 12/30/24 1148 MR#: [id number] Acct: [id number] Name: SHARA RIGGS Rep #: [id number] : 2000 24 From: Bev Mandujano DO PCP: Care Physician,No Primary Status:[facility] Location: [place] [address] History and Physical Date of Admission: 12/30/24 Intake Vital Signs 12/16/2510:33 12/29/2508:58 Height 5 ft 3 in 5 ft 3 in Weight: 162 lb 8 oz BMI 28.8 BP 127/71 H Intake Visit Reasons: Discuss miscarriage Telegraph Inspector Required: No Is patient in pain?: No Allergies No Known Allergies Allergy (Verified 12/29/24 12:35) Medications ???Medication ???Instructions ???Recorded ???Confirmed ???Type NK 12/29/24 12/29/24 History Post menopausal: No : No [facility] History (Updated 12/29/24 @ 12:42 by Mariah Coley) Wears partial dentures History of Lyme disease Wears glasses Non-smoker Migraine Family History Mother Diabetes Type 2Grandmother Diabetes Maternal Type 2 Social History adopted: No household members: spouse and children number of children: 1 current occupational status: employed 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 current occupational exposures/hazards: No pets and animals: [...] physical activity do you participate in: none vinh/yazdanism: None seatbelt use: always do you feel safe at home: Yes additional social history: - Alvaro Gamer at [employer]( Served in the [employer]) HPI Discuss miscarriage Details: SHARA RIGGS is [...] live - full term 7#14oz Male epidur [facility], [place] Al[place]o Delivery Date: 09/12/23 Last Updated by: [...] Bev Mandujano, DO; No Primary Care Physician [facility] Consult note [facility] Medical Records Department [address] [place] [address] Pre-Anesthesia Evaluation 12/30/24 1138 MR#: [id number] Acct: [id number] Name: SHARA RIGGS Rep #:[id number] : 2000 24 From: Arik Ngo MD PCP: Care Physician,No Primary Status :REG [facility] Y Race: C Location: [place] [address] ASA Classification* ASA Classification ASA Classification: 1 [...] 12/30/24 11:12 12/30/24 CHEMISTRY COAG HCG, Quant [id number] mIU/mL (<9 non-preg) H 12/16/24 12:44 Pre-Assessment Diagnosis/Proposed Procedure Planned Operative Procedure(s): HYSTERSCOPY, SUCTION D&C Anesthesia History Anesthesia History - physically impaired teacher: Anesthesia History - physically impaired teacher Hx Hospitalization No 12/29/24 12:36 Any Problems [...] take am of surgery PONV PONV - physically impaired teacher: PONV - physically impaired teacher Female Yes 12/29/24 12:36 HX of Motion [...] 12/30/24 11:24 Respiratory Assessment Respiratory Assessment - physically impaired teacher: Respiratory Tract Infection Hx - physically impaired teacher Hx Respiratory Tract Infection No 12/29/24 12:36 STOP Sleep Apnea STOP Sleep Apnea - physically impaired teacher: STOP Sleep Apnea - physically impaired teacher Hx Hypertension No 12/29/24 12:36 Hx Sleep [...] Tobacco Use History Tobacco Use History - physically impaired teacher: Tobacco Use History - physically impaired teacher Tobacco Use Smoking Status Never smoker 12/29/24 12:36 Hx Tobacco Use No 12/29/24 12:36 Years Smoking Packs Smoked per Day Smoking Cessation Date was within the last 15 years Hx Smoking Cessation Date Hx Smoking Cessation Counseling Hematologic Medial History Hematologic Hx - physically impaired teacher: Hematologic Medical Hx - information management officer Hx of Blood Transfusion No 12/29/24 12:36 [...] confused, unrespo /Reproduction History /Reproductive History - physically impaired teacher: /Reproductive Hx- physically impaired teacher Hx Now Gestational Age (in weeks): EDC: [...] 1 current occupational status: employed 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 12/30/24 1144 alivia ABRAMS> Date _ Arik Ngo MD Cosign Signature: Date CC: ~ Signed [facility]04-13-2025 Radiology Diagnostic study note [facility] Imaging Services [address] [place] [address] Transvaginal w/Preg US MR#: [id number] Acct: [id number] Name: SHARA RIGGS Rep #: [id number] : 2000 F 24 From: Frandy Oscar MD PCP: Care Physician,No Primary Status: REG CLI Study:Transvaginal w/Preg US Date of Exam: 12/26/24 Exam# [id number] Ordering Dr: Bev Milan DO PROCEDURE: TRANSVAGINAL [...] 3. No cardiac activity seen. Reading [facility] CC: Dr. Bev Mandujano DO; No Primary Care Physician ~ Clinical Dietitian: Signed [facility]03-24-2025 NotePap Smear Specimen AdequacyMarch 2024 11:59pmComment.Satisfactory for evaluation. Endocervical and/or squamous metaplasticcells (endocervical component)are present.[facility] A#[id number] on above:Satisfactory for evaluation. Endocervical and/or squamous metaplasticcells (endocervical component)are present.12-08-2024 NotePap Smear Specimen AdequacyMarch 2024 11:59pmComment.Satisfactory for evaluation. Endocervical and/or squamous metaplasticcells (endocervical component)are present.[facility] A#[id number] on above:Satisfactory for evaluation. Endocervical and/or squamous metaplasticcells (endocervical component)are present.12-08-2024 NotePap Smear Specimen AdequacyMar 2024 11:59pmComment.Satisfactory for evaluation. Endocervical and/or squamous metaplasticcells (endocervical component)are present.[facility]ACED A#[id number] HospitalComment on above:Satisfactory for evaluation. Endocervical and/or squamous metaplasticcells (endocervical component)are present.12-08-2024 Evaluation note* Diagnosis Onset Date Resolution Status Admit Date Hx of depression, currently acute December 08 11:14am Lyme disease acute December 08, 2024 11:14am Maternal varicella, non-immune acute December 08, 2024 11:14am acute December 08 11:14am Supervision of high-risk acute December 08, 2024 11:14am [facility] Work Phone: 1(326) 627-183403-24-2025 Evaluation note* Diagnosis Onset Date Resolution Status Admit Date Hx of depression, currently acute December 08 11:14am Lyme disease acute December 08, 2024 11:14am Maternal varicella, non-immune acute December 08, 2024 11:14am acute December 08 11:14am Supervision of high-risk acute December 08, 2024 11:14am Missed acute December 11:28am [facility] Work Phone: 1(185) 305-606203-24-2025 Evaluation note* Diagnosis Onset Date Resolution Status Admit Date Hx of depression, currently acute December 08, 025 11:14am Lyme disease acute December 08, 2024 11:14am Maternal varicella, non-immune acute December 08, 2024 11:14am acute December 08 11:14am Supervision of high-risk acute December 08, 2024 11:14am Missed acute December 11:28am Missed acute December 9:45am [facility] Work Phone: 1(518) 346-472804-28-2023 Miscellaneous Notes* Telephone Encounter - Mary Palafox RN - 01/12/2023 2:29 PM EDT LMTCO for results ----- Message from Martha Mccann PA-C sent at 01/12/2023 1:36 PM EDT ----- Positive . Ok to schedule OB intake and US visit. Orders placed for US. Could we let her know? Thanks! Martha Mccann PA-C documented in this encounterMer[facility]04-20-2023 Miscellaneous Notes* Telephone Encounter - Monica Cohen RN - 01/04/2023 2:05 PM EDT Pos HT. LMP 3.7. HCG and T&S pended. Thanks, Monica Cohen RN documented in this encounterMercy [facility]02-01-2023 NoteHNO ID: [id number] Author: Martha Mccann PA-C Service: ? Author Type: Physician Cert Pharmacy Tech Type: Progress Notes Filed: 10/18/2022 5:06 PM [...] L0 SAB0 IAB0 Ectopic0 Multiple0 Live Births0 Security Officer Supervisor History LMP: 10/16/2022 (Exact Date), Having periods Age at Menarche: 13 Age at First : Age at Menopause: Security Officer Supervisor History Comments: Sexual Activity: Yes; Male Contraception: [...] L0 SAB0 IAB0 Ectopic0 Multiple0 Live Births0 Security Officer Supervisor History LMP: 10/16/2022 (Exact Date), Having periods Age at Menarche: 13 Age at First : Age at Menopause: Security Officer Supervisor History Comments: Sexual Activity: Yes; Male Contraception: [...] Low Martha Mccann PA-C documented in this encounterMercy [facility]10-05-2022 NoteHNO ID: [id number] Author: Martha Mccann PA-C Service: ? Author Type: Physician Cert Pharmacy Tech Type: Progress Notes Filed: 06/21/2022 8:28 AM [...] L0 SAB0 IAB0 Ectopic0 Multiple0 Live Births0 Security Officer Supervisor History LMP: 06/09/2022 (Exact Date), Having periods Age at Menarche: 13 Age at First : Age at Menopause: Security Officer 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 Some [...] should be done every 3 years from [id number]. From age 30-65, pap smears can be [...] hormonal IUD s cause periods to be rental clerk tool and equipment and some women will have spotting or [...] contraception -- also called Plan B , Mariza , Next Choice or referred to as [...] use. www.CDC.gov. Updated 01/04 documented in this encounterMercy Health [facility] Hospital10-05-2022 History of Present illness Narrative* Martha Mccann [...] L0 SAB0 IAB0 Ectopic0 Multiple0 Live Births0 Security Officer Supervisor History LMP: 06/09/2022 (Exact Date), Having periods Age at Menarche: 13 Age at First : Age at Menopause: Security Officer Supervisor History Comments: Sexual Activity: Yes; No partner [...] external genitalia normal, normal Bartholin's glands, urethra, Crossgate's glands, no vulvar lesions, no cervical lesions, [...] needed Martha Mccann PA-C documented in this encounterMercy Health [facility] Hospital04-04-2022 NoteHNO ID: [id number] Author: Navdeep Bolaños, DO Service: ? Author [...] which included preparing to see the patient, [id number] patient care, performing a medically appropriate examination, completing clinical documentation, and on counseling/educating the patient/family. 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 She is [...] sob. (On VPA and Maxalt 10 mg TEXTILE SCREEN MAKER - no longer on TPM) ID 12/14/2021 [...] sleep: + 2 d (more content not included)...[facility] 12-19-2021 Instructions* Patient Instructions* Navdeep Bolaños DO [...] #2 in the am If tolerataing [facility]ola[facility] for a new [...] Return 3 months Call or message thru Sina Weibobernardino if there are problems/questions documented in this encounterMercy Health [facility] Hospital04-04-2022 History of Present illness Narrative* Navdeep Bolaños [...] which included preparing to see the patient, [id number] patient care, performing a medically appropriate examination, completing clinical documentation, and on counseling/educating the patient/family. 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 She is [...] sob. (On VPA and Maxalt 10 mg TEXTILE SCREEN MAKER - no longer on TPM) ID 12/14/2021 [...] Strong odors: - Food: hot dogs/sausage/leroy/MSG - Qatari food, artificial sweeteners: - Alcohol: - Missed meals: + Stress: + Changes in weather: + Exercise - too much/not enough: na Change in position: - Cough/Valsalva/strain/laughing: + Menstrual cycles: - Perimenopausal symptoms: Symptomatic medications: Maxalt 10 mg TEXTILE SCREEN MAKER per pcp Number of times used: 7 [...] Allergies Current Outpatient Medications Medication Sig rizatriptan (MAXALT-TEXTILE SCREEN MAKER) 10 mg disintegrating tablet Take 1 tablet [...] equal Proptosis: - Fundoscopic exam: discs: nl 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 documented in this encounterMercy Health [facility] Hospital03-31-2022 Miscellaneous Notes* Telephone Encounter - VIVIANA Metz - 12/15/2021 1:06 PM EDT Faxed chart notes to Dr Shabana Jules's office [phone] * Telephone Encounter - Johnathan Aguilera MD - 12/15/2021 11:09 AM EDT Please fax a copy of my note from 12/[address] Jules. Thanks documented in this encounterMercy Health Kings Mills Hospital03-30-2022 NoteHNO ID: [id number] Author: Johnathan Aguilera MD Service: ? Author [...] elevated at 22.2. Grew up in [place]. No history of travel. 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 No outdoor activities. Likes to stay indoors. [...] Current Outpatient Medications Medication Sig - rizatriptan (MAXALT-TEXTILE SCREEN MAKER) 10 mg disintegrating tablet Take 1 tablet [...] supraclavicular area with only (more content not included)...[facility]03-30-2022 Instructions* Patient Instructions* Johnathan Aguilera MD - 12/14/2021 9:54 AM EDT To go to Lab for blood draws documented in this encounterMercy Health [facility]03-30-2022 History of Present illness Narrative* Johnathan Aguilera [...] elevated at 22.2. Grew up in [place]. No history of travel. 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 No outdoor activities. Likes to stay indoors. [...] MEDICATIONS: Current Outpatient Medications Medication Sig rizatriptan (MAXALT-TEXTILE SCREEN MAKER) 10 mg disintegrating tablet Take 1 tablet [...] Please consider referring this patient to a event specialist food demonstrator for this chronic pain in the upper [...] your patient. SIGNATURE: Johnathan Aguilera MD Pager [phone] PATIENT NAME: Shara Riggs DATE: December 14, 2021 TIME: 9:12 AM documented in this encounterMercy Health [facility] Hospital03-08-2022 NoteHNO ID: [id number] Author: Warren Jules MD Service: ? Author [...] updated today in the History tab of [facility]. Current Medications and allergies reviewed. ACTIVE [...] alekseyalt - CONSULT TO NEUROLOGY Warren Jules, [facility]09-11-2021 NoteHNO ID: [id number] Author: Gena Glasgow PA-C Service: ? Author Type: Physician Cert Pharmacy Tech Type: Progress Notes Filed: 05/28/2021 9:05 PM [...] ear normal. Nose: Nose normal. Mouth/Throat: Lips: [place]. No lesions. Mouth: Mucous membranes are moist. [...] this reason. Patient will (more content not included)...[facility]08-17-2021 NoteHNO ID: [id number] Author: Warren Jules MD Service: ? Author [...] updated today in the History tab of [employer]. Current Medications and allergies reviewed. ACTIVE PROBLEM [...] - CONSULT TO INFECTIOUS DISEASES Warren Jules [facility]07-14-2021 NoteHNO ID: [id number] Author: Clari Magana APRN.CERTIFIED NURSE PRACTITIONER Service: ? Author Type: Nurse Practitioner Type: Progress Notes Filed: 03/30/2021 12:59 PM Note Text: This note was created using Fidel[employer] Systems[employer]. Subjective Shara Riggs is a 20 year [...] her L shoulder 1 month ago at [facility] ER. She finished the course of antibiotics and the area is now healed with a small scar. It was never determined what caused the cellulitis. The history is provided by the patient and a parent. No hot wire glass tube cutter was used. Review of Systems Constitutional: Negative [...] membrane normal. Nose: Nose normal. Mouth/Throat: Lips: [place]. Mouth: Mucous membranes are moist. Dentition: Normal [...] has not been febrile. (more content not included)...[facility]07-06-2021 NoteHNO ID: [id number] Author: Clari Magana APRN.CERTIFIED NURSE PRACTITIONER Service: ? Author Type: Nurse Practitioner Type: Progress Notes Filed: 03/22/2021 10:39 AM Note Text: This note was created using [employer] Systems[employer]. Patient presents with: ED Follow-up: ER visit- march 03, 2021- still having pain in shoulder and neck area Subjective Shara Riggs is a 20 year old female. Known pt to the practice. Here today for f/u ER visit [facility] [place] [facility] on 03/03 for cellulitis to her [...] history is provided by the patient. No hot wire glass tube cutter was used. Review of Systems Constitutional: Negative [...] canal and external ear normal. Mouth/Throat: Lips: [place]. Mouth: Mucous membranes are moist. Eyes: General: [...] up with newly developing symptoms. Clari Magana APRN.[facility]06-17-2021 NoteHNO ID: [id number] Author: Tracie Diggs PA-C Service: ? Author Type: Physician Cert Pharmacy Tech Type: Progress Notes Filed: 03/03/2021 3:32 PM [...] evaluation/work up. Mom will drive her to [place] ER. Report was called. ASSESSMENT/PLAN: 1. Cellulitis of skin - ICD9: 682.9, ICD10: L03.90 (primary diagnosis) 2. Fever, unspecified fever cause - ICD9: 780.60, ICD10: R50.9 3. Tachycardia - ICD9: 785.0, ICD10: R00.0 [facility] summary Author [facility] Note Date/Time December 30, 2024 1:3 8pm [facility] Medical Records Department [address] [place] [address] Instructions for Home/Discharge Instructions 12/30/24 1148 MR#: [id number] Acct: [id number] Name: SHARA RIGGS Rep #:[id number] : [...] Up With: Bev Mandujano DO When: Call [phone] to schedule appointment. Test Results: Test results from this visit will be discussed in further detail at your follow- up appointment, if applicable. Discharge Plan Admission Attending Provider: Miguelina Ibrahim Primary Care Provider: Care Physician,No Primary Instructions Print Language: Maltese Discharge Orders/Prescriptions Prescriptions: No Action NK Referrals / Follow Up: Care Physician,No Primary [Primary Care Provider] - Disposition Disposition (needs filled in before D/C Order can be placed): Home, Self Care 12/30/24 1148<Electronically signed by Bev Mandujano DO>Bev Mandujano DO CC: No Primary Care Physician ~ [facility] Work Phone: Evaluation note* Diagnosis Neck pain- Primary Cervicalgia Tension headache documented in this encounter [employer] Work Phone: Evaluation note* Diagnosis Hepatomegaly Elevated [...] and subcutaneous tissue documented in this encounter [employer] Work Phone: Evaluation note* Diagnosis Upper back pain, chronic- Primary Backache, unspecified Positive Lyme disease serology Other and unspecified nonspecific immunological findings H/O local infection of skin and subcutaneous tissue Personal history of diseases of skin and subcutaneous tissue Lyme disease documented in this encounter [facility]* Diagnosis Chronic migraine without aura without status migrainosus, not intractable Chronic migraine without aura, without mention of intractable migraine without mention of status migrainosus documented in this encounter [facility] HospitalEvaluation [facility]* Diagnosis Encounter for gynecological examination (general) (routine) without abnormal findings- Primary Screening for cervical cancer Screening for malignant neoplasm of the cervix documented in this encounter [facility]Evaluation [facility]* Diagnosis Encounter for initial prescription of contraceptive pills- Primary General counseling for prescription of oral contraceptives documented in this encounter [facility]* Diagnosis Secondary amenorrhea- Primary Absence of menstruation documented in this encounter [facility] HospitalHistory and physical note Author [facility] Note Date/Time December 30, 2024 11: 50am [facility] Medical Records Department [address] [place] [address] History & Physical Exam 12/30/24 1148 MR#: [id number] Acct: [id number] Name: SHARA RIGGS Rep #:[id number] : 2000 24 From: Bev Mandujano DO PCP: Care Physician,No Primary Status :[facility] Location: [place] [address] History and Physical Date of Admission: 12/30/24 Intake Vital Signs 12/16/2510:33 12/29/2508:58 Height 5 ft 3 in 5 ft 3 in Weight: 162 lb 8 oz BMI 28.8 BP 127/71 H Intake Visit Reasons: Discuss miscarriage Telegraph Inspector Required: No Is patient in pain?: No [...] 1 current occupational status: employed 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 current occupational exposures/hazards: No pets and animals: [...] physical activity do you participate in: none vinh/yazdanism: None seatbelt use: always do you feel safe at home: Yes additional social history: - Alvaro 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 documented in this [facility] Work Phone: Reason for referral (narrative)No reason for referral information availableWWVUMedicine [facility] Work Phone: Summary Purpose Family History No Family History Records Found Relationship Condition Age at Onset Recorded Date/T brando mother Diabetes mellitus Unknown grandmother Diabetes mellitus Unknown Advance Directives No Advanced Directives Records FoundDocuments on File Type Date Recorded Patient Resident Care Manager Rn Expl anation Advance Directive(s) 03/03/2021 4:30 PM Advance Directive Response Recorded Date/ Time Living Will No December 29, 2024 12:36pm Do you have a Healthcare Power of Tungsten Tender? No December 29, 2024 12:36pm Reason for Referral Status Reason Specialty Diagnoses / Procedures Referred By Contact Referred To Contact Open Specialty Services Required Orthopedic Surgery: Spine Surgery / Orthopedic Surgery Diagnoses Neck pain Pallzaira, Jemal Tatum DO [address] [place] [address] [place] [place] [address] [address] [place] [address] Scheduling Instructions [facility] [address] , [address] [place] [address] Status Reason Specialty Diagnoses / Procedures Referre d By Contact Referred To Contact Closed Radiology Diagnoses Left facial swelling Supraclavicular fossa fullness Axillary lymphadenopathy Skin infection Procedures CT Soft Tissue Neck WO Contrast Lyndon Nair MD [address] [place] [address] Status Reason Specialty Diagnoses / Procedures Referre d By Contact Referred To Contact Closed Radiology Diagnoses Hepatomegaly Elevated liver enzymes Procedures US Abdomen Complete Lyndon Nair MD [address] [place] [address] Chief Complaint and Reason for Visit Chief [...] section and content) DATE CREATED AUTHOR 03/13/2018 [facility] DATE CREATED AUTHOR AUTHOR'S ORGANIZ ATION 06/24/2019 [facility] DATE CREATED AUTHOR AUTHOR'S ORGANIZ ATION 04/15/2021 [facility] DATE CREATED AUTHOR AUTHOR'S ORGANIZ ATION 12/20/2021 [facility] DATE CREATED AUTHOR AUTHOR'S ORGANIZ ATION 01/05/2023 [facility] DATE CREATED AUTHOR AUTHOR'S ORGANIZ ATION [facility] Reason for Visit (unrecogniz ed section and content) Reason Comments Neck Pain Back Pain Status Reason Specialty Diagnoses / Procedures Referre d By Contact Referred To Contact Closed Radiology Diagnoses Left facial swelling Supraclavicular fossa fullness Axillary lymphadenopathy Skin infection Procedures CT Soft Tissue Neck WO Contrast Joanie, Lyndon, MD [address] [place] [address] Reason Comments clinic note FYI-No Action Needed Reason Comments Infection Follow Up Lyme disease Specialty Diagnoses / Procedures Referred By Contac t Referred To Contact Infectious Diseases Diagnoses Lyme disease Procedures CONSULT TO INFECTIOUS DISEASES NEW PATIENT VISIT LEVEL 5 Warren Jules MD [address] [address] Referral ID Status Reason Start Date Expiration Date V isits Requested Visits Authorized [id number] Closed PCP Requested Referral 05/03/2021 05/03/2022 1 1 Reason Comments New Patient migraines Specialty Diagnoses / Procedures Referred By Contac t Referred To Contact Neurology Diagnoses Chronic migraine without aura without status migrainosus, not intractable Procedures CONSULT TO NEUROLOGY OFFICE/OUTPATIENT NEW HIGH MDM 60-74 MINUTES Warren Jules MD [address] [place] [address] Referral ID Status Reason Start Date Expiration Date V isits Requested Visits Authorized [id number] Closed PCP Requested Referral 11/22/2021 11/22/2022 1 [...] dose 2229 (Given - Provider: Porsche Beard, RFANKI) Source Comments (unrecognize d section and content) In the event this informatio n is protected by the Federal Confidentiality of Alcohol and Drug Abuse Patient Records regulations: The Federal rules restrict any use of the information to criminally investigate or prosecute any alcohol or drug abuse patient.[facility] HospitalIn the event this information is protected by the Federal Confidentiality of Alcohol and Drug Abuse Patient Records regulations: The Federal rules restrict any use of the information to criminally investigate or prosecute any alcohol or drug abuse patient.[facility] HospitalIn the event this information is protected by the Federal Confidentiality of Alcohol and Drug Abuse Patient Records regulations: The Federal rules restrict any use of the information to criminally investigate or prosecute any alcohol or drug abuse patient.[facility] HospitalIn the event this information is protected by the Federal Confidentiality of Alcohol and Drug Abuse Patient Records regulations: The Federal rules restrict any use of the information to criminally investigate or prosecute any alcohol or drug abuse patient.[facility] HospitalIn the event this information is protected by the Federal Confidentiality of Alcohol and Drug Abuse Patient Records regulations: The Federal rules restrict any use of the information to criminally investigate or prosecute any alcohol or drug abuse patient.[facility] HospitalIn the event this information is protected by the Federal Confidentiality of Alcohol and Drug Abuse Patient Records regulations: The Federal rules restrict any use of the information to criminally investigate or prosecute any alcohol or drug abuse patient.[facility] HospitalIn the event this information is protected by the Federal Confidentiality of Alcohol and Drug Abuse Patient Records regulations: The Federal rules restrict any use of the information to criminally investigate or prosecute any alcohol or drug abuse patient.[facility] Care Teams (unrecognized sec tion and content) Clothing Designer Relationship Specialty Start Date End Date Warren Jules MD [address] [address] PCP - General Family Practice 06/06/19 Clothing Designer Relationship Specialty Start Date End Date Warren Jules MD [address] [address] PCP - General Family Practice 06/06/19 Clothing Designer Relationship Specialty Start Date End Date Warren Jules MD [address] [address] PCP - General Family Practice 06/06/19 Clothing Designer Relationship Specialty Start Date End Date Warren Jules MD [address] [address] PCP - General Family Medicine 06/06/19 Clothing Designer Relationship Specialty Start Date End Date Jorge AWarren lopez MD [address] [place] [address] PCP - General Family Medicine 06/06/19 Clothing Designer Relationship Specialty Start Date End Date Warren Jules MD [address] [place] [address] PCP - General Family Medicine 06/06/19 Clothing Designer Relationship Specialty Start Date End Date Warren Jules MD [address] [place] [address] PCP - General Family Medicine 06/06/19 Team [...] Status: Inactive Member Role Status Dates Dr. Bev Mandujano DO Attending Provider Activ [...] BE BASED ON THE PRIMARY CLINICAL RECORDS. [employer] provides no warranty or guarantee of the accuracy or completeness of information in this document.
[2025-09-11 09:31] LABS: hCG Titer Quant., Serum 432 mIU/mL (<9 non-preg)
== END | disposition home or self-care (01) ==
LOC: LAB 08:11
PROVIDERS: Referring Provider Student in an Organized Health Care Education/Training Program; Visit Provider Student in an Organized Health Care Education/Training Program
DX: O20.0 Threatened abortion (principal); Z3A.00 Weeks of gestation of pregnancy not specified
CPT/HCPCS: 36415; 84702